=== PATIENT | male | born 1945 | race Caucasian/White ===

== ENCOUNTER → 2016-10-11 | Outpatient (CLI) | payer OTHER, MEDICARE ==
--- NOTE | 2016-10-11 17:02 | DIAGNOSTIC IMAGING REPORT ---
CHEST 2 VIEWS ROUTINE CLINICAL HISTORY: Bronchitis. Shortness of breath. COMPARISON STUDY: 10/26/2015 FINDINGS: The cardiac and mediastinal contours are normal. There is no evidence of focal pulmonary consolidation. There is no evidence of failure. No pleural effusions are visualized.[ There is a mild T12 compression deformity. This remains unchanged. IMPRESSION: No active disease in the chest. Electronically signed by: Matt Gurrola M.D. 10/11/2016 5:01 PM Dictated Date/Time: 10/11/2016 5:00 PM
== END | disposition home or self-care (01) ==
LOC: C.RAD 16:33
PROVIDERS: ATTEND Internal Medicine
DX: J40 Bronchitis, not specified as acute or chronic (principal)

== ENCOUNTER → 2016-11-03 | Outpatient (CLI) | payer OTHER, MEDICARE ==
[2016-11-03 13:26] LABS: BLOOD UREA NITROGEN 16 mg/dl (7-18); BUN/CREATININE RATIO 10.7 (10-20); CARBON DIOXIDE 28 mmol/L (21-32); CHLORIDE 107 mmol/L (98-107); GLUCOSE 160 mg/dl (70-99); POTASSIUM 4.1 mmol/L (3.5-5.1); SODIUM 142 mmol/L (136-145)
[2016-11-03 13:29] LABS: ESTIMATED AVERAGE GLUCOSE 140 mg/dl; HA1C FLAG Normal (Normal)
[2016-11-03 13:46] LABS: CHOLESTEROL 127 mg/dl (0-200); CHOLESTEROL/HDL RATIO 2.7; HDL CHOLESTEROL 47 mg/dl; TRIGLYCERIDES 125 mg/dl (0-150); VERY LOW DENSITY LIPOPROT CALC 25 mg/dl
[2016-11-03 14:39] LABS: CALCIUM 9.3 mg/dl (8.5-10.1)
== END ==
LOC: C.LABSPEC 12:07
PROVIDERS: ATTEND Internal Medicine
DX: I10 Essential (primary) hypertension (principal); E78.5 Hyperlipidemia, unspecified; R73.9 Hyperglycemia, unspecified; N18.9 Chronic kidney disease, unspecified

== ENCOUNTER → 2017-05-05 | Outpatient (CLI) | payer OTHER, MEDICARE ==
[2017-05-05 13:36] LABS: ALT/SGPT 37 U/L (12-78); AST/SGOT 23 U/L (15-37); BLOOD UREA NITROGEN 19 mg/dl (7-18); BUN/CREATININE RATIO 12.6 (10-20); CALCIUM 8.3 mg/dl (8.5-10.1); CARBON DIOXIDE 27 mmol/L (21-32); CHLORIDE 107 mmol/L (98-107); CHOLESTEROL 171 mg/dl (0-200); CHOLESTEROL/HDL RATIO 3.5; GLUCOSE 139 mg/dl (70-99); HDL CHOLESTEROL 49 mg/dl; SODIUM 140 mmol/L (136-145)
[2017-05-05 13:41] LABS: ALB/GLOB RATIO 1.4 (0.9-2); ALKALINE PHOSPHATASE 66 U/L (45-117); ESTIMATED AVERAGE GLUCOSE 137 mg/dl; HA1C FLAG Normal (Normal); TRIGLYCERIDES 180 mg/dl (0-150); VERY LOW DENSITY LIPOPROT CALC 36 mg/dl
[2017-05-05 14:01] LABS: BASO % 0.7 %; BASO ABS # 0.04 K/uL (0-0.2); COMPLETE YES; EOS % 3.5 %; HEMATOCRIT 40.9 % (42-52); IG% 0.2 %; LYMPH % 20.5 %; LYMPH ABS # 1.11 K/uL (1.2-3.4); MEAN CELL VOLUME 87.4 fL (80-100); MEAN CORPUSCULAR HEMOGLOBIN 29.9 pg (25-34); MEAN CORPUSCULAR HGB CONC 34.2 g/dl (32-36); MEAN PLATELET VOLUME 10.7 fL (7.4-10.4); MONO % 10.9 %; NEUT % 64.2 %; PLATELET COUNT 164 K/uL (130-400); RED BLOOD COUNT 4.68 M/uL (4.7-6.1); WHITE BLOOD COUNT 5.42 K/uL (4.8-10.8)
== END | disposition home or self-care (01) ==
LOC: C.LABSPEC 12:36
PROVIDERS: ATTEND Internal Medicine
DX: I12.9 Hypertensive chronic kidney disease with stage 1 through stage 4 chronic kidney disease, or unspecified chronic kidney disease (principal); E78.5 Hyperlipidemia, unspecified; R73.9 Hyperglycemia, unspecified; N18.9 Chronic kidney disease, unspecified

== ENCOUNTER → 2017-05-06 | Outpatient (CLI) | payer OTHER, MEDICARE | END | disposition home or self-care (01) | LOC: C.LABSPEC 12:27 | PROVIDERS: ATTEND Internal Medicine | DX: Z12.11 Encounter for screening for malignant neoplasm of colon (principal) ==

== ENCOUNTER → 2017-11-08 | Outpatient (CLI) | payer OTHER, MEDICARE ==
[2017-11-08 12:58] LABS: BASO % 0.4 %; BASO ABS # 0.02 K/uL (0-0.2); EOS % 4.3 %; EOS ABS # 0.23 K/uL (0-0.5); HEMATOCRIT 41.9 % (42-52); HEMOGLOBIN 14.3 g/dL (14.0-18.0); IG# 0.02 K/uL (0.00-0.02); LYMPH % 17.7 %; LYMPH ABS # 0.94 K/uL (1.2-3.4); MEAN CELL VOLUME 86.4 fL (80-100); MEAN CORPUSCULAR HEMOGLOBIN 29.5 pg (25-34); MEAN CORPUSCULAR HGB CONC 34.1 g/dl (32-36); MEAN PLATELET VOLUME 10.4 fL (7.4-10.4); MONO ABS # 0.53 K/uL (0.11-0.59); NEUT % 67.2 %; NEUT ABS # 3.58 K/uL (1.4-6.5); PLATELET COUNT 153 K/uL (130-400); RED CELL DISTRIBUTION WIDTH CV 13.6 % (11.5-14.5); RED CELL DISTRIBUTION WIDTH SD 42.6 fL (36.4-46.3); WHITE BLOOD COUNT 5.32 K/uL (4.8-10.8)
[2017-11-08 13:16] LABS: ALBUMIN 3.7 gm/dl (3.4-5.0); ALT/SGPT 45 U/L (12-78); AST/SGOT 23 U/L (15-37); BLOOD UREA NITROGEN 19 mg/dl (7-18); CALCIUM 8.5 mg/dl (8.5-10.1); CARBON DIOXIDE 27 mmol/L (21-32); CREATININE 1.48 mg/dl (0.60-1.40); GLUCOSE 161 mg/dl (70-99); SODIUM 137 mmol/L (136-145)
[2017-11-08 13:27] LABS: ALKALINE PHOSPHATASE 70 U/L (45-117); CHOLESTEROL 147 mg/dl (0-200); LDL CHOLESTEROL (DIRECT) 78 mg/dl; TOTAL PROTEIN 7.1 gm/dl (6.4-8.2)
[2017-11-09 07:44] LABS: HEMOGLOBIN A1C 7.1 % (4.5-5.6)
== END | disposition home or self-care (01) ==
LOC: C.LABSPEC 12:23
PROVIDERS: ATTEND Internal Medicine
DX: I12.9 Hypertensive chronic kidney disease with stage 1 through stage 4 chronic kidney disease, or unspecified chronic kidney disease (principal); E78.5 Hyperlipidemia, unspecified; N18.9 Chronic kidney disease, unspecified; R73.9 Hyperglycemia, unspecified; R60.9 Edema, unspecified

== ENCOUNTER → 2017-11-08 | Outpatient (CLI) | payer OTHER, MEDICARE ==
--- NOTE | 2017-11-08 11:16 | DIAGNOSTIC IMAGING REPORT ---
CHEST 2 VIEWS ROUTINE HISTORY: 72 years-old Male FLUID ON LUNGS acute shortness of breath with possible pulmonary edema COMPARISON: Chest radiograph 10/11/2016 TECHNIQUE: PA and lateral views of the chest FINDINGS: Cardiomediastinal and hilar silhouettes are within normal limits. Atherosclerosis of the aorta. No pneumothorax, pleural effusion, focal airspace consolidation or overt pulmonary edema. 20% anterior endplate compression deformity of a lower thoracic vertebral segment which appears to be T12 is unchanged from comparison. Degenerative changes of the shoulders and spine. IMPRESSION: No acute process. The above report was generated using voice recognition software. It may contain grammatical, syntax or spelling errors. Electronically signed by: Estevan Mcclain M.D. 11/08/2017 11:14 AM Dictated Date/Time: 11/08/2017 11:12 AM
== END | disposition home or self-care (01) ==
LOC: C.RAD 10:35
PROVIDERS: ATTEND Internal Medicine
DX: R06.00 Dyspnea, unspecified (principal)

== ENCOUNTER → 2017-11-29 | Outpatient (CLI) | payer OTHER, MEDICARE ==
[~2017-11-29] VITALS: Ht 167.6 cm; Wt 95.5 kg
[2017-11-29 12:54] VITALS: BP_DIAS 80
[2017-11-29 12:57] VITALS: Ht 167.6 cm; Wt 95.5 kg
== END | disposition home or self-care (01) ==
LOC: C.NRED 08:48
PROVIDERS: ATTEND Internal Medicine
DX: E11.9 Type 2 diabetes mellitus without complications (principal)

== ENCOUNTER 2021-09-08 10:34 | Inpatient (IN) ==
[2021-09-08] MEDS ORDERED: fentaNYL citrate 100 MCG/2 ML VIAL IV STA (11:05)
[2021-09-08 11:35] LABS: Basophils # (auto) 0.03 K/uL (0-0.2); Basophils % (auto) 0.5 %; Eosinophils # (auto) 0.28 K/uL (0-0.5); Eosinophils % (auto) 4.7 %; Hematocrit (blood only) 41.8 % (42-52); Immature Granulocytes # (auto) 0.05 K/uL (0.00-0.02); Immature Granulocytes % (auto) 0.8 %; Lymphocytes # (auto) 0.96 K/uL (1.2-3.4); Lymphocytes % (auto) 16.1 %; Mean Corpuscular Hemoglobin 29.4 pg (25-34); Mean Corpuscular Hgb Conc 33.5 g/dL (32-36); Mean Corpuscular Volume 87.8 fL (80-100); Mean Platelet Volume 10.2 fL (7.4-10.4); Monocytes # (auto) 0.47 K/uL (0.11-0.59); Monocytes % (auto) 7.9 %; Neutrophils # (auto) 4.16 K/uL (1.4-6.5); Platelet Count 224 K/uL (130-400); RDW Coefficient of Variation 14.5 % (11.5-14.5); RDW Standard Deviation 46.6 fL (36.4-46.3); Red Blood Count 4.76 M/uL (4.7-6.1); White Blood Count 5.95 K/uL (4.8-10.8)
--- NOTE | 2021-09-08 11:44 | Emergency Department Note ---
Impression & Plan Multiple closed fractures of ribs of left side, Hypertension, Fall due to ice or snow, Multifocal pneumonia ED Provider Note Provider: Vincent Perez MD DATE OF SERVICE: 09/08/2021 CHIEF COMPLAINT: Left rib pain from fall HISTORY OF PRESENT ILLNESS: Patient is a 76-year-old gentleman history of Covid, fall last week, and hypertension presenting here today for uncontrolled pain of the left side of his chest. Patient states he slipped on some ice and fell and was seen here last week for this. Patient states he was diagnosed with rib fractures. Has been using lidocaine patch and [id number] Tylenol and ibuprofen as well as prescribed oxycodone for the last several days. States yest erday developed a mildly productive cough and some worsening pain. Patient denies any more falls. States he has some bruising of his elbow that he landed on but this is working fairly well. Reports significant pain in the left lateral chest to a little bit behind the left shoulder blade. Has not been taking all of his hypertensive medicines per his report. Given his uncontrolled pain came here for further evaluation. Patient with a bit of cough again since yesterday but no fever or chills. With the cough some increased pain in the left chest. Patient previously had Covid and perhaps a mild pneumonia in June. Patient was not hospitalized. REVIEW OF SYSTEMS: A total of 10 review of systems was obtained and negative except as stated above in the HPI. PAST MEDICAL HISTORY: As noted above MEDICATIONS: Reviewed home medications with the patient but he states he has not been taking all of his blood pressure medicine regularly except his propranolol SOCIAL HISTORY: Lives at home, non-smoker PHYSICAL EXAM: GENERAL: alert and oriented in no acute distress standing in room Head: normocephalic and atraumatic EYES: No injection, discharge or icterus. NECK: Trachea midline. ENT: Mucous membranes pink and moist. LUNGS: Airway patent. No retractions. Breath sounds clear with good air entry bilaterally. Pain with deep breathing. HEART: Regular rate and rhythm. Left axillary chest wall tenderness. No significant overlying chest wall bruising noted. No significant left scapular tenderness. ABDOMEN: Soft and non-tender, without guarding or rebound. SKIN: Acyanotic, warm, dry, without rashes EXTREMITIES: Without swelling, tenderness or deformity with minimal tenderness of the left elbow. NEUROLOGICAL: No focal deficits. No aphasia. No facial droop or slurred speech. Ambulatory. Significant pain with changing position from sitting to standing on the left chest EK bpm sinus bradycardia first-degree AV block. Some respiratory artifact. No PVC noted. No acute ST segment elevation noted. QTc 405. CONTINUOUS CARDIAC MONITORING: was ordered and showed a heart rate of 40s-50s bpm in sinus bradycardia GCS 15. Patient's laboratory studies and imaging reviewed. Differential includes Cardiac ischemia, aortic dissection, pulmonary embolism, pneumothorax, pneumonia, pericarditis, myocarditis, esophageal rupture, GERD, cholecystitis, pancreatitis, musculoskeletal, as well as other pathologies. IMPRESSION/MEDICAL DECISION MAKING: Patient given some IV pain medicine and basic labs were obtained. Seems less likely to be ACS. Some question given his hypertension and the location of pain if this could be dissection although likely related to his rib fractures. Had multiple rib fractures and chest and rib x-rays last week. A CT be completed today with contrast to exclude dissection and further evaluate the lung parenchyma and ribs. CT abdomen pelvis completed 2 given his pain does extend a little bit of the left upper quadrant although likely just along the rib cage. Benign abdomen otherwise. Patient ambulatory here and not hypoxic. Question possible development of some atelectasis versus pneumonia given his pain and mildly productive cough. Blood work is reassuring. Patient declined fentanyl did issues with his in the past but was accepting of some morphine eventually. CT scan of the chest as well as abdomen pelvis per radiology with evidence of trace effusions and 6 left-sided rib fractures. Patient with findings concerning for multifocal pneumonia. Not hypoxic here. Discussed with patient findings. Recommended admission for further care of his pain and treatment of the pneumonia. Patient was agreeable. Covid testing negative. Hospitalist contacted. Believe the group amount of his hypertension is related to his pain but patient aware. DIAGNOSIS: Left-sided rib fractures, multifocal pneumonia, hypertension, fall on ice - last week DISPOSITION: Hospitalist will evaluate Patient was agreeable with this plan. Past Med/Surg History Medical History Acquired solitary kidney Benign prostatic hyperplasia with urinary obstruction CKD (chronic kidney disease) Baseline Cr 1.4-1.5- /PT DENIES Diabetes NO INSULIN Dysuria Enlarged prostate Gross hematuria Hearing loss Hyperlipidemia Hyperlipidemia Hypertension Hypertension Melanoma HX- REMOVED TO CHEST Obesity Solitary kidney Tinnitus Type 2 diabetes mellitus Ureteral stricture Urinary retention Surgical History H/O colonoscopy History of adenoidectomy History of bladder surgery TURBT 06/2018 Hx of carpal tunnel repair right and left Hx of cystoscopy Hx of inguinal hernia repair Hx of tonsillectomy Nasal polyp Removed Family History Mother Hypertension Brother Heart disease Other No significant family history Denies family history of Hearing loss No family history of adverse response to anesthesia No family history of bleeding disorder Allergies Cancer Stroke Asthma Social History Smoking Status: Never smoker Second Hand Exposure: No; Hx Alcohol Use: Yes Alcohol type: beer Hx Substance Use: No Preferred Language: Romansh Communication Ability: Effective Visual Impairment: No Limitations 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 Beliefs That Will Affect Care: None marital status: / Current Living Situation: Family current occupational status: retired Feels Safe at Home: Yes Assistive Devices: Glasses Allergies Allergies Allergy/AdvReac Type Severity Reaction Status Date / Time No Known Drug Allergies Allergy Verified 06/24/20 09:57 Home Meds Home Medications Medication Instructions Recorded Confirmed amlodipine 10 mg tablet 10 mg PO QAM 06/19/18 09/08/21 atorvastatin 40 mg tablet 40 mg PO QPM 06/19/18 09/08/21 doxazosin 4 mg tablet 4 mg PO QPM 06/19/18 09/08/21 glipizide 2.5 mg tablet, extended 2.5 mg PO BID 06/19/18 09/08/21 release 24 hr losartan 100 mg tablet 100 mg PO QAM 06/19/18 09/08/21 propranolol 60 mg tablet 60 mg PO BID 06/19/18 09/08/21 tamsulosin 0.4 mg capsule 0.4 mg PO BID 08/30/18 09/02/21 furosemide 20 mg tablet 10 mg PO QAM 09/27/18 09/08/21 cephalexin 500 mg capsule 500 mg PO BID PRN 08/03/21 09/08/21 Previous Rx's Medication Instructions Recorded docusate sodium 100 mg capsule 100 mg PO BID #60 cap 09/02/21 (Colace) lidocaine 5 % topical patch 1 patch TOPICAL DAILY #15 ea 09/02/21 oxycodone 5 mg tablet 5 mg PO Q6H PRN #20 tab 09/02/21 Results & Data (ED) Vital Signs Vital Signs - 24 hr 09/08/21 10:43 09/08/21 11:21 09/08/21 11:23 Temperature 36.5 C Temperature Source Oral Pulse Rate 60 52 L 52 L Pulse Rate from SpO2 Sensor 51 L Respiratory Rate 18 21 21 Blood Pressure 233/105 H 178/89 H Blood Pressure Mean 147 118 Pulse Oximetry 961 H 96 Oxygen Delivery Method Room Air Sepsis Recent Fever Within 48 Hours No Sepsis New/Unexplained Change in Mental Status N/A Sepsis Action Taken by Nursing No Action Required 09/08/21 11:30 09/08/21 11:40 09/08/21 11:50 Temperature Temperature Source Pulse Rate 52 L 51 L 49 L Pulse Rate from SpO2 Sensor 53 L 50 L 49 L Respiratory Rate 19 20 20 Blood Pressure 198/105 H Blood Pressure Mean 136 Pulse Oximetry 96 96 96 Oxygen Delivery Method Sepsis Recent Fever Within 48 Hours Sepsis New/Unexplained Change in Mental Status Sepsis Action Taken by Nursing 09/08/21 12:00 09/08/21 12:10 09/08/21 12:20 Temperature Temperature Source Pulse Rate 47 L 46 L 48 L Pulse Rate from SpO2 Sensor 46 L 46 L 47 L Respiratory Rate 20 20 19 Blood Pressure 173/86 H Blood Pressure Mean 115 Pulse Oximetry 94 96 96 Oxygen Delivery Method Sepsis Recent Fever Within 48 Hours Sepsis New/Unexplained Change in Mental Status Sepsis Action Taken by Nursing 09/08/21 12:48 09/08/21 12:50 09/08/21 13:08 Temperature Temperature Source Pulse Rate 52 L 48 L Pulse Rate from SpO2 Sensor 49 L Respiratory Rate 28 H 24 21 Blood Pressure Blood Pressure Mean Pulse Oximetry 96 Oxygen Delivery Method Sepsis Recent Fever Within 48 Hours Sepsis New/Unexplained Change in Mental Status Sepsis Action Taken by Nursing 09/08/21 13:09 09/08/21 13:10 09/08/21 13:20 Temperature Temperature Source Pulse Rate 51 L 50 L 49 L Pulse Rate from SpO2 Sensor 51 L 51 L 48 L Respiratory Rate 21 19 22 Blood Pressure 200/84 H Blood Pressure Mean 122 Pulse Oximetry 96 96 96 Oxygen Delivery Method Sepsis Recent Fever Within 48 Hours Sepsis New/Unexplained Change in Mental Status Sepsis Action Taken by Nursing 09/08/21 13:30 09/08/21 13:40 09/08/21 13:50 Temperature Temperature Source Pulse Rate 49 L 48 L 52 L Pulse Rate from SpO2 Sensor 49 L 48 L 52 L Respiratory Rate 18 19 28 H Blood Pressure 196/96 H Blood Pressure Mean 129 Pulse Oximetry 94 92 96 Oxygen Delivery Method Sepsis Recent Fever Within 48 Hours Sepsis New/Unexplained Change in Mental Status Sepsis Action Taken by Nursing 09/08/21 14:12 09/08/21 14:20 09/08/21 14:30 Temperature Temperature Source Pulse Rate 49 L 58 L Pulse Rate from SpO2 Sensor 53 L 50 L 58 L Respiratory Rate 21 18 Blood Pressure Blood Pressure Mean Pulse Oximetry 97 96 96 Oxygen Delivery Method Sepsis Recent Fever Within 48 Hours Sepsis New/Unexplained Change in Mental Status Sepsis Action Taken by Nursing 09/08/21 15:05 09/08/21 15:06 09/08/21 15:10 Temperature Temperature Source Pulse Rate 54 L 49 L 50 L Pulse Rate from SpO2 Sensor 54 L 50 L 50 L Respiratory Rate 21 20 20 Blood Pressure 200/97 H Blood Pressure Mean 131 Pulse Oximetry 97 97 96 Oxygen Delivery Method Sepsis Recent Fever Within 48 Hours Sepsis New/Unexplained Change in Mental Status Sepsis Action Taken by Nursing 09/08/21 15:20 09/08/21 15:30 09/08/21 15:45 Temperature Temperature Source Pulse Rate 73 55 L 52 L Pulse Rate from SpO2 Sensor 54 L 55 L 51 L Respiratory Rate 14 16 20 Blood Pressure 179/104 H 219/107 H Blood Pressure Mean 129 144 Pulse Oximetry 95 96 95 Oxygen Delivery Method Sepsis Recent Fever Within 48 Hours Sepsis New/Unexplained Change in Mental Status Sepsis Action Taken by Nursing 09/08/21 15:50 09/08/21 16:00 09/08/21 16:42 Temperature 36.8 C Temperature Source Oral Pulse Rate 52 L 48 L 54 L Pulse Rate from SpO2 Sensor 51 L 48 L Respiratory Rate 21 18 20 Blood Pressure 174/98 H 200/94 H Blood Pressure Mean 123 Pulse Oximetry 95 96 98 Oxygen Delivery Method Room Air Sepsis Recent Fever Within 48 Hours Sepsis New/Unexplained Change in Mental Status Sepsis Action Taken by Nursing Laboratory Data Result diagrams: 09/08/21 11:25 09/08/21 11:25 Lab Results 09/08/21 09/08/21 09/08/21 Range/Units 11:25 11:25 11:25 WBC 5.95 (4.8-10.8) K/uL RBC 4.76 (4.7-6.1) M/uL Hgb 14.0 (14.0-18.0) g/dL Hct 41.8 L (42-52) % MCV 87.8 (80-100) fL MCH 29.4 (25-34) pg MCHC 33.5 (32-36) g/dL RDW Std Deviation 46.6 H (36.4-46.3) fL RDW Coeff of Haylie 14.5 (11.5-14.5) % Plt Count 224 (130-400) K/uL MPV 10.2 (7.4-10.4) fL Immature Gran % (Auto) 0.8 % Neut % (Auto) 70.0 % Lymph % (Auto) 16.1 % [place] % (Auto) 7.9 % Eos % (Auto) 4.7 % Baso % (Auto) 0.5 % Neut # (Auto) 4.16 (1.4-6.5) K/uL Lymph # (Auto) 0.96 L (1.2-3.4) K/uL [place] # (Auto) 0.47 (0.11-0.59) K/uL Eos # (Auto) 0.28 (0-0.5) K/uL Baso # (Auto) 0.03 (0-0.2) K/uL Immature Gran # (Auto) 0.05 H (0.00-0.02) K/uL PT 9.5 (9.0-12.0) Seconds INR 0.9 (0.9-1.1) Sodium 139 (136-145) mmol/L Potassium 3.7 (3.5-5.1) mmol/L Chloride 107 (98-107) mmol/L Carbon Dioxide 26 (21-32) mmol/L Anion Gap 6 (3-11) BUN 14 (6-23) mg/dl Creatinine 1.18 (0.6-1.4) mg/dl Est Cr Clr Drug Dosing 56.0 ml/min Est GFR ( Amer) 68.1 ml/min Est GFR (Non-Af Amer) 58.8 ml/min BUN/Creatinine Ratio 11.9 (10-20) Glucose 154 H (70-99(Fasting)) mg/dl Calcium 8.9 (8.5-10.1) mg/dl Total Bilirubin 0.4 (0.2-1.0) mg/dl AST 19 (13-39) U/L ALT 25 (7-52) U/L Alkaline Phosphatase 72 (34-104) U/L Troponin I < 0.03 (0-0.04) ng/ml Total Protein 7.1 (6.0-8.3) gm/dl Albumin 4.0 (3.4-5.0) gm/dl Globulin 3.1 (2.5-4.0) gm/dl Albumin/Globulin Ratio 1.3 (0.9-2) Procalcitonin (0-0.5) ng/ml SARS-CoV-2, RNA, NAAT (NEGATIVE) 09/08/21 09/08/21 Range/Units 11:25 14:00 WBC (4.8-10.8) K/uL RBC (4.7-6.1) M/uL Hgb (14.0-18.0) g/dL Hct (42-52) % MCV (80-100) fL MCH (25-34) pg MCHC (32-36) g/dL RDW Std Deviation (36.4-46.3) fL RDW Coeff of Haylie (11.5-14.5) % Plt Count (130-400) K/uL MPV (7.4-10.4) fL Immature Gran % (Auto) % Neut % (Auto) % Lymph % (Auto) % [place] % (Auto) % Eos % (Auto) % Baso % (Auto) % Neut # (Auto) (1.4-6.5) K/uL Lymph # (Auto) (1.2-3.4) K/uL [place] # (Auto) (0.11-0.59) K/uL Eos # (Auto) (0-0.5) K/uL Baso # (Auto) (0-0.2) K/uL Immature Gran # (Auto) (0.00-0.02) K/uL PT (9.0-12.0) Seconds INR (0.9-1.1) Sodium (136-145) mmol/L Potassium (3.5-5.1) mmol/L Chloride (98-107) mmol/L Carbon Dioxide (21-32) mmol/L Anion Gap (3-11) BUN (6-23) mg/dl Creatinine (0.6-1.4) mg/dl Est Cr Clr Drug Dosing ml/min Est GFR ( Amer) ml/min Est GFR (Non-Af Amer) ml/min BUN/Creatinine Ratio (10-20) Glucose (70-99(Fasting)) mg/dl Calcium (8.5-10.1) mg/dl Total Bilirubin (0.2-1.0) mg/dl AST (13-39) U/L ALT (7-52) U/L Alkaline Phosphatase (34-104) U/L Troponin I (0-0.04) ng/ml Total Protein (6.0-8.3) gm/dl Albumin (3.4-5.0) gm/dl Globulin (2.5-4.0) gm/dl Albumin/Globulin Ratio (0.9-2) Procalcitonin < 0.05 (0-0.5) ng/ml SARS-CoV-2, RNA, NAAT NEGATIVE (NEGATIVE) Administered Medications Discontinued Medications Azithromycin (Azithromycin 250 Mg Tab) 500 mg PO NOW ONE Stop: 09/08/21 13:52 Last Admin: 09/08/21 14:15 Dose: 500 mg Documented by: [id number] Fentanyl Citrate (Fentanyl Citrate 100 Mcg/2 Ml Vial) 100 mcg IV NOW STA Stop: 09/08/21 11:06 Last Admin: 09/08/21 11:31 Dose: Not Given Documented by: [id number] Ceftriaxone Sodium (Rocephin) 2,000 mg in 70 mls @ 140 mls/hr IV NOW STA Stop: 09/08/21 14:20 Last Admin: 09/08/21 14:15 Dose: 140 mls/hr Documented by: [id number] Ioversol (Optiray 320 125ml) 120 ml IV ONCE ONE Stop: 09/08/21 12:49 Last Admin: 09/08/21 12:48 Dose: 120 ml Documented by: [id number] Losartan Potassium (Losartan Potassium 50 Mg Tab) 100 mg PO NOW STA Stop: 09/08/21 15:36 Last Admin: 09/08/21 16:44 Dose: 100 mg Documented by: [id number] Morphine Sulfate (Morphine Sulfate 4 Mg/Ml 1 Ml Carp\Vial) 4 mg IV NOW STA Stop: 09/08/21 13:52 Last Admin: 09/08/21 15:07 Dose: 4 mg Documented by: [id number] Imaging Data Radiologist's Impression: Abdomen/Pelvis CT 09/08/21 11:05 CT SCAN OF THE ABDOMEN AND PELVIS WITH IV CONTRAST CLINICAL HISTORY: Trauma. Fall. Left-sided chest wall pain. COMPARISON STUDY: Abdominal CT dated 06/05/2018. TECHNIQUE: Following the IV administration of 120 cc of Optiray 320, CT scan of the abdomen and pelvis is performed from the lung bases to the proximal femora. Images are reviewed in the axial, sagittal, and coronal planes. IV contrast was administered without complication. A dose lowering technique was utilized adhering to the principles of ALARA. There is streak artifact from the left arm which could not be elevated above the chest. CT DOSE: 2700.80 mGy.cm FINDINGS: Lung bases: The heart is mildly enlarged and without pericardial effusion. The coronary arteries are densely calcified. There is a small left pleural effusion with left basilar consolidation. The right lung base appears clear noting basilar atelectasis. There is no basilar pneumothorax. A tiny hiatal hernia is observed. Liver: The contrast-enhanced liver is normal in size, contour, and attenuation. There is no intrahepatic biliary ductal dilatation. The hepatic veins and portal veins are patent. Gallbladder: Unremarkable. Spleen: Normal in size and attenuation. Pancreas: There is moderate glandular atrophy of the pancreas. A 2.1 cm cystic lesion in the pancreatic head is seen on image #175. Adrenal glands: Unremarkable. Kidneys: The left kidney is not identified and presumed surgically absent. The right kidney is normal in size and without hydronephrosis. 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 Additional subcentimeter cortical hypodensities likely represent cysts but are too small for definitive characterization. The right kidney enhances homogeneously. Abdominal vasculature: The abdominal aorta is normal in course and caliber noting advanced atherosclerotic calcification. Bowel: Moderate fecal retention is seen throughout the colon. There is no bowel obstruction. The appendix is well-visualized and normal. Peritoneum: There is trace perihepatic ascites. No intraperitoneal free air is identified. Lymphadenopathy: None. Pelvic viscera: The prostate gland is enlarged and heterogeneous, measuring 6.5 cm in transverse diameter. The bladder is mildly distended. The bladder wall is thickened and trabeculated indicating chronic outlet obstruction. Skeletal structures: The skeletal structures are osteopenic. No lytic or blastic lesions are seen. There are acute left lateral 7th through 9th rib fractures. The lumbosacral spine and proximal femora appear intact. IMPRESSION: 1. There are acute left-sided rib fractures as above. 2. Small left pleural effusion with left basilar consolidation. 3. There is no evidence of solid organ injury in the abdomen or pelvis. 4. A 2.1 cm simple cystic lesion in the pancreatic head has been present dating back to 2018 and likely represents an IPMN versus mucinous cystic neoplasm. 5. 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 6. Trace perihepatic ascites. 7. Moderate colonic fecal retention. 8. Additional findings as above. ACT 112: Negative or not required by law. Electronically signed by: Paddy Amador M.D. 09/08/2021 1:37 PM Chest CTA 09/08/21 11:05 CT angio chest w con HISTORY: 76 years-old Male fall luq pain, rib pain to left scapu, htn acute chest wall and left upper quadrant abdominal pain COMPARISON: CT abdomen and pelvis of same day, CTA chest 07/06/2021 TECHNIQUE: CTA of the chest was obtained following the intravenous administration of 120 mL Optiray 320. 3-D coronal and sagittal MIPS were obtained from the axial data set and were symmetric for review. All measurements were obtained according to NASCET criteria. A dose lowering technique was used consistent with the principals of ALARA. FINDINGS: CTA: Mild cardiomegaly. No pericardial effusion. Extensive coronary artery calcifications. Atherosclerosis of the thoracic aorta without aneurysm or dissection. Unremarkable pulmonary artery. No mediastinal or intramural hematoma. CT CHEST: Trace right with small to moderate left pleural effusions. No pneumothorax. Mild intralobular septal thickening and bronchial wall thickening. Patchy bilateral groundglass densities with left upper lobe, lingular and left lower lobe c onsolidation with intermixed groundglass opacities. There is mildly improved aeration of the right lung compared to the prior study. The consolidation within the left lung prominently was previously mostly groundglass density. Circumscribed 10 mm solid nodule within the right lower lobe on image 155 is unchanged and demonstrates critical central macroscopic fat. Stable 4 mm nodule of the lateral segment right middle lobe. Equivocal 4 mm nodule the right lower lobe on image 204. No acute process of the imaged upper abdomen. Unremarkable soft tissues. No acute fracture. IMPRESSION: 1. Cardiomegaly. No evidence of pulmonary thromboembolic disease or acute aortic pathology. 2. Trace right and [id number] left pleural effusions. 3. Left greater than right bilateral groundglass and consolidative opacities are suggestive of multifocal pneumonia. There is mild improved aeration of the right lung compared to the 07/06/2021 study. 4. Unchanged 4 mm right middle lobe and 10 mm right lower lobe pulmonary nodules. The 10 mm nodule demonstrates equivocal macroscopic fat suspicious for pulmonary hamartoma. Follow-up guidelines below. 5. No adenopathy. Please refer to below summary of Fleischner criteria recommendations for follow- up of incidental CT nodules (Kathryn Maria, Guidelines for management of small pulmonary nodules detected on CT scans: A statement from the Fleischner Society, Radiology 237: [id number].) SOLID NODULES Multiple nodules size: <6 mm * Low risk patients: no routine follow-up * high risk patients: optional CT at 12 months Multiple nodules size: 6-8 mm * Low risk patients: follow-up at 3-6 months, then consider further follow-up at 18-24 months * high risk patients: follow-up at 3-6 months, then at 18-24 months if no change Multiple nodules size: >8 mm * Low risk patients: follow-up at 3-6 months, then consider further follow-up at 18-24 months * high risk patients: follow-up at 3-6 months, then at 18-24 months if no change Note: newly detected indeterminate nodule in persons 35 years of age or older. * Low risk patients: minimal or absent history of smoking and/or other known risk factors * high risk patients: history of smoking or of other known risk factors (e.g. first degree relative with lung cancer, or exposure to asbestos, radon, uranium) * if a nodule up to 8 mm is partly solid or is ground glass further follow-up is required after 24 months to exclude possible slow growing adenocarcinoma (RHIANNA) The above report was generated using voice recognition software. It may contain grammatical, syntax or spelling errors. ACT 112: Negative or not required by law. The above report was generated using voice recognition software. It may contain grammatical, syntax or spelling errors. Electronically signed by: Rk Mcclain M.D. 09/08/2021 1:22 PM Discharge Plan Visit Data Chief Complaint: Rib Injury/Pain Stated Complaint: LT SIDED RIB FX,EXTREME PAIN,SOB,COUGHING ED Provider: Vincent Perez Discharge Problem: Multiple closed fractures of ribs of left side, Hypertension, Fall due to ice or snow, Multifocal pneumonia Patient Disposition: Admitted As Inpatient Discharge Instructions Interventions: ED Discharge Assessment Last Done: 09/08/21 16:42 Forms Stand Alone Forms: [facility] Prescriptions Prescriptions: No Action cephalexin 500 mg capsule 500 mg PO BID PRN (Reason: Other) RF: 0 atorvastatin 40 mg Tablet 40 mg PO QPM RF: 0 propranolol 60 mg Tablet 60 mg PO BID RF: 0 amlodipine 10 mg Tablet 10 mg PO QAM RF: 0 glipizide 2.5 mg Tablet Extended Release 24hr 2.5 mg PO BID RF: 0 doxazosin 4 mg Tablet 4 mg PO QPM RF: 0 losartan 100 mg Tablet 100 mg PO QAM RF: 0 tamsulosin 0.4 mg Capsule 0.4 mg PO BID RF: 0 furosemide 20 mg Tablet 10 mg PO QAM RF: 0 oxycodone 5 mg tablet 5 mg PO Q6H PRN (Reason: pain) Qty: 20 RF: 0 docusate sodium [Colace] 100 mg capsule 100 mg PO BID Qty: 60 RF: 0 lidocaine 5 % adhesive patch,medicated 1 patch topical DAILY Qty: 15 RF: 0 Referrals Referrals: Jermain Reddy MD [Primary Care Provider] -
[2021-09-08 11:47] LABS: INR 0.9 (0.9-1.1); Prothrombin Time 9.5 Seconds (9.0-12.0)
[2021-09-08 11:56] LABS: Troponin I < 0.03 ng/ml (0-0.04)
[2021-09-08 11:58] LABS: Alanine Aminotransferase 25 U/L (7-52); Albumin Globulin Ratio 1.3 (0.9-2); Alkaline Phosphatase 72 U/L (34-104); Anion Gap 6 (3-11); Aspartate Aminotransferase 19 U/L (13-39); BUN Creatinine Ratio 11.9 (10-20); Bilirubin,Total 0.4 mg/dl (0.2-1.0); Blood Urea Nitrogen 14 mg/dl (6-23); Calcium 8.9 mg/dl (8.5-10.1); Carbon Dioxide 26 mmol/L (21-32); Chloride 107 mmol/L (98-107); Est GFR (African American) 68.1 ml/min; Est GFR (Non-African American) 58.8 ml/min; Globulin 3.1 gm/dl (2.5-4.0); Glucose 154 mg/dl (70-99(Fasting)); Potassium 3.7 mmol/L (3.5-5.1); Sodium 139 mmol/L (136-145); Total Protein 7.1 gm/dl (6.0-8.3)
[2021-09-08] MEDS ORDERED: OPTIRAY 320 125ml IV ONE (12:48)
--- NOTE | 2021-09-08 13:23 | CT Scan Report ---
CT angio chest w con HISTORY: 76 years-old Male fall luq pain, rib pain to left scapu, htn acute chest wall and left uppe r quadrant abdominal pain COMPARISON: CT abdomen and pelvis of same day, CTA chest 07/06/2021 TECHNIQUE: CTA of the chest was obtained following the intravenous administration of 120 mL Optiray 3 20. 3-D coronal and sagittal MIPS were obtained from the axial data set and were symmetric for review . All measurements were obtained according to NASCET criteria. A dose lowering technique was used con sistent with the principals rufino MORTON. FINDINGS: CTA: Mild cardiomegaly. No pericardial effusion. Extensive coronary artery calcifications. Atherosclerosis of the thoracic aorta without aneurysm or dissection. Unremarkable pulmonary artery. No mediastinal or intramural hematoma. CT CHEST: Trace right with small to moderate left pleural effusions. No pneumothorax. Mild intralobular septal thickening and bronchial wall thickening. Patchy bilateral groundglass densities with left upper lobe , lingular and left lower lobe consolidation with intermixed groundglass opacities. There is mildly i mproved aeration of the right lung compared to the prior study. The consolidation within the left mónica g prominently was previously mostly groundglass density. Circumscribed 10 mm solid nodule within the right lower lobe on image 155 is unchanged and demonstrates critical central macroscopic fat. Stable 4 mm nodule of the lateral segment right middle lobe. Equivocal 4 mm nodule the right lower lobe on i mage 204. No acute process of the imaged upper abdomen. Unremarkable soft tissues. No acute fracture. IMPRESSION: 1. Cardiomegaly. No evidence of pulmonary thromboembolic disease or acute aortic pathology. 2. Trace right and leish-ra-ccqnmbhe left pleural effusions. 3. Left greater than right bilateral groundglass and consolidative opacities are suggestive of multif ocal pneumonia. There is mild improved aeration of the right lung compared to the 07/06/2021 study. 4. Unchanged 4 mm right middle lobe and 10 mm right lower lobe pulmonary nodules. The 10 mm nodule de monstrates equivocal macroscopic fat suspicious for pulmonary hamartoma. Follow-up guidelines below. 5. No adenopathy. Please refer to below summary of Fleischner criteria recommendations for follow-up of incidental CT n odules (Kathryn Maria, Guidelines for management of small pulmonary nodules detected on CT scans: A sta tement from the Fleischner Society, Radiology 237: [phone].) SOLID NODULES Multiple nodules size: <6 mm * Low risk patients: no routine follow-up * high risk patients: optional CT at 12 months Multiple nodules size: 6-8 mm * Low risk patients: follow-up at 3-6 months, then consider further follow-up at 18-24 months * high risk patients: follow-up at 3-6 months, then at 18-24 months if no change Multiple nodules size: >8 mm * Low risk patients: follow-up at 3-6 months, then consider further follow-up at 18-24 months * high risk patients: follow-up at 3-6 months, then at 18-24 months if no change Note: newly detected indeterminate nodule in persons 35 years of age or older. * Low risk patients: minimal or absent history of smoking and/or other known risk factors * high risk patients: history of smoking or of other known risk factors (e.g. first degree relative with lung cancer, or exposure to asbestos, radon, uranium) * if a nodule up to 8 mm is partly solid or is ground glass further follow-up is required after 24 m onths to exclude possible slow growing adenocarcinoma (RHIANNA) The above report was generated using voice recognition software. It may contain grammatical, syntax o r spelling errors. ACT 112: Negative or not required by law. The above report was generated using voice recognition software. It may contain grammatical, syntax o r spelling errors. Electronically signed by: Rk Mcclain M.D. 09/08/2021 1:22 PM
--- NOTE | 2021-09-08 13:39 | CT Scan Report ---
CT SCAN OF THE ABDOMEN AND PELVIS WITH IV CONTRAST CLINICAL HISTORY: Trauma. Fall. Left-sided chest wall pain. COMPARISON STUDY: Abdominal CT dated 06/05/2018. TECHNIQUE: Following the IV administration of 120 cc of Optiray 320, CT scan of the abdomen and pelv is is performed from the lung bases to the proximal femora. Images are reviewed in the axial, sagitta l, and coronal planes. IV contrast was administered without complication. A dose lowering technique w as utilized adhering to the principles of ALARA. There is streak artifact from the left arm which cou ld not be elevated above the chest. CT DOSE: 2700.80 mGy.cm FINDINGS: Lung bases: The heart is mildly enlarged and without pericardial effusion. The coronary arteries are densely calcified. There is a small left pleural effusion with left basilar consolidation. The right lung base appears clear noting basilar atelectasis. There is no basilar pneumothorax. A tiny hiatal h ernia is observed. Liver: The contrast-enhanced liver is normal in size, contour, and attenuation. There is no intrahepa tic biliary ductal dilatation. The hepatic veins and portal veins are patent. Gallbladder: Unremarkable. Spleen: Normal in size and attenuation. Pancreas: There is moderate glandular atrophy of the pancreas. A 2.1 cm cystic lesion in the pancreat ic head is seen on image #175. Adrenal glands: Unremarkable. Kidneys: The left kidney is not identified and presumed surgically absent. The right kidney is normal in size and without hydronephrosis. 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 Additional subcentimeter cortical hypodensities likely represent cysts but are too small for definitive characterization. The right kidney enhances homogeneously. Abdominal vasculature: The abdominal aorta is normal in course and caliber noting advanced atheroscle rotic calcification. Bowel: Moderate fecal retention is seen throughout the colon. There is no bowel obstruction. The appe ndix is well-visualized and normal. Peritoneum: There is trace perihepatic ascites. No intraperitoneal free air is identified. Lymphadenopathy: None. Pelvic viscera: The prostate gland is enlarged and heterogeneous, measuring 6.5 cm in transverse diam eter. The bladder is mildly distended. The bladder wall is thickened and trabeculated indicating hog tender henry outlet obstruction. Skeletal structures: The skeletal structures are osteopenic. No lytic or blastic lesions are seen. Th ere are acute left lateral 7th through 9th rib fractures. The lumbosacral spine and proximal femora a ppear intact. IMPRESSION: 1. There are acute left-sided rib fractures as above. 2. Small left pleural effusion with left basilar consolidation. 3. There is no evidence of solid organ injury in the abdomen or pelvis. 4. A 2.1 cm simple cystic lesion in the pancreatic head has been present dating back to 2018 and like ly represents an IPMN versus mucinous cystic neoplasm. 5. 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 6. Trace perihepatic ascites. 7. Moderate colonic fecal retention. 8. Additional findings as above. ACT 112: Negative or not required by law. Electronically signed by: Paddy Amador M.D. 09/08/2021 1:37 PM
[2021-09-08] MEDS ORDERED: MoRPHine SULFATE 4 MG/ML 1 ML CARP\\VIAL IV STA (13:51)
[2021-09-08] MEDS ORDERED: AZITHROMYCIN 250 MG TAB PO ONE (13:51)
[2021-09-08] MEDS ORDERED: cefTRIAXone SODIUM 2,000 MG/70 ML BAG IV STA (13:51)
--- NOTE | 2021-09-08 14:22 | History & Physical Report ---
Date of Service September 08, 2021 Assessment & Plan (1) Pneumonia: Plan: -L > R b/l groundglass and consolidative opacities of multifocal pneumonia seen on CTA. This actually mild improved aeration of the right lung compared to the 07/06/2021 study. -Likely developed in the setting of decreased respirations due to pain from rib fractures. -Afebrile, no WBC elevation, pro-Saad and sputum culture ordered and pending, SpO2 96% RA. -Started on Rocephin and azithromycin in ED, will continue for now. (2) Multiple fractures of ribs, left side, initial encounter for closed fracture: Plan: -Acute fractures of the lateral left fourth through ninth ribs, a few with minimal displacement noted without pneumothorax. -Utilize multimodal approach to pain, including lidocaine patches, Tylenol, and oxycodone. -Scheduled Colace and as needed MiraLAX while patient is on opioid. (3) Hypertension: Plan: -Patient takes amlodipine 10 mg once daily as well as losartan 100 mg once daily, however patient has not been taking these over the past several days. -BP in ED recorded at 196/96. This is likely elevated due to both medication noncompliance as well as pain. -We will continue all scheduled medications, starting now in ED as patient has missed these doses for several days. -Recheck BP in 1 hour and reassess the need for additional medications. (4) Diabetes: Plan: -Glucose 154. A1c ordered, pending. -Accu-Cheks ACHS, diabetic heart healthy diet. -Holding glipizide while inpatient. -Pharmacy consulted for glycemic management. (5) Hyperlipidemia: Plan: -Continue atorvastatin 40 mg daily. (6) BPH NOS w ur obs/LUTS: Plan: -Continue Cardura. -Patient states he takes Lasix as needed on days when he is not urinating with Cardura. Plan: -SCDs and Lovenox for DVT prophylaxis. History of Present Illness Chief Complaint: left sided rib fractures Primary Care Provider: Jermain Reddy MD Patient is a 76 y/o male with PMH of hypertension, hyperlipidemia, diabetes, COVID-19 infection in June, and recent fall resulting in multiple left-sided rib fractures who presents today with uncontrolled left lateral chest pain. Patient was evaluated in our ED on , 09/02, after slipping on ice and falling. He was discharged with instructions to use lidocaine patches, oxycodone, and Tylenol for pain management. States this had been working initially, however over the past 2 days his pain has been uncontrolled and he has developed a somewhat productive cough. Reports he feels as if there is spasmodic pain in the area of his rib fractures, which, along with cough, is exacerbating his pain. Pain does not radiate to anterior chest, arms, neck, jaw, or elsewhere. It is reproducible with palpation and non-positional. Additionally, BP currently 196/96 in ED, patient states he has not been taking his blood pressure medications because he "did not want to be taking so many pills". Denies fever/chills, myalgias, chest pain, palpitations, shortness of breath, headache, blurred vision, syncope, nausea, vomiting. Patient was diagnosed in June with COVID-19 and possible pneumonia, did not require hospitalization. States he had some minor difficulty breathing, however has not required home oxygen. COVID test today in ED is negative. Work-up in ED significant for glucose of 154, all other labs within normal limits. No elevated WBC. Patient afebrile, BP noted above, HR 58, RR 18, 96% on room air. Chest CTA confirmed acute fractures the lateral left fourth through ninth ribs, few with minimal displacement noted without pneumothorax. No evidence of pulmonary thromboembolic disease or acute aortic pathology. Trace right and small to moderate left pleural effusions. left greater than right bilateral groundglass and consolidative opacities suggestive of multifocal pneumonia. Additionally, unchanged 4 mm right middle lobe and 10 mm right lower lobe pulmonary nodules. Allergies Allergy/AdvReac Type Severity Reaction Status Date / Time No Known Drug Allergies Allergy Verified 06/24/20 09:57 Home Medications Medication Instructions Recorded Confirmed Type amlodipine 10 mg tablet 10 mg PO QAM 06/19/18 09/08/21 History atorvastatin 40 mg tablet 40 mg PO QPM 06/19/18 09/08/21 History doxazosin 4 mg tablet 4 mg PO QPM 06/19/18 09/08/21 History glipizide 2.5 mg tablet, extended 2.5 mg PO BID 06/19/18 09/08/21 History release 24 hr losartan 100 mg tablet 100 mg PO QAM 06/19/18 09/08/21 History propranolol 60 mg tablet 60 mg PO BID 06/19/18 09/08/21 History tamsulosin 0.4 mg capsule 0.4 mg PO BID 08/30/18 09/02/21 History furosemide 20 mg tablet 10 mg PO QAM 09/27/18 09/08/21 History cephalexin 500 mg capsule 500 mg PO BID PRN 08/03/21 09/08/21 History docusate sodium 100 mg capsule 100 mg PO BID #60 cap 09/02/21 09/08/21 Rx (Colace) lidocaine 5 % topical patch 1 patch TOPICAL DAILY #15 ea 09/02/21 09/08/21 Rx oxycodone 5 mg tablet 5 mg PO Q6H PRN #20 tab 09/02/21 09/08/21 Rx Past Med/Surg History Medical History Acquired solitary kidney Benign prostatic hyperplasia with urinary obstruction CKD (chronic kidney disease) Baseline Cr 1.4-1.5- /PT DENIES Diabetes NO INSULIN Dysuria Enlarged prostate Gross hematuria Hearing loss Hyperlipidemia Hyperlipidemia Hypertension Hypertension Melanoma HX- REMOVED TO CHEST Obesity Solitary kidney Tinnitus Type 2 diabetes mellitus Ureteral stricture Urinary retention Surgical History H/O colonoscopy History of adenoidectomy History of bladder surgery TURBT 06/2018 Hx of carpal tunnel repair right and left Hx of cystoscopy Hx of inguinal hernia repair Hx of tonsillectomy Nasal polyp Removed Family History Mother Hypertension Brother Heart disease Other No significant family history Denies family history of Hearing loss No family history of adverse response to anesthesia No family history of bleeding disorder Allergies Cancer Stroke Asthma Social History Smoking Status: Never smoker Second Hand Exposure: No; Hx Alcohol Use: Yes Alcohol type: beer Hx Substance Use: No Preferred Language: Bulgarian Communication Ability: Effective Visual Impairment: No 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: No Beliefs That Will Affect Care: None marital status: / Current Living Situation: Family current occupational status: retired Feels Safe at Home: Yes Assistive Devices: Glasses Review of Systems Review of Systems: Constitutional: No fever, sweats or chills Eyes: No diplopia, no worsening or blurred vision ENT: normal hearing, no trouble swallowing Respiratory: Reports nonproductive cough x1-2 days; denies sputum, dyspnea at rest or on exertion Cardiovascular: Reports left lateral chest pain local to his rib fractures; no tightness or palpitations Abdomen: No pain, nausea, vomiting, diarrhea or constipation Musculoskeletal: No joint pain, calf pain, swelling Neurologic: No weakness, numbness/tingling, or balance problems Psychiatric: No anxiety or depression Skin: No rash or itch Physical Exam Physical Exam: General: awake, alert, no apparent distress Head: Normocephalic, atraumatic ENT: PERRL, EOMI, no pharyngeal exudate, mucous membranes moist Chest: TTP along left lateral chest along rib cage in area of known fractures. Clear to auscultation, on room air, no adventitious breath sounds Cardiac: Bradycardic, regular rhythm, no murmur, no JVD, normal peripheral pulses, good capillary refill Abdominal: NABS x 4 quadrants, soft, nontender to palpation, no rebound, guarding or tenderness Extremities: Bruising of left elbow with mild pain with palpation; otherwise normal inspection, no peripheral edema or erythema, calfs nontender to palpation Psych: Normal mood and affect Neuro: AAO x 3, strength intact bilaterally and rated 5/5, no motor deficits, speech is clear, no peripheral sensory deficits Skin: no rash or erythema Results & Data Results & Data ([facility]) Vital Signs (Past 12 Hours) Vital Signs Temp Pulse Resp BP Pulse Ox 09/08/21 12:20 48 L 19 96 09/08/21 12:10 46 L 20 96 09/08/21 12:00 47 L 20 173/86 H 94 09/08/21 11:50 49 L 20 96 09/08/21 11:40 51 L 20 96 09/08/21 11:30 52 L 19 198/105 H 96 09/08/21 11:23 52 L 21 178/89 H 96 09/08/21 11:21 52 L 21 09/08/21 10:43 36.5 C 60 18 233/105 H 961 H Laboratory Results Abnormal lab results 09/08/21 09/08/21 Range/Units 11:25 11:25 Hct 41.8 L (42-52) % RDW Std Deviation 46.6 H (36.4-46.3) fL Lymph # (Auto) 0.96 L (1.2-3.4) K/uL Immature Gran # (Auto) 0.05 H (0.00-0.02) K/uL Glucose 154 H (70-99(Fasting)) mg/dl Diagnostic Findings Abdomen/Pelvis CT 09/08/21 11:05 CT SCAN OF THE ABDOMEN AND PELVIS WITH IV CONTRAST CLINICAL HISTORY: Trauma. Fall. Left-sided chest wall pain. COMPARISON STUDY: Abdominal CT dated 06/05/2018. TECHNIQUE: Following the IV administration of 120 cc of Optiray 320, CT scan of the abdomen and pelvis is performed from the lung bases to the proximal femora. Images are reviewed in the axial, sagittal, and coronal planes. IV contrast was administered without complication. A dose lowering technique was utilized adhering to the principles of ALARA. There is streak artifact from the left arm which could not be elevated above the chest. CT DOSE: 2700.80 mGy.cm FINDINGS: Lung bases: The heart is mildly enlarged and without pericardial effusion. The coronary arteries are densely calcified. There is a small left pleural effusion with left basilar consolidation. The right lung base appears clear noting basilar atelectasis. There is no basilar pneumothorax. A tiny hiatal hernia is observed. Liver: The contrast-enhanced liver is normal in size, contour, and attenuation. There is no intrahepatic biliary ductal dilatation. The hepatic veins and portal veins are patent. Gallbladder: Unremarkable. Spleen: Normal in size and attenuation. Pancreas: There is moderate glandular atrophy of the pancreas. A 2.1 cm cystic lesion in the pancreatic head is seen on image #175. Adrenal glands: Unremarkable. Kidneys: The left kidney is not identified and presumed surgically absent. The right kidney is normal in size and without hydronephrosis. 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 Additional subcentimeter cortical hypodensities likely represent cysts but are too small for definitive characterization. The right kidney enhances homogeneously. Abdominal vasculature: The abdominal aorta is normal in course and caliber noting advanced atherosclerotic calcification. Bowel: Moderate fecal retention is seen throughout the colon. There is no bowel obstruction. The appendix is well-visualized and normal. Peritoneum: There is trace perihepatic ascites. No intraperitoneal free air is i dentified. Lymphadenopathy: None. Pelvic viscera: The prostate gland is enlarged and heterogeneous, measuring 6.5 cm in transverse diameter. The bladder is mildly distended. The bladder wall is thickened and trabeculated indicating chronic outlet obstruction. Skeletal structures: The skeletal structures are osteopenic. No lytic or blastic lesions are seen. There are acute left lateral 7th through 9th rib fractures. The lumbosacral spine and proximal femora appear intact. IMPRESSION: 1. There are acute left-sided rib fractures as above. 2. Small left pleural effusion with left basilar consolidation. 3. There is no evidence of solid organ injury in the abdomen or pelvis. 4. A 2.1 cm simple cystic lesion in the pancreatic head has been present dating back to 2018 and likely represents an IPMN versus mucinous cystic neoplasm. 5. 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 6. Trace perihepatic ascites. 7. Moderate colonic fecal retention. 8. Additional findings as above. Chest CTA 09/08/21 11:05 CT angio chest w con HISTORY: 76 years-old Male fall luq pain, rib pain to left scapu, htn acute chest wall and left upper quadrant abdominal pain COMPARISON: CT abdomen and pelvis of same day, CTA chest 07/06/2021 TECHNIQUE: CTA of the chest was obtained following the intravenous administration of 120 mL Optiray 320. 3-D coronal and sagittal MIPS were obtained from the axial data set and were symmetric for review. All measurements were obtained according to NASCET criteria. A dose lowering technique was used consistent with the principals of ALARA. FINDINGS: CTA: Mild cardiomegaly. No pericardial effusion. Extensive coronary artery calcifications. Atherosclerosis of the thoracic aorta without aneurysm or d issection. Unremarkable pulmonary artery. No mediastinal or intramural hematoma. CT CHEST: Trace right with small to moderate left pleural effusions. No pneumothorax. Mild intralobular septal thickening and bronchial wall thickening. Patchy bilateral groundglass densities with left upper lobe, lingular and left lower lobe consolidation with intermixed groundglass opacities. There is mildly improved aeration of the right lung compared to the prior study. The consolidation within the left lung prominently was previously mostly groundglass density. Circumscribed 10 mm solid nodule within the right lower lobe on image 155 is unchanged and demonstrates critical central macroscopic fat. Stable 4 mm nodule of the lateral segment right middle lobe. Equivocal 4 mm nodule the right lower lobe on image 204. No acute process of the imaged upper abdomen. Unremarkable soft tissues. No acute fracture. IMPRESSION: 1. Cardiomegaly. No evidence of pulmonary thromboembolic disease or acute aortic pathology. 2. Trace right and [id number] left pleural effusions. 3. Left greater than right bilateral groundglass and consolidative opacities are suggestive of multifocal pneumonia. There is mild improved aeration of the right lung compared to the 07/06/2021 study. 4. Unchanged 4 mm right middle lobe and 10 mm right lower lobe pulmonary nodules. The 10 mm nodule demonstrates equivocal macroscopic fat suspicious for pulmonary hamartoma. Follow-up guidelines below. 5. No adenopathy. Please refer to below summary of Fleischner criteria recommendations for follow- up of incidental CT nodules (Kathryn Maria, Guidelines for management of small pulmonary nodules detected on CT scans: A statement from the Fleischner Society, Radiology 237: [phone].) SOLID NODULES Multiple nodules size: <6 mm * Low risk patients: no routine follow-up * high risk patients: optional CT at 12 months Multiple nodules size: 6-8 mm * Low risk patients: follow-up at 3-6 months, then consider further follow-up at 18-24 months * high risk patients: follow-up at 3-6 months, then at 18-24 months if no change Multiple nodules size: >8 mm * Low risk patients: follow-up at 3-6 months, then consider further follow-up at 18-24 months * high risk patients: follow-up at 3-6 months, then at 18-24 months if no change Note: newly detected indeterminate nodule in persons 35 years of age or older. * Low risk patients: minimal or absent history of smoking and/or other known risk factors * high risk patients: history of smoking or of other known risk factors (e.g. first degree relative with lung cancer, or exposure to asbestos, radon, uranium) * if a nodule up to 8 mm is partly solid or is ground glass further follow-up is required after 24 months to exclude possible slow growing adenocarcinoma (RHIANNA) Medications Administered Ceftriaxone Sodium (Rocephin) 2,000 mg in 70 mls @ 140 mls/hr IV NOW STA Stop: 09/08/21 14:20 Last Admin: 09/08/21 14:15 Dose: 140 mls/hr Documented by: [id number] ECG Additional Comments: Sinus bradycardia with 1st degree A-V block with Premature atrial complexes Otherwise normal ECG When compared with ECG of 06-JUL-2021 19:15, Premature atrial complexes are now Presen Code Status & VTE Plan Code Status Full code VTE Prophylaxis Plan VTE Prophylaxis will be ordered: Yes Supervising Physician Co-Signing Physician Notes Patient seen and examined, chart reviewed, case discussed with Viridiana Perez and I agree with the assessment and plan as above except as otherwise noted General: A&Ox3. NAD. Cooperative. HEENT: Atraumatic, normocephalic. Vision/hearing grossly intact. Pulm: L lateral chest TTP, no flair check. CTAB A&P. -wheezes, -rales, - rhonchi. Symmetrical chest rise. No increase in work of breathing. No respiratory distress. Cardiac: Regular, bradycardic, -mrg. Radial pulses intact and symmetrical. Abdominal: Nontender, nondistended, soft. BS present. Labs and images reviewed David is a 76-year-old male with a past medical history of hypertension, hyperlipidemia, diabetes, BPH who presents with left greater than right groundglass opacities suggestive of multifocal pneumonia. He is afebrile, no leukocytosis, normal pro-Saad, and sputum is pending. Left-sided opacities are n ew/worsening, right-sided are actually improved from prior patient with history of Covid. Will treat as secondary pneumonia, continue Rocephin/azithromycin. MRSA nares pending. Rib fractures as above. Continue home antihypertensives, patient has not been taking these, will resume and then give additional if needed. PG Care Time/CCT Total # of Minutes Spent Total Time Spent with Patient: Total time spent is greater than 50% in coordination of care (as documented) at patient's floor/unit and/or counseling patient: Coding Level of Care Code 94487 Initial Inpt Care Lvl 3 Diagnoses Multiple fractures of ribs, left side, initial encounter for closed fracture S22.42XA Hypertension I10 Hyperlipidemia E78.5 Diabetes E11.9 Pneumonia J18.9 BPH NOS w ur obs/LUTS N40.1
--- NOTE | 2021-09-08 15:27 | Electrocardiogram Report ---
Test Reason : Blood Pressure : / mmHG Vent. Rate : 053 BPM Atrial Rate : 053 BPM P-R Int : 224 ms QRS Dur : 092 ms QT Int : 432 ms P-R-T Axes : 034 029 065 degrees QTc Int : 405 ms Poor data quality, interpretation may be adversely affected Sinus bradycardia with 1st degree A-V block with Premature atrial complexes Otherwise normal ECG When compared with ECG of 06-JUL-2021 19:15, Premature atrial complexes are now Present Confirmed by Dilan Gaffney ([id number]) on 09/08/2021 3:27:29 PM Referred By: Confirmed By:Dilan Gaffney
[2021-09-08] MEDS ORDERED: LOSARTAN POTASSIUM 50 MG TAB PO STA (15:35)
[2021-09-08] MEDS ORDERED: amLODIPine BESYLATE 5 MG TAB PO ONE (15:35)
[2021-09-08] MEDS ORDERED: hydrALAZINE HCL 20 MG/ML VIAL IV ONE ×2 (16:48→20:22)
[2021-09-08] MEDS ORDERED: POLYETHYLENE (MIRALAX) 17 GM PACK PO PRN (17:07)
[2021-09-08] MEDS ORDERED: ACETAMINOPHEN 325 MG TAB PO PRN (17:07)
[2021-09-08] MEDS ORDERED: ONDANSETRON INJ 2 MG/ML 2 ML VIAL IV PRN (17:07)
[2021-09-08] MEDS ORDERED: PHARMACY GLYCEMIC MGMT CONSULT PRN (17:07)
[2021-09-08] MEDS ORDERED: CARBOHYDRATES FOR HYPOGLYCEMIA PO PRN (17:07)
[2021-09-08] MEDS ORDERED: DEXTROSE 50% 50 ML SYRINGE IV PRN (17:07)
[2021-09-08] MEDS ORDERED: GLUCOSE 40% GEL 15 GM TUBE PO PRN (17:07)
[2021-09-08] MEDS ORDERED: GLUCOSE 10 TABS/TUBE PO PRN (17:07)
[2021-09-08] MEDS ORDERED: GLUCAGON FOR INJ 1 MG VIAL SQ PRN (17:07)
[2021-09-08] MEDS ORDERED: HYDROmorphone INJ 0.5 MG/0.5 ML SYR IV STA (18:01)
[2021-09-08] MEDS ORDERED: FUROSEMIDE INJ 20 MG/2 ML VIAL IV ONE (20:22)
[2021-09-08] MEDS ORDERED: DOCUSATE SODIUM 100 MG CAP PO SCH (21:00)
[2021-09-08] MEDS: INSULIN ASPART PER UNIT SC SCH ×2 (21:16→21:27)
[2021-09-08] MEDS: ENOXAPARIN INJ 40 MG/0.4 ML SYR SQ SCH (21:22)
[2021-09-08] MEDS: ATORVASTATIN 40 MG TAB PO SCH (21:24)
[2021-09-08] MEDS: oxyCODONE HCL IR 5 MG TAB (IMMEDIATE RELEASE) PO PRN (21:26)
[2021-09-08] MEDS: ACETAMINOPHEN 500 MG TAB PO SCH (21:27)
[2021-09-08] MEDS: POTASSIUM CHLORIDE CRTAB 20 MEQ TABCR PO SCH (21:27)
[2021-09-08] MEDS: DOCUSATE SODIUM 100 MG CAP PO SCH (21:27)
[2021-09-08] MEDS: DOXAZosin MESYLATE 4 MG TAB PO SCH (21:28)
[2021-09-08] MEDS: PROPRANOLOL HCL 20 MG TAB PO SCH (21:29)
[2021-09-08] MEDS: LIDOCAINE 5% 1 PATCH TD SCH (21:30)
[2021-09-09] MEDS: oxyCODONE HCL IR 5 MG TAB (IMMEDIATE RELEASE) PO PRN ×2 (01:53→20:18)
[2021-09-09] MEDS ORDERED: INSULIN ASPART PER UNIT SC SCH (02:00)
[2021-09-09] MEDS ORDERED: HYDROmorphone INJ 1 MG/ML SYRINGE IV STA (03:30)
[2021-09-09] MEDS ORDERED: HYDROmorphone INJ 1 MG/ML SYRINGE ONE (03:41)
[2021-09-09] MEDS: ACETAMINOPHEN 500 MG TAB PO SCH ×3 (06:00→20:19)
[2021-09-09 07:02] LABS: Basophils % (auto) 0.3 %; Eosinophils % (auto) 2.9 %; Hemoglobin 13.4 g/dL (14.0-18.0); Immature Granulocytes % (auto) 0.5 %; Lymphocytes % (auto) 17.3 %; Mean Corpuscular Hemoglobin 29.5 pg (25-34); Mean Corpuscular Hgb Conc 33.5 g/dL (32-36); Mean Corpuscular Volume 87.9 fL (80-100); Mean Platelet Volume 10.2 fL (7.4-10.4); Monocytes % (auto) 8.3 %; Neutrophils % (auto) 70.7 %; Platelet Count 228 K/uL (130-400); RDW Coefficient of Variation 14.7 % (11.5-14.5); RDW Standard Deviation 47.2 fL (36.4-46.3); Red Blood Count 4.55 M/uL (4.7-6.1); White Blood Count 6.12 K/uL (4.8-10.8)
[2021-09-09 07:03] LABS: Basophils # (auto) 0.02 K/uL (0-0.2); Eosinophils # (auto) 0.18 K/uL (0-0.5); Immature Granulocytes # (auto) 0.03 K/uL (0.00-0.02); Lymphocytes # (auto) 1.06 K/uL (1.2-3.4); Monocytes # (auto) 0.51 K/uL (0.11-0.59); Neutrophils # (auto) 4.32 K/uL (1.4-6.5)
[2021-09-09 07:20] LABS: BUN Creatinine Ratio 11.8 (10-20); Calcium 8.8 mg/dl (8.5-10.1); Creatinine Clr Calc Pharmacy 50.2 ml/min; Est GFR (African American) 57.4 ml/min; Est GFR (Non-African American) 49.5 ml/min; Potassium 4.1 mmol/L (3.5-5.1)
[2021-09-09 07:46] LABS: Estimated Average Glucose 143 mg/dl; Hemoglobin A1C 6.6 % (4.5-5.6)
[2021-09-09] MEDS: POTASSIUM CHLORIDE CRTAB 20 MEQ TABCR PO SCH ×2 (08:43→13:11)
[2021-09-09] MEDS: LOSARTAN POTASSIUM 50 MG TAB PO SCH (08:44)
[2021-09-09] MEDS: FUROSEMIDE 20 MG TAB PO SCH ×2 (08:45→09:11)
[2021-09-09] MEDS: DOCUSATE SODIUM 100 MG CAP PO SCH ×2 (08:45→20:19)
[2021-09-09] MEDS: amLODIPine BESYLATE 5 MG TAB PO SCH (08:46)
[2021-09-09] MEDS: AZITHROMYCIN 250 MG TAB PO SCH (08:46)
[2021-09-09] MEDS: PROPRANOLOL HCL 20 MG TAB PO SCH ×2 (08:59→20:24)
[2021-09-09] MEDS ORDERED: cefTRIAXone SODIUM 1,000 MG in DEXTROSE 5% 50 ML IV SCH (09:00)
[2021-09-09] MEDS: INSULIN ASPART PER UNIT SC SCH ×4 (09:01→20:19)
[2021-09-09] MEDS: hydrALAZINE HCL 20 MG/ML VIAL IV PRN (11:38)
[2021-09-09] MEDS: LIDOCAINE 5% 1 PATCH TD SCH ×2 (12:10→20:25)
--- NOTE | 2021-09-09 12:15 | Hospitalist Progress Note ---
Date of Service September 09, 2021 Assessment & Plan (1) Pneumonia: Plan: Community-acquired pneumonia CTA: Groundglass and consolidative opacities worsened on the left, right lung actually somewhat improved compared to 07/06 ? Worsened respiration/splinting in the setting of rib fractures contributing -Afebrile, no WBC elevation, pro-Saad and sputum culture ordered and pending, SpO2 96% RA. -Started on Rocephin and azithromycin in ED, will continue for now. (2) Multiple fractures of ribs, left side, initial encounter for closed fracture: Plan: -Acute fractures of the lateral left fourth through ninth ribs, a few with minimal displacement noted without pneumothorax. -Utilize multimodal approach to pain, including lidocaine patches, Tylenol, and oxycodone. -Scheduled Colace and as needed MiraLAX while patient is on opioid. (3) Hypertension: Plan: Patient had not been taking home antihypertensives prior to admission Continue amlodipine 10 mg daily Continue losartan 100 mg daily Patient initially with elevated blood pressure in the setting of rib pain and urinary retention, following treatment of these blood pressure decrease 211/103 morning of 09/09, at bedside reassessment 180/85. Given morning antihypertensive medications, hydralazine for SBP greater than 180, metoprolol limited by bradycardia If remains high following pain control and above, +hctz (4) Diabetes: Plan: -A1c less than 7, well controlled -Accu-Cheks ACHS, diabetic heart healthy diet. -Holding glipizide while inpatient. -SSI (5) Hyperlipidemia: Plan: -Continue atorvastatin 40 mg daily. (6) BPH NOS w ur obs/LUTS: Plan: -Continue doxazosin Continue Lasix Patient with history of urinary retention Was seen July 2021 by urology for follow-up, had a renal ultrasound with a stable appearing solitary kidney cyst and stable bladder outlet obstruction. ? Acute worsening in the setting of narcotic pain control and pain as above. Will discuss with urology, patient may benefit from temporary Delatorre catheter and voiding trial once improved Plan: -SCDs and Lovenox for DVT prophylaxis. Admission and Anticipated Discharge Date Admission Date: September 08, 2021 Subjective Seen at bedside, no acute distress. Patient reports he feels improved from yesterday, although still has severe pain when coughing from his ribs. Has had a straight cath twice, reports he has had a history of urinary retention in the past but recently had follow-up with imaging and urology without acute changes. He is eating well, no nausea/vomiting/diarrhea /constipation/lightheadedness/dizziness. Cough is nonproductive, feels better after producing sputum. Review of Systems Review of Systems: All systems reviewed & are unremarkable except as noted in Subjective Physical Exam Physical Exam: General: A&Ox3. NAD. Cooperative. HEENT: Atraumatic, normocephalic. Thorax: Tender to palpation at left flank, posterior ribs, and left sternal border. No right-sided tenderness. No flail chest. Pulm: CTAB A&P. -wheezes, -rales, -rhonchi. Symmetrical chest rise. No increase in work of breathing. No respiratory distress. Cardiac: Regular, bradycardic, -mrg. Radial pulses intact and symmetrical. Abdominal: Nontender, nondistended, soft. BS present. : Nontender, no infraumbilical fullness/mass Extremities: Warm, dry. Results & Data Results & Data ([facility]) Vital Signs (Past 12 Hours) Vital Signs Temp Pulse Pulse Resp BP Pulse Ox 09/09/21 07:16 36.7 C 57 L 20 211/103 H 95 09/09/21 05:58 51 L 170/94 H 09/09/21 02:52 52 L 210/79 H 09/09/21 01:54 36.8 C 55 L 18 186/90 H 93 09/09/21 00:35 56 L PG Care Time/CCT Total # of Minutes Spent Total Time Spent with Patient: Total time spent is greater than 50% in coordination of care (as documented) at patient's floor/unit and/or counseling patient: Coding Level of Care Code 08454 Subseq Hosp Care Lvl 2 Diagnoses Pneumonia J18.9 Multiple fractures of ribs, left side, initial encounter for closed fracture S22.42XA Hypertension I10 Diabetes E11.9 Hyperlipidemia E78.5 BPH NOS w ur obs/LUTS N40.1
[2021-09-09] MEDS: cefTRIAXone SODIUM 2,000 MG in DEXTROSE 5% 50 ML IV SCH (12:24)
[2021-09-09] MEDS: ENOXAPARIN INJ 40 MG/0.4 ML SYR SQ SCH (17:19)
[2021-09-09] MEDS: ATORVASTATIN 40 MG TAB PO SCH (20:23)
[2021-09-09] MEDS: hydroCHLOROthiazide 25 MG TAB PO SCH (20:24)
[2021-09-09] MEDS: DOXAZosin MESYLATE 4 MG TAB PO SCH (20:24)
[2021-09-10] MEDS: oxyCODONE HCL IR 5 MG TAB (IMMEDIATE RELEASE) PO PRN ×2 (01:44→21:45)
[2021-09-10] MEDS: hydrALAZINE HCL 20 MG/ML VIAL IV PRN (02:04)
[2021-09-10] MEDS ORDERED: LORazepam 1 MG TAB PO STA (03:16)
[2021-09-10 07:22] LABS: Basophils # (auto) 0.02 K/uL (0-0.2); Basophils % (auto) 0.3 %; Eosinophils # (auto) 0.18 K/uL (0-0.5); Eosinophils % (auto) 3.1 %; Hematocrit (blood only) 38.3 % (42-52); Hemoglobin 13.3 g/dL (14.0-18.0); Immature Granulocytes # (auto) 0.02 K/uL (0.00-0.02); Immature Granulocytes % (auto) 0.3 %; Lymphocytes # (auto) 0.92 K/uL (1.2-3.4); Lymphocytes % (auto) 15.9 %; Mean Corpuscular Hgb Conc 34.7 g/dL (32-36); Mean Corpuscular Volume 86.5 fL (80-100); Mean Platelet Volume 9.8 fL (7.4-10.4); Monocytes # (auto) 0.67 K/uL (0.11-0.59); Monocytes % (auto) 11.6 %; Neutrophils # (auto) 3.98 K/uL (1.4-6.5); Neutrophils % (auto) 68.8 %; Platelet Count 211 K/uL (130-400); RDW Coefficient of Variation 14.5 % (11.5-14.5); RDW Standard Deviation 45.7 fL (36.4-46.3); Red Blood Count 4.43 M/uL (4.7-6.1); White Blood Count 5.79 K/uL (4.8-10.8)
[2021-09-10 07:45] LABS: BUN Creatinine Ratio 12.3 (10-20); Calcium 8.6 mg/dl (8.5-10.1); Creatinine Clr Calc Pharmacy 55.8 ml/min; Est GFR (African American) 65.4 ml/min; Est GFR (Non-African American) 56.4 ml/min; Potassium 3.5 mmol/L (3.5-5.1)
[2021-09-10] MEDS: LOSARTAN POTASSIUM 50 MG TAB PO SCH (07:50)
[2021-09-10] MEDS: hydroCHLOROthiazide 25 MG TAB PO SCH (07:50)
[2021-09-10] MEDS: ACETAMINOPHEN 500 MG TAB PO SCH ×3 (07:50→20:52)
[2021-09-10] MEDS: AZITHROMYCIN 250 MG TAB PO SCH (07:51)
[2021-09-10] MEDS: amLODIPine BESYLATE 5 MG TAB PO SCH (07:51)
[2021-09-10] MEDS: PROPRANOLOL HCL 20 MG TAB PO SCH ×2 (07:53→20:51)
[2021-09-10] MEDS: FUROSEMIDE 20 MG TAB PO SCH (07:54)
[2021-09-10] MEDS: DOCUSATE SODIUM 100 MG CAP PO SCH ×2 (07:55→20:50)
[2021-09-10] MEDS: INSULIN ASPART PER UNIT SC SCH ×4 (08:51→20:54)
[2021-09-10] MEDS: LIDOCAINE 5% 1 PATCH TD SCH ×2 (11:27→20:49)
[2021-09-10] MEDS ORDERED: POTASSIUM CHLORIDE CRTAB 20 MEQ TABCR PO STA (11:47)
[2021-09-10] MEDS: cefTRIAXone SODIUM 2,000 MG in DEXTROSE 5% 50 ML IV SCH (12:47)
--- NOTE | 2021-09-10 13:44 | Pharmacy Report ---
Pharmacy Glycemic Sign Off Nt - Date of Service September 10, 2021 - Assessment & Plan ASSESSMENT: * Pharmacy was consulted by Jones Kemp on 09/08/21 for glycemic control and to write orders per [facility] inpatient glycemic control protocol. * Patient was placed on Novolog ACHS with correction factor and carb ratio - no adjustments have been made since time of ordering * Patient received a total of 8 units of Novolog yesterday and 6 units thus far today. Fasting BSG acceptable despite no basal insulin in board. * BSGs ranging 129- 193 mg/dl PLAN FOR INPATIENT GLYCEMIC CONTROL: No changes needed to current regimen. * Continue NovoLog per scale ACHS/Q6hrs while NPO * Goal range = 120- 150 mg/dl * CF = 30 mg/dl/unit * CR = 1 unit for ever 10 g CHO consumed * Pharmacy is signing off of glycemic consult and will no longer be making adjustments to inpatient regimen. Please feel free to re-consult if needed. Thank you.
--- NOTE | 2021-09-10 15:12 | Ultrasound Report ---
US duplex renal artery CLINICAL HISTORY: resistant htn TECHNIQUE: Real-time grayscale and color and spectral Doppler ultrasound imaging of the kidneys was p erformed. Comparison: None available at the time of this dictation. FINDINGS: Normal echogenicity of the right kidney with preserved corticomedullary differentiation. Normal corti jerry thickness. Right kidney measures 12.7 cm. No hydronephrosis. No convincing evidence of calculus o r mass. Spectral analysis: Intrarenal resistive indices range from 0.58 to 0.72. Waveforms are normal in appearance.. Renal garo ry patent with peak systolic velocity 111 cm/s proximally, 49 cm/s in the midportion, and 32 cm/s dis tally. Renal vein patent. Agenesis of the left kidney is noted. Abdominal aorta: Patent. Peak systolic velocity 134.7 cm/s. Reference ranges: Normal main renal artery peak systolic velocity less than 180 cm/s. Ratio of renal artery PSV to aort ic PSV less than 3.5 equates to normal or less than 60% stenosis. Only one of the two criteria listed needs to be met for diagnosis. IMPRESSION: No evidence of renal artery stenosis. Resistive indices are normal to upper range of normal. ACT 112: Negative or not required by law. Electronically signed by: Endy Muñiz M.D. 09/10/2021 3:10 PM
[2021-09-10] MEDS: hydrALAZINE HCL 25 MG TAB PO SCH ×2 (15:42→20:51)
--- NOTE | 2021-09-10 16:23 | Hospitalist Progress Note ---
Date of Service September 10, 2021 Assessment & Plan (1) Pneumonia: Plan: Community-acquired pneumonia CTA: Groundglass and consolidative opacities worsened on the left, right lung actually somewhat improved compared to 07/06 ? Worsened respiration/splinting in the setting of rib fractures contributing -Afebrile, no leukocytosis today Adequate saturation on room air Sputum culture with mixed normal bill -Continue Rocephin/azithromycin Incentive spirometry (2) Multiple fractures of ribs, left side, initial encounter for closed fracture: Plan: -Acute fractures of the lateral left fourth through ninth ribs, a few with minimal displacement noted without pneumothorax. -Utilize multimodal approach to pain, including lidocaine patches, Tylenol, and oxycodone. -Scheduled Colace and as needed MiraLAX while patient is on opioid. Patient's pain is worsened with ambulation/cough/breathing as expected, but otherwise improved and relatively well controlled today. Despite this blood pressure remains high (3) Hypertension: Plan: Patient had not been taking home antihypertensives prior to admission Continue amlodipine 10 mg daily Continue losartan 100 mg daily Patient initially with elevated blood pressure in the setting of rib pain and urinary retention, Blood pressure did improve somewhat with treatment of pain and urinary retention, but has remained elevated above 180/85. HCTZ was added, patient remains hypertensive. Beta-ruddy contraindicated in the setting of bradycardia. No potassium derangement to suspect primary hyperaldosteronism. Patient does have solitary kidney, renal artery Doppler with normal resistive indices and no evidence of MARCO. Patient has refused Lasix previously discussed can contribute to his hypertension and also had some pleural effusions on his CT suggestive of volume overload despite his echo showing preserved EF/diastolic function previously, has had some intermittent leg edema at baseline today. + Lasix today, patient has cath as noted Patient clinically stable, but remains inadequately hypertensive. Hydralazine 25 mg p.o. twice daily added, and will continue to follow hypertension overnight. Asymptomatic without evidence of endorgan damage at this time (4) Diabetes: Plan: -A1c less than 7, well controlled -Accu-Cheks ACHS, diabetic heart healthy diet. -Holding glipizide while inpatient. -SSI (5) Hyperlipidemia: Plan: -Continue atorvastatin 40 mg daily. (6) BPH NOS w ur obs/LUTS: Plan: -Continue doxazosin Continue Lasix Patient with history of urinary retention Was seen July 2021 by urology for follow-up, had a renal ultrasound with a stable appearing solitary kidney cyst and stable bladder outlet obstruction. ? Acute worsening in the setting of narcotic pain control and pain as above. Delatorre catheter placed for retention, would have urology follow-up and voiding trial once above improved Plan: -SCDs and Lovenox for DVT prophylaxis. Admission and Anticipated Discharge Date Admission Date: September 08, 2021 Subjective Seen at bedside, no acute distress. His pain has continued to improve, is tolerable to him when walking and worsened by cough, tolerable at rest. Other than his rib pain he denies chest pain, chest pressure, substernal pain, radiating pain to his neck/back, shortness of breath, difficulty breathing. Has refused Lasix previously, feels he has had leg swelling intermittently but that they are similar to baseline today. Denies nausea, vomiting, diarrhea, constipation denies headache, vision change, lightheadedness, dizziness. Review of Systems Review of Systems: All systems reviewed & are unremarkable except as noted in Subjective Physical Exam Physical Exam: General: A&Ox3. NAD. Cooperative. HEENT: Atraumatic, normocephalic.Pupils equal and reactive to light and accommodation, vision grossly intact, hearing grossly intact Thorax: Right posterior ribs/left sternal border remains tender. No flail chest. Pulm: CTAB A&P. -wheezes, -rales, -rhonchi. Symmetrical chest rise. No increase in work of breathing. No respiratory distress. Cardiac: Regular, bradycardic, -mrg. Radial pulses intact and symmetrical. Abdominal: Nontender, nondistended, soft. BS present. : Nontender, no infraumbilical fullness/mass Extremities: Warm, dry. Results & Data Results & Data ([facility]) Vital Signs (Past 12 Hours) Vital Signs Temp Pulse Pulse Resp BP BP Pulse Ox 09/10/21 14:10 36.8 C 76 18 182/101 H 96 09/10/21 08:24 36.8 C 60 18 178/89 H 93 09/10/21 07:00 51 L PG Care Time/CCT Total # of Minutes Spent Total Time Spent with Patient: Total time spent is greater than 50% in coordination of care (as documented) at patient's floor/unit and/or counseling patient: Coding Level of Care Code 98445 Subseq Hosp Care Lvl 2 Diagnoses Pneumonia J18.9 Multiple fractures of ribs, left side, initial encounter for closed fracture S22.42XA Hypertension I10 Diabetes E11.9 Hyperlipidemia E78.5 BPH NOS w ur obs/LUTS N40.1
[2021-09-10] MEDS: FUROSEMIDE INJ 20 MG/2 ML VIAL IV SCH (17:25)
[2021-09-10] MEDS: ENOXAPARIN INJ 40 MG/0.4 ML SYR SQ SCH (17:28)
[2021-09-10] MEDS: ATORVASTATIN 40 MG TAB PO SCH (20:50)
[2021-09-10] MEDS: DOXAZosin MESYLATE 4 MG TAB PO SCH (20:51)
[2021-09-10] MEDS ORDERED: oxyCODONE HCL IR 5 MG TAB (IMMEDIATE RELEASE) PO PRN (21:10)
[2021-09-11] MEDS: oxyCODONE HCL IR 5 MG TAB (IMMEDIATE RELEASE) PO PRN ×2 (03:47→21:43)
[2021-09-11] MEDS: ACETAMINOPHEN 500 MG TAB PO SCH ×3 (05:39→21:43)
[2021-09-11 06:13] LABS: Basophils # (auto) 0.02 K/uL (0-0.2); Basophils % (auto) 0.4 %; Eosinophils # (auto) 0.22 K/uL (0-0.5); Eosinophils % (auto) 3.9 %; Hematocrit (blood only) 42.2 % (42-52); Immature Granulocytes # (auto) 0.02 K/uL (0.00-0.02); Immature Granulocytes % (auto) 0.4 %; Lymphocytes # (auto) 0.76 K/uL (1.2-3.4); Lymphocytes % (auto) 13.5 %; Mean Corpuscular Hemoglobin 29.2 pg (25-34); Mean Corpuscular Hgb Conc 33.2 g/dL (32-36); Mean Corpuscular Volume 87.9 fL (80-100); Monocytes # (auto) 0.61 K/uL (0.11-0.59); Monocytes % (auto) 10.9 %; Neutrophils # (auto) 3.99 K/uL (1.4-6.5); Neutrophils % (auto) 70.9 %; Platelet Count 236 K/uL (130-400); RDW Coefficient of Variation 14.6 % (11.5-14.5); RDW Standard Deviation 46.8 fL (36.4-46.3); White Blood Count 5.62 K/uL (4.8-10.8)
[2021-09-11 06:42] LABS: BUN Creatinine Ratio 15.4 (10-20); Calcium 9.1 mg/dl (8.5-10.1); Creatinine Clr Calc Pharmacy 52.3 ml/min; Est GFR (African American) 60.6 ml/min; Est GFR (Non-African American) 52.3 ml/min; Potassium 3.9 mmol/L (3.5-5.1)
[2021-09-11] MEDS: INSULIN ASPART PER UNIT SC SCH ×4 (09:11→22:27)
[2021-09-11] MEDS: DOCUSATE SODIUM 100 MG CAP PO SCH ×2 (09:13→21:36)
[2021-09-11] MEDS: amLODIPine BESYLATE 5 MG TAB PO SCH (09:14)
[2021-09-11] MEDS: hydroCHLOROthiazide 25 MG TAB PO SCH (09:14)
[2021-09-11] MEDS: AZITHROMYCIN 250 MG TAB PO SCH (09:14)
[2021-09-11] MEDS: FUROSEMIDE INJ 20 MG/2 ML VIAL IV SCH ×2 (09:15→17:02)
[2021-09-11] MEDS: LOSARTAN POTASSIUM 50 MG TAB PO SCH (09:15)
[2021-09-11] MEDS: PROPRANOLOL HCL 20 MG TAB PO SCH ×2 (09:16→21:44)
[2021-09-11] MEDS: hydrALAZINE HCL 25 MG TAB PO SCH ×2 (09:49→21:44)
[2021-09-11] MEDS: cefTRIAXone SODIUM 2,000 MG in DEXTROSE 5% 50 ML IV SCH (12:17)
[2021-09-11] MEDS: ENOXAPARIN INJ 40 MG/0.4 ML SYR SQ SCH (17:04)
[2021-09-11] MEDS: ATORVASTATIN 40 MG TAB PO SCH (21:43)
[2021-09-11] MEDS: DOXAZosin MESYLATE 4 MG TAB PO SCH (21:43)
[2021-09-12] MEDS: ACETAMINOPHEN 500 MG TAB PO SCH ×3 (05:38→21:50)
[2021-09-12] MEDS: oxyCODONE HCL IR 5 MG TAB (IMMEDIATE RELEASE) PO PRN ×2 (05:42→21:23)
[2021-09-12] MEDS: hydroCHLOROthiazide 25 MG TAB PO SCH (08:04)
[2021-09-12] MEDS: hydrALAZINE HCL 25 MG TAB PO SCH (08:04)
[2021-09-12] MEDS: LOSARTAN POTASSIUM 50 MG TAB PO SCH (08:05)
[2021-09-12] MEDS: AZITHROMYCIN 250 MG TAB PO SCH (08:05)
[2021-09-12] MEDS: amLODIPine BESYLATE 5 MG TAB PO SCH (08:05)
[2021-09-12] MEDS: PROPRANOLOL HCL 20 MG TAB PO SCH ×2 (08:06→21:11)
[2021-09-12] MEDS: DOCUSATE SODIUM 100 MG CAP PO SCH ×2 (08:08→21:17)
[2021-09-12] MEDS: FUROSEMIDE INJ 20 MG/2 ML VIAL IV SCH (08:09)
[2021-09-12] MEDS: INSULIN ASPART PER UNIT SC SCH ×4 (08:14→22:02)
[2021-09-12] MEDS: LIDOCAINE 5% 1 PATCH TD SCH (08:17)
[2021-09-12 08:33] LABS: Appearance Urine Clear (Clear); Bacteria Urine Automated Negative (Negative); Bilirubin Urine Negative (Negative); Blood Urine 2+ (Negative); Color Urine Dark Yellow; Glucose Urine UA Negative (Negative); Ketones Urine Negative (Negative); Leukocyte Esterase Urine Trace (Negative); Nitrite Urine Negative (Negative); Protein Urine 1+ (Negative); RBC Urine Automated >30 /hpf (0-4); Specific Gravity Urine 1.034 (1.000-1.030); Urobilinogen Urine Negative (Negative); WBC Urine Automated >30 /hpf (0-5)
--- NOTE | 2021-09-12 08:45 | Hospitalist Progress Note ---
Date of Service September 11, 2021 Assessment & Plan (1) Pneumonia: Plan: CAP. Day #4 of Rocephin Day #4 of azithromycin Plan to d/c the azithromycin after tomorrow's dose then transition rocephin to PO omnicef tomorrow for 3 more days some of the CT findings from admission could be some left-over radiological findings from his prior COVID pneumonia in 06/[address] he is clinically improving recommend f/u CT in 3 months to ensure radiographic resolution of all findings (2) Multiple fractures of ribs, left side, initial encounter for closed fracture: Plan: Acute fractures of the lateral left fourth through ninth ribs - some with minimal displacement but no pneumothorax. 2nd to fall. Cont lidocaine patches, Tylenol, and oxycodone. Cont pulmonary toilet. Check 25-OH vit D level am. (3) Hypertension: Plan: Patient had not been taking home antihypertensives prior to admission Continue amlodipine 10 mg daily Continue losartan 100 mg daily Continue hydralazine 25mg BID Also on doxazosin 4mg HS He is also on HCTZ + inderal given solitary kidney plan to STOP the losartan Would also stop hydralazine Suspect much of the BP elevation early on was pain from #2 Follow BPs carefully (4) Diabetes: Plan: -A1c less than 7, well controlled -Holding glipizide while inpatient. -SSI (5) Hyperlipidemia: Plan: -Continue atorvastatin 40 mg daily. (6) BPH NOS w ur obs/LUTS: Plan: Continue doxazosin Add finasteride Check a psa in am see #7 below Consider changing doxazosin to flomax at d/c (7) Urinary retention: Plan: presumed 2nd to BPH in setting of acute pain/narcotic usage?? 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 will need f/u for this (11) Pulmonary nodules: Plan: noted on CT x [address] in 3 months Plan: hopeful for d/c tomorrow cleared by OT for home awaiting PT eval but suspect he will "pass" PT eval he reports he will have help from his kids at home post-d/c Admission and Anticipated Discharge Date Admission Date: September 08, 2021 Subjective pt feeling better than at admission rib pain is improved - still present, but improved; hurts the worst over left back near the lower scapula no significant pleuritic pain eating well minimal cough no dyspnea asks about the [place] catheter Review of Systems Review of Systems: gen - no fevers or chills cv - no chest pain pulm - no wheezing or dyspnea GI - no abd pain, moving bowels Physical Exam Physical Exam: gen - looks good; sitting comfortably in the chair mouth - MMM neck - no JVD heart - RRR, s1 s2 lungs - minimal faint rales bases, worse on left; mildly decreased BS left abse abd - soft NT ND BS+ ext - no edema, pulses 2+ b/l Results & Data Results & Data ([facility]) Vital Signs (Past 12 Hours) Vital Signs Temp Pulse Pulse Pulse Resp BP BP 09/12/21 07:20 36.7 C 58 L 20 144/80 H 09/12/21 03:11 36.5 C 51 L 16 133/81 09/11/21 23:48 66 09/11/21 22:50 36.5 C 62 18 154/84 H Pulse Ox 09/12/21 07:20 93 09/12/21 03:11 93 09/11/21 23:48 09/11/21 22:50 94 Laboratory Results CBC wnl BMP wnl with Cr 1.3 sputum cx negative Diagnostic Findings renal artery doppler neg for MARCO PG Care Time/CCT Total # of Minutes Spent Total Time Spent with Patient: Total time spent is greater than 50% in coordination of care (as documented) at patient's floor/unit and/or counseling patient: Coding Level of Care Code 75730 Subseq Hosp Care Lvl 3 Diagnoses Pneumonia J18.9 Multiple fractures of ribs, left side, initial encounter for closed fracture S22.42XA Hypertension I10 Diabetes E11.9 Hyperlipidemia E78.5 BPH NOS w ur obs/LUTS N40.1 Urinary retention R33.9 Acquired solitary kidney Z90.5 DVT prophylaxis Z29.9 Pancreatic cyst K86.2 Pulmonary nodules R91.8
[2021-09-12] MEDS ORDERED: TAMSULOSIN HCL 0.4 MG CAP PO SCH ×2 (09:00→21:00)
[2021-09-12 09:54] LABS: BUN Creatinine Ratio 17.9 (10-20); Calcium 8.9 mg/dl (8.5-10.1); Creatinine Clr Calc Pharmacy 40.9 ml/min; Est GFR (African American) 46.4 ml/min; Est GFR (Non-African American) 40.1 ml/min; Magnesium 1.8 mg/dl (1.7-2.4); Potassium 3.6 mmol/L (3.5-5.1)
[2021-09-12] MEDS: FINASTERIDE 5 MG TAB PO SCH (10:03)
[2021-09-12] MEDS: CEFDINIR 300 MG CAP PO SCH ×2 (10:03→21:21)
[2021-09-12] MEDS ORDERED: ERGOCALCIFEROL 50,000 UNITS 1250 MCG CAP PO ONE (10:31)
[2021-09-12] MEDS: ENOXAPARIN INJ 40 MG/0.4 ML SYR SQ SCH (17:31)
--- NOTE | 2021-09-12 18:52 | Hospitalist Progress Note ---
Date of Service September 12, 2021 Assessment & Plan (1) JO (acute kidney injury): Plan: suspect 2nd to over-diuresis with IV lasix, numerous new BP meds initiated, etc. HOLD lasix, hydralazine, HCTZ, losartan allow Cr to simply come down repeat BMP am for stability casts noted on u/a consistent with JO (2) Pneumonia: Plan: CAP. Day #5 of Rocephin - change to PO omnicef 300mg BID; complete 7 days in total Day #5 of azithromycin - stop after today's dose some of the CT findings from admission could have been some left-over radiological findings from his prior COVID pneumonia in 06/[address] he is clinically improving/resolving his pneumonia recommend f/u CT in 3 months to ensure radiographic resolution of all findings (3) Multiple fractures of ribs, left side, initial encounter for closed fracture: Plan: Acute fractures of the lateral left fourth through ninth ribs - some with minimal displacement but no pneumothorax. 2nd to fall. Cont lidocaine patches, Tylenol, and oxycodone. Cont pulmonary toilet. 25-OH vit D level is low - replace Pain decently controlled today (4) Hypertension: Plan: Multiple meds were added this admission when BPs were high - hydralazine, HCTZ. He had been taking amlodipine 10 mg daily, losartan, doxazosin 4mg HS, inderal, and flomax. he now has JO, and BPs have trended down with the above aggressive anti- hypertensive regimen. HOLD hydralazine HOLD losartan (due to JO) HOLD HCTZ HOLD the doxazosin (cont flomax) obviously very complex BP regimen renal artery dopplers neg for MARCO untreated COLLINS at baseline causing severe HTN at baseline? hyperaldo? I do believe the severe pain from rib fractures contributed to BP elevations early in the stay (5) Diabetes: Plan: -A1c less than 7, well controlled -Holding glipizide while inpatient. -SSI resume sulfonylurea at d/c (6) Hyperlipidemia: Plan: -Continue atorvastatin 40 mg daily. (7) BPH NOS w ur obs/LUTS: Plan: very enlarged prostate on CT had urinary retention while here necessitating [place] placement was taking 2 alpha blockers at home (?) would stop doxazosin just continue flomax BID add finasteride PSA noted to be 9 - he could have prostatitis - consider YUMIKO before d/c Urine cx is pending regardless - needs f/u for this issue, the elevated PSA, and #8 send home with [place] at discharge (8) Urinary retention: Plan: presumed 2nd to BPH in setting of acute pain/narcotic usage?? keep [place] in at discharge (9) Acquired solitary kidney: Plan: noted (10) DVT prophylaxis: Plan: lovenox 40mg daily (11) Pancreatic cyst: Plan: pancreatic head cyst chronic will need f/u for this (12) Pulmonary nodules: Plan: noted on CT x [address] in 3 months (13) Vitamin D deficiency: Plan: ergocalciferol 92493 units weekly x 8 weeks level = 19 Plan: hopeful for d/c tomorrow cleared by OT for home cleared by PT for home he reports he will have help from his kids at home post-d/c left message for daughter this evening on voicemail Admission and Anticipated Discharge Date Admission Date: September 08, 2021 Subjective tele overnight wnl rib pain controlled ambulating eating well no significant pulmonary symptoms can take deeper breaths more easily than yesterday no new complaints Review of Systems Review of Systems: gen - no fevers/chills pulm - scant cough cv - no central cp GI - no abd pain, N/V/constipation Physical Exam Physical Exam: gen - looks good; like yesterday sitting comfortably in the chair mouth - MMM neck - no JVD heart - RRR, s1 s2 lungs - CTA b/l abd - soft NT ND BS+ ext - no edema, pulses 2+ b/l - [place] in place, clear yellow urine Results & Data Results & [facility] ([facility]) Vital Signs (Past 12 Hours) Vital Signs Temp Pulse Pulse Resp BP Pulse Ox 09/12/21 15:03 54 L 09/12/21 11:18 36.8 C 51 L 18 122/69 93 09/12/21 10:33 54 L 09/12/21 07:20 36.7 C 58 L 20 144/80 H 93 Laboratory Results Laboratory Results - last 24 hr 09/11/21 09/12/21 09/12/21 20:36 07:22 08:57 Sodium 135 L Potassium 3.6 Chloride 100 Carbon Dioxide 27 Anion Gap 8 BUN 29 H Creatinine 1.62 H D Est Cr Clr Drug Dosing 40.9 Est GFR ( Amer) 46.4 Est GFR (Non-Af Amer) 40.1 BUN/Creatinine Ratio 17.9 Glucose 220 H POC Glucose 141 H 147 H Calcium 8.9 Magnesium 1.8 Prostate Specific Ag 25-OH Vitamin D Total Urine Color Urine Appearance Urine pH Ur Specific [place] Urine Protein Urine Glucose (UA) Urine Ketones Urine Blood Urine Nitrite Urine Bilirubin Urine Urobilinogen Ur Leukocyte Esterase Urine WBC (Auto) Urine RBC (Auto) U Hyaline Cast (Auto) U Epithel Cells (Auto) Urine Bacteria (Auto) 09/12/21 09/12/21 09/12/21 08:57 08:57 11:41 Sodium Potassium Chloride Carbon Dioxide Anion Gap BUN Creatinine Est Cr Clr Drug Dosing Est GFR ( Amer) Est GFR (Non-Af Amer) BUN/Creatinine Ratio Glucose POC Glucose 125 H Calcium Magnesium Prostate Specific Ag 9.239 H 25-OH Vitamin D Total 19.7 L Urine Color Urine Appearance Urine pH Ur Specific [place] Urine Protein Urine Glucose (UA) Urine Ketones Urine Blood Urine Nitrite Urine Bilirubin Urine Urobilinogen Ur Leukocyte Esterase Urine WBC (Auto) Urine RBC (Auto) U Hyaline Cast (Auto) U Epithel Cells (Auto) Urine Bacteria (Auto) 09/12/21 09/12/21 16:37 Unknown Sodium Potassium Chloride Carbon Dioxide Anion Gap BUN Creatinine Est Cr Clr Drug Dosing Est GFR ( Amer) Est GFR (Non-Af Amer) BUN/Creatinine Ratio Glucose POC Glucose 115 H Calcium Magnesium Prostate Specific Ag 25-OH Vitamin D Total Urine Color Dark Yellow Urine Appearance Clear Urine pH 5.0 Ur Specific [place] 1.034 H Urine Protein 1+ H Urine Glucose (UA) Negative Urine Ketones Negative Urine Blood 2+ H Urine Nitrite Negative Urine Bilirubin Negative Urine Urobilinogen Negative Ur Leukocyte Esterase Trace H Urine WBC (Auto) >30 H Urine RBC (Auto) >30 H U Hyaline Cast (Auto) 10-30 H U Epithel Cells (Auto) 10-20 H Urine Bacteria (Auto) Negative PG Care Time/CCT Total # of Minutes Spent Total Time Spent with Patient: Total time spent is greater than 50% in coordination of care (as documented) at patient's floor/unit and/or counseling patient: Coding Level of Care Code 01363 Subseq Hosp Care Lvl 3 Diagnoses Pneumonia J18.9 Multiple fractures of ribs, left side, initial encounter for closed fracture S22.42XA Hypertension I10 Diabetes E11.9 Hyperlipidemia E78.5 BPH NOS w ur obs/LUTS N40.1 Urinary retention R33.9 Acquired solitary kidney Z90.5 DVT prophylaxis Z29.9 Pancreatic cyst K86.2 Pulmonary nodules R91.8 JO (acute kidney injury) N17.9 Vitamin D deficiency E55.9
[2021-09-12] MEDS: ATORVASTATIN 40 MG TAB PO SCH (21:21)
[2021-09-12] MEDS ORDERED: LIDOCAINE 5% 1 PATCH TD SCH (21:30)
[2021-09-12] MEDS ORDERED: Nursing to Pharmacy Communication SCH (21:45)
[2021-09-13] MEDS: oxyCODONE HCL IR 5 MG TAB (IMMEDIATE RELEASE) PO PRN (04:29)
[2021-09-13] MEDS: ACETAMINOPHEN 500 MG TAB PO SCH ×2 (06:15→13:22)
[2021-09-13 08:18] LABS: BUN Creatinine Ratio 20.6 (10-20); Calcium 8.8 mg/dl (8.5-10.1); Est GFR (African American) 54.9 ml/min; Est GFR (Non-African American) 47.4 ml/min; Potassium 3.7 mmol/L (3.5-5.1)
[2021-09-13] MEDS: amLODIPine BESYLATE 5 MG TAB PO SCH (08:35)
[2021-09-13] MEDS: CEFDINIR 300 MG CAP PO SCH (08:35)
[2021-09-13] MEDS: DOCUSATE SODIUM 100 MG CAP PO SCH (08:36)
[2021-09-13] MEDS: FINASTERIDE 5 MG TAB PO SCH (08:38)
[2021-09-13] MEDS: INSULIN ASPART PER UNIT SC SCH ×2 (08:44→13:20)
[2021-09-13] MEDS: PROPRANOLOL HCL 20 MG TAB PO SCH (09:25)
--- NOTE | 2021-09-13 13:13 | Discharge Summary ---
Date of Service date of admission - September 08, 2021 date of discharge - September 13, 2021 Admission HPI Per Admitting Provider Patient is a 76 y/o male with PMH of hypertension, hyperlipidemia, diabetes, COVID-19 infection in June, and recent fall resulting in multiple left-sided rib fractures who presents today with uncontrolled left lateral chest pain. Patient was evaluated in our ED on , 09/02, after slipping on ice and falling. He was discharged with instructions to use lidocaine patches, oxycodone, and Tylenol for pain management. States this had been working initially, however over the past 2 days his pain has been uncontrolled and he has developed a somewhat productive cough. Reports he feels as if there is spasmodic pain in the area of his rib fractures, which, along with cough, is exacerbating his pain. Pain does not radiate to anterior chest, arms, neck, jaw, or elsewhere. It is reproducible with palpation and non-positional. Additionally, BP currently 196/96 in ED, patient states he has not been taking his blood pressure medications because he "did not want to be taking so many pills". Denies fever/chills, myalgias, chest pain, palpitations, shortness of breath, headache, blurred vision, syncope, nausea, vomiting. Patient was diagnosed in June with COVID-19 and possible pneumonia, did not require hospitalization. States he had some minor difficulty breathing, however has not required home oxygen. COVID test today in ED is negative. Work-up in ED significant for glucose of 154, all other labs within normal limits. No elevated WBC. Patient afebrile, BP noted above, HR 58, RR 18, 96% on room air. Chest CTA confirmed acute fractures the lateral left fourth through ninth ribs, few with minimal displacement noted without pneumothorax. No evidence of pulmonary thromboembolic disease or acute aortic pathology. Trace right and small to moderate left pleural effusions. left greater than right bilateral groundglass and consolidative opacities suggestive of multifocal pneumonia. Additionally, unchanged 4 mm right middle lobe and 10 mm right lower lobe pulmonary nodules. Principal Diagnosis 1. bilateral pneumonia 2. left-sided rib fractures - #4, #5, #6, #7, #8, and #9 Discharge Exam gen - NAD, sitting in chair comfortably mouth - MMM neck - no JVD heart - RRR, s1 s2, no murmur lungs - CTA b/l abd - soft NT ND BS+ ext - no edema, pulses 2+ b/l - england in place, clear yellow urine psych - a/o x 3 neuro - mild resting tremors of arms/hands Discharge Data Allergies Allergy/AdvReac Type Severity Reaction Status Date / Time No Known Drug Allergies Allergy Verified 06/24/20 09:57 Consultations PT, OT Procedures Performed [place] Catheter placement for urinary retention Ordered Studies Abdomen/Pelvis CT 09/08/21 11:05 CT SCAN OF THE ABDOMEN AND PELVIS WITH IV CONTRAST CLINICAL HISTORY: Trauma. Fall. Left-sided chest wall pain. COMPARISON STUDY: Abdominal CT dated 06/05/2018. TECHNIQUE: Following the IV administration of 120 cc of Optiray 320, CT scan of the abdomen and pelvis is performed from the lung bases to the proximal femora. Images are reviewed in the axial, sagittal, and coronal planes. IV contrast was administered without complication. A dose lowering technique was utilized adhering to the principles of ALARA. There is streak artifact from the left arm which could not be elevated above the chest. CT DOSE: 2700.80 mGy.cm FINDINGS: Lung bases: The heart is mildly enlarged and without pericardial effusion. The coronary arteries are densely calcified. There is a small left pleural effusion with left basilar consolidation. The right lung base appears clear noting basilar atelectasis. There is no basilar pneumothorax. A tiny hiatal hernia is observed. Liver: The contrast-enhanced liver is normal in size, contour, and attenuation. There is no intrahepatic biliary ductal dilatation. The hepatic veins and portal veins are patent. Gallbladder: Unremarkable. Spleen: Normal in size and attenuation. Pancreas: There is moderate glandular atrophy of the pancreas. A 2.1 cm cystic lesion in the pancreatic head is seen on image #175. Adrenal glands: Unremarkable. Kidneys: The left kidney is not identified and presumed surgically absent. The right kidney is normal in size and without hydronephrosis. 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 Additional subcentimeter cortical hypodensities likely represent cysts but are too small for definitive characterization. The right kidney enhances homogeneously. Abdominal vasculature: The abdominal aorta is normal in course and caliber noting advanced atherosclerotic calcification. Bowel: Moderate fecal retention is seen throughout the colon. There is no bowel obstruction. The appendix is well-visualized and normal. Peritoneum: There is trace perihepatic ascites. No intraperitoneal free air is identified. Lymphadenopathy: None. Pelvic viscera: The prostate gland is enlarged and heterogeneous, measuring 6.5 cm in transverse diameter. The bladder is mildly distended. The bladder wall is thickened and trabeculated indicating chronic outlet obstruction. Skeletal structures: The skeletal structures are osteopenic. No lytic or blastic lesions are seen. There are acute left lateral 7th through 9th rib fractures. The lumbosacral spine and proximal femora appear intact. IMPRESSION: 1. There are acute left-sided rib fractures as above. 2. Small left pleural effusion with left basilar consolidation. 3. There is no evidence of solid organ injury in the abdomen or pelvis. 4. A 2.1 cm simple cystic lesion in the pancreatic head has been present dating back to 2018 and likely represents an IPMN versus mucinous cystic neoplasm. 5. 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 6. Trace perihepatic ascites. 7. Moderate colonic fecal retention. 8. Additional findings as above. ACT 112: Negative or not required by law. Electronically signed by: Paddy Amador M.D. 09/08/2021 1:37 PM Chest CTA 09/08/21 11:05 CT angio chest w con HISTORY: 76 years-old Male fall luq pain, rib pain to left scapu, htn acute chest wall and left upper quadrant abdominal pain COMPARISON: CT abdomen and pelvis of same day, CTA chest 07/06/2021 TECHNIQUE: CTA of the chest was obtained following the intravenous administration of 120 mL Optiray 320. 3-D coronal and sagittal MIPS were obtained from the axial data set and were symmetric for review. All measurements were obtained according to NASCET criteria. A dose lowering technique was used consistent with the principals of SELENE. FINDINGS: CTA: Mild cardiomegaly. No pericardial effusion. Extensive coronary artery calcifications. Atherosclerosis of the thoracic aorta without aneurysm or dissection. Unremarkable pulmonary artery. No mediastinal or intramural hematoma. CT CHEST: Trace right with small to moderate left pleural effusions. No pneumothorax. Mild intralobular septal thickening and bronchial wall thickening. Patchy bilateral groundglass densities with left upper lobe, lingular and left lower lobe consolidation with intermixed groundglass opacities. There is mildly improved aeration of the right lung compared to the prior study. The consolidation within the left lung prominently was previously mostly groundglass density. Circumscribed 10 mm solid nodule within the right lower lobe on image 155 is unchanged and demonstrates critical central macroscopic fat. Stable 4 mm nodule of the lateral segment right middle lobe. Equivocal 4 mm nodule the right lower lobe on image 204. No acute process of the imaged upper abdomen. Unremarkable soft tissues. No acute fracture. IMPRESSION: 1. Cardiomegaly. No evidence of pulmonary thromboembolic disease or acute aortic pathology. 2. Trace right and sbofn-vc-rdeiahff left pleural effusions. 3. Left greater than right bilateral groundglass and consolidative opacities are suggestive of multifocal pneumonia. There is mild improved aeration of the right lung compared to the 07/06/2021 study. 4. Unchanged 4 mm right middle lobe and 10 mm right lower lobe pulmonary nodules. The 10 mm nodule demonstrates equivocal macroscopic fat suspicious for pulmonary hamartoma. Follow-up guidelines below. 5. No adenopathy. Please refer to below summary of Fleischner criteria recommendations for follow- up of incidental CT nodules (Kathryn Maria, Guidelines for management of small pulmonary nodules detected on CT scans: A statement from the Fleischner Society, Radiology 237: [phone].) SOLID NODULES Multiple nodules size: <6 mm * Low risk patients: no routine follow-up * high risk patients: optional CT at 12 months Multiple nodules size: 6-8 mm * Low risk patients: follow-up at 3-6 months, then consider further follow-up at 18-24 months * high risk patients: follow-up at 3-6 months, then at 18-24 months if no change Multiple nodules size: >8 mm * Low risk patients: follow-up at 3-6 months, then consider further follow-up at 18-24 months * high risk patients: follow-up at 3-6 months, then at 18-24 months if no change Note: newly detected indeterminate nodule in persons 35 years of age or older. * Low risk patients: minimal or absent history of smoking and/or other known r isk factors * high risk patients: history of smoking or of other known risk factors (e.g. first degree relative with lung cancer, or exposure to asbestos, radon, uranium) * if a nodule up to 8 mm is partly solid or is ground glass further follow-up is required after 24 months to exclude possible slow growing adenocarcinoma (RHIANNA) The above report was generated using voice recognition software. It may contain grammatical, syntax or spelling errors. ACT 112: Negative or not required by law. The above report was generated using voice recognition software. It may contain grammatical, syntax or spelling errors. Electronically signed by: Rk Mcclain M.D. 09/08/2021 1:22 PM Renal Artery Duplex 09/10/21 11:00 US duplex renal artery CLINICAL HISTORY: resistant htn TECHNIQUE: Real-time grayscale and color and spectral Doppler ultrasound imaging of the kidneys was performed. Comparison: None available at the time of this dictation. FINDINGS: Normal echogenicity of the right kidney with preserved corticomedullary differentiation. Normal cortical thickness. Right kidney measures 12.7 cm. No hydronephrosis. No convincing evidence of calculus or mass. Spectral analysis: Intrarenal resistive indices range from 0.58 to 0.72. Waveforms are normal in appearance.. Renal artery patent with peak systolic velocity 111 cm/s pr oximally, 49 cm/s in the midportion, and 32 cm/s distally. Renal vein patent. Agenesis of the left kidney is noted. Abdominal aorta: Patent. Peak systolic velocity 134.7 cm/s. Reference ranges: Normal main renal artery peak systolic velocity less than 180 cm/s. Ratio of renal artery PSV to aortic PSV less than 3.5 equates to normal or less than 60% stenosis. Only one of the two criteria listed needs to be met for diagnosis. IMPRESSION: No evidence of renal artery stenosis. Resistive indices are normal to upper range of normal. ACT 112: Negative or not required by law. Electronically signed by: Endy Muñiz M.D. 09/10/2021 3:10 PM Hospital Course (1) Pneumonia: Community-acquired, in the setting of #2 below. Bilateral. He never was hypoxic. Completed 5 days of azithromycin while hospitalized. Completed 5 days of rocephin while here. Will complete 2 more days of oral omnicef at home. Some of the CT findings from admission could have been some left-over radiological findings from his prior COVID pneumonia in 06/2021. Either way he clinically improved during his hospitalization. Recommend f/u CT in 3 months to ensure radiographic resolution of all findings. (2) Multiple fractures of ribs, left side, initial encounter for closed fracture: Acute fractures of the lateral left fourth through ninth ribs - some with minimal displacement but no pneumothorax. 2nd to fall. Cont lidocaine patches (OTC Salonpas), Tylenol, and oxycodone prn. Cont pulmonary toilet. 25-OH vit D level was low - replace (see below). At discharge his pain was reasonably controlled. Never had hypoxia during the hospitalization. (3) JO (acute kidney injury): Developed such during his hospitalization. Suspect 2nd to over-diuresis with IV lasix, numerous new BP meds initiated, etc. Peak Cr 1.6. Discharge Cr 1.4. Baseline Cr 1.1-1.2. Casts on u/a consistent with pre-renal JO. He was asked to hold his losartan and lasix at discharge. Also he should stop his doxazosin as he is already on flomax twice daily. Recommend repeat BMP at time of follow-up with his PCP. (4) Hypertension: Multiple meds were added this admission when BPs were high - hydralazine, HCTZ, etc. He had been taking amlodipine 10 mg daily, losartan, doxazosin 4mg HS, inderal, and flomax pre-admission for his HTN. He developed JO in the midst of fluctuating blood pressures and use of IV lasix. Suspect that his high BPs were due to pain from his rib fractures. Renal artery dopplers were negative for MARCO. Could patient have undiagnosed/untreated COLLINS causing severe HTN at baseline? Hyperaldo state? At discharge his anti-hypertensive regimen is - * propranolol 60mg BID * tamsulosin 0.4mg BID * amlodipine 10mg Daily Due to JO his losartan was HELD at discharge. Due to JO his lasix was HELD at discharge. Due to concomitant use of flomax his doxazosin was STOPPED at discharge. (5) Diabetes: HbA1c less than 7%, well controlled. He will continue his glipizide after discharge. (6) Hyperlipidemia: Continue atorvastatin 40 mg daily. (7) BPH NOS w ur obs/LUTS: Very enlarged prostate on CT; previous [facility] office notes also indicate BPH. The patient had urinary retention while here necessitating eng[place] placement. Was taking 2 alpha blockers at home prior to admission. Doxazosin was stopped; he will continue flomax BID. Finasteride 5mg daily was added. PSA noted to be 9 - he could have prostatitis, but urine culture was negative and he had no other symptoms to suggest acute prostatitis. He was discharged to home with england in place. He will need close f/u with [facility] due to known BPH, rising PSA (had been 5, now 9), urinary retention, institution of finasteride, etc. (8) Urinary retention: presumed 2nd to BPH in setting of acute pain/narcotic usage while here. keep england in at discharge and will have him f/u with [facility] 1 week post- discharge for trial of void/england management. (9) Acquired solitary kidney: Patient has congenital solitary kidney status. (10) Pancreatic cyst: pancreatic head cyst chronic but will need f/u for this highly recommend GI referral in the near-future to follow this cyst. (11) Pulmonary nodules: noted on CT chest 2 discrete nodules seen - 4 mm right middle lobe and 10 mm right lower lobe repeat CT in 3 months will be needed to ensure radiographic resolution of all pulmonary infiltrates from #1 which will also be good opportunity to re-examine the nodules (12) Vitamin D deficiency: ergocalciferol 57070 units weekly x 8 weeks he received his first dose while hospitalized level = 19 Home Health Attestation I certify that this patient is under my care and that I, or a physicians as sistant working with me, had a face to-face encounter that meets the home health esde-gl-slml encounter requirements with this patient. The encounter with the patient was in whole, or in part, for the following medical condition, which is the primary reason for home health care (list medical condition): I certify that, based on my findings, the following services are medically necessary home health services: My clinical findings support the need for the above services because: Further, I certify that my clinical findings support that this patient is homebound (i.e. absences from home require considerable and taxing effort and are for medical reasons or oriental orthodox services or infrequently or of short duration when for other reasons) because: Certification for Home Health Services: Based on the above findings, I certify that this patient is confined to the home and needs intermittent shelter care, physical therapy and/or speech therapy or continues to need occupational therapy. The patient is under my care, and I have initiated the establishment of the plan of care. This patient will be followed by a physician who will periodically review the plan of care. Total Time Total Time Spent Total Time Spent (In Minutes): 50 Discharge Plan Discharge Items Patient Disposition: Home - Home Health Services Reason For Visit: RIB FRACTURES, PNEUMONIA Discharge Diagnosis: 1. Multiple left-sided rib fractures 2. Pneumonia 3. Vitamin D deficiency 4. Urinary retention likely due to enlarged prostate, etc. [place] catheter in place 5. Lung nodules 6. Cyst on pancreas Activity: As commented below Activity Comment: gradually increase your activities over the next 7-10 days Lifting: No more than 10 pounds Bathing Comment: as tolerated Sexual Activity: Wait until after follow-up appointment Exercise/Sports: Wait until after follow-up appointment Driving/Machine Use: No driving if you are taking narcotic pain killer medication Non-emergency contact: Primary Care Provider and Urologist Call non-emergency contact if: you have any medication questions, your symptoms worsen, your pain is not controlled, your pain is worsening, your pain is unusual for you and your pain is concerning for you Follow-up/Referrals: Pritesh Bartlett DO [Physician] - 09/20/21 10:00 am (7-[address] Bartlett or one of his associates; diagnosis - BPH, urinary retention now with england, elevated PSA) Jermain Reddy MD [Primary Care Provider] - 09/16/21 2:15 pm (see Dr Fredrick Narayanan this Monday if possible; if not, then next Monday the ) Diet: Carb Consistent or DM2 and Heart Healthy Addtl Attending Provider Instructions: Mr Garcia, Jhonny were admitted to the hospital for treatment of pneumonia after having had a recent fall that led to multiple left-sided rib fractures. Your pneumonia improved with IV antibiotics, and we treated your rib pain with various medications including pain medication, tylenol, and patches. Throughout your stay your blood pressures were quite elevated - likely due to your severe rib pain. Unfortunately we had to place a catheter in your bladder due to urinary retention (inability to pass your urine adequately). I suspect multiple things contributed to this including enlarged prostate, narcotic pain medication, and potentially even urine/prostate infection (being ruled out). We checked a vitamin D level and this returned low/deficient at 19 (normal is >30). We started vitamin D supplementation for you. Incidentally we found several other things on your CAT scans while hospitalized. Your CAT scan of the lungs showed small pulmonary "nodules." These are typically benign/not harmful, but need to be checked upon again in the future. Your CAT scan of the abdomen showed a cyst in the pancreas. This, too, needs to be followed - likely by a GI specialist. Recommendations - 1. Antibiotics for your pneumonia - * cefdinir 300mg twice daily x 2 days * take your first dose TONIGHT * prescription sent to Dr. Tariff for you 2. Rib pain / back pain - * oxycodone pain killer medication - 5mg every 6 hours as needed - refill sent to Dr. Tariff for you * know that oxycodone can cause constipation * oxycodone can also make you sleepy/tired, and in some cases, even a little confused * please do not drink alcohol if you are taking oxycodone * please do not drive a car if you are taking oxycodone * jvyj-sgb-gxdodtn tylenol, 1000mg up to 3 times a day, as needed/desired * ykit-rlq-qkfcjvn Salonpas (lidocaine patches) - place on for 12 hours, remove for 12 hours - as needed/desired * heating pad 3. Enlarged prostate - * continue your flomax (tamsulosin) 0.4mg twice daily as previous * STOP your doxazosin * START finasteride 5mg once daily - prescription sent to Dr. Tariff for you * follow-up with Urology for the prostate and the catheter within 7-10 days * follow-up with Urology for the elevated PSA blood test (your level was 9) 4. Pulmonary nodules, past COVID pneumonia, and current pneumonia - please ask Dr Reddy to schedule you a repeat CAT scan of your lungs in 3 months to re- evaluate all of the above. 5. Pancreatic cyst - please ask Dr Reddy to refer you to a GI specialist to follow this. 6. Blood pressure medications - * since your kidney number donn during your stay please HOLD your losartan upon return home * I anticipate that you will be able to resume this in the next week or two * I would recommend you have your creatinine (kidney number) repeated when you see Dr Reddy * if the creatinine is improved further the losartan can likely be resumed then * please HOLD your furosemide for now as well 7. Vitamin D deficiency - * take ergocalciferol 32907 units capsule ONCE A WEEK x 7 weeks * take your first capsule next Monday, Sep 20 * prescription sent to [facility] for you * have Dr Reddy repeat your vitamin D level after the 7 weeks are complete 8. For constipation issues, if you develop such while on pain medication - * you can take kpns-wvf-vooevrz colace, miralax, and / or senna as needed/desired * most people need at least 1 or 2 aids to maintain normal bowels while on the pain killer medication Follow-up - see separate section Return to [facility] if - * you have uncontrolled rib pain/back pain despite taking the above medications * you have fevers over 100 degrees * you have any concerns regarding your urinary catheter * you have worsening shortness of breath * you develop significant chest pains * any other concerns It was our pleasure caring for you at [facility]! Continue to feel better, -Dr Daniel Bateman Pillar Worker Provider Instructions: Case Management: [facility] will start services with you on 09/14 for Physical Therapy, Occupational Therapy, and nursing. [facility] will call you after discharge to schedule your intake appt. Pending Studies at Discharge: Yes Studies:: urine culture Stand-Alone Forms: My [facility], Smoking Cessation Medications and DC Order Prescriptions: New polyethylene glycol 3350 [Miralax] 17 gram Powder In Packet 17 g PO DAILY Qty: 1 RF: 0 finasteride [Proscar] 5 mg Tablet 5 mg PO QAM Qty: 30 RF: 2 ergocalciferol (vitamin D2) 1,250 mcg (50,000 unit) capsule 50,000 unit PO .once weekly 49 Days Qty: 7 RF: 0 Continued atorvastatin 40 mg Tablet 40 mg PO QPM RF: 0 propranolol 60 mg Tablet 60 mg PO BID RF: 0 amlodipine 10 mg Tablet 10 mg PO QAM RF: 0 glipizide 2.5 mg Tablet Extended Release 24hr 2.5 mg PO BID RF: 0 tamsulosin 0.4 mg Capsule 0.4 mg PO BID RF: 0 docusate sodium [Colace] 100 mg capsule 100 mg PO BID Qty: 60 RF: 0 lidocaine 5 % adhesive patch,medicated 1 patch topical DAILY Qty: 15 RF: 0 oxycodone 5 mg tablet 5 mg PO Q6H PRN (Reason: pain) Qty: 20 RF: 0 Discontinued cephalexin 500 mg capsule 500 mg PO BID PRN (Reason: Other) RF: 0 doxazosin 4 mg Tablet 4 mg PO QPM RF: 0 losartan 100 mg Tablet 100 mg PO QAM RF: 0 furosemide 20 mg Tablet 10 mg PO QAM RF: 0 Discharge Orders: Discharge Order (Routine); Ordered 09/13/21 Ordered By: Deny Paris/Other Patient Handouts: Managing Type 2 Diabetes, ED Rib Fracture Admission Data Admit Date/Time: 09/08/21 15:07 Attending Provider: Deny Sanchez Admit Provider: Bud Roberson Primary Care Provider: Jermain Reddy Other Providers: Bud Roberson Other Interventions: Discharge Summary Assessment (RN) Last Done: 09/13/21 13:46 Coding Level of Care Code D/C DAY MANAGEMENT >30 MINS Diagnoses JO (acute kidney injury) N17.9 Pneumonia J18.9 Multiple fractures of ribs, left side, initial encounter for closed fracture S22.42XA Hypertension I10 Diabetes E11.9 Hyperlipidemia E78.5 BPH NOS w ur obs/LUTS N40.1 Urinary retention R33.9 Acquired solitary kidney Z90.5 Pancreatic cyst K86.2 Pulmonary nodules R91.8 Vitamin D deficiency E55.9
== END 2021-09-13 14:42 | disposition home health service (06) | DRG 194 ==
LOC: ED 10:34 → 3N 15:07 → SUATTDRO 15:07 → 3N 16:42 → 2W 20:13

== ENCOUNTER 2023-06-13 06:38 | Inpatient (IN) ==
--- OUTSIDE RECORDS SUMMARY | 2023-06-13 06:56 | External Medical Summary | Continuity of Care Document ---
Author Name Unknown Organization [facility] [address] [facility] Address [address] [place], [place] [id number] Care Team Providers Care Security Operations Analyst Name Role Phone Luanne Lanier Primary Care Physician [phone] [id number] Date(s): 03/10/23 - 03/10/23 [facility] [address] [address] [facility] [address] [place] [address] [phone] Encounter Diagnosis Annual physical exam(Discharge Diagnosis) - 03/09/23 Type 2 diabetes mellitus without complications(Final) - Bilateral hearing loss(Discharge Diagnosis) - 03/10/23 BPH (benign prostatic hyperplasia)(Discharge Diagnosis) - 03/09/23 Combined hyperlipidemia(Discharge Diagnosis) - 03/09/23 HTN (hypertension)(Discharge Diagnosis) - 03/09/23 Type 2 diabetes, HbA1c goal < 7%(Discharge Diagnosis) - 03/09/23 Bilateral cataracts(Discharge Diagnosis) - 03/10/23 Discharge Disposition: Home or Self Care Attending Physician: MD Lanier Amy L Allergies, Adverse Reactions, Alerts No Known Medication Allergies Assessment and Plan Extracted from: Title:Office Visit Note Author:MD Lanier Amy L D ate:03/10/23 1.Annual physical exam Normal exam, healthy lifestyle. Get CMP & lipids. He did not want to discuss colonoscopy or any vaccines. 2.Type 2 diabetes, HbA1c goal < 7% Status : chronic, controlled. Data : diet & glucometers reviewed. Goal : maintain normal blood sugars. Plan : get glucose & A1C. His diabetic control has been good, so no changes in meds. Discussed goals of therapy. Continue same meds, pending labs. 3.Bilateral hearing loss Refer to ENT. 4.Bilateral cataracts He will continue to follow with ophtho, advised him to notify us if pre-op H&P is needed. 5.BPH (benign prostatic hyperplasia) STATUS: new complaint,stable. DATA: hxreviewed. GOAL: Maintain adequate urine flow, relieve sx of BPH. PLAN: continue Tamsulosin &to monitor. 6.Combined hyperlipidemia STATUS : chronic, stable. DATA : diet & exercise reviewed. GOAL: improve metabolic profile. PLAN : continue to monitor lifestyle. Get lipids & LFTs.He remains opposed to taking statin drugs. 7.HTN (hypertension) Status : chronic, controlled. Data : BP readings reviewed. Goal : maintain normal BP. Plan : continue current BP meds. Get electrolytes & renal function. Return in 6 months. TOTAL TIME for CPE: (Preparation, record review face to face time with patient, and note completion): 12 A preventive health CPE was completed during this visit in addition to an E & M visit. The CPE included a review of the PMH, PSH, FHx, Social History, medication review (and refills if needed), review of specialty consults/ visits, review of ED visits if applicable, past and current lab/ imaging results, and completing the portion of the note to document the CPE. TOTAL TIME FOR E & M: (Preparation, record review, face to face time with patient, and note completion): 36 An E& M visit was also completed during this visit to address acute and/or chronic patient concerns. See above ASSESSMENT and PLAN. Evaluation consisted of review of prior visits to assess past management, medication review and response to problems addressed, review of prior specialty consultation for these issues, review of ED visits if applicable, past and current labs and imaging that relate to these concerns and documentation of this visit. Immunizations Given and Recorded Vaccine Date Status Refusal Reason SARS-CoV-2 (COVID-19) mRNA BNT-162b2 vax 1 11/19/20 Recorded SARS-CoV-2 (COVID-19) mRNA BNT-162b2 vax 2 10/29/20 Recorded 1Result Comment: 2021-12-04: Historical information-source unspecified 2Result Comment: 2021-12-04: Historical information-source unspecified Medications amLODIPine 10 mg oral tablet Start: 12/06/22 20:39:00 EDT, See Instructions, Disp# 90 tab, Refills: 1, TAKE ONE TABLET BY MOUTH EVERY DAY, Pharmacy: [id number] Start Date: 12/06/22 Status: Ordered cephalexin 500 mg oral capsule Start: 01/03/22 13:53:00 EDT, 1 cap, PO, q12h, Disp# 180 cap, Refills: 1, TAKE ONE CAPSULE BY MOUTHTWICE A DAY, Pharmacy: [place] [id number] Start Date: 01/03/22 Status: Ordered finasteride 5 mg oral tablet Start: 03/07/23 7:49:00 EDT, See Instructions, Disp# 90 tab, Refills: 1, TAKE ONE TABLET BY MOUTH EVERY DAY, Pharmacy: [place] [id number] Start Date: 03/07/23 Status: Ordered FreeStyle (28G) Lancets Start: 01/05/22 20:01:00 EDT, See Instructions, Disp# 100 strip, Refills: 2, Use to test blood sugar twice daily., Pharmacy: [facility] [id number] Start Date: 01/05/22 Status: Ordered FREESTYLE LANCETS MISC Start: 09/19/22 21:40:00 EST, FREESTYLE LANCETS MISC, See Instructions, Disp# 100 each, Refills: 2,USE TO TEST BLOOD SUGAR TWICE DAILY, Pharmacy [place] [id number] Start Date: 09/19/22 Status: Ordered FREESTYLE LANCETS MISC TEST BLOOD SUGAR TWICE DAILY Start Date: 01/05/22 Status: Ordered FREESTYLE LITE TEST STRP TEST TWICE DAILY Start Date: 01/05/22 Status: Ordered FreeStyle Test Strips 100 ct Start: 03/08/22 17:34:00 EDT, See Instructions, Disp# 100 each, Refills: 4, Use to test bloodsugar twice daily. Dx: E11.9, Pharmacy: [place] [id number] Start Date: 03/08/22 Status: Ordered glipiZIDE 2.5 mg oral tablet, extended release Start: 08/09/22 7:54:00 EST, 1 tab, PO, bid, Disp# 180 tab, Refills: 1, Pharmacy: [place] [id number] Start Date: 08/09/22 Status: Ordered losartan 50 mg oral tablet Start: 09/26/22 10:49:00 EST, 1 tab, PO, Daily, Disp# 30 tab, Refills: 5, Pharmacy: [place] [id number] Start Date: 09/26/22 Status: Ordered propranolol 60 mg oral tablet Start: 01/20/23 16:56:00 EDT, See Instructions, Disp# 180 tab, Refills: 1, TAKE ONE TABLET BY MOUTHTWICE A DAY, Pharmacy: [id number] Start Date: 01/20/23 Status: Ordered tamsulosin 0.4 mg oral capsule Start: 01/20/23 16:25:00 EDT, See Instructions, Disp# 90 cap, Refills: 1, TAKE ONE CAPSULE BY MOUTHEVERY DAY, Pharmacy: [facility] Start Date: 01/20/23 Status: Ordered Mental Status 03/10/23 Barriers to Learning one year None evide nt Mandatory Health Literacy Documentation Yes Health Literacy Communication Barriers N ever Primary Language [place] Island[place] Problem List Condition Confirmation Course Effective Dates Status H ealth Status Informant 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 BPH (benign prostatic hyperplasia) Confirmed Active Bilateral cataracts Confirmed Active Carpal tunnel syndrome Confirmed Active Benign essential tremor Confirmed Active History of melanoma Confirmed Active Hemoptysis Confirmed Active History of elevated PSA Confirmed Active HTN (hypertension) Confirmed Active Microalbuminuria Confirmed Active Combined hyperlipidemia Confirmed Active Annual physical exam Confirmed Active Colon cancer screening Confirmed Active Plantar fasciitis Confirmed Active Type 2 diabetes, HbA1c goal < 7% Confirmed Active Diagnosis Diagnosis Type Effective Dates Health Status Clinical Service Informant Annual physical exam Discharge Diagnosis 03/09/23 BPH (benign prostatic hyperplasia) Discharge Diagnosis 03/09/23 Combined hyperlipidemia Discharge Diagnosis 03/09/23 HTN (hypertension) Discharge Diagnosis 03/09/23 Type 2 diabetes, HbA1c goal < 7% Discharge Diagnosis 03/09/23 Bilateral hearing loss Discharge Diagnosis 03/10/23 Non-Specified Bilateral cataracts Discharge Diagnosis 03/10/23 Non-Specified Procedures Procedure Date Related Diagnosis Body Site Status Shave biopsy and cauterization of skin 1 08/01/22 Completed Shave biopsy and cauterization of skin 12/29/21 Completed Shave biopsy and cauterization of skin 12/28/20 Completed Shave biopsy and cauterization of skin 12/24/18 Completed Polypectomy 2018 Completed TURP - Transurethral resecti on of prostate 2018 Completed Cystoscopy 2017 Completed Colonoscopy 4 11/22/11 Completed Carpal tunnel 5 Completed History of repair of umbilical hernia Completed Tonsillectomy 6 Completed 1left parietal area 2Nasal passage 2018 4Negative Exam. Repeat in 10 years(2021) [id number] Results Laboratory List Name Date Comprehensive Metabolic Panel (COMP META B PANEL) 03/10/23 Hemoglobin A1C (HEMOGLOBIN, A1C) 03/10/23 Lipid Profile (LIPOPROTEINS) 03/10/23 Most recent to oldest [Reference Range]: 1 eGFR CKD-EPI [>60 mL/min/1.73 m2] 55 mL/ min/1.73 m2 1 *LOW* (03/10/23 8:33 AM) Estimated Average Glucose 146 mg/dL 2 (03/10/23 8:33 AM) Non-HDL 192 mg/dL 3 (03/10/23 8:33 AM) Estimated CrCl 48.36 mL/min (03/10/23 9:29 AM) Anion Gap [5-14 mmol/L] 7 mmol/L (03/10/23 8:33 AM) Alb [3.5-5.0 g/dL] 4.2 g/dL (03/10/23 8:33 AM) Alk Phos [38-126 unit/L] 77 unit/L (03/10/23 8:33 AM) ALT [<50 unit/L] 32 unit/L (03/10/23 8:33 AM) AST [15-46 unit/L] 30 unit/L (03/10/23 8:33 AM) BUN [7-20 mg/dL] 19 mg/dL (03/10/23 8:33 AM) Ca [8.4-10.2 mg/dL] 8.8 mg/dL (03/10/23 8:33 AM) Chol/HDL 5 (03/10/23 8:33 AM) Chol [125-200 mg/dL] 236 mg/dL *HI* (03/10/23 8:33 AM) Cl- [96-107 mmol/L] 109 mmol/L *HI* (03/10/23 8:33 AM) HCO3 [22-30 mmol/L] 25 mmol/L (03/10/23 8:33 AM) Cret [0.70-1.30 mg/dL] 1.32 mg/dL *HI* (03/10/23 8:33 AM) HbA1c [4.0-6.0 %] 6.7 % *HI* (03/10/23 8:33 AM) Glu [74-106 mg/dL] 151 mg/dL *HI* (03/10/23 8:33 AM) HDL [>35 mg/dL] 44 mg/dL (03/10/23 8:33 AM) K [3.5-5.1 mmol/L] 4.4 mmol/L (03/10/23 8:33 AM) LDL Chol, Calculated [50-130 mg/dL] 150 mg/dL *HI* (03/10/23 8:33 AM) Na [137-145 mmol/L] 141 mmol/L (03/10/23 8:33 AM) T Bili [0.2-1.3 mg/dL] 0.5 mg/dL (03/10/23 8:33 AM) Prot [6.3-8.2 g/dL] 7.0 g/dL (03/10/23 8:33 AM) TG [<200 mg/dL] 209 mg/dL *HI* (03/10/23 8:33 AM) 1Result Comment: Testing Performed By: Dept of Pathology [facility], [address] [place] [address], [place] [address] 2Result Comment: Testing Performed By: Dept of Pathology [facility], [address] [place] [address] 3Result Comment: Testing Performed By: Dept of Pathology [facility], [address] [place] [address], [place] [address] Vital Signs Most recent to oldest [Reference Range]: 1 Patient Weight 98.3 kg (03/10/23 7:57 AM) Heart Rate 54 bpm (03/10/23 7:57 AM) Respiratory Rate 18 br/min (03/10/23 7:57 AM) Blood Pressure 122/80mmHg (03/10/23 7:57 AM) Cuff Pulse Pressure 42 mmHg (03/10/23 7:57 AM) BP Location # 1 Right Arm (03/10/23 7:57 AM) Social History Social History Type Response Tobacco Former smoker, Stopp ed age 23 Years. Smoking Status Never smoked cigaret marianne Sex Male FCM Outpt Note * MD Yannick, Luanne Bright: PERFORM Event Display: FCM Outpt Note Authored Date: Chief Complaint follow up, no new concerns History of Present Illness CPE: Here for a health maintenance complete physical exam and lab review SEPARATE PROBLEMS IN ADDITION TO HEALTH MAINTENANCE: Also presents to address NEW or CHRONIC medical issues. NEW CONCERNS(s): 1) Cataracts - he will be seeing his eye doctor soon, who is telling him that he could have surgeryfor these whenever he's ready. 2) Hearing loss - he has seen Dr. White in past. He knows that he has had this for long time. He thinks that it's getting worse. He gets ear congestion, which he thinks is due to a sinus problem.He requests referral to ENT & he has seen Dr. White in past. 3) Type 2 DM - he has had BS between 96-156, most are in 120-130's. No recent hypoglycemic eventsor sx. CHRONIC PROBLEMS FOLLOW UP: See list detailed in the Assessment and Plan. CC: No acute complaints at this time. HOSPITALIZATIONS: No hospitalizations in the last 12 months or severe acute injuries not accounted for in chart. DENTAL: Routine dental care every 6 months, recent broken tooth EYE: Routine eye care yearly, without issue presently PSFSHx: Histories updated and reviewed with patient with changes reflected. SAFETY: Feeling safe at home and in relationships without concern. COLONOSCOPY: Reviewed last COLO has had 2 of these, not sure when, and need for next COLO: IMMUNIZATIONS: Reviewed in EHR. Immunizations that are due: he declines all Review of Systems Review of Systems- Constitutional: no fatigue or changes in weight. HEENT: + vision changes, some sinus congestion. Respiratory: no cough, SOB, or wheezing. Cardiac: no chest pain, palpitations or pedal edema. GI: no abdominal pain, vomiting or change in bowel habits. : no dysuria. Neurologic: no headaches. Musculoskeletal: No joint pains. Physical Exam Vitals & Measurements HR:54(Monitored) RR:18 BP:122/80 SpO2:97% WT:98.300kg(Dosing) WT:98.3kg PHQ2 Data(Data Documented on:03/10/2023 07:57) Emotional health assessment NEGATIVE PE : Alert, in NAD. HEENT - PERRL. TM's - normal. Nares - clear. Oropharynx - normal. Neck - supple, without thyromegaly or lymphadenopathy. Lungs - clear, with good breath sounds bilaterally. Heart - RRR without murmur. No pedal edema. Abdomen - +BS, soft, NT without HSM or mass. Neuro - alert & oriented, speech & cognition normal. Skin - warm & dry. Psych - affect appropriate. Assessment/Plan 1.Annual physical exam Normal exam, healthy lifestyle. Get CMP & lipids. He did not want to discuss colonoscopy orany vaccines. 2.Type 2 diabetes, HbA1c goal < 7% Status : chronic, controlled. Data : diet & glucometers reviewed. Goal : maintain normal blood sugars. Plan : get glucose & A1C. His diabetic control has been good, so no changes in meds. Discussed goals of therapy. Continue same meds, pending labs. 3.Bilateral hearing loss Refer to ENT. 4.Bilateral cataracts He will continue to follow with ophtho, advised him to notify us if pre-op H&P is needed. 5.BPH (benign prostatic hyperplasia) STATUS: new complaint,stable. DATA: hxreviewed. GOAL: Maintain adequate urine flow, relieve sx of BPH. PLAN: continue Tamsulosin &to monitor. 6.Combined hyperlipidemia STATUS : chronic, stable. DATA : diet & exercise reviewed. GOAL: improve metabolic profile. PLAN : continue to monitor lifestyle. Get lipids & LFTs.He remains opposed to taking statin drugs. 7.HTN (hypertension) Status : chronic, controlled. Data : BP readings reviewed. Goal : maintain normal BP. Plan : continue current BP meds. Get electrolytes & renal function. Return in 6 months. TOTAL TIME for CPE: (Preparation, record review face to face time with patient, and note completion): 12 A preventive health CPE was completed during this visit in addition to an E & M visit. The CPE included a review of the PMH, PSH, FHx, Social History, medication review (and refills if needed), review of specialty consults/ visits, review of ED visits if applicable, past and current lab/ imaging results, and completing the portion of the note to document the CPE. TOTAL TIME FOR E & M: (Preparation, record review, face to face time with patient, and note completion): 36 An E& M visit was also completed during this visit to address acute and/or chronic patient concerns. See above ASSESSMENT and PLAN. Evaluation consisted of review of prior visits to assess past management, medication review and response to problems addressed, review of prior specialty consultation for these issues, review of ED visits if applicable, past and current labs and imaging that relate to these concerns and documentation of this visit. Problem List/Past Medical History Ongoing AB (asthmatic bronchitis) Annual physical exam Benign essential tremor Bilateral cataracts BPH (benign prostatic hyperplasia) Carpal tunnel syndrome Colon cancer screening Combined hyperlipidemia Hemoptysis History of elevated PSA History of melanoma HTN (hypertension) Microalbuminuria Plantar fasciitis Single kidney Type 2 diabetes, HbA1c goal < 7% Historical Skin lesion Procedure/Surgical History Shave biopsy and cauterization of skin (08/01/2022)Shave biopsy and cauterization of skin (12/29/2021)Shave biopsy and cauterization of skin (12/28/2020)Shave biopsy and cauterization of skin (12/24/2018)TURP - Transurethral resection of prostate (2018)Polypectomy (2018)Cystoscopy (2017)Colonoscopy (11/22/2011)History of repair of umbilical herniaCarpal tunnelTonsillectomy Medications amLODIPine(amLODIPine 10 mg oral tablet), See Instructions cephalexin(cephalexin 500 mg oral capsule), 500 mg= 1 cap, PO, q12h, 1 refills codeine-guaiFENesin(Cheratussin AC 10 mg-100 mg/5 mL oral syrup), 5 mL, PO, q6h, PRN diabetes supplies(FreeStyle Test Strips 100 ct), See Instructions, 4 refills diabetes supplies(FreeStyle (28G) Lancets), See Instructions, 2 refills finasteride(finasteride 5 mg oral tablet), See Instructions glipiZIDE(glipiZIDE 2.5 mg oral tablet, extended release), 2.5 mg= 1 tab, PO, bid, 1 refills losartan(losartan 50 mg oral tablet), 50 mg= 1 tab, PO, Daily, 5 refills propranolol(propranolol 60 mg oral tablet), See Instructions tamSULOsin(tamsulosin 0.4 mg oral capsule), See Instructions unlisted medication(FREESTYLE LANCETS MISC), See Instructions unlisted medication(FREESTYLE LITE TEST STRP) unlisted medication(FREESTYLE LANCETS MISC) Allergies No Known Medication Allergies Social History Smoking Status Never smoked cigarettes Alcohol - Denies Alcohol Use Frequency:1-2 times per week Employment/School Status:Retired Exercise - Comments: yard work almost daily Home/Environment Lives with:Alone Nutrition/Health Type of diet:Regular Sexual Sexually active:No Substance Abuse - No Risk Tobacco - No Risk Use:Former smoker Stopped at age:23Years Family History Benign brain tumor: Father. Cancer: Negative: Father. Heart attack: Brother. Heart disease: Brother. Hypertension: Mother. Health Status Family Member(s) Immunizations Vaccine Date Status SARS-CoV-2 (COVID-19) mRNA BNT-162b2 vax 11/19/2020 Recorded Comments : 2021-12-04: Historical information-source unspecified SARS-CoV-2 (COVID-19) mRNA BNT-162b2 vax 10/29/2020 Recorded Comments : 2021-12-04: Historical information-source unspecified Recommendations Health Maintenance Pending(in the next year) OverDue Adult Influenza Vaccine due01/21/23and every 1year Due Adult COVID-19 Vaccination due03/10/23Unknown Frequency Adult Tdap/Td Vaccine due03/10/23Unknown Frequency Diabetic Eye Exam due03/10/23Unknown Frequency Hepatitis C Screening due03/10/23One-time only Medicare Annual Wellness Visit due03/10/23and every 1year Pneumococcal Vaccine Older Adults due03/10/23One-time only Shingles Vaccine due03/10/23One-time only Due In Future Diabetes Management A1c not due until12/07/23and every 1year Body Mass Index not due until03/09/24and every 1year Satisfied(in the past 1 year) Satisfied Body Mass Index on09/07/22.Satisfied by MATILDA Rodríguez Karli R Diabetes Management A1c on12/07/22.Satisfied by Contributor_system, [email or web address] Diabetes Nephropathy Management on09/07/22.Satisfied by Contributor_system, [email or web address] Lipid Screening on09/07/22.Satisfied by Contributor_system, [email or web address] Electronic Signature on File Electronically Reviewed/Signed by: Luanne Lanier MD Author Signature Dt/Tm:03/10/2023 09:22 AM [facility] [address] [facility], [address] [place] [address] [facility] Patient Care team information Care Team Personnel Name: MD Lanier Amy L Position: Physician - Family Med Member Role: Primary Care Provider Address: Address: [address] [place] [address] [address] [place] [address] [place] Care Team Related Persons Name: EVENS PENA
--- OUTSIDE RECORDS SUMMARY | 2023-06-13 06:56 | External Medical Summary | Continuity of Care Document ---
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 Phone Luanne Lanier Primary Care Physician [phone] [id number] Date(s): 05/18/23 - 05/18/23 [facility] [address] [address] [phone] Encounter Diagnosis Body mass index [BMI] 37.0-37.9, adult(Discharge Diagnosis) - 05/18/23 Shoulder pain(Discharge Diagnosis) - 05/18/23 Discharge Disposition: Home or Self Care Attending Physician: DO Baugh Franklin J Allergies, Adverse Reactions, Alerts No Known Medication Allergies Immunizations Given and Recorded Vaccine Date Status Refusal Reason SARS-CoV-2 (COVID-19) mRNA BNT-162b2 vax 1 11/19/20 Recorded SARS-CoV-2 (COVID-19) mRNA BNT-162b2 vax 2 10/29/20 Recorded 1Result Comment: 2021-12-04: Historical information-source unspecified 2Result Comment: 2021-12-04: Historical information-source unspecified Medications acetaminophen-codeine 300 mg-30 mg oral tablet Start: 05/18/23 17:01:00 EDT, 1 tab, PO, q8h, Disp# 20 tab, Refills: 0, As needed for severe pain, PRN: as needed for pain, Pharmacy: [facility]/pharmacy #[id number] Start Date: 05/18/23 Status: Ordered amLODIPine 10 mg oral tablet Start: 12/06/22 20:39:00 EDT, See Instructions, Disp# 90 tab, Refills: 1, TAKE ONE TABLET BY MOUTH EVERY DAY, Pharmacy: [id number] Start Date: 12/06/22 Status: Ordered cephalexin 500 mg oral capsule Start: 01/03/22 13:53:00 EDT, 1 cap, PO, q12h, Disp# 180 cap, Refills: 1, TAKE ONE CAPSULE BY MOUTHTWICE A DAY, Pharmacy: [facility] [id number] Start Date: 01/03/22 Status: Ordered finasteride 5 mg oral tablet Start: 03/07/23 7:49:00 EDT, See Instructions, Disp# 90 tab, Refills: 1, TAKE ONE TABLET BY MOUTH EVERY DAY, Pharmacy: [facility] [id number] Start Date: 03/07/23 Status: Ordered FreeStyle (28G) Lancets Start: 01/05/22 20:01:00 EDT, See Instructions, Disp# 100 strip, Refills: 2, Use to test blood sugar twice daily., Pharmacy: [facility] [id number] Start Date: 01/05/22 Status: Ordered FREESTYLE LANCETS MISC Start: 09/19/22 21:40:00 EST, FREESTYLE LANCETS MISC, See Instructions, Disp# 100 each, Refills: 2,USE TO TEST BLOOD SUGAR TWICE DAILY, Pharmacy [facility] [id number] Start Date: 09/19/22 Status: Ordered FREESTYLE LANCETS MISC TEST BLOOD SUGAR TWICE DAILY Start Date: 01/05/22 Status: Ordered FREESTYLE LITE TEST STRP TEST TWICE DAILY Start Date: 01/05/22 Status: Ordered FREESTYLE TEST STRP Start: 03/15/23 7:56:00 EDT, FREESTYLE TEST STRP, See Instructions, Disp# 100 strip, Refills: 4, USE TO TEST BLOOD SUGAR TWICE DAILY, Pharmacy [facility] [id number] Start Date: 03/15/23 Status: Ordered FreeStyle Test Strips 100 ct Start: 03/15/23 12:44:00 EDT, See Instructions, Disp# 100 each, Refills: 4, Use to test bloodsugar twice daily. Dx: E11.9, Pharmacy: [facility] [id number] Start Date: 03/15/23 Status: Ordered glipiZIDE 2.5 mg oral tablet, extended release Start: 08/09/22 7:54:00 EST, 1 tab, PO, bid, Disp# 180 tab, Refills: 1, Pharmacy: [facility] [id number] Start Date: 08/09/22 Status: Ordered losartan 50 mg oral tablet Start: 09/26/22 10:49:00 EST, 1 tab, PO, Daily, Disp# 30 tab, Refills: 5, Pharmacy: [facility] Start Date: 09/26/22 Status: Ordered propranolol 60 mg oral tablet Start: 01/20/23 16:56:00 EDT, See Instructions, Disp# 180 tab, Refills: 1, TAKE ONE TABLET BY MOUTHTWICE A DAY, Pharmacy: [facility] Start Date: 01/20/23 Status: Ordered tamsulosin 0.4 mg oral capsule Start: 01/20/23 16:25:00 EDT, See Instructions, Disp# 90 cap, Refills: 1, TAKE ONE CAPSULE BY MOUTHEVERY DAY, Pharmacy: [facility] Pending sale to [facility] Start Date: 01/20/23 Status: Ordered Mental Status 05/18/23 Barriers to Learning one year None evide nt Mandatory Health Literacy Documentation Yes Health Literacy Communication Barriers N ever Primary Language Beninese Problem List Condition Confirmation Course Effective Dates [...] Diagnosis Diagnosis Type Effective Dates Health Status Cl inical Service Informant Shoulder pain Discharge Diagnosis 05/18/23 Body mass index [BMI] 37.0-37.9, adult Discharge Diagnosis 05/18/23 Non-Specified Procedures Procedure Date Related Diagnosis Body [...] 2018 4Negative Exam. Repeat in 10 years(2021) [id number] Vital Signs Most recent to oldest [Reference Range]: 1 Height 163.6 cm (05/18/23 3:48 PM) Patient Weight 99.5 kg (05/18/23 3:48 PM) Body Mass Index 37.18 kg/m2 (05/18/23 3:48 PM) Temperature [36.5-37.9 DegC] 36.8 DegC (05/18/23 3:48 PM) Respiratory Rate 20 br/min (05/18/23 3:48 PM) Blood Pressure 142/94mmHg (05/18/23 3:48 PM) Cuff Pulse Pressure 48 mmHg (05/18/23 3:48 PM) BP Location # 1 Left Arm (05/18/23 3:48 PM) Social History Social History Type Response Tobacco Former smoker, Stopp ed age 23 Years. Smoking Status Never smoked cigaret marianne Sex Male Patient Care team information Care Team Personnel Name: DO Easton Amanda Position: Resident Member Role: Lifetime Relationship Address: Address: [address] [facility] [address] [place] [address] [place] Name: MD Yannick, Luanne Bright Position: Physician - Family Med Member Role: Primary Care Provider Address: Address: [address] [facility] [address] [place] [address] Care Team Related Persons Name: EVENS PENA
--- OUTSIDE RECORDS SUMMARY | 2023-06-13 06:57 | External Medical Summary | Continuity of Care Document ---
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 Phone Luanne Lanier Primary Care Physician [phone] [facility] [id number] Date(s): 12/30/22 - 12/30/22 [facility] [address] [phone] Encounter Diagnosis SK (seborrheic keratosis)(Discharge Diagnosis) - 12/30/22 History of melanoma(Discharge Diagnosis) - 12/30/22 Discharge Disposition: Home or Self Care Attending Physician: MD Fountain David L Allergies, Adverse Reactions, Alerts No Known Medication Allergies Assessment and Plan Extracted from: Title:Clinical Document Author:MD Fountain David L Date:12/30/22 OUTPATIENT NOTE Name: CHLOÉ YEUNG Patient Number:[id number] : 1945 Date of Service: 12/30/2022 _ Mr Yeung comes in for recheck. He does have a distant past history of a melanoma on his abdomen. He is not aware of any new lesions. He does use sun protection. Physical examination: He is a well-developed well-nourished white male type II skin. Alert and oriented x3. Examination of scalp face ears neck back chest abdomen hands arms legs feet and buttocks reveal a very well-healed scar in the right upper abdomen. Some galvan verrucal hyperkeratotic papules on the trunk. Impression: #1 seborrheic keratosis on the trunk. #2 no evidence for new or recurrent melanoma. Plan: Reassurance. Sun protection was stressed. Will return for recheck in 1 year Immunizations Given and Recorded Vaccine Date Status Refusal Reason SARS-CoV-2 (COVID-19) mRNA BNT-162b2 vax 1 11/19/20 Recorded SARS-CoV-2 (COVID-19) mRNA BNT-162b2 vax 2 10/29/20 Recorded 1Result Comment: 2021-12-04: Historical information-source unspecified 2Result Comment: 2021-12-04: Historical information-source unspecified Medications amLODIPine 10 mg oral tablet Start: 12/06/22 20:39:00 EDT, See Instructions, Disp# 90 tab, Refills: 1, TAKE ONE TABLET BY MOUTH EVERY DAY, Pharmacy: [facility] [id number] Start Date: 12/06/22 Status: Ordered cephalexin 500 mg oral capsule Start: 01/03/22 13:53:00 EDT, 1 cap, PO, q12h, Disp# 180 cap, Refills: 1, TAKE ONE CAPSULE BY MOUTHTWICE A DAY, Pharmacy: [facility] [facility] [id number] Start Date: 01/03/22 Status: Ordered Cheratussin AC 10 mg-100 mg/5 mL oral syrup Start: 11/22/22 15:35:00 EDT, 5 mL, PO, q6h, Disp# 120 mL, Refills: 0, PRN: as needed for cough andcongestion, Pharmacy: [facility] [id number] Start Date: 11/22/22 Status: Ordered finasteride 5 mg oral tablet Start: 08/29/22 17:23:00 EST, See Instructions, Disp# 90 tab, Refills: 1, TAKE ONE TABLET BY MOUTH EVERY DAY, Pharmacy: [facility] [id number] Start Date: 08/29/22 Status: Ordered FreeStyle (28G) Lancets Start: 01/05/22 20:01:00 EDT, See Instructions, Disp# 100 strip, Refills: 2, Use to test blood sugar twice daily., Pharmacy: [facility] [id number] Start Date: 01/05/22 Status: Ordered FREESTYLE LANCETS MISC Start: 09/19/22 21:40:00 EST, FREESTYLE LANCETS MISC, See Instructions, Disp# 100 each, Refills: 2,USE TO TEST BLOOD SUGAR TWICE DAILY, Pharmacy [facility] [id number] Start Date: 09/19/22 Status: Ordered FREESTYLE LANCETS MISC TEST BLOOD SUGAR TWICE DAILY Start Date: 01/05/22 Status: Ordered FREESTYLE LITE TEST STRP TEST TWICE DAILY Start Date: 01/05/22 Status: Ordered FreeStyle Test Strips 100 ct Start: 03/08/22 17:34:00 EDT, See Instructions, Disp# 100 each, Refills: 4, Use to test bloodsugar twice daily. Dx: E11.9, Pharmacy: [place] [facility] Start Date: 03/08/22 Status: Ordered glipiZIDE 2.5 mg oral tablet, extended release Start: 08/09/22 7:54:00 EST, 1 tab, PO, bid, Disp# 180 tab, Refills: 1, Pharmacy: [place] [facility] Start Date: 08/09/22 Status: Ordered losartan 50 mg oral tablet Start: 09/26/22 10:49:00 EST, 1 tab, PO, Daily, Disp# 30 tab, Refills: 5, Pharmacy: [facility] [place] [id number] Start Date: 09/26/22 Status: Ordered propranolol 60 mg oral tablet Start: 07/20/22 15:48:00 EST, See Instructions, Disp# 180 tab, Refills: 1, TAKE ONE TABLET BY MOUTHTWICE A DAY, Pharmacy: [place] [facility] Start Date: 07/20/22 Status: Ordered tamsulosin 0.4 mg oral capsule Start: 08/09/22 7:54:00 EST, 1 cap, PO, Daily, Disp# 90 cap, Refills: 1, Pharmacy: [place] [facility] Start Date: 08/09/22 Status: Ordered Mental Status 12/30/22 Barriers to Learning one year None evide nt Mandatory Health Literacy Documentation Yes Health Literacy Communication Barriers N ever Primary Language Kinyarwanda Problem List Condition Confirmation Course Effective Dates Status H ealth Status Informant 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 BPH (benign prostatic hyperplasia) Confirmed Active Carpal tunnel syndrome Confirmed Active [...] Dates Health Status Cl inical Service Informant History of melanoma Discharge Diagnosis 12/30/22 SK (seborrheic keratosis) Discharge Diagnosis 12/30/22 Procedures Procedure Date Related Diagnosis Body Site Status Shave biopsy and cauterization of skin 1 08/01/22 Completed Shave biopsy and cauterization of skin 12/29/21 Completed Shave biopsy and cauterization of skin 12/28/20 Completed Shave biopsy and cauterization of skin 12/24/18 Completed Polypectomy 2018 Completed TURP - Transurethral resecti on of prostate 2019 Completed Cystoscopy 2017 Completed Colonoscopy 4 11/22/11 Completed Carpal tunnel 5 Completed History of repair of umbilical hernia Completed Tonsillectomy 6 Completed 1left parietal area 2Nasal passage 2018 4Negative Exam. Repeat in 10 years(2021) [id number] Social History Social History Type Response Tobacco Former smoker, Stopp ed age 23 Years. Smoking Status Never smoked cigaret marianne Sex Male Outpatient Note * MD Александр, Rell Bright: PERFORM Event Display: .Outpt Note Authored Date: [id number] OUTPATIENT NOTE Name: CHLOÉ YEUNG Patient Number:1 [id number] : 1945 Date of Service: 12/30/2022 _ Mr Yeung comes in for recheck. He does have a distant past history of a melanoma on his abdomen. He is not aware of any new lesions. He does use sun protection. Physical examination: He is a well-developed well-nourished white male type II skin. Alert and oriented x3. Examination of scalp face ears neck back chest abdomen hands arms legs feet and buttocks reveal a very well-healed scar in the right upper abdomen. Some galvan verrucal hyperkeratotic papules onthe trunk. Impression: #1 seborrheic keratosis on the trunk. #2 no evidence for new or recurrent melanoma. Plan: Reassurance. Sun protection was stressed. Will return for recheck in 1 year Electronic Signature on File Electronically Reviewed/Signed by: Rell Fountain MD Author Signature Dt/Tm:12/30/2022 09:26 AM Department of Dermatology DLS Patient Care team information Care Team Personnel Name: MD Yannick, Luanne Bright Position: Physician - Family Med Member Role: Primary Care Provider Address: Address: [address] [place] [address] [place] Care Team Related Persons Name: EVENS PENA
--- NOTE | 2023-06-13 07:16 | Emergency Department Note ---
Impression & Plan HTN (hypertension), Bradycardia, A-fib, CAP (community acquired pneumonia), CHF (congestive heart failure), Respiratory failure ED Provider Note Provider: Vincent Perez MD DATE OF SERVICE: 06/13/2023 CHIEF COMPLAINT: Shortness of breath HISTORY OF PRESENT ILLNESS: Patient is a 78-year-old gentleman past medical history of hypertension, pneumonia, BPH, and diabetes presenting here today concern for possible pneumonia. Reports shortness of breath and sleep issues. States has not been eating so well. Symptoms started about ~4 days ago. Reports some cough (more when talking) and some slight generalized weakness but no significant congestion. No trauma reported. Slight productive cough with whitish sputum. No sick contacts. No blood in cough. No fevers or chills. Reports he has been taking his blood pressure medicine. Denies chest pain or palpitations. Denies any nausea vomiting diarrhea. Denies abdominal pain. PAST MEDICAL HISTORY: As noted above MEDICATIONS: Reviewed home medication list SOCIAL HISTORY: Very distant former smoker, lives alone PHYSICAL EXAM: GENERAL: alert and oriented in no acute distress on stretcher Head: normocephalic and atraumatic EYES: No injection, discharge or icterus. NECK: Trachea midline. ENT: Mucous membranes pink and moist. LUNGS: Airway patent. No retractions. Breath sounds seen expiratory wheeze HEART: Irregular bradycardic rate and rhythm. No chest wall tenderness ABDOMEN: Soft and non-tender, without guarding or rebound. SKIN: Acyanotic, warm, dry, without rashes EXTREMITIES: Without swelling, tenderness or deformity NEUROLOGICAL: No focal deficits. No aphasia. No facial droop or slurred speech. Ambulatory. EK bpm regular narrow complex rhythm with what appears to be atrial fib. No acute ST segment elevation or depression noted with a QTc of 444. EK bpm atrial fibrillation with slow ventricular response without acute ST segment elevation or depression. QTc 404. CONTINUOUS CARDIAC MONITORING: was ordered and showed a heart rate of 30s to 60s bpm in atrial fibrillation Patient's laboratory studies and imaging reviewed. Differential includes Reactive airway disease, pneumonia, pneumothorax, COPD, CHF, infections, cardiac ischemia, pulmonary embolism, musculoskeletal, gastrointestinal, as well as other pathologies. IMPRESSION/MEDICAL DECISION MAKING: Seen with the resident physician. Patient with some respiratory symptoms history of pneumonia and diabetes history. No trauma history. My interpretation of the chest x-ray with evidence of what appears to be a right multifocal airspace opacity concerning for pneumonia. Radiology report reviewed consistent with that but also questions some fullness in the left hilum possible lymphadenopathy and recommends follow-up to ensure resolution to exclude underlying pulmonary lesion. Did review prior notes including chest CT completed in August 2021 with findings of pneumonia at that time and rib fractures with some pulmonary nodules. Patient shortly after arrival developed some hypoxia into the 80s requiring oxygen supplementation. Also having irregular heart rhythm bradycardic at times dropping into the 30s but does not seem significantly symptomatic. Review of prior EKGs from 2021 does show the patient has a history of bradycardia. Review of medications does indicate the patient is on propranolol. Do not see any documented history of A-fib. Question if this may be the underlying rhythm but it is difficult to interpret given low amplitudes on the EKG. Will monitor on telemetry here. Given the x-ray findings as well as additional laboratory studies with leukocytosis of 10.8 cover empirically with doxycycline and ceftriaxone. Given a DuoNeb as he is slightly wheezy. Very distant light smoker more than 50 years ago. Lower suspicion for COPD. No significant anemia on blood work but again a slight white blood cell count elevation. Negative urinalysis. Troponin returned slightly elevated at 35 without priors for comparison. Unsure if could be demand related to his hypoxia but denies significant chest pain and lower suspicion for acute ACS. Repeat EKG confirms my suspicion that this is likely atrial fibrillation. No notable prior history. Discussed with the patient. Requires further care here at the hospital given this finding with his hypoxia. Discussed with the patient was agreeable to stay in the hospitalist team was consulted. Oxygen level increasing some and now at 6 L and given this we will proceed with a CTA of the chest to exclude underlying PE and further evaluate the lung parenchyma. Ordered some gentle IV fluid hydration with 500 cc as the patient does not appear significantly fluid overloaded at this time on clinical exam however the CT of the chest confirms what looks like pneumonia but also possibly some congestive failure. This was held and given the CT findings and he did not receive any IV fluid boluses beyond the 50 mL in the IV ceftriaxone. Repeat troponin not significantly increasing or decreasing. O2 requirement increasing to oxy mask at 9 L. Deferring anticoagulation to the inpatient team. DIAGNOSIS: Community-acquired pneumonia, hypoxia, atrial fibrillation, heart failure DISPOSITION: Hospitalist will evaluate Patient was agreeable with this plan. Critical Care I have personally spent 35 minutes of critical care time in the direct management of this patient. This includes bedside care, interpretation of diagnostic studies, and testing, discussion with consultants, patient, and other required patient management activities. These 35 minutes is in excess of all separately billable procedures. Past Med/Surg History Medical History (Updated 06/13/23 @ 12:23 by Vincent Perez M.D.) BPH (benign prostatic hyperplasia) Hyperlipidemia Acquired solitary kidney Benign prostatic hyperplasia with urinary obstruction Dysuria Gross hematuria Hearing loss Hypertension Tinnitus Type 2 diabetes mellitus Ureteral stricture Urinary retention Melanoma HX- REMOVED TO CHEST Solitary kidney CKD (chronic kidney disease) Baseline Cr 1.4-1.5- /PT DENIES Obesity Diabetes NO INSULIN Hyperlipidemia Hypertension Enlarged prostate Surgical History Nasal polyp Removed History of adenoidectomy History of bladder surgery TURBT 06/2018 Hx of cystoscopy H/O colonoscopy Hx of inguinal hernia repair Hx of carpal tunnel repair right and left Hx of tonsillectomy Family History Mother Hypertension Brother Heart disease Other No significant family history Denies family history of Hearing loss No family history of adverse response to anesthesia No family history of bleeding disorder Allergies Cancer Stroke Asthma Social History (Updated 09/02/22 @ 11:23 by ALEX Garcia) Smoking Status: Former smoker Second Hand Exposure: No; Do You Dip or Chew Tobacco: No; Hx Alcohol Use: No Hx Substance Use: No Preferred Language: Belarusian Communication Ability: Effective Visual Impairment: No Limitations Brake Specialist Required: No Beliefs That Will Affect Care: None marital status: / Current Living Situation: Alone current occupational status: retired Feels Safe at Home: Yes Assistive Devices: None Allergies Allergies Allergy/AdvReac Type Severity Reaction Status Date / Time No Known Drug Allergies Allergy Verified 06/13/23 08:29 Home Meds Home Medications Medication Instructions Recorded Confirmed amlodipine 10 mg tablet 10 mg PO QAM 06/19/18 06/13/23 glipizide 2.5 mg tablet, extended 2.5 mg PO BID 06/19/18 06/13/23 release 24 hr propranolol 60 mg tablet 60 mg PO BID 06/19/18 06/13/23 tamsulosin 0.4 mg capsule 0.4 mg PO HS 08/30/18 06/13/23 ibuprofen 200 mg tablet 200 mg PO Q6H PRN pain/fever 06/13/23 06/13/23 Previous Rx's Medication Instructions Recorded finasteride 5 mg tablet (Proscar) 5 mg PO QAM #30 tabs 09/13/21 Results & Data (ED) Vital Signs Vital Signs - 24 hr 06/13/23 06:45 06/13/23 06:45 06/13/23 07:42 Temperature 36.5 C Temperature Source Temporal Artery Scan Pulse Rate 64 49 L Pulse Rate [Apical] Pulse Rate from SpO2 Sensor 50 L Pulse Rhythm [Apical] Respiratory Rate 14 18 Respiratory Effort / Characteristics Non-Labored Spontaneous Respiratory Depth Normal Blood Pressure 224/110 H 195/95 H Blood Pressure [Right Arm] Blood Pressure Mean 148 128 Blood Pressure Mean [Right Arm] Pulse Oximetry 95 94 94 Oxygen Delivery Method Room Air Room Air Oxygen Flow Rate Fraction of Inspired Oxygen SaO2/FiO2 Ratio Sepsis New/Unexplained Change in Mental Status No Sepsis Action Taken by Nursing No Action Required 06/13/23 07:47 06/13/23 07:48 06/13/23 07:50 Temperature Temperature Source Pulse Rate 37 L 43 L Pulse Rate [Apical] 39 L Pulse Rate from SpO2 Sensor 47 L Pulse Rhythm [Apical] Respiratory Rate 16 16 19 Respiratory Effort / Characteristics Respiratory Depth Blood Pressure Blood Pressure [Right Arm] Blood Pressure Mean Blood Pressure Mean [Right Arm] Pulse Oximetry 88 L 95 93 Oxygen Delivery Method Room Air Nasal Cannula Oxygen Flow Rate Fraction of Inspired Oxygen SaO2/FiO2 Ratio Sepsis New/Unexplained Change in Mental Status Sepsis Action Taken by Nursing 06/13/23 08:00 06/13/23 08:10 06/13/23 08:14 Temperature Temperature Source Pulse Rate 41 L 35 L 35 L Pulse Rate [Apical] Pulse Rate from SpO2 Sensor 42 L 42 L Pulse Rhythm [Apical] Respiratory Rate 20 15 Respiratory Effort / Characteristics Respiratory Depth Blood Pressure Blood Pressure [Right Arm] Blood Pressure Mean Blood Pressure Mean [Right Arm] Pulse Oximetry 93 93 Oxygen Delivery Method Oxygen Flow Rate Fraction of Inspired Oxygen SaO2/FiO2 Ratio Sepsis New/Unexplained Change in Mental Status Sepsis Action Taken by Nursing 06/13/23 08:20 06/13/23 08:20 06/13/23 08:30 Temperature Temperature Source Pulse Rate 47 L 45 L Pulse Rate [Apical] Pulse Rate from SpO2 Sensor 49 L 43 L Pulse Rhythm [Apical] Respiratory Rate 19 20 Respiratory Effort / Characteristics Respiratory Depth Blood Pressure 176/96 H Blood Pressure [Right Arm] Blood Pressure Mean 116 Blood Pressure Mean [Right Arm] Pulse Oximetry 96 89 L Oxygen Delivery Method Oxygen Flow Rate 2 Fraction of Inspired Oxygen SaO2/FiO2 Ratio Sepsis New/Unexplained Change in Mental Status Sepsis Action Taken by Nursing 06/13/23 08:40 06/13/23 08:50 06/13/23 09:00 Temperature Temperature Source Pulse Rate 47 L 41 L 51 L Pulse Rate [Apical] Pulse Rate from SpO2 Sensor 45 L 45 L 59 L Pulse Rhythm [Apical] Respiratory Rate 23 15 24 Respiratory Effort / Characteristics Respiratory Depth Blood Pressure Blood Pressure [Right Arm] Blood Pressure Mean Blood Pressure Mean [Right Arm] Pulse Oximetry 91 91 91 Oxygen Delivery Method Oxygen Flow Rate 4 4 4 Fraction of Inspired Oxygen SaO2/FiO2 Ratio Sepsis New/Unexplained Change in Mental Status Sepsis Action Taken by Nursing 06/13/23 09:24 06/13/23 09:30 06/13/23 09:30 Temperature Temperature Source Pulse Rate Pulse Rate [Apical] 42 L 38 L 36 L Pulse Rate from SpO2 Sensor Pulse Rhythm [Apical] Irregular Respiratory Rate 16 16 16 Respiratory Effort / Characteristics Respiratory Depth Blood Pressure Blood Pressure [Right Arm] Blood Pressure Mean Blood Pressure Mean [Right Arm] Pulse Oximetry 90 88 L 90 Oxygen Delivery Method Nasal Cannula Nasal Cannula Nasal Cannula Oxygen Flow Rate 4 5 6 Fraction of Inspired Oxygen SaO2/FiO2 Ratio Sepsis New/Unexplained Change in Mental Status Sepsis Action Taken by Nursing 06/13/23 10:27 06/13/23 10:48 06/13/23 11:11 Temperature Temperature Source Pulse Rate Pulse Rate [Apical] 39 L 50 L 53 L Pulse Rate from SpO2 Sensor Pulse Rhythm [Apical] Respiratory Rate 16 18 20 Respiratory Effort / Characteristics Spontaneous Short of Breath Respiratory Depth Normal Blood Pressure Blood Pressure [Right Arm] 169/121 H Blood Pressure Mean Blood Pressure Mean [Right Arm] 137 Pulse Oximetry 91 88 L 91 Oxygen Delivery Method Aerosol Mask Oxymask Oxymask Oxygen Flow Rate 9 9 9 Fraction of Inspired Oxygen SaO2/FiO2 Ratio Sepsis New/Unexplained Change in Mental Status Sepsis Action Taken by Nursing 06/13/23 11:35 06/13/23 11:49 06/13/23 12:12 Temperature Temperature Source Pulse Rate 56 L Pulse Rate [Apical] 47 L Pulse Rate from SpO2 Sensor Pulse Rhythm [Apical] Respiratory Rate 18 15 Respiratory Effort / Characteristics Spontaneous Spontaneous Short of Breath Respiratory Depth Normal Blood Pressure Blood Pressure [Right Arm] 155/72 H Blood Pressure Mean Blood Pressure Mean [Right Arm] 99 Pulse Oximetry 83 L 90 95 Oxygen Delivery Method Oxymask CPAP Oxygen Flow Rate 11 Fraction of Inspired Oxygen 50 50 SaO2/FiO2 Ratio 190 Sepsis New/Unexplained Change in Mental Status Sepsis Action Taken by Nursing Laboratory Data 06/13/23 07:40 06/13/23 07:40 Lab Results 06/13/23 06/13/23 06/13/23 Range/Units 07:40 09:25 10:51 WBC 10.85 H (4.8-10.8) K/ul RBC 5.01 (4.70-6.10) M/uL Hgb 14.7 (14.0-18.0) g/dl Hct 43.8 (42.0-52.0) % MCV 87.4 (80.0-100.0) fL MCH 29.3 (25.0-34.0) pg MCHC 33.6 (32.0-36.0) g/dL RDW Std Deviation 42.6 (36.4-46.3) fL RDW Coeff of Haylie 13.4 (11.5-14.5) % Plt Count 179 (130-400) K/uL MPV 10.5 (9.4-12.4) fL Immature Gran % (Auto) 0.4 % Neut % (Auto) 82.7 % Lymph % (Auto) 6.7 % [place] % (Auto) 9.5 % Eos % (Auto) 0.4 % Baso % (Auto) 0.3 % Neut # (Auto) 8.98 H (1.40-6.50) K/uL Lymph # (Auto) 0.73 L (1.20-3.40) K/uL [place] # (Auto) 1.03 H (0.11-0.59) K/uL Eos # (Auto) 0.04 (0.00-0.50) K/uL Baso # (Auto) 0.03 (0.00-0.20) K/uL Immature Gran # (Auto) 0.04 (0.01-0.20) K/uL PT 11.4 (9.0-12.0) Seconds INR 1.0 (0.9-1.1) ABG pH (7.35-7.45) ABG pCO2 (35-46) mmHg ABG pO2 (80-95) mmHg ABG HCO3 (19-24) mmol/L ABG O2 Saturation (90-95) % ABG Base Excess (-9-1.8) mEq/L Isaiah Test (Pos) Oxygen Given Sodium 141 (136-145) mmol/L Potassium 4.3 (3.5-5.1) mmol/L Chloride 107 (98-107) mmol/L Carbon Dioxide 26 (21-32) mmol/L Anion Gap 8 (3-11) BUN 16 (6-23) mg/dl Creatinine 1.37 (0.6-1.4) mg/dl Est Cr Clr Drug Dosing 47.4 ml/min Est GFR ( Amer) 56.1 ml/min Est GFR (Non-Af Amer) 48.4 ml/min BUN/Creatinine Ratio 11.7 (10-20) Glucose 208 H (70-99(Fasting)) mg/dl Calcium 9.0 (8.6-10.3) mg/dl Magnesium 1.8 (1.7-2.4) mg/dl Total Bilirubin 1.5 H (0.2-1.0) mg/dl AST 17 (13-39) U/L ALT 27 (7-52) U/L Alkaline Phosphatase 65 (34-104) U/L Troponin I High Sens 35.0 H 34.7 H (0-20) pg/ml B-Natriuretic Peptide 742 H (0-100) pg/ml Total Protein 7.0 (6.0-8.3) gm/dl Albumin 4.0 (3.4-5.0) gm/dl Globulin 3.0 (2.5-4.0) gm/dl Albumin/Globulin Ratio 1.3 (0.9-2) Procalcitonin 0.11 (0-0.5) ng/ml TSH 2.243 (0.300-4.500) uIu/ml Urine Color Yellow Urine Appearance Clear (Clear) Urine pH 7.0 (4.5-7.5) Ur Specific [place] 1.024 (1.000-1.030) Urine Protein 2+ H (Negative) Urine Glucose (UA) Trace H (Negative) Urine Ketones Negative (Negative) Urine Blood Negative (Negative) Urine Nitrite Negative (Negative) Urine Bilirubin Negative (Negative) Urine Urobilinogen Negative (Negative) Ur Leukocyte Esterase Negative (Negative) Urine WBC (Auto) 0 (0-5) /hpf Urine RBC (Auto) 0-4 (0-4) /hpf U Hyaline Cast (Auto) 0 (0-5) /lpf U Epithel Cells (Auto) 5-10 H (0-5) /lpf Urine Bacteria (Auto) Negative (Negative) Adenovirus (PCR) (NotDetected) B. pertussis DNA (PCR) (NotDetected) B.parapertussis DNA PCR (NotDetected) C. pneumoniae DNA (PCR) (NotDetected) Coronavirus OC43 (PCR) (NotDetected) Coronavirus HKU1 (PCR) (NotDetected) Coronavirus 229E (PCR) (NotDetected) SARS-CoV-2 (PCR) (NotDetected) Coronavirus NL63 (PCR) (NotDetected) Human Metapneumovir PCR (NotDetected) Influenza Type A (PCR) (NotDetected) Influenza Type B (PCR) (NotDetected) M. pneumoniae (PCR) (NotDetected) Parainfluenza 1 (PCR) (NotDetected) Parainfluenza 2 (PCR) (NotDetected) Parainfluenza 3 (PCR) (NotDetected) Parainfluenza 4 (PCR) (NotDetected) RSV (PCR) (NotDetected) Entero/Rhino (PCR) (NotDetected) 06/13/23 06/13/23 Range/Units 10:56 Unknown WBC (4.8-10.8) K/ul RBC (4.70-6.10) M/uL Hgb (14.0-18.0) g/dl Hct (42.0-52.0) % MCV (80.0-100.0) fL MCH (25.0-34.0) pg MCHC (32.0-36.0) g/dL RDW Std Deviation (36.4-46.3) fL RDW Coeff of Haylie (11.5-14.5) % Plt Count (130-400) K/uL MPV (9.4-12.4) fL Immature Gran % (Auto) % Neut % (Auto) % Lymph % (Auto) % [place] % (Auto) % Eos % (Auto) % Baso % (Auto) % Neut # (Auto) (1.40-6.50) K/uL Lymph # (Auto) (1.20-3.40) K/uL [place] # (Auto) (0.11-0.59) K/uL Eos # (Auto) (0.00-0.50) K/uL Baso # (Auto) (0.00-0.20) K/uL Immature Gran # (Auto) (0.01-0.20) K/uL PT (9.0-12.0) Seconds INR (0.9-1.1) ABG pH 7.48 H (7.35-7.45) ABG pCO2 32 L (35-46) mmHg ABG pO2 63 L (80-95) mmHg ABG HCO3 24 (19-24) mmol/L ABG O2 Saturation 93.0 (90-95) % ABG Base Excess 0.9 (-9-1.8) mEq/L Isaiah Test Pos (Pos) Oxygen Given 9L Sodium (136-145) mmol/L Potassium (3.5-5.1) mmol/L Chloride (98-107) mmol/L Carbon Dioxide (21-32) mmol/L Anion Gap (3-11) BUN (6-23) mg/dl Creatinine (0.6-1.4) mg/dl Est Cr Clr Drug Dosing ml/min Est GFR ( Amer) ml/min Est GFR (Non-Af Amer) ml/min BUN/Creatinine Ratio (10-20) Glucose (70-99(Fasting)) mg/dl Calcium (8.6-10.3) mg/dl Magnesium (1.7-2.4) mg/dl Total Bilirubin (0.2-1.0) mg/dl AST (13-39) U/L ALT (7-52) U/L Alkaline Phosphatase (34-104) U/L Troponin I High Sens (0-20) pg/ml B-Natriuretic Peptide (0-100) pg/ml Total Protein (6.0-8.3) gm/dl Albumin (3.4-5.0) gm/dl Globulin (2.5-4.0) gm/dl Albumin/Globulin Ratio (0.9-2) Procalcitonin (0-0.5) ng/ml TSH (0.300-4.500) uIu/ml Urine Color Urine Appearance (Clear) Urine pH (4.5-7.5) Ur Specific [place] (1.000-1.030) Urine Protein (Negative) Urine Glucose (UA) (Negative) Urine Ketones (Negative) Urine Blood (Negative) Urine Nitrite (Negative) Urine Bilirubin (Negative) Urine Urobilinogen (Negative) Ur Leukocyte Esterase (Negative) Urine WBC (Auto) (0-5) /hpf Urine RBC (Auto) (0-4) /hpf U Hyaline Cast (Auto) (0-5) /lpf U Epithel Cells (Auto) (0-5) /lpf Urine Bacteria (Auto) (Negative) Adenovirus (PCR) Not Detected (NotDetected) B. pertussis DNA (PCR) Not Detected (NotDetected) B.parapertussis DNA PCR Not Detected (NotDetected) C. pneumoniae DNA (PCR) Not Detected (NotDetected) Coronavirus OC43 (PCR) Not Detected (NotDetected) Coronavirus HKU1 (PCR) Not Detected (NotDetected) Coronavirus 229E (PCR) Not Detected (NotDetected) SARS-CoV-2 (PCR) Not Detected (NotDetected) Coronavirus NL63 (PCR) Not Detected (NotDetected) Human Metapneumovir PCR Not Detected (NotDetected) Influenza Type A (PCR) Not Detected (NotDetected) Influenza Type B (PCR) Not Detected (NotDetected) M. pneumoniae (PCR) Not Detected (NotDetected) Parainfluenza 1 (PCR) Not Detected (NotDetected) Parainfluenza 2 (PCR) Not Detected (NotDetected) Parainfluenza 3 (PCR) Not Detected (NotDetected) Parainfluenza 4 (PCR) Not Detected (NotDetected) RSV (PCR) Not Detected (NotDetected) Entero/Rhino (PCR) Not Detected (NotDetected) Administered Medications Discontinued Medications Albuterol (Albut/Ipratrop 3mg/0.5mg Neb 3 Ml Vial) 3 ml NEB NOW STA; Protocol Stop: 06/13/23 07:54 Last Admin: 06/13/23 08:13 Dose: 3 ml Documented By: KV Doxycycline Hyclate (Doxycycline Hyclate 100 Mg Cap) 100 mg PO NOW STA Stop: 06/13/23 07:54 Last Admin: 06/13/23 08:14 Dose: 100 mg Documented By: KV Furosemide (Furosemide 40 Mg/4 Ml Vial) 40 mg IV ONE ONE Stop: 06/13/23 10:46 Last Admin: 06/13/23 11:07 Dose: 40 mg Documented By: LEANDER Ceftriaxone Sodium (Rocephin) 2,000 mg in 50 mls @ 100 mls/hr IV NOW STA Stop: 06/13/23 08:22 Last Infusion: 06/13/23 09:23 Dose: Infused Documented By: Admin: 06/13/23 08:14 Dose: 100 mls/hr Documented By: RAEANN Sodium Chloride (Nss) 500 mls @ 999 mls/hr IV .Q31M ONE Stop: 06/13/23 10:44 Last Admin: 06/13/23 10:45 Dose: Not Given Documented By: RAEANN Ioversol (Optiray 320 125ml) 115 ml IV ONCE ONE Stop: 06/13/23 10:10 Last Admin: 06/13/23 10:09 Dose: 115 ml Documented By: DAVID Imaging Data Radiologist's Impression: Chest X-Ray 06/13/23 07:13 SINGLE VIEW CHEST CLINICAL HISTORY: Dyspnea FINDINGS: An AP, portable, upright chest radiograph is compared to study dated 03/07/2022 and correlated with chest CT dated 09/08/2021. The heart is mildly enlarged noting atherosclerotic calcification of the thoracic aorta. The pulmonary vasculature is noncongested. There is loss of the left hilum. There is multifocal airspace consolidation seen throughout the right mid to lower lung. The left lung appears clear noting basilar scarring/atelectasis. No large pleural effusion is identified. No pneumothorax is seen. The skeletal structures are osteopenic. There are chronic/healed left-sided rib fractures. IMPRESSION: 1. Cardiomegaly without radiographic evidence of congestive failure. 2. Multifocal airspace consolidation is seen in the right mid to lower lung. Correlate clinically for evidence of pneumonia/aspiration pneumonitis. Radiographic follow-up to resolution is recommended to exclude underlying pulmonary lesion. 3. The left lung appears clear. 4. Fullness of the left hilum is indeterminant. Lymphadenopathy is not excluded. This should also be reassessed at follow-up. ACT 112: Positive. There are findings on this exam that require communication between the performing entity and the patient following Patient Test Result Information Act ([place] Act 112) guidelines. Electronically signed by: Paddy Amador M.D. 06/13/2023 7:33 AM Chest CTA 06/13/23 09:27 CT ANGIOGRAM OF THE CHEST CLINICAL HISTORY: Hypoxia. COMPARISON STUDY: Chest CT dated 09/08/2021 and 07/06/2021. Chest x-ray dated 06/13/2023. TECHNIQUE: Following the IV administration of 115 cc of Optiray 320, CT angiogram of the chest was performed from the upper abdomen to the thoracic inlet utilizing the pulmonary embolus protocol. Images are reviewed in the axial, sagittal, and coronal planes. 3-D MIPS images are created and assessed. IV contrast was administered without complication. A dose lowering technique was utilized adhering to the principles of ALARA. The examination is degraded by motion artifact, as well as by streak artifact from the right arm which could not be elevated above the chest. CT DOSE: 895.31 mGy.cm FINDINGS: Thyroid: Imaged portions of the thyroid gland are normal in size and attenuation. Thoracic aorta: There is atherosclerotic calcification of the thoracic aorta, which is normal in caliber and demonstrates standard 3-vessel arch anatomy. The thoracic aorta is not well opacified. Pulmonary vasculature: The pulmonary trunk is normal in caliber. There are no filling defects identified in main, lobar, or segmental pulmonary branches to suggest pulmonary embolus. Evaluation of the peripheral branches is degraded by motion artifact. Heart: The heart is enlarged and without pericardial effusion. The coronary arteries are densely calcified. Lungs and pleural spaces: Evaluation of the lung parenchyma is degraded by motion artifact. There is patchy airspace consolidation seen throughout the right lung. Minimal opacities are seen at the left lung base. Intralobular septal thickening seen throughout both lungs. There are small pleural effusions, right larger than left. Diffuse peribronchial thickening is observed. There are punctate calcified granulomas. A 4 mm right middle lobe pulmonary nodule is seen on image #103. This is unchanged dating back to at least 2020. Mediastinum: There are scattered subcentimeter mediastinal nodes. Karine: Mildly enlarged hilar nodes measure up to 12 mm short axis. Axillae: There is no axillary lymphadenopathy. Upper abdomen: Partially visualized upper abdominal viscera is within normal limits. Skeletal structures: The skeletal structures are osteopenic. There are chronic/healed left-sided rib fractures. Mild degenerative changes noted in the shoulders and spine. No lytic or blastic bony lesions are seen. IMPRESSION: 1. Streak and motion compromised examination. 2. There is no evidence of pulmonary embolus in the main, lobar, or segmental pulmonary arteries. 3. Cardiomegaly with evidence of congestive failure. 4. Airspace consolidation is seen throughout the right lung, likely representing pneumonia/aspiration pneumonitis. Clinical correlation will be required and radiographic follow-up to resolution is recommended. 5. Small pleural effusions. 6. Mildly enlarged hilar lymph nodes are nonspecific and likely reactive. 7. Additional findings as above. ACT 112: Negative or not required by law. Electronically signed by: Paddy Amador M.D. 06/13/2023 10:38 AM Discharge Plan Visit Data Chief Complaint: Shortness of Breath/Dyspnea Stated Complaint: SOB/RESPIRATORY DISTRESS/POSSIBLE PNEUMONIA ED Provider: Vincent Perez Discharge Problem: HTN (hypertension), Bradycardia, A-fib, CAP (community acquired pneumonia), CHF (congestive heart failure), Respiratory failure Patient Disposition: Admitted As Inpatient Forms Stand Alone Forms: [facility] Prescriptions Prescriptions: No Action propranolol 60 mg Tablet 60 mg PO BID amlodipine 10 mg Tablet 10 mg PO QAM glipizide 2.5 mg Tablet Extended Release 24hr 2.5 mg PO BID tamsulosin 0.4 mg Capsule 0.4 mg PO HS finasteride [Proscar] 5 mg Tablet 5 mg PO QAM Qty: 30 2RF Rx Instructions: for enlarged prostate ibuprofen 200 mg Tablet 200 mg PO Q6H PRN (Reason: pain/fever) Referrals Referrals: Luanne Lanier MD [Primary Care Provider] - Discharge Problem: CAP (community acquired pneumonia) Qualifiers: Laterality: unspecified laterality Qualified Code(s): J18.9 - Pneumonia, unspecified organism Respiratory failure Qualifiers: Chronicity: acute Respiratory failure complication: hypoxia Qualified Code(s): J96.01 - Acute respiratory failure with hypoxia
--- NOTE | 2023-06-13 07:36 | XRay Report ---
SINGLE VIEW CHEST CLINICAL HISTORY: Dyspnea FINDINGS: An AP, portable, upright chest radiograph is compared to study dated 03/07/2022 and correlat ed with chest CT dated 09/08/2021. The heart is mildly enlarged noting atherosclerotic calcification o f the thoracic aorta. The pulmonary vasculature is noncongested. There is loss of the left hilum. The re is multifocal airspace consolidation seen throughout the right mid to lower lung. The left lung ap pears clear noting basilar scarring/atelectasis. No large pleural effusion is identified. No pneumoth orax is seen. The skeletal structures are osteopenic. There are chronic/healed left-sided rib fractur es. IMPRESSION: 1. Cardiomegaly without radiographic evidence of congestive failure. 2. Multifocal airspace consolidation is seen in the right mid to lower lung. Correlate clinically for evidence of pneumonia/aspiration pneumonitis. Radiographic follow-up to resolution is recommended to exclude underlying pulmonary lesion. 3. The left lung appears clear. 4. Fullness of the left hilum is indeterminant. Lymphadenopathy is not excluded. This should also be reassessed at follow-up. ACT 112: Positive. There are findings on this exam that require communication between the performing entity and the patient following Patient Test Result Information Act ([place] Act 112) guidelines. Electronically signed by: Paddy Amador M.D. 06/13/2023 7:33 AM
[2023-06-13 07:52] LABS: Basophils # (auto) 0.03 K/uL (0.00-0.20); Basophils % (auto) 0.3 %; Eosinophils # (auto) 0.04 K/uL (0.00-0.50); Eosinophils % (auto) 0.4 %; Hematocrit (blood only) 43.8 % (42.0-52.0); Hemoglobin 14.7 g/dl (14.0-18.0); Immature Granulocytes # (auto) 0.04 K/uL (0.01-0.20); Immature Granulocytes % (auto) 0.4 %; Lymphocytes # (auto) 0.73 K/uL (1.20-3.40); Lymphocytes % (auto) 6.7 %; Mean Corpuscular Hemoglobin 29.3 pg (25.0-34.0); Mean Corpuscular Hgb Conc 33.6 g/dL (32.0-36.0); Mean Corpuscular Volume 87.4 fL (80.0-100.0); Mean Platelet Volume 10.5 fL (9.4-12.4); Monocytes # (auto) 1.03 K/uL (0.11-0.59); Monocytes % (auto) 9.5 %; Neutrophils # (auto) 8.98 K/uL (1.40-6.50); Neutrophils % (auto) 82.7 %; Platelet Count 179 K/uL (130-400); RDW Coefficient of Variation 13.4 % (11.5-14.5); RDW Standard Deviation 42.6 fL (36.4-46.3); Red Blood Count 5.01 M/uL (4.70-6.10); White Blood Count 10.85 K/ul (4.8-10.8)
[2023-06-13] MEDS ORDERED: cefTRIAXone SODIUM 2,000 MG/50 ML BAG IV STA (07:53)
[2023-06-13] MEDS ORDERED: ALBUT/IPRATROP 3MG/0.5MG NEB 3 ML VIAL NEB STA (07:53)
[2023-06-13] MEDS ORDERED: DOXYCYCLINE HYCLATE 100 MG CAP PO STA (07:53)
[2023-06-13 08:05] LABS: Prothrombin Time 11.4 Seconds (9.0-12.0)
[2023-06-13 08:12] LABS: Appearance Urine Clear (Clear); Bacteria Urine Automated Negative (Negative); Bilirubin Urine Negative (Negative); Blood Urine Negative (Negative); Cast Urine Automated 0 /lpf (0-5); Color Urine Yellow; Glucose Urine UA Trace (Negative); Ketones Urine Negative (Negative); Leukocyte Esterase Urine Negative (Negative); Nitrite Urine Negative (Negative); Protein Urine 2+ (Negative); RBC Urine Automated 0-4 /hpf (0-4); Specific Gravity Urine 1.024 (1.000-1.030); Urobilinogen Urine Negative (Negative); WBC Urine Automated 0 /hpf (0-5)
[2023-06-13 08:37] LABS: Bilirubin,Total 1.5 mg/dl (0.2-1.0); Potassium 4.3 mmol/L (3.5-5.1)
[2023-06-13 08:44] LABS: Albumin Globulin Ratio 1.3 (0.9-2); BUN Creatinine Ratio 11.7 (10-20); Creatinine Clr Calc Pharmacy 47.4 ml/min; Est GFR (African American) 56.1 ml/min; Est GFR (Non-African American) 48.4 ml/min
[2023-06-13 09:06] LABS: Adenovirus PCR Not Detected (NotDetected); Bordetella parapertussis PCR Not Detected (NotDetected); Bordetella pertussis PCR Not Detected (NotDetected); Chlamydia pneumoniae PCR Not Detected (NotDetected); Coronavirus 229E PCR Not Detected (NotDetected); Coronavirus CoV-2 (COVID19)PCR Not Detected (NotDetected); Coronavirus HKU1 PCR Not Detected (NotDetected); Coronavirus NL63 PCR Not Detected (NotDetected); Coronavirus OC43PCR Not Detected (NotDetected); Human Metapneumovirus PCR Not Detected (NotDetected); Influenza A PCR Not Detected (NotDetected); Influenza B PCR Not Detected (NotDetected); Mycoplasma pneumoniae PCR Not Detected (NotDetected); Parainfluenza Virus 1 PCR Not Detected (NotDetected); Parainfluenza Virus 2 PCR Not Detected (NotDetected); Parainfluenza Virus 3 PCR Not Detected (NotDetected); Parainfluenza Virus 4 PCR Not Detected (NotDetected); Respiratory Syncytial VirusPCR Not Detected (NotDetected); Rhinovirus/Enterovirus PCR Not Detected (NotDetected)
--- NOTE | 2023-06-13 10:08 | History & Physical Report ---
Date of Service June 13, 2023 Assessment & Plan (1) Pneumonia: Plan: CXR showed multifocal airspace consolidation in the right mid to lower lung Chest CTA showed no evidence of pulmonary embolism However, procalcitonin WNL, afebrile, and mild leukocytosis at 10.85 BioFire negative MRSA nasal swab pending Continue Rocephin 2000 mg IV q24h Switched doxycycline 100 mg p.o. --> 100 mg IV q12h Maintain good pulmonary hygiene with incentive spirometry and flutter valve q4h DuoNeb 3 mL q4h as needed for wheezing (2) Heart failure: Plan: Worsening SOB, dry cough, difficulty sleeping x4 days No at home oxygen use No prior dx of heart failure Echocardiogram ordered, pending BNP elevated at 742 ABG pH 7.48, PCO2 32, PO2 63 Chest CTA revealed cardiomegaly with evidence of congestive failure Supplemental oxygen as needed to maintain SPO2 >94% Patient failed to maintain SPO2 >94% on 11L NC (still in the 80-89% range); continuous CPAP order placed (FiO2 50%, pressure 8) Keep n.p.o. except for medications while on CPAP Repeat EKG pending patient now on CPAP Repeat ABG pending patient now on CPAP Lasix 40 mg IV QAM A.m. CBC, BMP, PTT (3) Hypertension: Plan: BP 176/96 at time of admission Hold propranolol in the setting of bradycardia in in the 30s Continue amlodipine (4) Atrial fibrillation: Plan: New onset EKG of undetermined rhythm; bradycardic at 48 bpm; no p-waves; possibly new onset A-fib Echocardiogram w/ bubble study ordered, pending TSH ordered, pending Continuous telemetry monitoring CHADS-VASc: 4 Will start patient on heparin IV while inpatient in the event of cardiac intervention PTT pending; Plt count okay at 179 (5) Diabetes: Plan: Glucose 208 on arrival Last A1c 6.3% on 10/11/2021 Hold glipizide SSI; target BSG goal 946630zo/dL, 45 CF, 15 carb ratio BSG ACHS T2DM diet Adjust regimen as needed AM A1c (6) Bradycardia: Plan: Chronic; asymptomatic HR 36 bpm at time of admission Patient took propranolol the morning of 06/13 Hold propranolol for now (7) Elevated troponin: Plan: Troponin 35.0 --> 34.7 Clinically, patient denies CP (8) BPH (benign prostatic hyperplasia): Plan: Continue tamsulosin, finasteride (9) Respiratory failure: Plan: Accessory muscle use (10) Acute respiratory failure with hypoxia: Plan Disposition: Admit to PCU telemetry Conditional code (patient is open to intubation if needed; he would like all treatment outside cardiac arrest) Keep n.p.o. except for medications while on CPAP, then advance to T2DM, AHA diet as tolerated VTE PPx: Heparin w/ bolus History of Present Illness Primary Care Provider: Luanne Lanier MD David is an 78-year-old male with PMH of HTN, HLD, diabetes, multifocal pneumonia, BPH, and chronic sinusitis. He presents for worsening SOB and difficulty sleeping x 4 days. He believes he has pneumonia, and endorses dry cough, weakness, SOB, trouble sleeping, and loss of appetite. He is not taking any medications for cough or SOB. GARCIA is worse when lying on back. He has been sleeping in his recliner, and with pillows. No at home O2 use; no CPAP. No sick contacts. No recent travel. No recent illnesses. Patient denies tobacco use, vaping, and recreational drug use. Hx of 6 left-sided broken ribs + PNA 18 months ago. He is not sure what triggered this current episode. He took amlodipine and propranolol this morning, but no other morning medications. Patient is bradycardic at 36 bpm at time of admission; he further exhibits hypertension at 176/96 and hypoxia at SPO2 90% on 6L NC. ED course: DuoNeb 3 mL neb Rocephin 2000 mg IV Doxycycline hyclate 100 mg p.o. ROS: Patient endorses dry cough, worsening GARCIA, neuropathy in the soles of feet. Patient denies fever, chills, CP, pleuritic CP, chest palpations, hemoptysis, abdominal pain, N/V/D, burning with urination, or swelling/pain in the legs. No PMHx of NV, CHF, CVA, PAD, COPD, asthma, DVT/PE Spoke on phone with patient's daughter (Chloe) and gave update regarding patient's status. Allergies Allergy/AdvReac Type Severity Reaction Status Date / Time No Known Drug Allergies Allergy Verified 06/13/23 08:29 Home Medications Medication Instructions Recorded Confirmed Type amlodipine 10 mg tablet 10 mg PO QAM 06/19/18 06/13/23 History glipizide 2.5 mg tablet, extended 2.5 mg PO BID 06/19/18 06/13/23 History release 24 hr propranolol 60 mg tablet 60 mg PO BID 06/19/18 06/13/23 History tamsulosin 0.4 mg capsule 0.4 mg PO HS 08/30/18 06/13/23 History finasteride 5 mg tablet (Proscar) 5 mg PO QAM #30 tabs 09/13/21 06/13/23 Rx ibuprofen 200 mg tablet 200 mg PO Q6H PRN pain/fever 06/13/23 06/13/23 History Past Med/Surg History Medical History (Updated 06/14/23 @ 07:58 by Deny Sommers MD) BPH (benign prostatic hyperplasia) Hyperlipidemia Acquired solitary kidney Benign prostatic hyperplasia with urinary obstruction Dysuria Gross hematuria Hearing loss Hypertension Tinnitus Type 2 diabetes mellitus Ureteral stricture Urinary retention Melanoma HX- REMOVED TO CHEST Solitary kidney CKD (chronic kidney disease) Baseline Cr 1.4-1.5- /PT DENIES Obesity Diabetes NO INSULIN Hyperlipidemia Hypertension Enlarged prostate Surgical History Nasal polyp Removed History of adenoidectomy History of bladder surgery TURBT 06/2018 Hx of cystoscopy H/O colonoscopy Hx of inguinal hernia repair Hx of carpal tunnel repair right and left Hx of tonsillectomy Family History Mother Hypertension Brother Heart disease Other No significant family history Denies family history of Hearing loss No family history of adverse response to anesthesia No family history of bleeding disorder Allergies Cancer Stroke Asthma Social History (Updated 09/02/22 @ 11:23 by ALEX Garcia) Smoking Status: Never smoker Second Hand Exposure: No; Do You Dip or Chew Tobacco: No; Hx Alcohol Use: No Hx Substance Use: No Preferred Language: Malaysian Communication Ability: Effective Visual Impairment: No Limitations Exhibitions Curator Required: No Beliefs That Will Affect Care: None marital status: / Current Living Situation: Alone current occupational status: retired Other Information That Helps Us Care for You: No Feels Safe at Home: Yes Safety Concerns: Feels Safe At This Time Assistive Devices: Glasses Review of Systems Review of Systems: See HPI above Physical Exam Physical Exam: General: Patient presents with pleasant affect; cooperative; acute respiratory distress; non-toxic appearing; 92% on 9L NC; HR 51 bpm HEENT: normocephalic, atraumatic; no scleral icterus; PERRLA w/ EOMs intact; dry mucus membrane; vision intact; hard of hearing with oxygen supplementation Neck: supple; no lymphadenopathy; trachea midline Skin: warm, dry without signs of tenting; no cyanosis; no rashes, bruising, lesions, or erythema noted CV: chest wall NTP; RRR; S1/S2 normal; no murmurs/rubs/gallops; pulses intact and symmetric at radial, DP, and PT Lungs: acute respiratory distress; accessory muscle use; symmetrical chest wall expansion; right-sided Rales, wheezing; decreased breath sounds at the lower lung boyle B/L ABD: Soft, NTP; BS present; no rebound/guarding; no ascites; mild distention secondary to patient's body habitus; no signs of rashes, bruising on the abdomen MSK: no tics or fasciculations; no edema noted in the LEs b/l, nonerythematous Neuro: A&Ox3; normal mood and affect; fluent speech; no focal deficits; sensation grossly intact Results & Data Results & Data Vital Signs (Past 12 Hours) Vital Signs Temp Pulse Pulse Resp BP Pulse Ox O2 Del Method 06/13/23 09:30 36 L 16 90 Nasal Cannula 06/13/23 09:30 38 L 16 88 L Nasal Cannula 06/13/23 09:24 42 L 16 90 Nasal Cannula 06/13/23 09:00 51 L 24 91 06/13/23 08:50 41 L 15 91 06/13/23 08:40 47 L 23 91 06/13/23 08:30 45 L 20 89 L 06/13/23 08:20 176/96 H 06/13/23 08:20 47 L 19 96 06/13/23 08:14 35 L 06/13/23 08:10 35 L 15 93 06/13/23 08:00 41 L 20 93 06/13/23 07:50 43 L 19 93 06/13/23 07:48 37 L 16 95 Nasal Cannula 06/13/23 07:47 39 L 16 88 L Room Air 06/13/23 07:42 49 L 18 195/95 H 94 06/13/23 06:45 94 Room Air 06/13/23 06:45 36.5 C 64 14 224/110 H 95 Room Air O2 Flow Rate 06/13/23 09:30 6 06/13/23 09:30 5 06/13/23 09:24 4 06/13/23 09:00 4 06/13/23 08:50 4 06/13/23 08:40 4 06/13/23 08:30 2 06/13/23 08:20 06/13/23 08:20 06/13/23 08:14 06/13/23 08:10 06/13/23 08:00 06/13/23 07:50 06/13/23 07:48 06/13/23 07:47 06/13/23 07:42 06/13/23 06:45 06/13/23 06:45 Laboratory Results Abnormal lab results 06/13/23 Range/Units 07:40 WBC 10.85 H (4.8-10.8) K/ul Neut # (Auto) 8.98 H (1.40-6.50) K/uL Lymph # (Auto) 0.73 L (1.20-3.40) K/uL [place] # (Auto) 1.03 H (0.11-0.59) K/uL Glucose 208 H (70-99(Fasting)) mg/dl Total Bilirubin 1.5 H (0.2-1.0) mg/dl Troponin I High Sens 35.0 H (0-20) pg/ml Urine Protein 2+ H (Negative) Urine Glucose (UA) Trace H (Negative) U Epithel Cells (Auto) 5-10 H (0-5) /lpf Diagnostic Findings Chest X-Ray 06/13/23 07:13 SINGLE VIEW CHEST CLINICAL HISTORY: Dyspnea FINDINGS: An AP, portable, upright chest radiograph is compared to study dated 03/07/2022 and correlated with chest CT dated 09/08/2021. The heart is mildly enlarged noting atherosclerotic calcification of the thoracic aorta. The pulmonary vasculature is noncongested. There is loss of the left hilum. There is multifocal airspace consolidation seen throughout the right mid to lower lung. The left lung appears clear noting basilar scarring/atelectasis. No large pleural effusion is identified. No pneumothorax is seen. The skeletal structures are osteopenic. There are chronic/healed left-sided rib fractures. IMPRESSION: 1. Cardiomegaly without radiographic evidence of congestive failure. 2. Multifocal airspace consolidation is seen in the right mid to lower lung. Correlate clinically for evidence of pneumonia/aspiration pneumonitis. Radiographic follow-up to resolution is recommended to exclude underlying pulmonary lesion. 3. The left lung appears clear. 4. Fullness of the left hilum is indeterminant. Lymphadenopathy is not excluded. This should also be reassessed at follow-up. ACT 112: Positive. There are findings on this exam that require communication b etween the performing entity and the patient following Patient Test Result Information Act ([place] Act 112) guidelines. Electronically signed by: Paddy Amador M.D. 06/13/2023 7:33 AM Chest CTA 06/13/23 09:27 CT ANGIOGRAM OF THE CHEST CLINICAL HISTORY: Hypoxia. COMPARISON STUDY: Chest CT dated 09/08/2021 and 07/06/2021. Chest x-ray dated 06/13/2023. TECHNIQUE: Following the IV administration of 115 cc of Optiray 320, CT angiogram of the chest was performed from the upper abdomen to the thoracic inlet utilizing the pulmonary embolus protocol. Images are reviewed in the axial, sagittal, and coronal planes. 3-D MIPS images are created and assessed. IV contrast was administered without complication. A dose lowering technique was utilized adhering to the principles of ALARA. The examination is degraded by motion artifact, as well as by streak artifact from the right arm which could not be elevated above the chest. CT DOSE: 895.31 mGy.cm FINDINGS: Thyroid: Imaged portions of the thyroid gland are normal in size and attenuation. Thoracic aorta: There is atherosclerotic calcification of the thoracic aorta, which is normal in caliber and demonstrates standard 3-vessel arch anatomy. The thoracic aorta is not well opacified. Pulmonary vasculature: The pulmonary trunk is normal in caliber. There are no filling defects identified in main, lobar, or segmental pulmonary branches to suggest pulmonary embolus. Evaluation of the peripheral branches is degraded by motion artifact. Heart: The heart is enlarged and without pericardial effusion. The coronary arteries are densely calcified. Lungs and pleural spaces: Evaluation of the lung parenchyma is degraded by motion artifact. There is patchy airspace consolidation seen throughout the right lung. Minimal opacities are seen at the left lung base. Intralobular septal thickening seen throughout both lungs. There are small pleural effusions, right larger than left. Diffuse peribronchial thickening is observed. There are punctate calcified granulomas. A 4 mm right middle lobe pulmonary nodule is seen on image #103. This is unchanged dating back to at least 2020. Mediastinum: There are scattered subcentimeter mediastinal nodes. Karine: Mildly enlarged hilar nodes measure up to 12 mm short axis. Axillae: There is no axillary lymphadenopathy. Upper abdomen: Partially visualized upper abdominal viscera is within normal limits. Skeletal structures: The skeletal structures are osteopenic. There are chronic/healed left-sided rib fractures. Mild degenerative changes noted in the shoulders and spine. No lytic or blastic bony lesions are seen. IMPRESSION: 1. Streak and motion compromised examination. 2. There is no evidence of pulmonary embolus in the main, lobar, or segmental pulmonary arteries. 3. Cardiomegaly with evidence of congestive failure. 4. Airspace consolidation is seen throughout the right lung, likely representing pneumonia/aspiration pneumonitis. Clinical correlation will be required and radiographic follow-up to resolution is recommended. 5. Small pleural effusions. 6. Mildly enlarged hilar lymph nodes are nonspecific and likely reactive. 7. Additional findings as above. ACT 112: Negative or not required by law. Electronically signed by: Paddy Amador M.D. 06/13/2023 10:38 AM Code Status & VTE Plan Code Status Conditional code VTE Prophylaxis Plan VTE Prophylaxis will be ordered: Yes Critical Care Time Critical Care Time: Yes Total Critical Care Time: 40 Supervising Physician Co-Signing Physician Notes I personally saw and examined the patient. I independently reviewed the labs, EKG, imaging, problem list, medication list, past medical history and family history. I verified all cardoza points and agree with Mino Colon PA-C with the following exceptions and/or additions: 78 year old male presents to the ER with shortness of breath for the last 4 days. Worse lying flat and difficult sleeping for the last 4 days. No fever or chills. No history of heart failure. History of severe pneumonia previously related when he had rib fractures. No asthma, COPD or smoking/vaping. O/E A&Ox3, HS irregular rhythm, decreased rate, no murmurs, Using accessory muscles and unable to complete full sentences, Chest bilateral reduced breath sounds without wheezing or crackles, Abdo SNT, no pedal edema. A/P Pneumonia - Ceftriaxone/doxycycline. Minimal WBC elevation and procalcitonin negative however consolidation more typical of pneumonia from CT and minimal output with lasix 40mg Possible acute CHF - no history of this but BNP elevated and WBC/procalcitonin levels question the diagnosis of pneumonia. Minimal output with Lasix 40mg IV favoring more pneumonia. TTE preliminary read verbally discussed with cardiology and moderate pulmonary hypertension but otherwise no significant valve or LVEF. A. Fib - new onset, TTE, TSH, rate controlled too much on propranolol (will discontinue and add back BB as needed for rate control) Acute respiratory failure with hypoxia - due to concern for pulmonary edema component patient switched to CPAP HS PG Care Time/CCT Total # of Minutes Spent Total Time Spent with Patient: Total time spent is greater than 50% in coordination of care (as documented) at patient's floor/unit and/or counseling patient: Critical Care Time: Yes Total Critical Care Time: 40 [place] [address] INT INP/OBS CARE 3/75MIN Patient Type Established Medical Decision Making High Complexity Diagnoses Pneumonia J18.9 Heart failure I50.9 Hypertension I10 Atrial fibrillation I48.91 Diabetes E11.9 Bradycardia R00.1 Elevated troponin R79.89 BPH (benign prostatic hyperplasia) N40.0 Respiratory failure J96.01 Chronicity: acute Respiratory failure complication: hypoxia Acute respiratory failure with hypoxia J96.01 Additional Codes Critical Care Time - Critical Care Time: Yes ([id number]) (9) Respiratory failure Chronicity: acute Respiratory failure complication: hypoxia Qualified Code(s): J96.01 - Acute respiratory failure with hypoxia
[2023-06-13] MEDS ORDERED: OPTIRAY 320 125ml IV ONE (10:09)
[2023-06-13] MEDS ORDERED: SODIUM CHLORIDE 0.9% 500 ML IV ONE (10:14)
[2023-06-13 10:21] LABS: Troponin I High Sensitivity 34.7 pg/ml (0-20)
--- NOTE | 2023-06-13 10:40 | CT Scan Report ---
CT ANGIOGRAM OF THE CHEST CLINICAL HISTORY: Hypoxia. COMPARISON STUDY: Chest CT dated 09/08/2021 and 07/06/2021. Chest x-ray dated 06/13/2023. TECHNIQUE: Following the IV administration of 115 cc of Optiray 320, CT angiogram of the chest was pe rformed from the upper abdomen to the thoracic inlet utilizing the pulmonary embolus protocol. Images are reviewed in the axial, sagittal, and coronal planes. 3-D MIPS images are created and assessed. I V contrast was administered without complication. A dose lowering technique was utilized adhering to the principles of ALARA. The examination is degraded by motion artifact, as well as by streak artifa ct from the right arm which could not be elevated above the chest. CT DOSE: 895.31 mGy.cm FINDINGS: Thyroid: Imaged portions of the thyroid gland are normal in size and attenuation. Thoracic aorta: There is atherosclerotic calcification of the thoracic aorta, which is normal in jhon mercy and demonstrates standard 3-vessel arch anatomy. The thoracic aorta is not well opacified. Pulmonary vasculature: The pulmonary trunk is normal in caliber. There are no filling defects identif ied in main, lobar, or segmental pulmonary branches to suggest pulmonary embolus. Evaluation of the p eripheral branches is degraded by motion artifact. Heart: The heart is enlarged and without pericardial effusion. The coronary arteries are densely calc ified. Lungs and pleural spaces: Evaluation of the lung parenchyma is degraded by motion artifact. There is patchy airspace consolidation seen throughout the right lung. Minimal opacities are seen at the left lung base. Intralobular septal thickening seen throughout both lungs. There are small pleural effusio ns, right larger than left. Diffuse peribronchial thickening is observed. There are punctate calcifie d granulomas. A 4 mm right middle lobe pulmonary nodule is seen on image #103. This is unchanged dati ng back to at least 2020. Mediastinum: There are scattered subcentimeter mediastinal nodes. Karine: Mildly enlarged hilar nodes measure up to 12 mm short axis. Axillae: There is no axillary lymphadenopathy. Upper abdomen: Partially visualized upper abdominal viscera is within normal limits. Skeletal structures: The skeletal structures are osteopenic. There are chronic/healed left-sided rib fractures. Mild degenerative changes noted in the shoulders and spine. No lytic or blastic bony lesio ns are seen. IMPRESSION: 1. Streak and motion compromised examination. 2. There is no evidence of pulmonary embolus in the main, lobar, or segmental pulmonary arteries. 3. Cardiomegaly with evidence of congestive failure. 4. Airspace consolidation is seen throughout the right lung, likely representing pneumonia/aspiration pneumonitis. Clinical correlation will be required and radiographic follow-up to resolution is recom mended. 5. Small pleural effusions. 6. Mildly enlarged hilar lymph nodes are nonspecific and likely reactive. 7. Additional findings as above. ACT 112: Negative or not required by law. Electronically signed by: Paddy Amador M.D. 06/13/2023 10:38 AM
[2023-06-13] MEDS ORDERED: FUROSEMIDE 40 MG/4 ML VIAL IV ONE (10:45)
[2023-06-13 10:52] LABS: Thyroid Stimulating Hormone 2.243 uIu/ml (0.300-4.500)
[2023-06-13 11:04] LABS: Base Excess ABG 0.9 mEq/L (-9-1.8); HCO3 ABG 24 mmol/L (19-24); PCO2 ABG 32 mmHg (35-46); PO2 ABG 63 mmHg (80-95); pH ABG 7.48 (7.35-7.45)
[2023-06-13 11:45] LABS: Allen Test Pos (Pos)
[2023-06-13 12:35] LABS: Total Protein Urine Random 33.5 mg/dl (0-11.9)
[2023-06-13 12:41] LABS: Creatinine Urine Random 70.7 mg/dl; Protein Creatinine Ratio Urine 0.5 (0-0.2)
[2023-06-13 13:27] LABS: Partial Thromboplastin Ratio 1.1; Partial Thromboplastin Time 30.6 Seconds (21.0-31.0)
[2023-06-13] MEDS ORDERED: GLUCAGON FOR INJ 1 MG VIAL SQ PRN (13:30)
[2023-06-13] MEDS ORDERED: GLUCOSE 10 TAB/TUBE PO PRN (13:30)
[2023-06-13] MEDS ORDERED: HEPARIN SODIUM/DEXTROSE 25,000 UNITS/500 ML BAG IV SCH (13:30)
[2023-06-13] MEDS ORDERED: ACETAMINOPHEN 325 MG TAB PO PRN (13:30)
[2023-06-13] MEDS ORDERED: INSULIN ASPART PER UNIT CHARGE SC SCH ×2 (13:30→18:00)
[2023-06-13] MEDS ORDERED: GLUCOSE 40% GEL 15 GM TUBE PO PRN (13:30)
[2023-06-13] MEDS ORDERED: CARBOHYDRATES FOR HYPOGLYCEMIA PO PRN (13:30)
[2023-06-13] MEDS ORDERED: DEXTROSE 50% 50 ML SYRINGE IV PRN (13:30)
[2023-06-13] MEDS ORDERED: HEPARIN SOD (PORCINE) 1000 UNIT/ML IV ONE (13:30)
[2023-06-13] MEDS ORDERED: Heparin IV Adult Wt-Based Low-Dose w/ INITIAL Bolus Protocol IV SCH (13:33)
[2023-06-13 14:30] LABS: Base Excess ABG 0.4 mEq/L (-9-1.8); HCO3 ABG 23 mmol/L (19-24); Oxygen Saturation ABG 95.4 % (90-95); PCO2 ABG 31 mmHg (35-46); PO2 ABG 65 mmHg (80-95); pH ABG 7.48 (7.35-7.45)
[2023-06-13 14:32] LABS: Allen Test Pos (Pos)
[2023-06-13] MEDS ORDERED: ALBUT/IPRATROP 3MG/0.5MG NEB 3 ML VIAL NEB PRN (15:43)
[2023-06-13] MEDS ORDERED: Nursing to Pharmacy Communication SCH ×2 (15:45→18:15)
--- NOTE | 2023-06-13 18:10 | XCELERA ---
[id number]
--- NOTE | 2023-06-13 18:46 | Communication Note ---
Date of Service: June 13, 2023 Patient switched from CPAP to high flow oxygen with FiO2 75% (40LPM) as no significant response to Lasix and LVEF normal - less suggestive of CHF compon ent. Ok to start clear liquid diet. Given patient preference of CPAP and lower FiO2 on this will use HS. Lack of procalcitonin or significant WBC suggests atypical pneumonia or poor immune response, possible lack of response maybe initial dose of doxycycline given PO in the ER rather than IV, will continue on IV dosing. Mycoplasma negative on biofire. Will send off urine legionella Ag. Given high oxygen requirement and unusual picture for such a severe pneumonia will consult pulmonology for ongoing advice. No wheezing or bronchospasm to suggest need for steroids/nebulizers just poor inspiratory effort. Confirmed patient does with to be intubated in the event of respiratory arrest but no CPR in setting of cardiac arrest.
[2023-06-13] MEDS: DOXYCYCLINE HYCLATE 100 MG in DEXTROSE 5% MINI-B 100 ML IV SCH (19:57)
[2023-06-13] MEDS: TAMSULOSIN HCL 0.4 MG CAP PO SCH (19:58)
[2023-06-13 20:23] LABS: INR 1.1 (0.9-1.1); Partial Thromboplastin Ratio 1.3; Partial Thromboplastin Time 36.9 Seconds (21.0-31.0); Prothrombin Time 12.1 Seconds (9.0-12.0)
[2023-06-13] MEDS: INSULIN ASPART PER UNIT CHARGE SC SCH (20:44)
[2023-06-14] MEDS ORDERED: LIDOCAINE 5% 1 PATCH TD STA (02:12)
[2023-06-14 03:07] LABS: Partial Thromboplastin Ratio 1.5
[2023-06-14 03:09] LABS: Partial Thromboplastin Time 41.3 Seconds (21.0-31.0)
--- NOTE | 2023-06-14 07:47 | Pulmonary Consultation ---
Date of Consultation June 14, 2023 Assessment & Plan (1) Acute respiratory failure with hypoxia: (2) CHF (congestive heart failure): (3) HTN (hypertension): (4) Pulmonary hypertension: (5) Mitral regurgitation: Plan IMPRESSION: 78-year-old male with significant past medical history of hypertension, hyperlipidemia, and bradycardia who presents to the hospital with complaints of dyspnea on exertion since Monday. Pulmonary medicine consulted with concerns for CHF versus pneumonia process. RECOMMENDATIONS: 1. Acute respiratory failure with hypoxia - Images concerning for pulmonary edema as is patient's historical information. He is without sequela of upper respiratory symptoms, fevers, aspiration, or other sick contacts which would put him at risk for pneumonia type process. He is without elevation his white blood cell count. He has no productive cough. His procalcitonin is not elevated. His BNP is elevated. His echocardiogram shows elevated RVSP pressures and moderate mitral regurgitation. Would advocate for diuresis at this point to improve his oxygenation. Thankfully, he is in no distress at this point and we are titrating down his supplemental oxygen at this time. Patient declined positive pressure overnight secondary to issues with the mask. Overall, he is breathing well and without significant dyspnea. Not completely opposed to prophylactic antibiotics, however would recommend rapid de-escalation with continued improvement in his respiratory status. We will see how he does with ongoing diuresis. 2. CHF - As discussed above. Echocardiogram obtained. Patient would benefit from strict blood pressure control as well. Appreciate cardiology recommendations as well. 3. Hypertension - Patient would benefit from stricter hypertension control in the setting of CHF and valvulopathy. 4. Pulmonary hypertension - Likely representing WHO Group 2 in the setting of long standing hypertension. MR likely contributing at this point as well. Continue with diuresis as tolerated. 5. Mitral Regurgitation - Likely contributing to the patient's respiratory status at this point. Thank you for allowing us to participate in the care of this pleasant patient. We will be happy to follow along. Supervising Physician Co-Signing Physician Notes Patient seen and examined. Reviewed. Discussed with NOMAN and agree with assessment plan as noted. Asymmetric edema, suspect related to mitral regurgitation and hypertension. Recommend aggressive blood pressure control targeting systolic blood pressure less than 130 and diastolic less than 70. Diuresis as tolerated by kidney function. Cannot exclude infection although it appears less likely. Consider cardiology consultation. Will continue to follow. Feel free to contact us with questions or concerns History of Present Illness Reason for Consultation: Severe respiratory distress, high flow, PNA Requesting Physician: Dr. Sommers Attending Physician: Jeffrey Johnston MD History of Present Illness Patient is an 78-year-old male with a significant past medical history of hypertension, hyperlipidemia, and diabetes who presented to the emergency room yesterday with complaints of progressive worsening shortness of breath since Monday. He states that his symptoms initially started with some shortness of breath which he noticed when he was outside working in his garden. His symptoms worsened into Monday and he also reported being unable to sleep flat on his back. He has been having to sleep in a recliner with his head up. He states that he can walk an extensive distance, but he just notes that he is short of breath when he does so. He has reported no cough or sequela of upper respiratory infections prior to development of dyspnea. There has been no fevers or chills. No recent sick contacts. No chest pain, palpitations, dizziness, lightheadedness, or presyncope. The patient reports that he smoked approximately 50 years ago in his youth and quit over 30 years ago at this point. He reports no history of asthma or diagnosed COPD. He reports no history of recurrent pneumonia, however he did report a diagnosis of pneumonia in the setting of rib fractures years ago. Otherwise, his main complaint is the shortness of breath. He reports no abrupt weight increase. He does check his weights daily. He reports no swelling to the extremities or abdominal swelling that he is aware of. Allergies Allergy/AdvReac Type Severity Reaction Status Date / Time No Known Drug Allergies Allergy Verified 06/13/23 08:29 Home Medications Medication Instructions Recorded Confirmed Type amlodipine 10 mg tablet 10 mg PO QAM 06/19/18 06/13/23 History glipizide 2.5 mg tablet, extended 2.5 mg PO BID 06/19/18 06/13/23 History release 24 hr propranolol 60 mg tablet 60 mg PO BID 06/19/18 06/13/23 History tamsulosin 0.4 mg capsule 0.4 mg PO HS 08/30/18 06/13/23 History finasteride 5 mg tablet (Proscar) 5 mg PO QAM #30 tabs 09/13/21 06/13/23 Rx ibuprofen 200 mg tablet 200 mg PO Q6H PRN pain/fever 06/13/23 06/13/23 History Patient History Medical History (Updated 06/14/23 @ 11:40 by Wai Nagy PA-C) BPH (benign prostatic hyperplasia) Hyperlipidemia Acquired solitary kidney Benign prostatic hyperplasia with urinary obstruction Dysuria Gross hematuria Hearing loss Hypertension Tinnitus Type 2 diabetes mellitus Ureteral stricture Urinary retention Melanoma HX- REMOVED TO CHEST Solitary kidney CKD (chronic kidney disease) Baseline Cr 1.4-1.5- /PT DENIES Obesity Diabetes NO INSULIN Hyperlipidemia Hypertension Enlarged prostate Surgical History Nasal polyp Removed History of adenoidectomy History of bladder surgery TURBT 06/2018 Hx of cystoscopy H/O colonoscopy Hx of inguinal hernia repair Hx of carpal tunnel repair right and left Hx of tonsillectomy Family History Mother Hypertension Brother Heart disease Other No significant family history Denies family history of Hearing loss No family history of adverse response to anesthesia No family history of bleeding disorder Allergies Cancer Stroke Asthma Social History (Updated 09/02/22 @ 11:23 by ALEX Garcia) Smoking Status: Never smoker Second Hand Exposure: No; Do You Dip or Chew Tobacco: No; Hx Alcohol Use: No Hx Substance Use: No Preferred Language: [place] Communication Ability: Effective Visual Impairment: No Limitations Windows 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 All else were negative. Physical Exam Physical Exam: VITAL SIGNS - Vital signs and nursing notes were reviewed. GENERAL - 78-year-old male appearing his stated age who is in no acute distress. Communicates well with provider and answers questions appropriately. SKIN - Without rashes or lesions. NOSE - Midline and without cyanosis. No epistaxis or purulent drainage noted. MOUTH/OROPHARYNX - Without perioral cyanosis. Buccal mucosa pink and moist and without leukoplakia or thrush. NECK - Neck with FROM. LUNGS - Chest wall evaluation demonstrates normal chest wall A:P diameter. Auscultation reveals clear breath sound with crackles at the lung bases. CARDIAC - RRR with S1/S2. No murmur, rubs, or gallops appreciated. ABDOMEN - Abdominal inspection demonstrates an obese abdomen. BS normoactive all four quadrants. No tenderness, palpable masses, or ascites noted. EXTREMITIES - Nail clubbing not present. No peripheral cyanosis. No pretibial edema present. +3/5 radial and dorsalis pedis palpated throughout. PSYCH - A&Ox3 and cooperates fully with examiner. Pt is very pleasant and interacts well with examiner. Results & Data Results & Data Vital Signs (Past 12 Hours) Vital Signs Temp Pulse Pulse Pulse Resp BP Pulse Ox 06/14/23 02:48 36.9 C 79 18 177/88 H 98 06/13/23 22:47 58 L 18 93 06/13/23 22:47 37.3 C 50 L 20 165/79 H 93 06/13/23 22:30 47 L 06/13/23 21:00 18 L 06/13/23 20:06 47 L 18 97 06/13/23 20:06 O2 Del Method O2 Flow Rate FiO2 06/14/23 02:48 High Flow Nasal Cannula 06/13/23 22:47 High Flow Nasal Cannula 30 60 06/13/23 22:47 High Flow Nasal Cannula 06/13/23 22:30 06/13/23 21:00 06/13/23 20:06 High Flow Nasal Cannula 30 65 06/13/23 20:06 High Flow Nasal Cannula 30 65 PG Care Time/CCT Total # of Minutes Spent Total Time Spent with Patient: Total time spent is greater than 50% in coordination of care (as documented) at patient's floor/unit and/or counseling patient: Coding Level of Care Code 52449 INT INP/OBS CARE 3/75MIN Diagnoses Acute respiratory failure with hypoxia J96.01 CHF (congestive heart failure) I50.9 HTN (hypertension) I10 Pulmonary hypertension I27.20 Mitral regurgitation I34.0
[2023-06-14] MEDS: INSULIN ASPART PER UNIT CHARGE SC SCH ×4 (08:31→20:49)
[2023-06-14] MEDS ORDERED: FUROSEMIDE 40 MG/4 ML VIAL IV SCH (09:00)
[2023-06-14 09:09] LABS: Base Excess ABG 2.2 mEq/L (-9-1.8); HCO3 ABG 25 mmol/L (19-24); Oxygen Saturation ABG 97.7 % (90-95); PCO2 ABG 33 mmHg (35-46); PO2 ABG 86 mmHg (80-95); pH ABG 7.49 (7.35-7.45)
[2023-06-14 09:11] LABS: Allen Test Pos (Pos)
[2023-06-14 09:13] LABS: Basophils # (auto) 0.01 K/uL (0.00-0.20); Basophils % (auto) 0.1 %; Eosinophils # (auto) 0.04 K/uL (0.00-0.50); Eosinophils % (auto) 0.5 %; Hematocrit (blood only) 39.2 % (42.0-52.0); Hemoglobin 13.3 g/dl (14.0-18.0); Immature Granulocytes # (auto) 0.04 K/uL (0.01-0.20); Immature Granulocytes % (auto) 0.5 %; Lymphocytes # (auto) 0.59 K/uL (1.20-3.40); Lymphocytes % (auto) 6.9 %; Mean Corpuscular Hgb Conc 33.9 g/dL (32.0-36.0); Mean Corpuscular Volume 85.6 fL (80.0-100.0); Mean Platelet Volume 10.7 fL (9.4-12.4); Monocytes # (auto) 0.69 K/uL (0.11-0.59); Neutrophils # (auto) 7.24 K/uL (1.40-6.50); Platelet Count 154 K/uL (130-400); RDW Coefficient of Variation 13.3 % (11.5-14.5); RDW Standard Deviation 40.8 fL (36.4-46.3); Red Blood Count 4.58 M/uL (4.70-6.10); White Blood Count 8.61 K/ul (4.8-10.8)
[2023-06-14] MEDS ORDERED: FUROSEMIDE 40 MG/4 ML VIAL IV ONE (09:15)
[2023-06-14 09:31] LABS: BUN Creatinine Ratio 15.4 (10-20); Calcium 8.4 mg/dl (8.6-10.3); Creatinine Clr Calc Pharmacy 49.4 ml/min; Est GFR (African American) 59.7 ml/min; Est GFR (Non-African American) 51.5 ml/min; Potassium 3.6 mmol/L (3.5-5.1)
[2023-06-14] MEDS: cefTRIAXone SODIUM 2,000 MG in DEXTROSE 5 % MINI-B 50 ML IV SCH (09:46)
[2023-06-14 10:10] LABS: Estimated Average Glucose 157 mg/dl; Hemoglobin A1C 7.1 % (4.5-5.6)
[2023-06-14] MEDS: DOXYCYCLINE HYCLATE 100 MG in DEXTROSE 5% MINI-B 100 ML IV SCH ×2 (10:35→21:02)
[2023-06-14] MEDS: FINASTERIDE 5 MG TAB PO SCH (11:02)
--- NOTE | 2023-06-14 13:08 | Hospitalist Progress Note ---
Date of Service June 14, 2023 Assessment & Plan (1) Heart failure: Plan: Worsening SOB, dry cough, difficulty sleeping x4 days No at home oxygen use No prior dx of heart failure Echocardiogram showed EF 70% hyperdynamic, moderate Pulm HTN BNP elevated at 742 Chest CTA revealed cardiomegaly with evidence of congestive failure Started on Lasix 40mg daily Supplemental oxygen as needed to maintain SPO2 >94% Did not like CPAP (2) Pneumonia: Plan: CXR showed multifocal airspace consolidation in the right mid to lower lung Chest CTA showed no evidence of pulmonary embolism However, procalcitonin WNL, afebrile, and mild leukocytosis at 10.85 BioFire negative Continue Rocephin 2000 mg IV q24h Switched doxycycline 100 mg p.o. --> 100 mg IV q12h Maintain good pulmonary hygiene with incentive spirometry and flutter valve q4h DuoNeb 3 mL q4h as needed for wheezing Appreciate Pulm recs (3) Hypertension: Plan: Hold propranolol in the setting of bradycardia in in the 30s Continue amlodipine (4) Atrial fibrillation: Plan: New onset Echocardiogram shows EF 70%, no evidence of shunt TSH ordered, pending Continuous telemetry monitoring CHADS-VASc: 4 Initially started on Heparin by weight Transitioned to PO eliquis 5mg BID PTT pending; Plt count okay at 179 (5) Diabetes: Plan: Glucose 208 on arrival Last A1c 6.3% on 10/11/2021 Hold glipizide SSI; target BSG goal [id number]/dL, 45 CF, 15 carb ratio BSG ACHS T2DM diet Adjust regimen as needed AM A1c (6) Bradycardia: Plan: Chronic; asymptomatic HR 36 bpm at time of admission Patient took propranolol the morning of 06/13 Hold propranolol for now HR now improved (7) Elevated troponin: Plan: Troponin 35.0 --> 34.7 Clinically, patient denies CP (8) BPH (benign prostatic hyperplasia): Plan: Continue tamsulosin, finasteride (9) Respiratory failure: Plan: Accessory muscle use (10) Acute respiratory failure with hypoxia: Plan Disposition: Admit to PCU telemetry Conditional code (patient is open to intubation if needed; he would like all treatment outside cardiac arrest) Keep n.p.o. except for medications while on CPAP, then advance to T2DM, AHA diet as tolerated VTE PPx: Heparin w/ bolus Admission and Anticipated Discharge Date Admission Date: June 13, 2023 Subjective patient seen and examined today, says shortness of breath is better Review of Systems Review of Systems: All systems reviewed are negative, apart from the ones contained in the history. Physical Exam Physical Exam: The patient is awake, alert and oriented 3, well developed and well nourished, normocephalic and atraumatic, lying in bed and in no acute distress. HEENT--PERRL, EOMI, mucous membranes and oropharynx mildly dry Neck--supple. No JVD. No bruits. Thyroid normal, trachea midline, no adenopathy. Heart--normal S1 and S2. No murmurs, rubs or gallops. Lungs--Reduced air entry on auscultation Abdomen--normal bowel sounds and soft. Mild epigastric and left sided abdominal pain Extremities--no cyanosis or clubbing. No edema. Dermatologic--normal skin turgor, normal color, no abnormal lymph nodes, no rash. Neurologic--cranial nerves II through XII grossly intact. Rheumatologic--normal range of motion. Psychiatric--normal affect. Results & Data Results & Data Vital Signs (Past 12 Hours) Vital Signs Temp Pulse Pulse Pulse Resp BP Pulse Ox 06/14/23 11:42 98.4 F 74 16 159/81 H 97 06/14/23 09:30 06/14/23 08:12 46 L 06/14/23 08:00 98.4 F 61 18 168/79 H 98 06/14/23 07:43 06/14/23 02:48 98.4 F 79 18 177/88 H 98 O2 Del Method O2 Flow Rate 06/14/23 11:42 High Flow Nasal Cannula 06/14/23 09:30 High Flow Nasal Cannula 8 06/14/23 08:12 06/14/23 08:00 High Flow Nasal Cannula 06/14/23 07:43 Nasal Cannula 06/14/23 02:48 High Flow Nasal Cannula PG Care Time/CCT Total # of Minutes Spent Total Time Spent with Patient: Total time spent is greater than 50% in coordination of care (as documented) at patient's floor/unit and/or counseling patient: Coding Level of Care Code 05031 SUB INP/OBS CARE 2/35MIN Diagnoses Heart failure I50.9 Pneumonia J18.9 Hypertension I10 Atrial fibrillation I48.91 Diabetes E11.9 Bradycardia R00.1 Elevated troponin R79.89 BPH (benign prostatic hyperplasia) N40.0 Respiratory failure J96.01 Chronicity: acute Respiratory failure complication: hypoxia Acute respiratory failure with hypoxia J96.01 Time Spent (min) 35 (9) Respiratory failure Chronicity: acute Respiratory failure complication: hypoxia Qualified Code(s): J96.01 - Acute respiratory failure with hypoxia
--- NOTE | 2023-06-14 15:56 | Cardiology Consultation ---
Date of Consultation June 14, 2023 Assessment & Plan (1) Acute heart failure with preserved ejection fraction (HFpEF): (2) Mitral regurgitation: (3) Pulmonary hypertension: (4) Persistent atrial fibrillation: (5) Bradycardia: (6) HTN (hypertension): Plan ASSESSMENT/PLAN: 1. Heart failure with preserved EF: He appears hypervolemic and symptoms consistent with heart failure. Already has shown improvement with diuretic therapy. Lasix 40 mg IV twice daily and reassess labs tomorrow. If evidence of azotemia, would reduce Lasix. We discussed the diagnosis and the importance of low-sodium diet, less than 2000 mg daily. Daily weights. Strict I's and O's. Recommend SGLT2 inhibitor later this hospitalization or as an outpatient. Heart failure program referral. 2. Pulmonary hypertension: Heart failure likely contributing. Also has sleep apnea. Can repeat echo in the future once euvolemic. 3. Atrial fibrillation: New diagnosis for him. Initially quite bradycardic while on propranolol. Agree with discontinuation of beta-ruddy. Monitor heart rate. Diagnosis discussed with him. Recommend anticoagulation for stroke risk reduction. If creatinine maintains greater than 1.5, would reduce dose to 2.5 mg twice daily. Currently on appropriate dose. Monitor CBC on anticoagulation therapy. 4. Mitral regurgitation: Nonsevere. Can monitor as an outpatient. 5. Hypertension: Blood pressure has been elevated consistently, although improved. Blood pressure will likely further improve with further diuresis. 6. Disposition: I will be away from the hospital for the next several days. Will sign out to Dr. Solomon who will be on-call for cardiology. Also, please call on-call can bander operator for any questions or concerns. Patient care communicated with primary hospitalist, Dr. Johnston. Thank you for allowing me to participate in the care of your patient. Please call for any other questions or concerns. Sincerely, Nish Hendricks M.D. History of Present Illness Reason for Consultation: CHF, MR, SOB Requesting Physician: Wai Nagy Attending Physician: Jeffrey Johnston MD History of Present Illness Mr. Garcia is a very pleasant 78-year-old gentleman with a history significant for hypertension, dyslipidemia, type 2 diabetes, solitary kidney with CKD, and sleep apnea on CPAP nightly. He also has a history of melanoma which was surgically removed. He was hospitalized on 06/13/2023 after presenting with worsening shortness of breath. He noted dyspnea on exertion on 06/10/2023 when outside doing some work. Symptoms worsened on Monday and he noted orthopnea. He had to sleep in a recliner but still had intermittent orthopnea. He has not noted any edema, cough, fevers, chills. His weight has been stable. He reports maintaining a low-sodium diet. He was initially diagnosed with pneumonia and placed on antibiotic therapy. He was also noted to be in atrial fibrillation with slow ventricular response while taking propranolol 60 mg twice daily which he reports has been prescribed in the past due to hypertension. He received 2 doses of Lasix thus far and has increased urine output. He believes that his breathing is much better. He was noted to be hypoxic with oxygen saturations in the 80s. He is receiving supplemental oxygen. He denies chest pain, syncope, near syncope, melena, hematochezia, hematuria, TIA, stroke, or palpitations. Review of systems: As above. Review of systems otherwise negative/unremarkable. Family history: No known premature CAD in first-degree relatives. Social history: He quit smoking at approximately 28 years of age but had smoked a pipe intermittently and up to 1 pack of cigarettes per day on occasion. Occasional alcohol. No drugs. Lives alone. x 1 (4 children). x 1 (4 children). 8 children in total. He is a and worked for [employer]. He was unaccompanied. Allergies Allergy/AdvReac Type Severity Reaction Status Date / Time No Known Drug Allergies Allergy Verified 06/13/23 08:29 Home Medications Medication Instructions Recorded Confirmed Type amlodipine 10 mg tablet 10 mg PO QAM 06/19/18 06/13/23 History glipizide 2.5 mg tablet, extended 2.5 mg PO BID 06/19/18 06/13/23 History release 24 hr propranolol 60 mg tablet 60 mg PO BID 06/19/18 06/13/23 History tamsulosin 0.4 mg capsule 0.4 mg PO HS 08/30/18 06/13/23 History finasteride 5 mg tablet (Proscar) 5 mg PO QAM #30 tabs 09/13/21 06/13/23 Rx ibuprofen 200 mg tablet 200 mg PO Q6H PRN pain/fever 06/13/23 06/13/23 History Patient History Medical History BPH (benign prostatic hyperplasia) Hyperlipidemia Acquired solitary kidney Benign prostatic hyperplasia with urinary obstruction Dysuria Gross hematuria Hearing loss Hypertension Tinnitus Type 2 diabetes mellitus Ureteral stricture Urinary retention Melanoma HX- REMOVED TO CHEST Solitary kidney CKD (chronic kidney disease) Baseline Cr 1.4-1.5- /PT DENIES Obesity Diabetes NO INSULIN Hyperlipidemia Hypertension Enlarged prostate Surgical History Nasal polyp Removed History of adenoidectomy History of bladder surgery TURBT 06/2018 Hx of cystoscopy H/O colonoscopy Hx of inguinal hernia repair Hx of carpal tunnel repair right and left Hx of tonsillectomy Family History Mother Hypertension Brother Heart disease Other No significant family history Denies family history of Hearing loss No family history of adverse response to anesthesia No family history of bleeding disorder Allergies Cancer Stroke Asthma Social History (Updated 09/02/22 @ 11:23 by ALEX Garcia) Smoking Status: Never smoker Second Hand Exposure: No; Do You Dip or Chew Tobacco: No; Hx Alcohol Use: No Hx Substance Use: No Preferred Language: Tunisian Communication Ability: Effective Visual Impairment: No Limitations Hay Stacker Operator Required: No Beliefs That Will Affect Care: None marital status: / Current Living Situation: Alone current occupational status: retired Other Information That Helps Us Care for You: No Feels Safe at Home: Yes Safety Concerns: Feels Safe At This Time Assistive Devices: None Physical Exam Physical Exam: Gen.: No acute distress. Alert and oriented. HEENT: Anicteric sclera. Neck: Elevated JVD. Hepatojugular reflux noted. No bruits. Normal carotid upstrokes bilaterally. Cardiac: No ventricular heave. Irregularly irregular with normal rate. Normal S1-S2. No murmurs, rubs, or gallops. Pulmonary: Clear to auscultation bilaterally without wheezes, rales, or rhonchi. Abdomen: Soft, nontender, nondistended, with normoactive bowel sounds. No bruits noted. Extremities: 2+ radial pulses bilaterally. 2+ posterior tibialis pulses bilaterally. No edema or cyanosis. Psychiatric: Affect appears appropriate. Results & Data Vital Signs (Past 12 Hours) Vital Signs Temp Pulse Pulse Resp BP Pulse Ox O2 Del Method 06/14/23 15:28 36.8 C 81 18 157/79 H 95 High Flow Nasal Cannula 06/14/23 11:42 36.9 C 74 16 159/81 H 97 High Flow Nasal Cannula 06/14/23 09:30 High Flow Nasal Cannula 06/14/23 08:12 46 L 06/14/23 08:00 36.9 C 61 18 168/79 H 98 High Flow Nasal Cannula 06/14/23 07:43 Nasal Cannula O2 Flow Rate 06/14/23 15:28 06/14/23 11:42 06/14/23 09:30 8 06/14/23 08:12 06/14/23 08:00 06/14/23 07:43 Intake & Output 06/12/23 06/13/23 06/14/23 06/15/23 06:59 06:59 06:59 06:59 Intake Total 892.666 / 892.666 357.90 / 357.90 Output Total 1350 / 1350 1125 / 1125 Balance -457.334 / -457.334 -767.10 / -767.10 Weight 218 lb 4.122 oz 214 lb 1.102 oz Laboratory Results Laboratory Results - last 24 hr 06/13/23 06/13/23 06/13/23 18:01 19:33 19:41 WBC RBC Hgb Hct MCV MCH MCHC RDW Std Deviation RDW Coeff of Haylie Plt Count MPV Immature Gran % (Auto) Neut % (Auto) Lymph % (Auto) Greene % (Auto) Eos % (Auto) Baso % (Auto) Neut # (Auto) Lymph # (Auto) Greene # (Auto) Eos # (Auto) Baso # (Auto) Immature Gran # (Auto) PT 12.1 H INR 1.1 APTT 36.9 H PTT Ratio 1.3 ABG pH ABG pCO2 ABG pO2 ABG HCO3 ABG O2 Saturation ABG Base Excess Isaiah Test Oxygen Given Sodium Potassium Chloride Carbon Dioxide Anion Gap BUN Creatinine Est Cr Clr Drug Dosing Est GFR ( Amer) Est GFR (Non-Af Amer) BUN/Creatinine Ratio Glucose POC Glucose 161 H 150 H Estimat Average Glucose Hemoglobin A1c Calcium Urine Legionella Ag 11/22/23 11/22/23 11/22/23 02:31 03:10 07:21 WBC RBC Hgb Hct MCV MCH MCHC RDW Std Deviation RDW Coeff of Haylie Plt Count MPV Immature Gran % (Auto) Neut % (Auto) Lymph % (Auto) Greene % (Auto) Eos % (Auto) Baso % (Auto) Neut # (Auto) Lymph # (Auto) Greene # (Auto) Eos # (Auto) Baso # (Auto) Immature Gran # (Auto) PT INR APTT 41.3 H* PTT Ratio 1.5 ABG pH ABG pCO2 ABG pO2 ABG HCO3 ABG O2 Saturation ABG Base Excess Isaiah Test Oxygen Given Sodium Potassium Chloride Carbon Dioxide Anion Gap BUN Creatinine Est Cr Clr Drug Dosing Est GFR ( Amer) Est GFR (Non-Af Amer) BUN/Creatinine Ratio Glucose POC Glucose 172 H Estimat Average Glucose Hemoglobin A1c Calcium Urine Legionella Ag Pending 06/14/23 06/14/23 08:58 11:10 WBC 8.61 RBC 4.58 L Hgb 13.3 L Hct 39.2 L MCV 85.6 MCH 29.0 MCHC 33.9 RDW Std Deviation 40.8 RDW Coeff of Haylie 13.3 Plt Count 154 MPV 10.7 Immature Gran % (Auto) 0.5 Neut % (Auto) 84.0 Lymph % (Auto) 6.9 Greene % (Auto) 8.0 Eos % (Auto) 0.5 Baso % (Auto) 0.1 Neut # (Auto) 7.24 H Lymph # (Auto) 0.59 L Greene # (Auto) 0.69 H Eos # (Auto) 0.04 Baso # (Auto) 0.01 Immature Gran # (Auto) 0.04 PT INR APTT PTT Ratio ABG pH 7.49 H ABG pCO2 33 L ABG pO2 86 ABG HCO3 25 H ABG O2 Saturation 97.7 H ABG Base Excess 2.2 H Isaiah Test Pos Oxygen Given 40% Sodium 137 Potassium 3.6 Chloride 105 Carbon Dioxide 23 Anion Gap 9 BUN 20 Creatinine 1.30 Est Cr Clr Drug Dosing 49.4 Est GFR ( Amer) 59.7 Est GFR (Non-Af Amer) 51.5 BUN/Creatinine Ratio 15.4 Glucose 236 H POC Glucose 158 H Estimat Average Glucose 157 Hemoglobin A1c 7.1 H Calcium 8.4 L Urine Legionella Ag Diagnostic Findings Telemetry personally reviewed: Atrial fibrillation which initially was bradycardic but heart rate has improved after discontinuation of beta-ruddy by the primary service. Echo 06/13/2023: Normal LV size. EF > 70%. Normal wall motion. Mildly dilated RV with normal systolic function. Moderate left atrial dilation. Moderate MR. RVSP 57. Compared to 01/13/2021 study, moderate pulmonary hypertension is now present. ECG personally reviewed: ECG 06/13/2023 at 7:35 AM: A-fib 48 bpm. Nonspecific T wave abnormality. ECG 06/13/2023 at 12:08 PM: A-fib 52 bpm. Nonspecific T wave abnormality. History and physical report and pulmonary consultation reviewed. CTA chest 06/13/2023 report reviewed: No PE. Motion compromised exam. Radiology reports evidence of congestive failure. Right lung airspace consolidation, likely representing pneumonia/aspiration pneumonitis per radiology. Small pleural effusions. Labs reviewed and notable for stable hemoglobin, normal potassium, stable renal function, slightly elevated high-sensitivity troponin at 35 and repeated at 34.7. Elevated BNP. Medications Administered Current Inpatient Medications Acetaminophen (Acetaminophen 325 Mg Tab) 650 mg PO Q4H PRN PRN Reason: Pain (1-4) Or Fever Stop: 07/13/23 13:29 Last Admin: 06/14/23 03:41 Dose: 650 mg Albuterol (Albut/Ipratrop 3mg/0.5mg Neb 3 Ml Vial) 3 ml NEB Q4R PRN; Protocol PRN Reason: Wheezing Stop: 07/13/23 18:59 Apixaban (Apixaban 5 Mg Tablet) 5 mg PO BID [facility] Stop: 07/14/23 20:59 Dextrose (Dextrose 50% 50 Ml Syringe) 25 - 50 ml IV UD PRN; Protocol PRN Reason: Hypoglycemia Protocol Stop: 07/13/23 13:29 Finasteride (Finasteride 5 Mg Tab) 5 mg PO QAM KRISTIE Stop: 07/14/23 08:59 Last Admin: 06/14/23 11:02 Dose: 5 mg Glucagon (Glucagon For Inj 1 Mg Vial) 1 mg SQ UD PRN; Protocol PRN Reason: Hypoglycemia Protocol Stop: 07/13/23 13:29 Glucose (Glucose 10 Tab/Tube) 4 - 8 tab PO UD PRN; Protocol PRN Reason: Hypoglycemia Treatment Stop: 07/13/23 13:29 Glucose (Glucose 40% Gel 15 Gm Tube) 15 - 30 gm PO UD PRN; Protocol PRN Reason: Hypoglycemia Protocol Stop: 07/13/23 13:29 Ceftriaxone Sodium 2,000 mg/ (Dextrose) 50 mls @ 100 mls/hr IV Q24H KRISTIE; Protocol Stop: 06/21/23 07:59 Last Infusion: 06/14/23 10:39 Dose: Infused Doxycycline Hyclate 100 mg/ (Dextrose) 100 mls @ 50 mls/hr IV Q12H KRISTIE Stop: 06/20/23 20:59 Last Infusion: 06/14/23 13:31 Dose: Infused Insulin Aspart (Insulin Aspart Per Unit Charge) 0 units SC ACHS KRISTIE Stop: 07/13/23 20:59 Last Admin: 06/14/23 12:09 Dose: 2 units Miscellaneous (Carbohydrates For Hypoglycemia ) 15 - 30 gm PO UD PRN PRN Reason: Hypoglycemia Protocol Stop: 07/13/23 13:29 Tamsulosin HCl (Tamsulosin Hcl 0.4 Mg Cap) 0.4 mg PO HS KRISTIE Stop: 07/13/23 20:59 Last Admin: 06/13/23 19:58 Dose: 0.4 mg PG Care Time/CCT Total # of Minutes Spent Total Time Spent with Patient: Total time spent is greater than 50% in coordination of care (as documented) at patient's floor/unit and/or counseling patient: Coding Level of Care Code 34581 INT INP/OBS CARE 3/75MIN Diagnoses Acute heart failure with preserved ejection fraction (HFpEF) I50.31 Mitral regurgitation I34.0 Pulmonary hypertension I27.20 Persistent atrial fibrillation I48.19 Bradycardia R00.1 HTN (hypertension) I10
[2023-06-14] MEDS: FUROSEMIDE 40 MG/4 ML VIAL IV SCH (17:26)
[2023-06-14] MEDS: TAMSULOSIN HCL 0.4 MG CAP PO SCH (20:54)
[2023-06-14] MEDS ORDERED: APIXABAN 5 MG TABLET PO SCH (21:00)
[2023-06-15 06:16] LABS: BUN Creatinine Ratio 16.2 (10-20); Calcium 8.5 mg/dl (8.6-10.3); Creatinine Clr Calc Pharmacy 43.4 ml/min; Est GFR (African American) 51.1 ml/min; Est GFR (Non-African American) 44.1 ml/min; Potassium 3.5 mmol/L (3.5-5.1)
--- NOTE | 2023-06-15 06:21 | Electrocardiogram Report ---
Test Reason : Blood Pressure : / mmHG Vent. Rate : 048 BPM Atrial Rate : 048 BPM P-R Int : 000 ms QRS Dur : 082 ms QT Int : 498 ms P-R-T Axes : 000 049 097 degrees QTc Int : 444 ms Atrial fibrillation with slow ventricular response T wave abnormality, consider lateral ischemia Abnormal ECG When compared with ECG of 08-SEP-2021 11:17, Atrial fibrillation has replaced Sinus rhythm T wave inversion now evident in Lateral leads Confirmed by Vitor Hendricks ([id number]) on 06/15/2023 6:21:37 AM Referred By: REFERRED SELF Confirmed By:Vitor Hendricks
[2023-06-15 06:24] LABS: Basophils # (auto) 0.02 K/uL (0.00-0.20); Basophils % (auto) 0.4 %; Eosinophils # (auto) 0.14 K/uL (0.00-0.50); Eosinophils % (auto) 2.5 %; Hematocrit (blood only) 40.5 % (42.0-52.0); Hemoglobin 13.6 g/dl (14.0-18.0); Immature Granulocytes # (auto) 0.03 K/uL (0.01-0.20); Immature Granulocytes % (auto) 0.5 %; Lymphocytes # (auto) 0.64 K/uL (1.20-3.40); Lymphocytes % (auto) 11.3 %; Mean Corpuscular Hemoglobin 28.9 pg (25.0-34.0); Mean Corpuscular Hgb Conc 33.6 g/dL (32.0-36.0); Mean Corpuscular Volume 86.2 fL (80.0-100.0); Mean Platelet Volume 10.8 fL (9.4-12.4); Monocytes # (auto) 0.57 K/uL (0.11-0.59); Monocytes % (auto) 10.1 %; Neutrophils # (auto) 4.27 K/uL (1.40-6.50); Neutrophils % (auto) 75.2 %; Platelet Count 173 K/uL (130-400); RDW Coefficient of Variation 13.2 % (11.5-14.5); RDW Standard Deviation 41.1 fL (36.4-46.3); White Blood Count 5.67 K/ul (4.8-10.8)
--- NOTE | 2023-06-15 06:26 | Electrocardiogram Report ---
Test Reason : Blood Pressure : / mmHG Vent. Rate : 040 BPM Atrial Rate : 000 BPM P-R Int : 000 ms QRS Dur : 084 ms QT Int : 496 ms P-R-T Axes : 000 072 074 degrees QTc Int : 404 ms Atrial fibrillation with slow ventricular response Nonspecific T wave abnormality Abnormal ECG When compared with ECG of 13-JUN-2023 07:35, No significant change Confirmed by Vitor Hendricks ([id number]) on 06/15/2023 6:25:53 AM Referred By: REFERRED SELF Confirmed By:Vitor Hendricks
[2023-06-15 06:29] LABS: Partial Thromboplastin Ratio 1.1; Partial Thromboplastin Time 31.9 Seconds (21.0-31.0)
--- NOTE | 2023-06-15 06:38 | Electrocardiogram Report ---
Test Reason : Blood Pressure : / mmHG Vent. Rate : 052 BPM Atrial Rate : 000 BPM P-R Int : 000 ms QRS Dur : 086 ms QT Int : 474 ms P-R-T Axes : 000 047 108 degrees QTc Int : 440 ms Atrial fibrillation with slow ventricular response Nonspecific ST and T wave abnormality Abnormal ECG When compared with ECG of 13-JUN-2023 08:32, No significant change was found Confirmed by Vitor Hendricks ([id number]) on 06/15/2023 6:37:38 AM Referred By: REFERRED SELF Confirmed By:Vitor Hendricks
[2023-06-15] MEDS: FINASTERIDE 5 MG TAB PO SCH (08:16)
[2023-06-15] MEDS: EMPAGLIFLOZIN 10 MG TAB PO SCH (08:16)
[2023-06-15] MEDS: FUROSEMIDE 40 MG/4 ML VIAL IV SCH ×2 (08:17→17:36)
[2023-06-15] MEDS: cefTRIAXone SODIUM 2,000 MG in DEXTROSE 5 % MINI-B 50 ML IV SCH (08:21)
[2023-06-15] MEDS: DOXYCYCLINE HYCLATE 100 MG in DEXTROSE 5% MINI-B 100 ML IV SCH (08:22)
[2023-06-15] MEDS: INSULIN ASPART PER UNIT CHARGE SC SCH ×4 (08:29→21:03)
[2023-06-15] MEDS: APIXABAN 2.5 MG TAB PO SCH ×2 (08:30→21:20)
--- NOTE | 2023-06-15 10:16 | Pulmonology Progress Note ---
Date of Service June 15, 2023 Assessment & Plan (1) Acute respiratory failure with hypoxia: (2) CHF (congestive heart failure): (3) Pulmonary hypertension: (4) Mitral regurgitation: Plan IMPRESSION: 78-year-old male with significant past medical history of hypertension, hyperlipidemia, and bradycardia who presents to the hospital with complaints of dyspnea on exertion since Monday. Chest x-ray appears more consistent with fluid overload and heart failure. He has been much better with diuresis. RECOMMENDATIONS: 1. Acute respiratory failure with hypoxia - Images concerning for pulmonary edema as is patient's historical information. Continue diuresis per primary service. Blood pressure control also recommended with target blood pressure less than 130/70. Continue to wean supplemental oxygen as tolerated. Recommend patient be out of bed to chair and ambulate. I will add incentive spirometry to his regiment. May need to assess for supplemental oxygen prior to discharge. 2. CHF -Per cardiology 3. Pulmonary hypertension - Likely representing WHO Group 2 in the setting of long standing hypertension. MR likely contributing at this point as well. Continue with diuresis as tolerated. No indication for pulmonary vasodilators or additional invasive testing at this point in time. 4. The patient's been initiated on antibiotics in the form of Rocephin and doxycycline. My suspicion for pneumonia is quite low. These IV antibiotics can be discontinued to avoid additional fluid and transition to oral antibiotics to complete a 5-day course. Recommend the patient receive pneumococcal vaccinations in the outpatient setting. Also recommended influenza and RSV vaccinations. Follow-up chest x-ray in 2 to 4 weeks with primary care recommended. This point in time the patient is significantly improving with diuresis. Admission and Anticipated Discharge Date Admission Date: June 13, 2023 Subjective Patient seen and examined. EMR reviewed. He feels markedly better with diuresis. He is down to 4 L nasal cannula. Cardiology consultation was completed. He is not coughing or expectorating phlegm. He does not report fevers chills or night sweats. No chest pain or palpitations. Review of Systems 2 Review of Systems: All systems reviewed & are unremarkable except as noted in Subjective Physical Exam 2 Constitutional: WD/WN, vitals as above Neck: trachea midline, no thyromegaly Respiratory: normal respiratory effort, lungs clear to auscultation Cardiovascular: RRR, no murmur, no edema Gastrointestinal (Abdomen): normal bowel sounds, soft, nontender, no hepatosplenomegaly Musculoskeletal: Extremities: extremities normal to inspection Skin: no rashes, warm and dry Neurologic: Nonfocal exam Lymphatic: no cervical lymphadenopathy Results & Data Results & Data Vital Signs (Past 12 Hours) Vital Signs Temp Pulse Resp BP Pulse Ox O2 Del Method O2 Flow Rate 06/15/23 07:25 36.8 C 63 19 175/96 H 98 Nasal Cannula 5.0 06/15/23 02:39 36.6 C 64 18 166/80 H 95 High Flow Nasal Cannula 06/14/23 22:38 36.7 C 78 20 152/84 H 98 High Flow Nasal Cannula Laboratory Results 06/15/23 05:22 06/15/23 05:22 PG Care Time/CCT Total # of Minutes Spent Total Time Spent with Patient: Total time spent is greater than 50% in coordination of care (as documented) at patient's floor/unit and/or counseling patient: Coding Level of Care Code 09235 SUB INP/OBS CARE 2/35MIN Diagnoses Acute respiratory failure with hypoxia J96.01 CHF (congestive heart failure) I50.9 Pulmonary hypertension I27.20 Mitral regurgitation I34.0
--- NOTE | 2023-06-15 10:48 | Hospitalist Progress Note ---
Date of Service June 15, 2023 Assessment & Plan (1) Acute heart failure with preserved ejection fraction (HFpEF): Plan: Worsening SOB, dry cough, difficulty sleeping x4 days prior to presentation No at home oxygen use No prior dx of heart failure Echocardiogram showed EF 70% hyperdynamic, moderate Pulm HTN BNP elevated at 742 Chest CTA revealed cardiomegaly with evidence of congestive failure Started on Lasix 40mg daily Supplemental oxygen as needed to maintain SPO2 >94% Patient feels much improved, shortness of breath is much improved Will follow-up with the heart failure clinic postdischarge (2) Pneumonia: Plan: CXR showed multifocal airspace consolidation in the right mid to lower lung Chest CTA showed no evidence of pulmonary embolism However, procalcitonin WNL, afebrile, and mild leukocytosis at 10.85 BioFire negative Continue Rocephin 2000 mg IV q24h Switched doxycycline 100 mg p.o. --> 100 mg IV q12h Maintain good pulmonary hygiene with incentive spirometry and flutter valve q4h DuoNeb 3 mL q4h as needed for wheezing Appreciate Pulm recs (3) Hypertension: Plan: Hold propranolol in the setting of bradycardia in in the 30s Continue amlodipine (4) Atrial fibrillation: Plan: New onset Echocardiogram shows EF 70%, no evidence of shunt TSH ordered, pending Continuous telemetry monitoring CHADS-VASc: 4 Initially started on Heparin by weight Transitioned to PO eliquis 5mg BID, PTT pending; Plt count okay at 179 (5) Diabetes: Plan: Glucose 208 on arrival Last A1c 6.3% on 10/11/2021 Hold glipizide SSI; target BSG goal [id number]/dL, 45 CF, 15 carb ratio BSG ACHS T2DM diet Adjust regimen as needed AM A1c (6) Bradycardia: Plan: Chronic; asymptomatic HR 36 bpm at time of admission Patient took propranolol the morning of 06/13 Hold propranolol for now HR now improved (7) Elevated troponin: Plan: Troponin 35.0 --> 34.7 Clinically, patient denies CP (8) BPH (benign prostatic hyperplasia): Plan: Continue tamsulosin, finasteride (9) Respiratory failure: Plan: Accessory muscle use (10) Acute respiratory failure with hypoxia: (11) Heart failure: Plan Disposition: Admit to PCU telemetry Conditional code (patient is open to intubation if needed; he would like all treatment outside cardiac arrest) Keep n.p.o. except for medications while on CPAP, then advance to T2DM, AHA diet as tolerated VTE PPx: Heparin w/ bolus Admission and Anticipated Discharge Date Admission Date: June 13, 2023 Subjective Patient seen and examined today, states shortness of breath is much improved following diuresis Review of Systems Review of Systems: All systems reviewed are negative, apart from the ones contained in the history. Physical Exam Physical Exam: The patient is awake, alert and oriented 3, well developed and well nourished, normocephalic and atraumatic, lying in bed and in no acute distress. HEENT--PERRL, EOMI, mucous membranes and oropharynx mildly dry Neck--supple. No JVD. No bruits. Thyroid normal, trachea midline, no adenopathy. Heart--normal S1 and S2. No murmurs, rubs or gallops. Lungs--Reduced air entry on auscultation Abdomen--normal bowel sounds and soft. Mild epigastric and left sided abdominal pain Extremities--no cyanosis or clubbing. No edema. Dermatologic--normal skin turgor, normal color, no abnormal lymph nodes, no rash. Neurologic--cranial nerves II through XII grossly intact. Rheumatologic--normal range of motion. Psychiatric--normal affect. Results & Data Results & Data Vital Signs (Past 12 Hours) Vital Signs Temp Pulse Resp BP Pulse Ox O2 Del Method O2 Flow Rate 06/15/23 07:25 98.2 F 63 19 175/96 H 98 Nasal Cannula 5.0 06/15/23 02:39 97.9 F 64 18 166/80 H 95 High Flow Nasal Cannula PG Care Time/CCT Total # of Minutes Spent Total Time Spent with Patient: Total time spent is greater than 50% in coordination of care (as documented) at patient's floor/unit and/or counseling patient: Coding Level of Care Code 28074 SUB INP/OBS CARE 2/35MIN Diagnoses Acute heart failure with preserved ejection fraction (HFpEF) I50.31 Pneumonia J18.9 Hypertension I10 Atrial fibrillation I48.91 Diabetes E11.9 Bradycardia R00.1 Elevated troponin R79.89 BPH (benign prostatic hyperplasia) N40.0 Respiratory failure J96.01 Chronicity: acute Respiratory failure complication: hypoxia Acute respiratory failure with hypoxia J96.01 Heart failure I50.9 Time Spent (min) 35 (9) Respiratory failure Chronicity: acute Respiratory failure complication: hypoxia Qualified Code(s): J96.01 - Acute respiratory failure with hypoxia
[2023-06-15] MEDS: cefUROXime axetil 500 MG TAB PO SCH ×2 (12:55→21:20)
[2023-06-15] MEDS: DOXYCYCLINE HYCLATE 100 MG CAP PO SCH (21:19)
[2023-06-15] MEDS: TAMSULOSIN HCL 0.4 MG CAP PO SCH (21:20)
[2023-06-16 06:26] LABS: Basophils # (auto) 0.01 K/uL (0.00-0.20); Basophils % (auto) 0.2 %; Eosinophils # (auto) 0.18 K/uL (0.00-0.50); Eosinophils % (auto) 3.2 %; Hematocrit (blood only) 43.7 % (42.0-52.0); Hemoglobin 14.8 g/dl (14.0-18.0); Immature Granulocytes # (auto) 0.02 K/uL (0.01-0.20); Immature Granulocytes % (auto) 0.4 %; Lymphocytes # (auto) 0.74 K/uL (1.20-3.40); Lymphocytes % (auto) 13.3 %; Mean Corpuscular Hemoglobin 29.1 pg (25.0-34.0); Mean Corpuscular Hgb Conc 33.9 g/dL (32.0-36.0); Mean Platelet Volume 10.8 fL (9.4-12.4); Monocytes # (auto) 0.54 K/uL (0.11-0.59); Monocytes % (auto) 9.7 %; Neutrophils # (auto) 4.07 K/uL (1.40-6.50); Neutrophils % (auto) 73.2 %; Platelet Count 220 K/uL (130-400); RDW Coefficient of Variation 13.3 % (11.5-14.5); RDW Standard Deviation 41.4 fL (36.4-46.3); Red Blood Count 5.08 M/uL (4.70-6.10); White Blood Count 5.56 K/ul (4.8-10.8)
[2023-06-16 06:39] LABS: BUN Creatinine Ratio 18.4 (10-20); Creatinine Clr Calc Pharmacy 36.2 ml/min; Est GFR (Non-African American) 36.2 ml/min; Potassium 3.5 mmol/L (3.5-5.1)
[2023-06-16] MEDS: FINASTERIDE 5 MG TAB PO SCH (08:48)
[2023-06-16] MEDS: INSULIN ASPART PER UNIT CHARGE SC SCH ×4 (08:48→21:01)
[2023-06-16] MEDS: cefUROXime axetil 500 MG TAB PO SCH ×2 (08:48→20:07)
[2023-06-16] MEDS: APIXABAN 2.5 MG TAB PO SCH ×2 (08:48→20:07)
[2023-06-16] MEDS: EMPAGLIFLOZIN 10 MG TAB PO SCH (08:49)
[2023-06-16] MEDS: FUROSEMIDE 40 MG/4 ML VIAL IV SCH (08:50)
--- NOTE | 2023-06-16 09:30 | Pulmonology Progress Note ---
Date of Service June 16, 2023 Assessment & Plan (1) Acute respiratory failure with hypoxia: (2) CHF (congestive heart failure): (3) Pulmonary hypertension: (4) Mitral regurgitation: Plan IMPRESSION: 78-year-old male with significant past medical history of hypertension, hyperlipidemia, and bradycardia who presents to the hospital with complaints of dyspnea on exertion since Monday. Chest x-ray appears more consistent with fluid overload and heart failure. He has been much better with diuresis. His hypoxemia now appears to have resolved RECOMMENDATIONS: 1. Acute respiratory failure with hypoxia - Images concerning for pulmonary edema as is patient's historical information. Continue diuresis per primary service. Blood pressure control also recommended with target blood pressure less than 130/70. May need to assess for supplemental oxygen prior to discharge. 2. CHF -Per cardiology. Blood pressure remains elevated, per cardiology and primary service 3. Pulmonary hypertension - Likely representing WHO Group 2 in the setting of long standing hypertension. MR likely contributing at this point as well. Continue with diuresis as tolerated. No indication for pulmonary vasodilators or additional invasive testing at this point in time. 4. Complete 2 more days of oral antibiotics then discontinue. Outpatient pneumococcal vaccinations. Follow-up chest x-ray in 2 to 4 weeks with primary care. Patient's hypoxemia is now resolved. Pulmonary will sign off. Feel free to contact us with questions or concerns. Is. Admission and Anticipated Discharge Date Admission Date: June 13, 2023 Subjective Patient seen and examined. EMR reviewed. He is awake alert and conversant. He is sitting up in a chair. He has been weaned down to room air. His saturations are 94% on room air at rest. He is not coughing or expectorating phlegm. Review of Systems 2 Review of Systems: All systems reviewed & are unremarkable except as noted in Subjective Physical Exam 2 Constitutional: WD/WN, vitals as above Neck: trachea midline, no thyromegaly Respiratory: normal respiratory effort, lungs clear to auscultation Cardiovascular: RRR, no murmur, no edema Gastrointestinal (Abdomen): normal bowel sounds, soft, nontender, no hepatosplenomegaly Musculoskeletal: Extremities: extremities normal to inspection Skin: no rashes, warm and dry Lymphatic: no cervical lymphadenopathy Results & Data Results & Data Vital Signs (Past 12 Hours) Vital Signs Temp Pulse Resp BP Pulse Ox O2 Del Method O2 Flow Rate 06/16/23 07:22 36.7 C 68 18 178/80 H 95 Room Air 2 06/16/23 03:25 36.8 C 63 18 165/90 H 91 Room Air 06/15/23 23:52 36.9 C 61 18 164/87 H 91 Room Air Laboratory Results 06/16/23 05:45 06/16/23 05:45 Diagnostic Findings No new imaging PG Care Time/CCT Total # of Minutes Spent Total Time Spent with Patient: Total time spent is greater than 50% in coordination of care (as documented) at patient's floor/unit and/or counseling patient: Coding Level of Care Code 02800 SUB INP/OBS CARE 2/35MIN Diagnoses Acute respiratory failure with hypoxia J96.01 CHF (congestive heart failure) I50.9 Pulmonary hypertension I27.20 Mitral regurgitation I34.0
[2023-06-16] MEDS: DOXYCYCLINE HYCLATE 100 MG CAP PO SCH ×2 (10:34→21:02)
--- NOTE | 2023-06-16 12:02 | Hospitalist Progress Note ---
Date of Service June 16, 2023 Assessment & Plan (1) Acute heart failure with preserved ejection fraction (HFpEF): Plan: Patient presented to the hospital with worsening SOB, dry cough, difficulty sleeping x4 days prior to presentation No at home oxygen use No prior dx of heart failure Echocardiogram showed EF 70% hyperdynamic, moderate Pulm HTN BNP elevated at 742 Chest CTA revealed cardiomegaly with evidence of congestive failure Started on Lasix 40mg daily Also started on empagliflozin 10 mg daily Supplemental oxygen as needed to maintain SPO2 >94% Patient feels much improved, shortness of breath is much improved Will follow-up with the heart failure clinic postdischarge Monitor input and output, daily weight Appreciate cardiology commendations. (2) Pneumonia: Plan: CXR showed multifocal airspace consolidation in the right mid to lower lung Chest CTA showed no evidence of pulmonary embolism However, procalcitonin WNL, afebrile, and mild leukocytosis at 10.85 BioFire negative Now on p.o. cefuroxime and doxycycline, Discontinue after 2 days by pulmonology Appreciate pulmonology recommendations (3) Hypertension: Plan: Still poorly controlled Cardiology on consult Continue amlodipine Propranolol on hold. (4) Atrial fibrillation: Plan: New onset Echocardiogram shows EF 70%, no evidence of shunt TSH ordered, pending Continuous telemetry monitoring CHADS-VASc: 4 Initially started on Heparin by weight Transitioned to PO eliquis 5mg BID, Rate is under good control, continue to hold propranolol given bradycardia on admission Cardiology on consult, with recommendations. (5) Diabetes: Plan: Glucose 208 on arrival Last A1c 6.3% on 10/11/2021 Hold glipizide SSI; target BSG goal 718028ly/dL, 45 CF, 15 carb ratio BSG ACHS T2DM diet Adjust regimen as needed AM A1c (6) Bradycardia: Plan: Chronic; asymptomatic HR 36 bpm at time of admission Patient took propranolol the morning of 06/13 Hold propranolol for now HR now improved (7) Elevated troponin: Plan: Troponin 35.0 --> 34.7 Clinically, patient denies CP (8) BPH (benign prostatic hyperplasia): Plan: Continue tamsulosin, finasteride (9) Respiratory failure: Plan: Accessory muscle use (10) Acute respiratory failure with hypoxia: (11) Heart failure: Plan Disposition: Admit to PCU telemetry Conditional code (patient is open to intubation if needed; he would like all treatment outside cardiac arrest) Keep n.p.o. except for medications while on CPAP, then advance to T2DM, AHA diet as tolerated VTE PPx: Heparin w/ bolus Admission and Anticipated Discharge Date Admission Date: June 13, 2023 Subjective Patient seen and examined today, feels overall better, shortness of breath is much improved Review of Systems Review of Systems: All systems reviewed are negative, apart from the ones contained in the history. Physical Exam Physical Exam: The patient is awake, alert and oriented 3, well developed and well nourished, normocephalic and atraumatic, lying in bed and in no acute distress. HEENT--PERRL, EOMI, mucous membranes and oropharynx mildly dry Neck--supple. No JVD. No bruits. Thyroid normal, trachea midline, no adenopathy. Heart--normal S1 and S2. No murmurs, rubs or gallops. Lungs--Reduced air entry on auscultation Abdomen--normal bowel sounds and soft. Mild epigastric and left sided abdominal pain Extremities--no cyanosis or clubbing. No edema. Dermatologic--normal skin turgor, normal color, no abnormal lymph nodes, no rash. Neurologic--cranial nerves II through XII grossly intact. Rheumatologic--normal range of motion. Psychiatric--normal affect. Results & Data Results & Data Vital Signs (Past 12 Hours) Vital Signs Temp Pulse Resp BP Pulse Ox O2 Del Method O2 Flow Rate 06/16/23 11:16 97.9 F 69 18 174/92 H 94 Room Air 2 06/16/23 07:22 98.1 F 68 18 178/80 H 95 Room Air 2 06/16/23 03:25 98.2 F 63 18 165/90 H 91 Room Air PG Care Time/CCT Total # of Minutes Spent Total Time Spent with Patient: Total time spent is greater than 50% in coordination of care (as documented) at patient's floor/unit and/or counseling patient: Coding Level of Care Code 43524 SUB INP/OBS CARE 2/35MIN Diagnoses Acute heart failure with preserved ejection fraction (HFpEF) I50.31 Pneumonia J18.9 Hypertension I10 Atrial fibrillation I48.91 Diabetes E11.9 Bradycardia R00.1 Elevated troponin R79.89 BPH (benign prostatic hyperplasia) N40.0 Respiratory failure J96.01 Chronicity: acute Respiratory failure complication: hypoxia Acute respiratory failure with hypoxia J96.01 Heart failure I50.9 Time Spent (min) 35 (9) Respiratory failure Chronicity: acute Respiratory failure complication: hypoxia Qualified Code(s): J96.01 - Acute respiratory failure with hypoxia
[2023-06-16] MEDS: amLODIPine BESYLATE 5 MG TAB PO SCH (13:22)
[2023-06-16] MEDS: TAMSULOSIN HCL 0.4 MG CAP PO SCH (20:07)
[2023-06-17 06:20] LABS: BUN Creatinine Ratio 22.7 (10-20); Calcium 9.2 mg/dl (8.6-10.3); Creatinine Clr Calc Pharmacy 36.7 ml/min; Est GFR (African American) 42.6 ml/min; Est GFR (Non-African American) 36.7 ml/min; Potassium 3.1 mmol/L (3.5-5.1)
[2023-06-17] MEDS ORDERED: POTASSIUM CHLORIDE CRTAB 20 MEQ TABCR PO STA (07:52)
[2023-06-17] MEDS: FINASTERIDE 5 MG TAB PO SCH (08:02)
[2023-06-17] MEDS: APIXABAN 2.5 MG TAB PO SCH (08:02)
[2023-06-17] MEDS: DOXYCYCLINE HYCLATE 100 MG CAP PO SCH (08:02)
[2023-06-17] MEDS: cefUROXime axetil 500 MG TAB PO SCH (08:03)
[2023-06-17] MEDS: amLODIPine BESYLATE 5 MG TAB PO SCH (08:03)
[2023-06-17] MEDS: INSULIN ASPART PER UNIT CHARGE SC SCH ×2 (08:03→12:19)
[2023-06-17] MEDS: FUROSEMIDE 40 MG/4 ML VIAL IV SCH (08:03)
[2023-06-17] MEDS: EMPAGLIFLOZIN 10 MG TAB PO SCH (08:03)
[2023-06-17] MEDS ORDERED: hydrALAZINE 10 MG TAB PO SCH (09:00)
--- NOTE | 2023-06-17 11:50 | Discharge Summary ---
Date of Service June 17, 2023 Admission HPI Per Admitting Provider David is an 78-year-old male with PMH of HTN, HLD, diabetes, multifocal pneumonia, BPH, and chronic sinusitis. He presents for worsening SOB and difficulty sleeping x 4 days. He believes he has pneumonia, and endorses dry cough, weakness, SOB, trouble sleeping, and loss of appetite. He is not taking any medications for cough or SOB. GARCIA is worse when lying on back. He has been sleeping in his recliner, and with pillows. No at home O2 use; no CPAP. No sick contacts. No recent travel. No recent illnesses. Patient denies tobacco use, vaping, and recreational drug use. Hx of 6 left-sided broken ribs + PNA 18 months ago. He is not sure what triggered this current episode. He took amlodipine and propranolol this morning, but no other morning medications. Patient is bradycardic at 36 bpm at time of admission; he further exhibits hypertension at 176/96 and hypoxia at SPO2 90% on 6L NC. ED course: DuoNeb 3 mL neb Rocephin 2000 mg IV Doxycycline hyclate 100 mg p.o. ROS: Patient endorses dry cough, worsening GARCIA, neuropathy in the soles of feet. Patient denies fever, chills, CP, pleuritic CP, chest palpations, hemoptysis, abdominal pain, N/V/D, burning with urination, or swelling/pain in the legs. No PMHx of SC, CHF, CVA, PAD, COPD, asthma, DVT/PE Spoke on phone with patient's daughter (Chloe) and gave update regarding patient's status. Principal Diagnosis acute congestive heart failure Discharge Exam The patient is awake, alert and oriented 3, well developed and well nourished, normocephalic and atraumatic, lying in bed and in no acute distress. HEENT--PERRL, EOMI, mucous membranes and oropharynx mildly dry Neck--supple. No JVD. No bruits. Thyroid normal, trachea midline, no adenopathy. Heart--normal S1 and S2. No murmurs, rubs or gallops. Lungs--Reduced air entry on auscultation Abdomen--normal bowel sounds and soft. Mild epigastric and left sided abdominal pain Extremities--no cyanosis or clubbing. No edema. Dermatologic--normal skin turgor, normal color, no abnormal lymph nodes, no rash. Neurologic--cranial nerves II through XII grossly intact. Rheumatologic--normal range of motion. Psychiatric--normal affect. Discharge Data Allergies Allergy/AdvReac Type Severity Reaction Status Date / Time No Known Drug Allergies Allergy Verified 06/13/23 08:29 Consultations 06/13/23 09:38 ED Decision to Admit Stat 06/13/23 18:05 Consult Pulmonology Routine 06/14/23 09:16 Consult Cardiology Routine 06/14/23 15:59 [facility] CHF Program Referral Routine Ordered Studies 06/13/23 09:27 CT angio chest PE protocol Stat Hospital Course (1) Acute heart failure with preserved ejection fraction (HFpEF): Patient presented to the hospital with worsening SOB, dry cough, difficulty sleeping x4 days prior to presentation No at home oxygen use No prior dx of heart failure Echocardiogram showed EF 70% hyperdynamic, moderate Pulm HTN BNP elevated at 742 Chest CTA revealed cardiomegaly with evidence of congestive failure Started on Lasix 40mg daily Also started on empagliflozin 10 mg daily Supplemental oxygen as needed to maintain SPO2 >94% Patient feels much improved, shortness of breath is much improved Will follow-up with the heart failure clinic postdischarge Monitor input and output, daily weight Appreciate cardiology commendations. D/C on PO Lasix 40mg daily, Potassium chloride 10meq daily, Empagliflozin 10mg daily, Metoprolol succinate 25mg daily (2) Pneumonia: CXR showed multifocal airspace consolidation in the right mid to lower lung Chest CTA showed no evidence of pulmonary embolism However, procalcitonin WNL, afebrile, and mild leukocytosis at 10.85 BioFire negative Now on p.o. cefuroxime and doxycycline, completed a course of antibiotics Appreciate pulmonology recommendations (3) Hypertension: Still poorly controlled Cardiology on consult Continue amlodipine, add HCTZ 25mg daily Propranolol on hold. (4) Atrial fibrillation: New onset Echocardiogram shows EF 70%, no evidence of shunt TSH ordered, pending Continuous telemetry monitoring CHADS-VASc: 4 Initially started on Heparin by weight Transitioned to PO eliquis 5mg BID, Rate is under good control, replace Propranolol with Metoprolol Succinate 25mg daily Cardiology on consult, with recommendations. (5) Diabetes: Glucose 208 on arrival Last A1c 6.3% on 10/11/2021 Hold glipizide SSI; target BSG goal 361478hx/dL, 45 CF, 15 carb ratio BSG ACHS T2DM diet Adjust regimen as needed AM A1c (6) Bradycardia: Resolved (7) Elevated troponin: Troponin 35.0 --> 34.7 Clinically, patient denies CP (8) BPH (benign prostatic hyperplasia): Continue tamsulosin, finasteride (9) Respiratory failure: Accessory muscle use (10) Acute respiratory failure with hypoxia: (11) Heart failure: Plan Disposition: Admit to PCU telemetry Conditional code (patient is open to intubation if needed; he would like all treatment outside cardiac arrest) Keep n.p.o. except for medications while on CPAP, then advance to T2DM, AHA diet as tolerated VTE PPx: Heparin w/ bolus Total Time Total Time Spent Total Time Spent (In Minutes): 35 Discharge Plan Discharge Items Patient Disposition: Home - Self-Care Reason For Visit: SOB, PNA Discharge Diagnosis: acute CHF Activity: Resume your previous activity Non-emergency contact: Primary Care Provider and Office Cashier Call non-emergency contact if: you have any medication questions Follow-up/Referrals: Luanne Lanier MD [Primary Care Provider] - Diet: Heart Healthy Addtl Attending Provider Instructions: Please make appointment to follow up with the heart failure clinic and also follow up with cardiology Pending Studies at Discharge: No Stand-Alone Forms: My [facility] [email or web address], Smoking Cessation Medications and DC Order Prescriptions: New Eliquis 2.5 mg Tablet 2.5 mg PO BID 30 Days Qty: 60 0RF Jardiance 10 mg Tablet 10 mg PO DAILY 30 Days Qty: 30 0RF furosemide [Lasix] 40 mg tablet 40 mg PO DAILY Qty: 30 0RF metoprolol succinate 25 mg tablet extended release 24 hr 25 mg PO DAILY Qty: 30 0RF hydrochlorothiazide 25 mg tablet 25 mg PO DAILY Qty: 30 0RF potassium chloride 10 mEq capsule, extended release 10 meq PO DAILY Qty: 30 0RF Continued amlodipine 10 mg Tablet 10 mg PO QAM glipizide 2.5 mg Tablet Extended Release 24hr 2.5 mg PO BID tamsulosin 0.4 mg Capsule 0.4 mg PO HS finasteride [Proscar] 5 mg Tablet 5 mg PO QAM Qty: 30 2RF Rx Instructions: for enlarged prostate Discontinued propranolol 60 mg Tablet 60 mg PO BID ibuprofen 200 mg Tablet 200 mg PO Q6H PRN (Reason: pain/fever) Discharge Orders: Discharge Order (Routine); Ordered 06/17/23 Ordered By: Jeffrey Paris/Other Patient Handouts: Managing Type 2 Diabetes Admission Data Admit Date/Time: 06/13/23 11:14 Attending Provider: Jeffrey Johnston Admit Provider: Deny Sommers Primary Care Provider: Luanne Lanier Other Providers: Deny Sommers; Iker Dumont; Clarence Newell; Kali Young; Fish Solomon; rTe Bender; Dilan Gaffney; Wade Ontiveros Jr; Vitor Hendricks; Sujatha Lin; Dannielle Maharaj; Jason Bowers; Jason Phan; Mervin Frausto; Judie Dill; Cassie Rabago; Ilia Rocha; Augustine Hwang; Tre Clay V.; José Luis Day Coding Level of Care Code 11760 INP/OBS DISCH >30 MIN Diagnoses Acute heart failure with preserved ejection fraction (HFpEF) I50.31 Pneumonia J18.9 Hypertension I10 Atrial fibrillation I48.91 Diabetes E11.9 Bradycardia R00.1 Elevated troponin R79.89 BPH (benign prostatic hyperplasia) N40.0 Respiratory failure J96.01 Chronicity: acute Respiratory failure complication: hypoxia Acute respiratory failure with hypoxia J96.01 Heart failure I50.9 Time Spent (min) 35
== END 2023-06-17 13:48 | disposition home or self-care (01) | DRG 291 ==
LOC: ED 06:38 → SUATTDRO 11:14 → EDINP 11:14 → 2S 13:31

== ENCOUNTER 2023-11-23 14:16 | Observation (INO) ==
--- NOTE | 2023-11-23 14:43 | Emergency Department Note ---
Impression & Plan Acute CVA (cerebrovascular accident), Dizziness ED Provider Note Provider: Vincent Perez MD DATE OF SERVICE: 11/23/2023 CHIEF COMPLAINT: Dizzy, right arm numbness HISTORY OF PRESENT ILLNESS: Patient is a 78-year-old gentleman history of atrial fibrillation, heart failure, pulmonary hypertension, hypertension, BPH, and CKD presenting here today concern for strokelike symptoms. States on Monday he started feel off with his balance and gait. This morning around 10 AM and felt quite often more off balance. [id number] who is with him states had to assist him a bit with walking and he seemed unsteady. Maybe a little bit of numbness in the right arm but states it feels fairly similar when he moves them. No issues with the legs. No speech issues. No pain complaints today. Has not fallen and hit his head. No fever falls or trauma reported. Has been compliant with his medications by report including his blood thinners. States his blood pressure usually runs high in the 180s systolic. PAST MEDICAL HISTORY: As noted above MEDICATIONS: Reviewed home medications SOCIAL HISTORY: Non-smoker PHYSICAL EXAM: GENERAL: alert and oriented in no acute distress on stretcher Head: normocephalic and atraumatic EYES: No injection, discharge or icterus. PERRL, EOMI. NECK: Trachea midline. Good range of motion ENT: Mucous membranes pink and moist. LUNGS: Airway patent. No retractions. Breath sounds clear with good air entry bilaterally. HEART: Irregular rate and rhythm. No chest wall tenderness ABDOMEN: Soft and non-tender, without guarding or rebound. SKIN: Acyanotic, warm, dry, without rashes EXTREMITIES: Without swelling, tenderness or deformity NEUROLOGICAL: No focal deficits. No aphasia. No facial droop or slurred speech. Normal strength and tone in the extremities. Sensation to gross touch normal. No drift. A bit unsteady with ambulation. EK bpm atrial fibrillation. No acute ST segment elevation or depression CONTINUOUS CARDIAC MONITORING: was ordered and showed a heart rate of 50s-70s bpm in atrial fibrillation Patient's laboratory studies and imaging reviewed. Differential includes Infection, dehydration, metabolic abnormality, hypo/hyperglycemia, electrolyte disturbance, anemia, hypoxia, cardiac sources, intracerebral event, toxicologic, neurologic, as well as other pathologies. IMPRESSION/MEDICAL DECISION MAKING: Made a stroke alert from triage. Multiple cardiovascular risk factors. Hypertensive upon arrival. CT of the head obtained. Will obtain angiograms and prior renal function while somewhat impaired to believe supports this. Outside the window for thrombolytics given timeframe. Anticoagulated as well. Does not seem infectious in nature. Significantly hypertensive and while he normally runs somewhat high given a bit of labetalol to help improve his blood pressure. CT head and CT angiograms per radiology without evidence of acute intracranial bleed; additionally on angiograms evidence of a focal high-grade stenosis of the right posterior cerebral artery otherwise reported as unremarkable. Discussed briefly with telestroke at [facility]. Blood pressure is improving after a dose of labetalol her pressures in the 170s to 180s. Will allow some permissive hypertension. Get a bit of IV fluid given his CKD. No significant leukocytosis or anemia on blood work. In discussion with the telemedicine they did not think the stenosis was causing his symptomatology today but did recommend permissive hypertension. Discussion with his analog ic design engineer and neurology tomorrow regarding antiplatelet choices as recommended. Hospitalist contacted for admission for further stroke workup. MRI completed later does confirm the patient had an acute to subacute CVA. DIAGNOSIS: Stroke, dizziness DISPOSITION: Hospitalist will evaluate Patient was agreeable with this plan. Did alert case management to make cardiology aware he will not be making his appointment tomorrow morning. Past Med/Surg History Medical History BPH (benign prostatic hyperplasia) Hyperlipidemia Acquired solitary kidney Benign prostatic hyperplasia with urinary obstruction Dysuria Gross hematuria Hearing loss Hypertension Tinnitus Type 2 diabetes mellitus Ureteral stricture Urinary retention Melanoma Solitary kidney CKD (chronic kidney disease) Obesity Diabetes Hyperlipidemia Hypertension Enlarged prostate Surgical History Nasal polyp History of adenoidectomy History of bladder surgery Hx of cystoscopy H/O colonoscopy Hx of inguinal hernia repair Hx of carpal tunnel repair Hx of tonsillectomy Family History Mother Hypertension Brother Heart disease Other No significant family history Denies family history of Hearing loss No family history of adverse response to anesthesia No family history of bleeding disorder Allergies Cancer Stroke Asthma Social History Smoking Status: Unknown if ever smoked Second Hand Exposure: No; Do You Dip or Chew Tobacco: No; Hx Alcohol Use: Yes Alcohol type: beer and wine Hx Substance Use: No Preferred Language: Greek Communication Ability: Effective Visual Impairment: No Limitations Data Technical Lead Required: No Beliefs That Will Affect Care: None marital status: / Current Living Situation: Alone current occupational status: retired Other Information That Helps Us Care for You: No Feels Safe at Home: Yes Safety Concerns: Feels Safe At This Time Assistive Devices: Glasses Allergies Allergies Allergy/AdvReac Type Severity Reaction Status Date / Time No Known Allergies Allergy Verified 11/23/23 15:02 Home Meds Home Medications Medication Instructions Recorded Confirmed amlodipine 10 mg tablet 10 mg PO QAM 06/19/18 11/23/23 glipizide 2.5 mg tablet, extended 2.5 mg PO BID 06/19/18 11/23/23 release 24 hr tamsulosin 0.4 mg capsule 0.4 mg PO HS 08/30/18 11/23/23 cephalexin 500 mg capsule 500 mg PO BID PRN Unknown 10/20/23 11/23/23 cholecalciferol (vitamin D3) 1,250 50,000 unit PO WK 11/23/23 11/23/23 mcg (50,000 unit) capsule cyanocobalamin (vitamin B-12) 500 500 mcg PO DAILY 11/23/23 11/23/23 mcg tablet (Vitamin B-12) Previous Rx's Medication Instructions Recorded finasteride 5 mg tablet (Proscar) 5 mg PO QAM #30 tabs 09/13/21 apixaban 2.5 mg tablet (Eliquis) 2.5 mg PO BID #180 tabs 08/17/23 empagliflozin 10 mg tablet 10 mg PO DAILY #90 tabs 08/17/23 (Jardiance) furosemide 20 mg tablet 20 mg PO DAILY #90 tabs 08/17/23 hydrochlorothiazide 25 mg tablet 25 mg PO DAILY #90 tabs 09/08/23 potassium chloride 10 mEq 10 meq PO DAILY #90 caps 09/08/23 capsule,extended release primidone 50 mg tablet 50 mg PO QID 30 days #120 tabs 10/20/23 Results & Data (ED) Vital Signs Vital Signs - 24 hr 11/23/23 14:19 11/23/23 14:50 11/23/23 14:50 Temperature 36.5 C Temperature Source Temporal Artery Scan Pulse Rate 70 Pulse Rate [Apical] Respiratory Rate 18 Respiratory Effort / Characteristics Non-Labored Spontaneous Respiratory Depth Normal Respiratory Pattern Regular Blood Pressure 212/105 H Blood Pressure [Left Arm] Blood Pressure Mean 140 Blood Pressure Mean [Left Arm] Pulse Oximetry 96 95 95 Oxygen Delivery Method Room Air Room Air Room Air Sepsis Recent Fever Within 48 Hours No Sepsis New/Unexplained Change in Mental Status N/A Sepsis Action Taken by Nursing No Action Required 11/23/23 14:58 11/23/23 15:02 11/23/23 15:02 Temperature Temperature Source Pulse Rate 64 63 Pulse Rate [Apical] Respiratory Rate Respiratory Effort / Characteristics Respiratory Depth Respiratory Pattern Blood Pressure 222/128 H Blood Pressure [Left Arm] Blood Pressure Mean Blood Pressure Mean [Left Arm] Pulse Oximetry Oxygen Delivery Method Room Air Sepsis Recent Fever Within 48 Hours Sepsis New/Unexplained Change in Mental Status Sepsis Action Taken by Nursing 11/23/23 15:10 11/23/23 15:27 Temperature Temperature Source Pulse Rate 54 L Pulse Rate [Apical] 52 L Respiratory Rate 19 Respiratory Effort / Characteristics Respiratory Depth Respiratory Pattern Blood Pressure 188/97 H Blood Pressure [Left Arm] 176/95 H Blood Pressure Mean Blood Pressure Mean [Left Arm] 122 Pulse Oximetry 94 Oxygen Delivery Method Room Air Sepsis Recent Fever Within 48 Hours Sepsis New/Unexplained Change in Mental Status Sepsis Action Taken by Nursing Laboratory Data 11/23/23 14:54 11/23/23 14:54 Lab Results 11/23/23 11/23/23 11/23/23 Range/Units 14:52 14:54 14:58 WBC 6.74 (4.8-10.8) K/ul RBC 5.73 (4.70-6.10) M/uL Hgb 16.3 (14.0-18.0) g/dl POC Hgb 16.3 (14.0-18.0) g/dl Hct 49.1 (42.0-52.0) % POC Hct 48 (42-52) % MCV 85.7 (80.0-100.0) fL MCH 28.4 (25.0-34.0) pg MCHC 33.2 (32.0-36.0) g/dL RDW Std Deviation 44.1 (36.4-46.3) fL RDW Coeff of Haylie 14.4 (11.5-14.5) % Plt Count 176 (130-400) K/uL MPV 10.3 (9.4-12.4) fL PT 10.9 (9.0-12.0) Seconds INR 1.0 (0.9-1.1) APTT 27 (21-31) Seconds PTT Ratio 1.0 POC Sodium 140 (135-144) mmol/L Sodium 138 (136-145) mmol/L POC Potassium 4.1 (3.3-5.0) mmol/L Potassium 4.1 (3.5-5.1) mmol/L POC Chloride 101 (101-112) mmol/L Chloride 102 (98-107) mmol/L Carbon Dioxide 30 (21-32) mmol/L POC Total CO2 29 (24-31) mmol/L Anion Gap 6 (3-11) POC Anion Gap 15.0 L (16-25) mmol/L POC BUN 27 H (7-18) mg/dl BUN 27 H (6-23) mg/dl Creatinine 1.66 H (0.6-1.4) mg/dl POC Creatinine 1.7 H (0.6-1.3) mg/dl Est Cr Clr Drug Dosing 38.3 ml/min Est GFR ( Amer) 44.4 ml/min Est GFR (Non-Af Amer) 38.3 ml/min BUN/Creatinine Ratio 16.3 (10-20) Glucose 234 H (70-99(Fasting)) mg/dl POC Glucose 216 H (70-99) mg/dl POC Glucose (other) 223 H (70-99) mg/dl Calcium 8.7 (8.6-10.3) mg/dl POC Ioniz Calcium Jacky 1.14 (1.12-1.32) mmol/l Magnesium 1.8 (1.7-2.4) mg/dl Total Bilirubin 0.5 (0.2-1.0) mg/dl AST 24 (13-39) U/L ALT 32 (7-52) U/L Alkaline Phosphatase 71 (34-104) U/L Total Protein 6.5 (6.0-8.3) gm/dl Albumin 4.1 (3.4-5.0) gm/dl Globulin 2.4 L (2.5-4.0) gm/dl Albumin/Globulin Ratio 1.7 (0.9-2) Administered Medications Apixaban (Apixaban 5 Mg Tablet) 5 mg PO BID KRISTIE Stop: 12/23/23 20:59 Last Admin: 11/23/23 21:07 Dose: 5 mg Documented By: SOPHIE Insulin Aspart (Insulin Aspart Per Unit Charge) 0 units SC ACHS KRISTIE Stop: 12/23/23 20:59 Last Admin: 11/23/23 21:08 Dose: Not Given Documented By: SOPHIE Insulin Glargine (Lantus Per Unit Charge) 5 units SQ BID KRISTIE Stop: 12/23/23 20:59 Last Admin: 11/23/23 21:08 Dose: 5 units Documented By: SOPHIE Co-signed By: JEWEL Primidone (Primidone 50 Mg Tab) 50 mg PO QID KRISTIE Stop: 12/23/23 20:59 Last Admin: 11/23/23 21:07 Dose: 50 mg Documented By: SOPHIE Tamsulosin HCl (Tamsulosin Hcl 0.4 Mg Cap) 0.4 mg PO HS KRISTIE Stop: 12/23/23 20:59 Last Admin: 11/23/23 20:42 Dose: 0.4 mg Documented By: SOPHIE Discontinued Medications Sodium Chloride (Nss) 500 mls @ 999 mls/hr IV .Q31M ONE Stop: 11/23/23 15:40 Last Infusion: 11/23/23 15:54 Dose: Infused Documented By: Admin: 11/23/23 15:23 Dose: 999 mls/hr Documented By: ABY Ioversol (Optiray 320 125ml) 115 ml IV ONCE ONE Stop: 11/23/23 14:55 Last Admin: 11/23/23 14:55 Dose: 115 ml Documented By: DAVID Labetalol HCl (Labetalol Hcl Iv 5 Mg/Ml 20ml) Confirm Administered Dose 5 mg IV .STK-MED ONE Stop: 11/23/23 14:55 Last Admin: 11/23/23 14:59 Dose: Not Given Documented By: ALMA Labetalol HCl (Labetalol Hcl Iv 5 Mg/Ml 20ml) 10 mg IV NOW STA Stop: 11/23/23 14:56 Last Admin: 11/23/23 14:58 Dose: 10 mg Documented By: ALMA Co-signed By: AMIE Imaging Data Radiologist's Impression: Head CT 11/23/23 00:00 CT SCAN OF THE BRAIN WITHOUT IV CONTRAST CLINICAL HISTORY: Strokelike symptoms. Neurological deficit. Dizziness. Right- sided numbness. COMPARISON STUDY: CT of the paranasal sinuses dated 03/28/2019. TECHNIQUE: Unenhanced axial CT scan of the brain is performed from the vertex to the skull base. A dose lowering technique was utilized adhering to the principles of ALARA. CT DOSE: 880.28 mGy.cm FINDINGS: Brain parenchyma: There is age-related involutional change noting moderate subcortical and periventricular microangiopathic disease. There is no hemorrhage, mass effect, or evidence of acute territorial ischemia by CT criteria. Vargas-white matter differentiation is preserved. No extra-axial fluid collection is seen. Ventricles, sulci, cisterns: Prominent secondary to involutional change. Intracranial vasculature: There is atherosclerotic calcification of the cavernous carotid and vertebral arteries. Calvarium: Unremarkable. Sinuses and mastoids: There is evidence of previous basal sinus surgery. The visualized paranasal sinuses are clear. The mastoid air cells are well pneumatized. Orbits: The bony orbits are grossly intact. There are bilateral ocular lens implants. IMPRESSION: There is no hemorrhage, mass effect, or evidence of acute territorial ischemia by CT criteria. ACT 112: Negative or not required by law. Electronically signed by: Paddy Amador M.D. 11/23/2023 2:51 PM Chest X-Ray 11/23/23 14:34 XR chest 1V portable HISTORY: 78 years-old Male stroke alert COMPARISON: 06/13/2023 TECHNIQUE: AP view the chest FINDINGS: Cardiac silhouette is enlarged. No pneumothorax, pleural effusion, airspace consolidation or pulmonary edema. Bones of the chest appear grossly intact. IMPRESSION: No acute process. ACT 112: Negative or not required by law. The above report was generated using voice recognition software. It may contain grammatical, syntax or spelling errors. Electronically signed by: Rk Mcclain M.D. 11/23/2023 3:35 PM Head CTA 11/23/23 14:40 CT ANGIOGRAM OF THE BRAIN; CT ANGIOGRAM OF THE NECK CLINICAL HISTORY: Strokelike symptoms. Dizziness. Right arm numbness. COMPARISON STUDY: Unenhanced CT of the brain performed concurrently on 11/23/2023. TECHNIQUE: Following the IV administration of 115 of Optiray 320, CT angiogram of the head and neck was performed from the aortic arch to the vertex. Images are reviewed in the axial, sagittal, and coronal planes. 3-D MIPS images are created and assessed. IV contrast was administered without complication. All measurements were calculated based on NASCET criteria. A dose lowering technique was utilized adhering to the principles of ALARA. CT DOSE: 487.39 mGy.cm FINDINGS: Brain parenchyma: There is age-related interval change noting moderate subcortical and periventricular microangiopathic disease. There is no evidence of hemorrhage, mass effect, or acute territorial ischemia noting angiographic phase technique. There is no evidence of enhancing mass lesion on the angiogram phase images. The ventricles, sulci, and cisterns are prominent secondary to involutional change. Vargas-white matter differentiation is preserved. No extra- axial fluid collection is seen. Thoracic aorta: There is atherosclerotic calcification of the thoracic aorta. Visualized portions of the thoracic aorta are normal in caliber. The aortic arch demonstrates standard 3-vessel anatomy. Right carotid arterial system: The right common carotid artery is widely patent, as are the right internal and external carotid arteries. Calcified plaque is noted in the carotid bulb. Left carotid arterial system: The left common carotid artery is widely patent, as are the left internal and external carotid arteries. Mild calcified plaque is noted in the carotid bulb. Vertebral arteries: The vertebral arteries are widely patent bilaterally noted mild right-sided dominance. Subclavian arteries: Widely patent bilaterally. Intracranial vasculature: There is atherosclerotic calcification of the cavernous carotid and vertebral arteries. The internal carotid arteries are patent at the skull base, as are the anterior and middle cerebral arteries bilaterally. The vertebrobasilar system and posterior cerebral arteries are patent. There is a left posterior communicating artery. The right vertebral artery is dominant. There is high-grade focal stenosis of the proximal right posterior cerebral artery seen on axial image #78. No additional foci of high- grade stenosis are seen throughout the intracranial circulation. There is no aneurysm or focal vessel cut off seen throughout the intracranial circulation. Jugular veins: Patent bilaterally. Dural sinuses: Patent. Lung apices: Partially visualized upper lobe lung parenchyma appears clear. Soft tissues: The visualized pharyngeal soft tissues are normal in appearance noting angiographic phase technique. The oropharyngeal airway appears widely patent. The salivary and thyroid glands are normal in appearance. No cervical lymphadenopathy is seen. Skeletal structures: The skeletal structures are osteopenic. The calvarium appears intact. The cervical spine is maintained noting multilevel spondylosis. Orbits: The bony orbits are intact. Orbital contents are normal as visualized noting bilateral ocular lens implants. Sinuses and mastoids: There is evidence of previous paranasal sinus surgery. Trace mucosal thickening is noted within the maxillary antra. The remaining paranasal sinuses are clear. The mastoid air cells are well pneumatized. IMPRESSION: 1. There is no evidence of hemorrhage, mass effect, or acute territorial ischemia noting angiographic phase technique. 2. 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 3. Otherwise unremarkable CT angiogram of the brain. 4. Unremarkable CT angiogram of the neck. ACT 112: Negative or not required by law. Electronically signed by: Paddy Amador M.D. 11/23/2023 3:06 PM Neck CTA 11/23/23 14:40 CT ANGIOGRAM OF THE BRAIN; CT ANGIOGRAM OF THE NECK CLINICAL HISTORY: Strokelike symptoms. Dizziness. Right arm numbness. COMPARISON STUDY: Unenhanced CT of the brain performed concurrently on 11/23/2023. TECHNIQUE: Following the IV administration of 115 of Optiray 320, CT angiogram of the head and neck was performed from the aortic arch to the vertex. Images are reviewed in the axial, sagittal, and coronal planes. 3-D MIPS images are created and assessed. IV contrast was administered without complication. All measurements were calculated based on NASCET criteria. A dose lowering technique was utilized adhering to the principles of ALARA. CT DOSE: 487.39 mGy.cm FINDINGS: Brain parenchyma: There is age-related interval change noting moderate subcortical and periventricular microangiopathic disease. There is no evidence of hemorrhage, mass effect, or acute territorial ischemia noting angiographic phase technique. There is no evidence of enhancing mass lesion on the angiogram phase images. The ventricles, sulci, and cisterns are prominent secondary to involutional change. Vargas-white matter differentiation is preserved. No extra- axial fluid collection is seen. Thoracic aorta: There is atherosclerotic calcification of the thoracic aorta. Visualized portions of the thoracic aorta are normal in caliber. The aortic arch demonstrates standard 3-vessel anatomy. Right carotid arterial system: The right common carotid artery is widely patent, as are the right internal and external carotid arteries. Calcified plaque is noted in the carotid bulb. Left carotid arterial system: The left common carotid artery is widely patent, as are the left internal and external carotid arteries. Mild calcified plaque is noted in the carotid bulb. Vertebral arteries: The vertebral arteries are widely patent bilaterally noted mild right-sided dominance. Subclavian arteries: Widely patent bilaterally. Intracranial vasculature: There is atherosclerotic calcification of the cavernous carotid and vertebral arteries. The internal carotid arteries are patent at the skull base, as are the anterior and middle cerebral arteries bilaterally. The vertebrobasilar system and posterior cerebral arteries are patent. There is a left posterior communicating artery. The right vertebral artery is dominant. There is high-grade focal stenosis of the proximal right posterior cerebral artery seen on axial image #78. No additional foci of high- grade stenosis are seen throughout the intracranial circulation. There is no aneurysm or focal vessel cut off seen throughout the intracranial circulation. Jugular veins: Patent bilaterally. Dural sinuses: Patent. Lung apices: Partially visualized upper lobe lung parenchyma appears clear. Soft tissues: The visualized pharyngeal soft tissues are normal in appearance noting angiographic phase technique. The oropharyngeal airway appears widely patent. The salivary and thyroid glands are normal in appearance. No cervical lymphadenopathy is seen. Skeletal structures: The skeletal structures are osteopenic. The calvarium appears intact. The cervical spine is maintained noting multilevel spondylosis. Orbits: The bony orbits are intact. Orbital contents are normal as visualized noting bilateral ocular lens implants. Sinuses and mastoids: There is evidence of previous paranasal sinus surgery. Trace mucosal thickening is noted within the maxillary antra. The remaining paranasal sinuses are clear. The mastoid air cells are well pneumatized. IMPRESSION: 1. There is no evidence of hemorrhage, mass effect, or acute territorial ischemia noting angiographic phase technique. 2. 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 3. Otherwise unremarkable CT angiogram of the brain. 4. Unremarkable CT angiogram of the neck. ACT 112: Negative or not required by law. Electronically signed by: Paddy Amador M.D. 11/23/2023 3:06 PM Discharge Plan Visit Data Chief Complaint: Stroke/CVA Symptoms Stated Complaint: STROKE POSSIBILY, NUMB RIGHT ARM, DIZZY ED Provider: Vincent Perez Discharge Problem: Acute CVA (cerebrovascular accident), Dizziness Patient Disposition: Admitted As Inpatient Discharge Instructions Interventions: ED Discharge Assessment Last Done: 11/23/23 19:31
[2023-11-23] MEDS: OPTIRAY 320 125ml IV ONE (14:55)
--- NOTE | 2023-11-23 14:57 | CT Scan Report ---
CT SCAN OF THE BRAIN WITHOUT IV CONTRAST CLINICAL HISTORY: Strokelike symptoms. Neurological deficit. Dizziness. Right-sided numbness. COMPARISON STUDY: CT of the paranasal sinuses dated 03/28/2019. TECHNIQUE: Unenhanced axial CT scan of the brain is performed from the vertex to the skull base. A do se lowering technique was utilized adhering to the principles of ALARA. CT DOSE: 880.28 mGy.cm FINDINGS: Brain parenchyma: There is age-related involutional change noting moderate subcortical and periventri cular microangiopathic disease. There is no hemorrhage, mass effect, or evidence of acute territorial ischemia by CT criteria. Vargas-white matter differentiation is preserved. No extra-axial fluid collec tion is seen. Ventricles, sulci, cisterns: Prominent secondary to involutional change. Intracranial vasculature: There is atherosclerotic calcification of the cavernous carotid and vertebr al arteries. Calvarium: Unremarkable. Sinuses and mastoids: There is evidence of previous basal sinus surgery. The visualized paranasal sin uses are clear. The mastoid air cells are well pneumatized. Orbits: The bony orbits are grossly intact. There are bilateral ocular lens implants. IMPRESSION: There is no hemorrhage, mass effect, or evidence of acute territorial ischemia by CT zi cruz. ACT 112: Negative or not required by law. Electronically signed by: Paddy Amador M.D. 11/23/2023 2:51 PM
[2023-11-23] MEDS: LABETALOL HCL IV 5 MG/ML 20ML IV STA (14:58)
[2023-11-23] MEDS: LABETALOL HCL IV 5 MG/ML 20ML IV ONE (14:59)
--- NOTE | 2023-11-23 15:08 | CT Scan Report ---
CT ANGIOGRAM OF THE BRAIN; CT ANGIOGRAM OF THE NECK CLINICAL HISTORY: Strokelike symptoms. Dizziness. Right arm numbness. COMPARISON STUDY: Unenhanced CT of the brain performed concurrently on 11/23/2023. TECHNIQUE: Following the IV administration of 115 of Optiray 320, CT angiogram of the head and neck w as performed from the aortic arch to the vertex. Images are reviewed in the axial, sagittal, and mahsa nal planes. 3-D MIPS images are created and assessed. IV contrast was administered without complicati on. All measurements were calculated based on NASCET criteria. A dose lowering technique was utilize d adhering to the principles of ALARA. 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 There is no evidence of hemorrhage, mass effect, or acute territorial isc hemia noting angiographic phase technique. There is no evidence of enhancing mass lesion on the angio gram phase images. The ventricles, sulci, and cisterns are prominent secondary to involutional change . Vargas-white matter differentiation is preserved. No extra-axial fluid collection is seen. Thoracic aorta: There is atherosclerotic calcification of the thoracic aorta. Visualized portions of the thoracic aorta are normal in caliber. The aortic arch demonstrates standard 3-vessel anatomy. Right carotid arterial system: The right common carotid artery is widely patent, as are the right int ernal and external carotid arteries. Calcified plaque is noted in the carotid bulb. Left carotid arterial system: The left common carotid artery is widely patent, as are the left university intern al and external carotid arteries. Mild calcified plaque is noted in the carotid bulb. Vertebral arteries: The vertebral arteries are widely patent bilaterally noted mild right-sided domin ance. Subclavian arteries: Widely patent bilaterally. Intracranial vasculature: There is atherosclerotic calcification of the cavernous carotid and vertebr al arteries. The internal carotid arteries are patent at the skull base, as are the anterior and midd le cerebral arteries bilaterally. The vertebrobasilar system and posterior cerebral arteries are del castillo nt. There is a left posterior communicating artery. The right vertebral artery is dominant. There is high-grade focal stenosis of the proximal right posterior cerebral artery seen on axial image #78. No additional foci of high-grade stenosis are seen throughout the intracranial circulation. There is no aneurysm or focal vessel cut off seen throughout the intracranial circulation. Jugular veins: Patent bilaterally. Dural sinuses: Patent. Lung apices: Partially visualized upper lobe lung parenchyma appears clear. Soft tissues: The visualized pharyngeal soft tissues are normal in appearance noting angiographic pha se technique. The oropharyngeal airway appears widely patent. The salivary and thyroid glands are nor mal in appearance. No cervical lymphadenopathy is seen. Skeletal structures: The skeletal structures are osteopenic. The calvarium appears intact. The cervic al spine is maintained noting multilevel spondylosis. Orbits: The bony orbits are intact. Orbital contents are normal as visualized noting bilateral ocular lens implants. Sinuses and mastoids: There is evidence of previous paranasal sinus surgery. Trace mucosal thickening is noted within the maxillary antra. The remaining paranasal sinuses are clear. The mastoid air cell s are well pneumatized. IMPRESSION: 1. There is no evidence of hemorrhage, mass effect, or acute territorial ischemia noting angiographic phase technique. 2. 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 3. Otherwise unremarkable CT angiogram of the brain. 4. Unremarkable CT angiogram of the neck. ACT 112: Negative or not required by law. Electronically signed by: Paddy Amador M.D. 11/23/2023 3:06 PM
[2023-11-23 15:10] LABS: iSTAT Creatinine 1.7 mg/dl (0.6-1.3); iSTAT Hemoglobin 16.3 g/dl (14.0-18.0); iSTAT Ionized Calcium 1.14 mmol/l (1.12-1.32); iSTAT Potassium 4.1 mmol/L (3.3-5.0)
[2023-11-23 15:10] LABS: Hematocrit (blood only) 49.1 % (42.0-52.0); Hemoglobin 16.3 g/dl (14.0-18.0); Mean Corpuscular Hemoglobin 28.4 pg (25.0-34.0); Mean Corpuscular Hgb Conc 33.2 g/dL (32.0-36.0); Mean Corpuscular Volume 85.7 fL (80.0-100.0); Mean Platelet Volume 10.3 fL (9.4-12.4); Platelet Count 176 K/uL (130-400); RDW Coefficient of Variation 14.4 % (11.5-14.5); RDW Standard Deviation 44.1 fL (36.4-46.3); Red Blood Count 5.73 M/uL (4.70-6.10); White Blood Count 6.74 K/ul (4.8-10.8)
[2023-11-23 15:22] LABS: Partial Thromboplastin Time 27 Seconds (21-31); Prothrombin Time 10.9 Seconds (9.0-12.0)
[2023-11-23] MEDS: SODIUM CHLORIDE 0.9% 500 ML IV ONE (15:23)
[2023-11-23 15:30] LABS: Albumin Globulin Ratio 1.7 (0.9-2); Albumin Level 4.1 gm/dl (3.4-5.0); BUN Creatinine Ratio 16.3 (10-20); Bilirubin,Total 0.5 mg/dl (0.2-1.0); Calcium 8.7 mg/dl (8.6-10.3); Creatinine Clr Calc Pharmacy 38.3 ml/min; Est GFR (African American) 44.4 ml/min; Est GFR (Non-African American) 38.3 ml/min; Globulin 2.4 gm/dl (2.5-4.0); Magnesium 1.8 mg/dl (1.7-2.4); Potassium 4.1 mmol/L (3.5-5.1); Total Protein 6.5 gm/dl (6.0-8.3)
--- NOTE | 2023-11-23 15:37 | XRay Report ---
XR chest 1V portable HISTORY: 78 years-old Male stroke alert COMPARISON: 06/13/2023 TECHNIQUE: AP view the chest FINDINGS: Cardiac silhouette is enlarged. No pneumothorax, pleural effusion, airspace consolidation or pulmonar y edema. Bones of the chest appear grossly intact. IMPRESSION: No acute process. ACT 112: Negative or not required by law. The above report was generated using voice recognition software. It may contain grammatical, syntax o r spelling errors. Electronically signed by: Rk Mcclain M.D. 11/23/2023 3:35 PM
[2023-11-23] MEDS ORDERED: PHARMACIST DISCHARGE MED REC CONSULT PRN (16:32)
--- NOTE | 2023-11-23 16:34 | History & Physical Report ---
Date of Service November 23, 2023 Assessment & Plan (1) Stroke-like symptoms: Plan: -Admit to the PCU on tele -Currently stable with unchanged symptoms compared to arrival -Presented to the ED with progressive RUE incoordination and imbalance which initially started on 11/20/23 but became significantly more severe this am around 1000 -Made a stroke alert on arrival to the ED -CT head/brain wo con and CTA of the neck were negative for acute findings -CTA of the head shows focal high-grade stenosis of the proximal right posterior cerebral artery. -[facility] was not recommended as patient is on Eliquis and symptoms initially started on 11/20/23 >Recommended ongoing CVA workup and treatment -S/P 10 mg IV labetalol in the ED -Will allow permissive HTN for the next 24 hours with prn labetalol for systolic BP >220 mmhg and/or diastolic >120 mmhg -q4h neuro checks -Fall/aspiration precautions -Will obtain MRI of the brain wo con, TTE, A1c, Fasting lipid panel -PT/OT/Neurology consults -Dysphagia screen prior to starting HH/DMII diet with 2gm sodium restriction -Continue home Eliquis, also for DVT PPX -AM CBC, CMP, mag, PT/INR Update: 8:20 pm -Was alerted by the Pharmacy that the patient's Primidone significantly reduces the bioavailability of the patient's Eliquis -Patient has been on 2.5 mg BID of Eliquis due to age and kidney function -Unfortunately the patient requires Primidone for his significant essential tremor, cannot tolerate beta blockers due to hx of bradycardia -At this time we will continue his primidone and increase the dose of his Eliquis to 5 mg PO BID for now -Would recommend discussions with Neurology and Dr. Reyes moving forward to determine assisted medication choices for his essential tremor and anticoagulation with his hx of afib. (2) Persistent atrial fibrillation: Plan: -Currently in rate controlled afib -No recently missed doses of Eliquis -No longer on metoprolol due to previous bradycardia -Continue Eliquis (3) Essential tremor: Plan: -Continue Primidone (4) Diabetes: Plan: -Monitor BSG ACHS, goal is 110-160 -Hold Glipizide and Jardiance for now -Start CF 50, CR 15, and 5 units lantus BID -Adjust regimen as needed (5) Acute heart failure with preserved ejection fraction (HFpEF): Plan: -Euvolemic on exam -Hold diuretics for now with permissive HTN (6) HTN (hypertension): Plan: -Currently at 181/96 -Allow permissive HTN for the next 24 hours -Hold PO diuretics and antihypertensives -PRN IV labetalol per listed parameters (7) BPH (benign prostatic hyperplasia): Plan: -Will continue tamsulosin and finasteride Plan The patient was discussed with Dr. Sommers at the time of the exam History of Present Illness Chief Complaint: Ambulatory dysfunction Primary Care Provider: Luanne Lanier MD David is an 78 year old male with a PMH significant for Atrial fibrillation (On eliquis), Essential tremor, HFpEF, poorly controlled HTN, HLD, DMII, BPH, and chronic sinusitis who presented to the [facility] ED on 11/23/23 with a chief complaint of progressive ambulatory/balance issues which started on 11/20/23. Per the ED staff, the patient reported that his symptoms became significantly more severe at approximately 10 am today. He was made a stroke alert on arrival. He was noted to be hypertensive at 222/128 on arrival but was otherwise stable. Labs were significant for a glucose of 216, but CBC and CMP were otherwise stable. Chest xray and CT of the head/brain wo con were read as negative for acute findings. CTA of the head/neck were read as 1. There is no evidence of hemorrhage, mass effect, or acute territorial ischemia noting angiographic phase technique. 2. There is focal high-grade stenosis of the proximal right posterior cerebral artery.3. Otherwise unremarkable CT angiogram of the brain. 4. Un remarkable CT angiogram of the neck.. Prior to admission the patient was given 10 mg IV labetalol and 500 mL NSS. The ED spoke with Dr. Westfall of [facility] who did not recommend TNK administration as the patient is on Eliquis and symptoms initially started on 11/19. They recommended typical stroke workup/management with permissive HTN and could consider starting aspirin. At the time of the exam the patient was sitting in bed in no acute distress. He states that starting on 11/20/23 he started to notice that he wasn't feeling his baseline, generally. When asked to elaborate further he explained that he felt as though he was having some difficulty coordinating his RUE more than normal. He does note that his essential tremor in his RUE is normally worse than his LUE. Today, he felt as though his balance was off and he was requiring assistance from his [id number] to safely ambulate. He came to the ED for these progressive symptoms. His symptoms are currently stable and have not changes since arrival. States that his BP normally runs in the 160-180's and will be stubborn to increase his antihypertensive regimen. Does not use tobacco and drinks approximately 1 beer a week. Denies recent fever, chills, chest pain, SOB, cough, palpitations, nausea, vomiting, diarrhea, dysuria, hematuria, melena, LE swelling, and recent trauma. Regarding code status; he states that he has a living will which states he is a DNR/DNI. He would want this to be followed if he is unable to speak with staff in an emergency which may require CPR and/or intubation. If he is conscious and able to speak then he would like to discuss code status at that time. When I clarified, if he were to suddenly go into cardiac arrest and or respiratory failure than he would be a DNR/DNI. His Daughters are his POA's and know his wishes Please refer to Dr. Sommers's attestation for any changes to the treatment plan Allergies Allergy/AdvReac Type Severity Reaction Status Date / Time No Known Allergies Allergy Verified 11/23/23 15:02 Home Medications Medication Instructions Recorded Confirmed Type amlodipine 10 mg tablet 10 mg PO QAM 06/19/18 11/23/23 History glipizide 2.5 mg tablet, extended 2.5 mg PO BID 06/19/18 11/23/23 History release 24 hr tamsulosin 0.4 mg capsule 0.4 mg PO HS 08/30/18 11/23/23 History finasteride 5 mg tablet (Proscar) 5 mg PO QAM #30 tabs 09/13/21 11/23/23 Rx apixaban 2.5 mg tablet (Eliquis) 2.5 mg PO BID #180 tabs 08/17/23 11/23/23 Rx empagliflozin 10 mg tablet 10 mg PO DAILY #90 tabs 08/17/23 11/23/23 Rx (Jardiance) furosemide 20 mg tablet 20 mg PO DAILY #90 tabs 08/17/23 11/23/23 Rx hydrochlorothiazide 25 mg tablet 25 mg PO DAILY #90 tabs 09/08/23 11/23/23 Rx potassium chloride 10 mEq 10 meq PO DAILY #90 caps 09/08/23 11/23/23 Rx capsule,extended release cephalexin 500 mg capsule 500 mg PO BID PRN Unknown 10/20/23 11/23/23 History primidone 50 mg tablet 50 mg PO QID 30 days #120 tabs 10/20/23 11/23/23 Rx cholecalciferol (vitamin D3) 1,250 50,000 unit PO WK 11/23/23 11/23/23 History mcg (50,000 unit) capsule cyanocobalamin (vitamin B-12) 500 500 mcg PO DAILY 11/23/23 11/23/23 History mcg tablet (Vitamin B-12) Past Med/Surg History Medical History BPH (benign prostatic hyperplasia) Hyperlipidemia Acquired solitary kidney Benign prostatic hyperplasia with urinary obstruction Dysuria Gross hematuria Hearing loss Hypertension Tinnitus Type 2 diabetes mellitus Ureteral stricture Urinary retention Melanoma Solitary kidney CKD (chronic kidney disease) Obesity Diabetes Hyperlipidemia Hypertension Enlarged prostate Surgical History Nasal polyp History of adenoidectomy History of bladder surgery Hx of cystoscopy H/O colonoscopy Hx of inguinal hernia repair Hx of carpal tunnel repair Hx of tonsillectomy Family History Mother Hypertension Brother Heart disease Other No significant family history Denies family history of Hearing loss No family history of adverse response to anesthesia No family history of bleeding disorder Allergies Cancer Stroke Asthma Social History Smoking Status: Unknown if ever smoked Second Hand Exposure: No; Do You Dip or Chew Tobacco: No; Hx Alcohol Use: Yes Alcohol type: beer and wine Hx Substance Use: No Preferred Language: Gabonese Communication Ability: Effective Visual Impairment: No Limitations Lockstitch Lining Maker Required: No Beliefs That Will Affect Care: None marital status: / Current Living Situation: Alone current occupational status: retired Other Information That Helps Us Care for You: No Feels Safe at Home: Yes Safety Concerns: Feels Safe At This Time Assistive Devices: Glasses Physical Exam Physical Exam: Physical Exam: General: In no acute distress, stated age, well-nourished, non-toxic appearing HEENT: Normocephalic, atraumatic, no scleral icterus, pupils around round, symmetrical, and reactive to light, moist mucus membranes, trachea midline, no thyromegaly Chest/Pulm: No respiratory distress, symmetrical chest expansion, clear breath sounds throughout Cardiac: Irregular rate and rhythm, no murmurs noted Abdomen: Negative for ascites and bruising, normoactive bowel sounds, soft, non-tender to palpation throughout Musculoskeletal: Symmetrical and without signs of acute trauma, upper and lower extremities with full ROM, symmetrical strength in the BL upper and lower extremities Extremities: Radial, dorsalis pedis, and posterior tibial pulses are intact and symmetrical, no edema noted in the BL LE's Skin: Warm, dry, no rashes , lesions, or scars noted Neuro: Alert and oriented to person, place, month, year, and president, no focal defects, CN II-XII tested and intact, >Essential tremor noted, worse with intentional movements >Patient with difficulty during cerebellar and pronator drift testing of the RUE compared to LUE Psych: No acute distress, calm and cooperative during the exam Results & Data Results & Data Vital Signs (Past 12 Hours) Vital Signs Temp Pulse Pulse Resp BP BP Pulse Ox 11/23/23 15:27 54 L 188/97 H 11/23/23 15:10 52 L 19 176/95 H 94 11/23/23 15:02 63 11/23/23 15:02 11/23/23 14:58 64 222/128 H 11/23/23 14:50 95 11/23/23 14:50 95 11/23/23 14:19 36.5 C 70 18 212/105 H 96 O2 Del Method 11/23/23 15:27 11/23/23 15:10 Room Air 11/23/23 15:02 11/23/23 15:02 Room Air 11/23/23 14:58 11/23/23 14:50 Room Air 11/23/23 14:50 Room Air 11/23/23 14:19 Room Air Laboratory Results Abnormal lab results 11/23/23 11/23/23 11/23/23 Range/Units 14:52 14:54 14:58 POC Anion Gap 15.0 L (16-25) mmol/L POC BUN 27 H (7-18) mg/dl BUN 27 H (6-23) mg/dl Creatinine 1.66 H (0.6-1.4) mg/dl POC Creatinine 1.7 H (0.6-1.3) mg/dl Glucose 234 H (70-99(Fasting)) mg/dl POC Glucose 216 H (70-99) mg/dl POC Glucose (other) 223 H (70-99) mg/dl Globulin 2.4 L (2.5-4.0) gm/dl Diagnostic Findings Head CT 11/23/23 00:00 CT SCAN OF THE BRAIN WITHOUT IV CONTRAST CLINICAL HISTORY: Strokelike symptoms. Neurological deficit. Dizziness. Right- sided numbness. COMPARISON STUDY: CT of the paranasal sinuses dated 03/28/2019. TECHNIQUE: Unenhanced axial CT scan of the brain is performed from the vertex to the skull base. A dose lowering technique was utilized adhering to the principles of ALARA. CT DOSE: 880.28 mGy.cm FINDINGS: Brain parenchyma: There is age-related involutional change noting moderate subcortical and periventricular microangiopathic disease. There is no hemorrhage, mass effect, or evidence of acute territorial ischemia by CT criteria. Vargas-white matter differentiation is preserved. No extra-axial fluid collection is seen. Ventricles, sulci, cisterns: Prominent secondary to involutional change. Intracranial vasculature: There is atherosclerotic calcification of the cavern ous carotid and vertebral arteries. Calvarium: Unremarkable. Sinuses and mastoids: There is evidence of previous basal sinus surgery. The visualized paranasal sinuses are clear. The mastoid air cells are well pneumatized. Orbits: The bony orbits are grossly intact. There are bilateral ocular lens implants. IMPRESSION: There is no hemorrhage, mass effect, or evidence of acute territorial ischemia by CT criteria. ACT 112: Negative or not required by law. Electronically signed by: Paddy Amador M.D. 11/23/2023 2:51 PM Chest X-Ray 11/23/23 14:34 XR chest 1V portable HISTORY: 78 years-old Male stroke alert COMPARISON: 06/13/2023 TECHNIQUE: AP view the chest FINDINGS: Cardiac silhouette is enlarged. No pneumothorax, pleural effusion, airspace consolidation or pulmonary edema. Bones of the chest appear grossly intact. IMPRESSION: No acute process. ACT 112: Negative or not required by law. The above report was generated using voice recognition software. It may contain grammatical, syntax or spelling errors. Electronically signed by: Rk Mcclain M.D. 11/23/2023 3:35 PM Head CTA 11/23/23 14:40 CT ANGIOGRAM OF THE BRAIN; CT ANGIOGRAM OF THE NECK CLINICAL HISTORY: Strokelike symptoms. Dizziness. Right arm numbness. COMPARISON STUDY: Unenhanced CT of the brain performed concurrently on 11/23/2023. TECHNIQUE: Following the IV administration of 115 of Optiray 320, CT angiogram of the head and neck was performed from the aortic arch to the vertex. Images are reviewed in the axial, sagittal, and coronal planes. 3-D MIPS images are created and assessed. IV contrast was administered without complication. All measurements were calculated based on NASCET criteria. A dose lowering technique was utilized adhering to the principles of ALARA. CT DOSE: 487.39 mGy.cm FINDINGS: Brain parenchyma: There is age-related interval change noting moderate subcortical and periventricular microangiopathic disease. There is no evidence of hemorrhage, mass effect, or acute territorial ischemia noting angiographic phase technique. There is no evidence of enhancing mass lesion on the angiogram phase images. The ventricles, sulci, and cisterns are prominent secondary to involutional change. Vargas-white matter differentiation is preserved. No extra- axial fluid collection is seen. Thoracic aorta: There is atherosclerotic calcification of the thoracic aorta. Visualized portions of the thoracic aorta are normal in caliber. The aortic arch demonstrates standard 3-vessel anatomy. Right carotid arterial system: The right common carotid artery is widely patent, as are the right internal and external carotid arteries. Calcified plaque is noted in the carotid bulb. Left carotid arterial system: The left common carotid artery is widely patent, as are the left internal and external carotid arteries. Mild calcified plaque is noted in the carotid bulb. Vertebral arteries: The vertebral arteries are widely patent bilaterally noted mild right-sided dominance. Subclavian arteries: Widely patent bilaterally. Intracranial vasculature: There is atherosclerotic calcification of the cavernous carotid and vertebral arteries. The internal carotid arteries are patent at the skull base, as are the anterior and middle cerebral arteries bilaterally. The vertebrobasilar system and posterior cerebral arteries are patent. There is a left posterior communicating artery. The right vertebral artery is dominant. There is high-grade focal stenosis of the proximal right posterior cerebral artery seen on axial image #78. No additional foci of high- grade stenosis are seen throughout the intracranial circulation. There is no aneurysm or focal vessel cut off seen throughout the intracranial circulation. Jugular veins: Patent bilaterally. Dural sinuses: Patent. Lung apices: Partially visualized upper lobe lung parenchyma appears clear. Soft tissues: The visualized pharyngeal soft tissues are normal in appearance noting angiographic phase technique. The oropharyngeal airway appears widely patent. The salivary and thyroid glands are normal in appearance. No cervical lymphadenopathy is seen. Skeletal structures: The skeletal structures are osteopenic. The calvarium appears intact. The cervical spine is maintained noting multilevel spondylosis. Orbits: The bony orbits are intact. Orbital contents are normal as visualized noting bilateral ocular lens implants. Sinuses and mastoids: There is evidence of previous paranasal sinus surgery. Trace mucosal thickening is noted within the maxillary antra. The remaining paranasal sinuses are clear. The mastoid air cells are well pneumatized. IMPRESSION: 1. There is no evidence of hemorrhage, mass effect, or acute territorial ischemia noting angiographic phase technique. 2. 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 3. Otherwise unremarkable CT angiogram of the brain. 4. Unremarkable CT angiogram of the neck. ACT 112: Negative or not required by law. Electronically signed by: Paddy Amador M.D. 11/23/2023 3:06 PM Neck CTA 11/23/23 14:40 CT ANGIOGRAM OF THE BRAIN; CT ANGIOGRAM OF THE NECK CLINICAL HISTORY: Strokelike symptoms. Dizziness. Right arm numbness. COMPARISON STUDY: Unenhanced CT of the brain performed concurrently on 11/23/2023. TECHNIQUE: Following the IV administration of 115 of Optiray 320, CT angiogram of the head and neck was performed from the aortic arch to the vertex. Images are reviewed in the axial, sagittal, and coronal planes. 3-D MIPS images are created and assessed. IV contrast was administered without complication. All measurements were calculated based on NASCET criteria. A dose lowering technique was utilized adhering to the principles of ALARA. CT DOSE: 487.39 mGy.cm FINDINGS: Brain parenchyma: There is age-related interval change noting moderate subcortical and periventricular microangiopathic disease. There is no evidence of hemorrhage, mass effect, or acute territorial ischemia noting angiographic phase technique. There is no evidence of enhancing mass lesion on the angiogram phase images. The ventricles, sulci, and cisterns are prominent secondary to involutional change. Vargas-white matter differentiation is preserved. No extra- axial fluid collection is seen. Thoracic aorta: There is atherosclerotic calcification of the thoracic aorta. Visualized portions of the thoracic aorta are normal in caliber. The aortic arch demonstrates standard 3-vessel anatomy. Right carotid arterial system: The right common carotid artery is widely patent, as are the right internal and external carotid arteries. Calcified plaque is noted in the carotid bulb. Left carotid arterial system: The left common carotid artery is widely patent, as are the left internal and external carotid arteries. Mild calcified plaque is noted in the carotid bulb. Vertebral arteries: The vertebral arteries are widely patent bilaterally noted mild right-sided dominance. Subclavian arteries: Widely patent bilaterally. Intracranial vasculature: There is atherosclerotic calcification of the cavernous carotid and vertebral arteries. The internal carotid arteries are patent at the skull base, as are the anterior and middle cerebral arteries bilaterally. The vertebrobasilar system and posterior cerebral arteries are patent. There is a left posterior communicating artery. The right vertebral artery is dominant. There is high-grade focal stenosis of the proximal right posterior cerebral artery seen on axial image #78. No additional foci of high- grade stenosis are seen throughout the intracranial circulation. There is no aneurysm or focal vessel cut off seen throughout the intracranial circulation. Jugular veins: Patent bilaterally. Dural sinuses: Patent. Lung apices: Partially visualized upper lobe lung parenchyma appears clear. Soft tissues: The visualized pharyngeal soft tissues are normal in appearance noting angiographic phase technique. The oropharyngeal airway appears widely patent. The salivary and thyroid glands are normal in appearance. No cervical lymphadenopathy is seen. Skeletal structures: The skeletal structures are osteopenic. The calvarium appears intact. The cervical spine is maintained noting multilevel spondylosis. Orbits: The bony orbits are intact. Orbital contents are normal as visualized noting bilateral ocular lens implants. Sinuses and mastoids: There is evidence of previous paranasal sinus surgery. Trace mucosal thickening is noted within the maxillary antra. The remaining paranasal sinuses are clear. The mastoid air cells are well pneumatized. IMPRESSION: 1. There is no evidence of hemorrhage, mass effect, or acute territorial ischemia noting angiographic phase technique. 2. 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 3. Otherwise unremarkable CT angiogram of the brain. 4. Unremarkable CT angiogram of the neck. ACT 112: Negative or not required by law. Electronically signed by: Paddy Amador M.D. 11/23/2023 3:06 PM ECG Additional Comments: Will obtain at the time of the admission Code Status & VTE Plan Code Status DNR/DNI VTE Prophylaxis Plan VTE Prophylaxis will be ordered: Yes Supervising Physician Co-Signing Physician Notes I personally saw and examined the patient. I verified all cardoza points and agree with Angelito Bardales PA-C with the following exceptions and/or additions: 78 year old male presents to the ER with RUE weakness, ambulatory dysfunction. Symptoms since 11/19, much worse from 10am. O/E A&Ox3, CN2-> 12 intact, mild right pronator drift, otherwise 5/5 power throughout, no sensory deficit, HS irregular, slow rate, no murmurs, Chest CTAB, Abdo SNT A/P Acute CVA - increase Eliquis to 5mg BID as discussed with Dr Robledo, he is jamar rderline for the lower dose anyway and with primidone unlikely this is effective, no need for antiplatelet acutely TTE, consult neurology, consider switch to warfarin PG Care Time/CCT Total # of Minutes Spent Total Time Spent with Patient: Total time spent is greater than 50% in coordination of care (as documented) at patient's floor/unit and/or counseling patient: Coding [place] [address] INT INP/OBS CARE 3/75MIN Patient Type Established Medical Decision Making High Complexity Diagnoses Stroke-like symptoms R29.90 Persistent atrial fibrillation I48.19 Essential tremor G25.0 Diabetes E11.9 Acute heart failure with preserved ejection fraction (HFpEF) I50.31 HTN (hypertension) I10 BPH (benign prostatic hyperplasia) N40.0
[2023-11-23] MEDS ORDERED: LABETALOL HCL IV 5 MG/ML 20ML IV PRN (16:38)
[2023-11-23] MEDS ORDERED: CARBOHYDRATES FOR HYPOGLYCEMIA PO PRN (16:45)
[2023-11-23] MEDS ORDERED: GLUCOSE 10 TAB/TUBE PO PRN (16:45)
[2023-11-23] MEDS ORDERED: GLUCOSE 40% GEL 15 GM TUBE PO PRN (16:45)
[2023-11-23] MEDS ORDERED: GLUCAGON FOR INJ 1 MG VIAL SQ PRN (16:45)
[2023-11-23] MEDS ORDERED: DEXTROSE 50% 50 ML SYRINGE IV PRN (16:45)
--- NOTE | 2023-11-23 19:09 | Magnetic Resonance Report ---
Exam(s): MRI HEAD Without Contrast EXAM: MR Head Without Intravenous Contrast CLINICAL HISTORY: Reason for exam: stroke eval. TECHNIQUE: Magnetic resonance images of the head/brain without intravenous contrast in multiple planes. COMPARISON: None FINDINGS: Brain: Small foci of restricted diffusion in the left arias radiata and basal ganglia, measuring up to approximately 1.1 cm, concerning for acute or subacute infarcts. Chronic small vessel ischemic disease. No hemorrhage. Ventricles: Prominence of the ventricles and sulci is likely secondary to cerebral volume loss. Bones/joints: Unremarkable. No acute fracture. Sinuses: Mild mucosal thickening in the left maxillary sinus and ethmoid air cells. No acute sinusitis. Mastoid air cells: Unremarkable as visualized. No mastoid effusion. Orbits: Bilateral lens implants. IMPRESSION: Small foci of restricted diffusion in the left arias radiata and basal ganglia, measuring up to approximately 1.1 cm, concerning for acute or subacute infarcts. Communications: Call Doctor Stroke Electronically signed by: Heladio Penaloza M.D. 11/23/23 19:08 PM
[2023-11-23] MEDS: TAMSULOSIN HCL 0.4 MG CAP PO SCH (20:42)
[2023-11-23] MEDS: PRIMIDONE 50 MG TAB PO SCH (21:07)
[2023-11-23] MEDS: APIXABAN 5 MG TABLET PO SCH (21:07)
[2023-11-23] MEDS: INSULIN ASPART PER UNIT CHARGE SC SCH (21:08)
[2023-11-23] MEDS: LANTUS PER UNIT CHARGE SQ SCH (21:08)
[2023-11-24 06:49] LABS: Basophils # (auto) 0.04 K/uL (0.00-0.20); Basophils % (auto) 0.6 %; Eosinophils # (auto) 0.15 K/uL (0.00-0.50); Eosinophils % (auto) 2.4 %; Hematocrit (blood only) 48.7 % (42.0-52.0); Hemoglobin 16.2 g/dl (14.0-18.0); Immature Granulocytes # (auto) 0.03 K/uL (0.01-0.20); Immature Granulocytes % (auto) 0.5 %; Lymphocytes % (auto) 16.1 %; Mean Corpuscular Hemoglobin 28.3 pg (25.0-34.0); Mean Corpuscular Hgb Conc 33.3 g/dL (32.0-36.0); Mean Platelet Volume 10.3 fL (9.4-12.4); Monocytes # (auto) 0.55 K/uL (0.11-0.59); Monocytes % (auto) 8.9 %; Neutrophils # (auto) 4.44 K/uL (1.40-6.50); Neutrophils % (auto) 71.5 %; Platelet Count 157 K/uL (130-400); RDW Coefficient of Variation 14.4 % (11.5-14.5); RDW Standard Deviation 43.9 fL (36.4-46.3); Red Blood Count 5.73 M/uL (4.70-6.10); White Blood Count 6.21 K/ul (4.8-10.8)
[2023-11-24 06:52] LABS: Prothrombin Time 11.3 Seconds (9.0-12.0)
[2023-11-24 07:14] LABS: Albumin Globulin Ratio 1.9 (0.9-2); Albumin Level 3.9 gm/dl (3.4-5.0); BUN Creatinine Ratio 15.4 (10-20); Bilirubin,Total 0.7 mg/dl (0.2-1.0); Calcium 8.6 mg/dl (8.6-10.3); Chol HDL Ratio 4.6 (0-5); Est GFR (African American) 59.7 ml/min; Est GFR (Non-African American) 51.5 ml/min; Globulin 2.1 gm/dl (2.5-4.0); Potassium 3.7 mmol/L (3.5-5.1)
[2023-11-24 07:29] LABS: Estimated Average Glucose 169 mg/dl; Hemoglobin A1C 7.5 % (4.5-5.6)
[2023-11-24] MEDS: FINASTERIDE 5 MG TAB PO SCH (09:50)
--- NOTE | 2023-11-24 10:58 | Neurology Consultation ---
Date of Consultation November 24, 2023 Assessment & Plan (1) Acute CVA (cerebrovascular accident): (2) Essential tremor: (3) Persistent atrial fibrillation: Plan 78-year-old male with a longstanding history of benign essential tremor, responding modestly to primidone. Fairly recent diagnosis of atrial fibrillation, also prescribed renal dose Eliquis. Patient now presents with an acute left hemispheric subcortical ischemic lacunar infarct. This infarct does not appear embolic and may be related to longstanding poorly controlled hypertension, diabetes mellitus and dyslipidemia. Patient's renal function appears to be stable to improved and his Eliquis dosage has been increased. Going forward, due to the potential interaction between primidone and Eliquis, I would recommend discontinuation of primidone for management of his tremor. For management of his benign essential tremor, I would recommend discontinuation of primidone as above, in favor of a trial of topiramate. There is no interaction between topiramate and Eliquis. Would suggest starting with topiramate 25 mg in the evening for 1 week, then increase to twice daily thereafter. Further dosage adjustments may be made as an outpatient. Patient has not tolerated beta-ruddy treatment previously due to bradycardia. If topiramate is not helpful, would consider a low-dose of clonazepam to potentially address his essential tremor. In light of his recent acute stroke, would also recommend starting a statin. Goal LDL 70 or less. Furthermore, as his recent stroke appears to be of the ischemic lacunar type, rather than cardioembolic, I would recommend starting aspirin 81 mg/day, (in addition to Eliquis). Follow-up with results of transthoracic echocardiogram. The observed focal high-grade stenosis of the proximal right posterior cerebral artery is not clinically significant in the context of his current presentation. (Recommendation for a statin and low-dose aspirin as above.) Please contact me with any questions. History of Present Illness Reason for Consultation: stroke, tremor Requesting Physician: Jeffy Attending Physician: Smith Rae History of Present Illness The patient is an 78-year-old male who was seen in neurology clinic October 20, 2023 for an initial assessment of an existing diagnosis of essential tremor. His tremor has been present for many years, affects both hands, right greater than left and is present with action, interferes with activities such as eating, drinking, writing, he also has an associated chin tremor. He had been on metoprolol in the past although this medication was discontinued in the context of bradycardia. He had been started on primidone prior to his initial assessment in our office, noting modest improvement in his tremor at that time. He had also recently started Eliquis in the context of recently diagnosed atrial fibrillation. Past medical history also notable for hypertension and hyperlipidemia. His primidone dosage was increased slightly at that time, from 100 mg/day to 150 mg/day. The patient was seen in the emergency department yesterday with a chief complaint of dizziness, feeling off balance. He indicates that his right arm feels slightly heavy and weak and is also noticed a subtle slurring of his speech. No known prior history of stroke. He did have a telestroke consultation although he apparently presented outside of the window for thrombolytic therapy and he is also on Eliquis. A CTA of the head and neck was negative for hemorrhage or acute process. There was an incidental focal high- grade stenosis of the proximal right posterior cerebral artery. A brain MRI revealed a small ischemic stroke within the left arias radiata extending to the left basal ganglia. I did independently review these images and was able to appreciate these findings. There was concern regarding an interaction between patient's primidone and Eliquis. Patient's Eliquis dosage has been increased, previously on renal dose. Allergies Allergy/AdvReac Type Severity Reaction Status Date / Time No Known Allergies Allergy Verified 11/23/23 15:02 Home Medications Medication Instructions Recorded Confirmed Type amlodipine 10 mg tablet 10 mg PO QAM 06/19/18 11/23/23 History glipizide 2.5 mg tablet, extended 2.5 mg PO BID 06/19/18 11/23/23 History release 24 hr tamsulosin 0.4 mg capsule 0.4 mg PO HS 08/30/18 11/23/23 History finasteride 5 mg tablet (Proscar) 5 mg PO QAM #30 tabs 09/13/21 11/23/23 Rx apixaban 2.5 mg tablet (Eliquis) 2.5 mg PO BID #180 tabs 08/17/23 11/23/23 Rx empagliflozin 10 mg tablet 10 mg PO DAILY #90 tabs 08/17/23 11/23/23 Rx (Jardiance) furosemide 20 mg tablet 20 mg PO DAILY #90 tabs 08/17/23 11/23/23 Rx hydrochlorothiazide 25 mg tablet 25 mg PO DAILY #90 tabs 09/08/23 11/23/23 Rx potassium chloride 10 mEq 10 meq PO DAILY #90 caps 09/08/23 11/23/23 Rx capsule,extended release cephalexin 500 mg capsule 500 mg PO BID PRN Unknown 10/20/23 11/23/23 History primidone 50 mg tablet 50 mg PO QID 30 days #120 tabs 10/20/23 11/23/23 Rx cholecalciferol (vitamin D3) 1,250 50,000 unit PO WK 11/23/23 11/23/23 History mcg (50,000 unit) capsule cyanocobalamin (vitamin B-12) 500 500 mcg PO DAILY 11/23/23 11/23/23 History mcg tablet (Vitamin B-12) Patient History Medical History BPH (benign prostatic hyperplasia) Hyperlipidemia Acquired solitary kidney Benign prostatic hyperplasia with urinary obstruction Dysuria Gross hematuria Hearing loss Hypertension Tinnitus Type 2 diabetes mellitus Ureteral stricture Urinary retention Melanoma Solitary kidney CKD (chronic kidney disease) Obesity Diabetes Hyperlipidemia Hypertension Enlarged prostate Surgical History Nasal polyp History of adenoidectomy History of bladder surgery Hx of cystoscopy H/O colonoscopy Hx of inguinal hernia repair Hx of carpal tunnel repair Hx of tonsillectomy Family History Mother Hypertension Brother Heart disease Other No significant family history Denies family history of Hearing loss No family history of adverse response to anesthesia No family history of bleeding disorder Allergies Cancer Stroke Asthma Social History Smoking Status: Unknown if ever smoked Second Hand Exposure: No; Do You Dip or Chew Tobacco: No; Hx Alcohol Use: Yes Alcohol type: beer and wine Hx Substance Use: No Preferred Language: Khmer Communication Ability: Effective Visual Impairment: No Limitations Insurance 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 Required: No Beliefs That Will Affect Care: None marital status: / Current Living Situation: Alone current occupational status: retired Other Information That Helps Us Care for You: No Feels Safe at Home: Yes Safety Concerns: Feels Safe At This Time Assistive Devices: Glasses Review of Systems Constitutional: no fever and no chills Eyes: no blind spots and no diplopia Ear, Nose, Mouth, Throat: no hearing loss Respiratory: no cough and no dyspnea Cardiovascular: no chest pain and no palpitations Gastrointestinal: no nausea and no vomiting Genitourinary: no dysuria Musculoskeletal: no neck pain and no myalgia Integumentary: no rash and no lesions Neurologic: as per Subjective / HPI, + localized weakness and + tremor(s) Psychiatric: no depression and no anxiety Hematologic / Lymphatic: no easy bleeding and no easy bruising Exam (Neuro) Constitutional: well developed and well nourished; no acute distress Eyes: normal visual boyle by confrontation, PERRL and EOM intact bilaterally; no nystagmus Neurologic: Oriented to:: Person, Place and Time Memory: Short Term Intact and Remote Intact Attention: Span Intact and Concentration Intact Speech Fluency: Dysarthria (Mild); negative Dysfluency Speech Aphasia: negative Aphasia Fund of Knowledge: Current Events, Past History and Vocabulary Cranial Nerves: Normal II, III, IV, , V, VIII, IX, X, XI and XII; Abnorm VII (Mild right lower facial droop noted) Motor Strength: Normal Lower Extremities, Normal Upper Extremities (Mild weakness for the right upper limb) and Handedness Laterality: Right Motor Tone: Normal Lower Extremities and Normal Upper Extremities Muscle Bulk/Involuntary Movements: Intention Tremor and Action Tremor; negative Rest Tremor (Arm) Sensation: Light Touch Intact, Pain/Temperature Intact and Proprioception Intact Coordination: Finger-Nose Abnormal Laterality: Right; negative Dysdiadochokinesia or Heel-Still Abnormal Deep Tendon Reflexes: Rt Triceps: 2+, Lt Triceps: 2+, Rt Biceps: 2+, Lt Biceps: 2+, Rt Brachioradialis: 2+, Lt Brachioradialis: 2+, Rt Patellar: 2+ and Lt Patellar: 2+ Special Tests: Babinski Present (Babinski present on the right) Details: Gait not tested at this time Results & Data Vital Signs (Past 12 Hours) Vital Signs Temp Pulse Resp BP Pulse Ox O2 Del Method 11/24/23 07:05 36.6 C 45 L 19 169/86 H 96 Room Air 11/24/23 06:10 33 L 11/24/23 03:00 28 L 11/24/23 02:44 36.6 C 34 L 18 140/77 96 Room Air 05/02/24 22:51 36.7 C 40 L 18 152/79 H 94 Room Air Laboratory Results WBC 6.21, hemoglobin 16.2, hematocrit 48.7, platelet count 157, sodium 141, potassium 3.7, BUN 20, creatinine 1.30, glucose 154, hemoglobin A1c 7.5, calcium 8.6, magnesium 2.0, AST 20, ALT 27, triglycerides 171, cholesterol 237, LDL 152, HDL [address] of the head, CTA of the head and neck, and brain MRI are as described in the HPI, I independently reviewed these images. Electrocardiogram reveals atrial fibrillation with slow ventricular response, 39 bpm. A previous echocardiogram completed June 13, 2023 revealed grossly normal left ventricular size with hyperdynamic systolic function, EF greater than 70%, no regional wall motion abnormalities, no significant LVH, moderate left atrial dilation, no ASD, PFO not excluded. Coding Level of Care Code 49661 INT INP/OBS CARE 3/75MIN Diagnoses Acute CVA (cerebrovascular accident) I63.9 Essential tremor G25.0 Persistent atrial fibrillation I48.19 Time Spent (min) 90 Comment Total time includes patient contact, chart review, counseling, note preparation
--- NOTE | 2023-11-24 12:41 | Electrocardiogram Report ---
Test Reason : Blood Pressure : / mmHG Vent. Rate : 039 BPM Atrial Rate : 038 BPM P-R Int : 000 ms QRS Dur : 090 ms QT Int : 518 ms P-R-T Axes : 000 033 086 degrees QTc Int : 416 ms Atrial fibrillation with slow ventricular response Nonspecific T wave abnormality Abnormal ECG When compared with ECG of 23-NOV-2023 17:31, (unconfirmed) HR has decreased Confirmed by Dilan Gaffney ([id number]) on 11/24/2023 12:41:00 PM Referred By: REFERRED SELF Confirmed By:Dilan Gaffney
--- NOTE | 2023-11-24 13:57 | XCELERA ---
[id number]
--- NOTE | 2023-11-24 14:03 | Pharmacy Report ---
- Date of Service November 24, 2023 - Pharmacy CVA/TIA Medication Review Medications to Prevent Stroke handout has been added to the patients discharge packet. Antiplatelet(s) * Aspirin 81 mg PO daily Cholesterol * High intensity statin: atorvastatin 40 mg daily DVT Prophylaxis * On apixaban Therapeutic Anticoagulation * Hx Afib/Aflutter noted, and patient is currently receiving apixaban Type 2 Diabetes * Patient has T2DM and patient is prescribed empagliflozin
--- NOTE | 2023-11-24 14:21 | Cardiology Consultation ---
Date of Consultation November 24, 2023 Assessment & Plan (1) Acute CVA (cerebrovascular accident): (2) Persistent atrial fibrillation: (3) Bradycardia: (4) Anticoagulant long-term use: (5) HTN (hypertension): (6) Congestive heart failure: Plan 1. CVA: This is felt to be thrombotic not cardioembolic. Aspirin has been recommended. He does need to stay on Eliquis however. 2. Atrial fibrillation: He has remained in atrial fibrillation, it is not clear he has symptoms related to this although his heart rate is somewhat slow. He denies symptoms of lightheadedness or dizziness and denies difficulty with exercise. Although his heart rate gets quite slow I think this is acceptable without symptoms. It is conceivable that bradycardia and an irregular heart rate can aggravate congestive heart failure by interfering with cardiac efficiency, but that is very difficult to prove. 3. Bradycardia: He has not been on medications to cause bradycardia recently. He was on propranolol for tremor but that has been discontinued. I would avoid medications to slow his heart rate. The only treatment would be a pacemaker and I am very reluctant to do that without symptoms. 4. Anticoagulation: He is on Eliquis 2.5 mg twice a day, with diuresis his creatinine donn above 1.5 although today's value is lower although not sure that is accurate. If so he should be on 5 mg twice a day, his weight would support the higher dose, he is age at 78 is borderline. I have not changed it but will follow his creatinine. 5. Hypertension: His blood pressure is quite high, perhaps he should be on some blood pressure medications. I will leave that up to neurology and the primary service. 6. Congestive heart failure: He has a history of HFpEF and with diuresis his creatinine did increase somewhat. I do not think he has had a recent BNP, his admission chest x-ray did not suggest congestive heart failure. This appears to be well controlled currently. He may run a little bit dry which might contribute to his increased creatinine. If heart failure becomes an issue we could consider a pacemaker, this would not be a typical indication but the irregularity and the slow heart rate may be decreasing his cardiac output and worsening his congestive heart failure. At the moment however I would treat him as we have been. History of Present Illness Reason for Consultation: Atrial fibrillation with a slow ventricular response Attending Physician: Smith Rae History of Present Illness This is an 78-year-old male with a history of hypertension, hyperlipidemia, diabetes mellitus, chronic kidney disease and more recently congestive heart failure. He was hospitalized June 13, 2023 with HFpEF after being dyspneic for several days. He was noted to be in atrial fibrillation with a slow heart rate and was taking propranolol 60 mg twice a day at the time. His beta-ruddy was discontinued and anticoagulation was recommended. He was followed in our heart failure area, last seen August 17, 2023. At that time he was maintained on Eliquis 2.5 mg twice a day and Jardiance was initiated. His furosemide was also maintained at 20 mg daily. He evidently had worsening of his tremor with discontinuation of propranolol. He presented to the emergency room on November 23, 2023 with problems with gait and balance concerning for a stroke. There is no evidence of acute infarction however a CTA did show a high-grade stenosis of the right posterior cerebral artery but TNK was not recommended. He remained in atrial fibrillation with a slow ventricular response. His stroke was felt to be ischemic not embolic and he was started on aspirin in addition to Eliquis. An echocardiogram done on November 24, 2023 showed normal left ventricular systolic function with mild concentric left ventricular hypertrophy and no significant valvular abnormalities. No intra atrial shunt was identified with contrast administration. His blood pressure has been allowed to increase due to his recent stroke. I evaluated him in his room with his family present. He tells me that he has known about his slow pulse for a long time, at least several years, and that he has no symptoms related to it. Prior to his stroke he tells me that he could be as active as he wanted to be and denies lightheadedness or dizziness, presyncope or syncope. He reports that his gait is a little bit worse today than yesterday following his stroke, and his speech is a little more slurred but he is understandable but does have slow speaking. Allergies Allergy/AdvReac Type Severity Reaction Status Date / Time No Known Allergies Allergy Verified 11/23/23 15:02 Home Medications Medication Instructions Recorded Confirmed Type amlodipine 10 mg tablet 10 mg PO QAM 06/19/18 11/23/23 History glipizide 2.5 mg tablet, extended 2.5 mg PO BID 06/19/18 11/23/23 History release 24 hr tamsulosin 0.4 mg capsule 0.4 mg PO HS 08/30/18 11/23/23 History finasteride 5 mg tablet (Proscar) 5 mg PO QAM #30 tabs 09/13/21 11/23/23 Rx apixaban 2.5 mg tablet (Eliquis) 2.5 mg PO BID #180 tabs 08/17/23 11/23/23 Rx empagliflozin 10 mg tablet 10 mg PO DAILY #90 tabs 08/17/23 11/23/23 Rx (Jardiance) furosemide 20 mg tablet 20 mg PO DAILY #90 tabs 08/17/23 11/23/23 Rx potassium chloride 10 mEq 10 meq PO DAILY #90 caps 09/08/23 11/23/23 Rx capsule,extended release cholecalciferol (vitamin D3) 1,250 50,000 unit PO WK 11/23/23 11/23/23 History mcg (50,000 unit) capsule cyanocobalamin (vitamin B-12) 500 500 mcg PO DAILY 11/23/23 11/23/23 History mcg tablet (Vitamin B-12) aspirin 81 mg tablet,delayed 81 mg PO DAILY #30 tabs 11/24/23 Rx release atorvastatin 40 mg tablet 40 mg PO DAILY #30 tabs 11/24/23 Rx topiramate 25 mg tablet 25 mg PO HS #30 tabs 11/24/23 Rx Patient History Medical History BPH (benign prostatic hyperplasia) Hyperlipidemia Acquired solitary kidney Benign prostatic hyperplasia with urinary obstruction Dysuria Gross hematuria Hearing loss Hypertension Tinnitus Type 2 diabetes mellitus Ureteral stricture Urinary retention Melanoma HX- REMOVED TO CHEST Solitary kidney CKD (chronic kidney disease) Baseline Cr 1.4-1.5- /PT DENIES Obesity Diabetes NO INSULIN Hyperlipidemia Hypertension Enlarged prostate Surgical History Nasal polyp Removed History of adenoidectomy History of bladder surgery TURBT 06/2018 Hx of cystoscopy H/O colonoscopy Hx of inguinal hernia repair Hx of carpal tunnel repair right and left Hx of tonsillectomy Family History Mother Hypertension Brother Heart disease Other No significant family history Denies family history of Hearing loss No family history of adverse response to anesthesia No family history of bleeding disorder Allergies Cancer Stroke Asthma Social History Smoking Status: Unknown if ever smoked Second Hand Exposure: No; Do You Dip or Chew Tobacco: No; Hx Alcohol Use: Yes Alcohol type: beer and wine Hx Substance Use: No Preferred Language: Italian Communication Ability: Effective Visual Impairment: No Limitations 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 HEENT: Unremarkable Neck: No jugular venous distention, carotid pulses are irregular but otherwise normal and equal bilaterally without bruits. Pulmonary: Clear to auscultation bilaterally. Cardiac: Irregular slow rhythm with no murmur, gallop or rub. Abdomen: Soft, nontender with normal bowel sounds. Extremities: No edema. Distal pulses intact. Neurologic: No focal findings. Gait is steady. Skin: No rash, ecchymoses or petechiae. Results & Data Vital Signs (Past 12 Hours) Vital Signs Temp Pulse Resp BP Pulse Ox O2 Del Method 11/24/23 10:49 36.7 C 46 L 19 162/86 H 97 Room Air 11/24/23 07:05 36.6 C 45 L 19 169/86 H 96 Room Air 11/24/23 06:10 33 L 11/24/23 03:00 28 L 11/24/23 02:44 36.6 C 34 L 18 140/77 96 Room Air Laboratory Results Cardiac Enzymes 11/23/23 11/24/23 Range/Units 14:54 06:19 AST 24 20 (13-39) U/L Coagulation 11/23/23 11/24/23 Range/Units 14:54 06:19 PT 10.9 11.3 (9.0-12.0) Seconds APTT 27 (21-31) Seconds Lipids 11/24/23 Range/Units 06:19 Triglycerides 171 H (0-150) mg/dl Cholesterol 237 H (0-200) mg/dl HDL Cholesterol 51 mg/dl Cholesterol/HDL Ratio 4.6 (0-5) CBC 11/23/23 11/24/23 Range/Units 14:54 06:19 WBC 6.74 6.21 (4.8-10.8) K/ul RBC 5.73 5.73 (4.70-6.10) M/uL Hgb 16.3 16.2 (14.0-18.0) g/dl Hct 49.1 48.7 (42.0-52.0) % Plt Count 176 157 (130-400) K/uL Neut # (Auto) 4.44 (1.40-6.50) K/uL Lymph # (Auto) 1.00 L (1.20-3.40) K/uL [place] # (Auto) 0.55 (0.11-0.59) K/uL Eos # (Auto) 0.15 (0.00-0.50) K/uL Baso # (Auto) 0.04 (0.00-0.20) K/uL Comprehensive Metabolic Panel 11/23/23 11/24/23 Range/Units 14:54 06:19 Sodium 138 141 (136-145) mmol/L Potassium 4.1 3.7 (3.5-5.1) mmol/L Chloride 102 109 H (98-107) mmol/L Carbon Dioxide 30 25 (21-32) mmol/L BUN 27 H 20 (6-23) mg/dl Creatinine 1.66 H 1.30 D (0.6-1.4) mg/dl Glucose 234 H 154 H (70-99(Fasting)) mg/dl Calcium 8.7 8.6 (8.6-10.3) mg/dl AST 24 20 (13-39) U/L ALT 32 27 (7-52) U/L Alkaline Phosphatase 71 59 (34-104) U/L Total Protein 6.5 6.0 (6.0-8.3) gm/dl Albumin 4.1 3.9 (3.4-5.0) gm/dl Intake and Output 11/23/23 11/24/23 11/24/23 22:59 06:59 14:59 Intake Total 620 / 740 120 / 740 Output Total 775 / 1375 600 / 1375 150 / 150 Balance -155 / -635 -480 / -635 -150 / -150 Intake: IV 500 / 500 Sodium Chloride 0.9% 500 ml @ 500 / 500 999 mls/hr IV .Q31M ONE Rx#: [id number] Oral 120 / 240 120 / 240 Output: Urine 775 / 1375 600 / 1375 150 / 150 Other: Weight 91.399 kg 91.5 kg Weight Measurement Method Built in [facility] PG Care Time/CCT Total # of Minutes Spent Total Time Spent with Patient: Total time spent is greater than 50% in coordination of care (as documented) at patient's floor/unit and/or counseling patient: Coding Level of Care Code 83503 INT INP/OBS CARE 3/75MIN Diagnoses Acute CVA (cerebrovascular accident) I63.9 Persistent atrial fibrillation I48.19 Bradycardia R00.1 Anticoagulant long-term use Z79.01 Primary hypertension I10 Hypertension type: primary hypertension Chronic diastolic congestive heart failure I50.32 Heart failure chronicity: chronic Heart failure type: diastolic (5) HTN (hypertension) Hypertension type: primary hypertension Qualified Code(s): I10 - Essential (primary) hypertension (6) Congestive heart failure Heart failure chronicity: chronic Heart failure type: diastolic Qualified Code(s): I50.32 - Chronic diastolic (congestive) heart failure
[2023-11-24] MEDS: ATORVASTATIN 40 MG TAB PO SCH (14:24)
[2023-11-24] MEDS: ASPIRIN 81 MG ECTAB PO SCH (14:24)
--- NOTE | 2023-11-24 14:41 | Communication Note ---
Date of Service: November 24, 2023 Ischemic CVA/stroke Plans as noted on history and physical as well as discharge summary
--- NOTE | 2023-11-24 14:42 | Discharge Summary ---
Date of Service November 24, 2023 Admission HPI Per Admitting Provider David is an 78 year old male with a PMH significant for Atrial fibrillation (On eliquis), Essential tremor, HFpEF, poorly controlled HTN, HLD, DMII, BPH, and chronic sinusitis who presented to the [facility] ED on 11/23/23 with a chief complaint of progressive ambulatory/balance issues which started on 11/20/23. Per the ED staff, the patient reported that his symptoms became significantly more severe at approximately 10 am today. He was made a stroke alert on arrival. He was noted to be hypertensive at 222/128 on arrival but was otherwise stable. Labs were significant for a glucose of 216, but CBC and CMP were otherwise s table. Chest xray and CT of the head/brain wo con were read as negative for acute findings. CTA of the head/neck were read as 1. There is no evidence of hemorrhage, mass effect, or acute territorial ischemia noting angiographic phase technique. 2. There is focal high-grade stenosis of the proximal right posterior cerebral artery.3. Otherwise unremarkable CT angiogram of the brain. 4. Unremarkable CT angiogram of the neck.. Prior to admission the patient was given 10 mg IV labetalol and 500 mL NSS. The ED spoke with Dr. Westfall of [facility] who did not recommend TNK administration as the patient is on Eliquis and symptoms initially started on 11/19. They recommended typical stroke workup/management with permissive HTN and could consider starting aspirin. At the time of the exam the patient was sitting in bed in no acute distress. He states that starting on 11/20/23 he started to notice that he wasn't feeling his baseline, generally. When asked to elaborate further he explained that he felt as though he was having some difficulty coordinating his RUE more than normal. He does note that his essential tremor in his RUE is normally worse than his LUE. Today, he felt as though his balance was off and he was requiring assistance from his [id number] to safely ambulate. He came to the ED for these progressive symptoms. His symptoms are currently stable and have not figueroa es since arrival. States that his BP normally runs in the 160-180's and will be stubborn to increase his antihypertensive regimen. Does not use tobacco and drinks approximately 1 beer a week. Denies recent fever, chills, chest pain, SOB, cough, palpitations, nausea, vomiting, diarrhea, dysuria, hematuria, melena, LE swelling, and recent trauma. Regarding code status; he states that he has a living will which states he is a DNR/DNI. He would want this to be followed if he is unable to speak with staff in an emergency which may require CPR and/or intubation. If he is conscious and able to speak then he would like to discuss code status at that time. When I clarified, if he were to suddenly go into cardiac arrest and or respiratory failure than he would be a DNR/DNI. His Daughters are his POA's and know his wishes Please refer to Dr. Sommers's attestation for any changes to the treatment plan Principal Diagnosis ischemic stroke Discharge Exam The patient is awake, alert and oriented 3, well developed and well nourished, normocephalic and atraumatic, lying in bed and in no acute distress. HEENT--PERRL, EOMI, mucous membranes and oropharynx mildly dry Neck--supple. No JVD. No bruits. Thyroid normal, trachea midline, no adenopathy. Heart--normal S1 and S2. No murmurs, rubs or gallops. Lungs--Reduced air entry on auscultation Abdomen--normal bowel sounds and soft. Mild epigastric and left sided abdominal pain Extremities--no cyanosis or clubbing. No edema. Dermatologic--normal skin turgor, normal color, no abnormal lymph nodes, no rash. Neurologic--cranial nerves II through XII grossly intact. Rheumatologic--normal range of motion. Psychiatric--normal affect. Discharge Data Allergies Allergy/AdvReac Type Severity Reaction Status Date / Time No Known Allergies Allergy Verified 11/23/23 15:02 Consultations 11/23/23 16:17 ED Decision to Admit Stat 11/23/23 16:35 Consult Neurology Routine 11/24/23 11:42 Consult Cardiology Routine Ordered Studies 11/23/23 CT head/brain wo con Stat 11/23/23 14:40 CT angio head w con Stat CT angio neck with con Stat 11/23/23 17:06 MRI Brain [MR brain wo con] Stat Hospital Course (1) Stroke-like symptoms: 1.) Ischemic CVA/stroke -Admit to the PCU on tele -Currently stable with unchanged symptoms compared to arrival -Presented to the ED with progressive RUE incoordination and imbalance which initially started on 11/20/23 but became significantly more severe this am around 1000 -Made a stroke alert on arrival to the ED -CT head/brain wo con and CTA of the neck were negative for acute findings -CTA of the head shows focal high-grade stenosis of the proximal right posterior cerebral artery. -[facility], TNK was not recommended as patient is on Eliquis and symptoms initially started on 11/20/23 >Recommended ongoing CVA workup and treatment -S/P 10 mg IV labetalol in the ED 0Evaluated by Neuro, this was not a carioembolic stroke. Given interaction with Eliquis and Primidone, will switch Primidone to topiramate. resume eliquis dose of 2.5 mg BID. Creatinine is imprved, patient may be able to tolerate 5 mg dose. will defer to PCP. discharge instructions noted below. Patient discharged on aspirin and atorvastatin. (2) Persistent atrial fibrillation: -Currently in rate controlled afib -No recently missed doses of Eliquis -No longer on metoprolol due to previous bradycardia -Continue Eliquis (3) Essential tremor: -Continue Primidone (4) Diabetes: inpatient plan: -Monitor BSG ACHS, goal is 110-160 -Hold Glipizide and Jardiance for now -Start CF 50, CR 15, and 5 units lantus BID -Adjust regimen as needed (5) Acute heart failure with preserved ejection fraction (HFpEF): -Euvolemic on exam -Hold diuretics for now with permissive HTN (6) HTN (hypertension): -Currently at 181/96 -Allow permissive HTN for the next 24 hours -Hold PO diuretics and antihypertensives -PRN IV labetalol per listed parameters (7) BPH (benign prostatic hyperplasia): -Will continue tamsulosin and finasteride Plan The patient was discussed with Dr. Sommers at the time of the exam Total Time Total Time Spent Total Time Spent (In Minutes): 32 Discharge Plan Discharge Items Patient Disposition: Transfer Inpatient Rehab Fac Reason For Visit: ACUTE CVA Discharge Diagnosis: acute CVA Activity: Resume your previous activity Non-emergency contact: Primary Care Provider Call non-emergency contact if: you have any medication questions Follow-up/Referrals: Luanne Lanier MD [Primary Care Provider] - 11/27/23 10:05 am (with N[facility] in the [facility] office.) Diet: Carb Consistent or DM2 and Heart Healthy Addtl Attending Provider Instructions: Recommend followup with PCP in 1-2 weeks. Risk Factors for Stroke: You can reduce your chances of stroke by working with your medical provider to adopt a healthy lifestyle. Some specific ways to lower your chance of stroke are: * If you are a smoker, now is the time to stop smoking cigarettes * If you are diabetic, improve the control of your blood sugars * Avoid excessive amounts of alcohol * Control high blood pressure * Lose weight if you are overweight * Be sure to lead an active lifestyle * Eat a healthy diet low in salt, cholesterol and fat You should know about other risk factors for stroke that you are unable to control. These include: * Age 55 years or older * Male gender * Certain racial groups: , or / * Family History of Stroke, Mini stroke or Heart Attack * Sickle Cell Disease Follow Up: It is important for you to keep your follow up appointments with your medical provider. Who to Call and When: Medical Emergencies: Call 911 immediately if you experience any of the following warning signs and symptoms of Stroke: * Sudden numbness or weakness of the face, arm or leg, especially on one side of the body * Sudden confusion, trouble speaking or understanding * Sudden trouble seeing in one or both eyes * Sudden trouble walking, dizziness, loss of balance or coordination * Sudden severe headache with no cause Do not delay calling 911 if you experience any warning signs or symptoms of a stroke. Delay in seeking medical attention may affect what treatments can be given to you. . Pending Studies at Discharge: No Stand-Alone Forms: [facility], Medications to Prevent Stroke Skilled Items Patient informed of condition?: Yes DNR: No Discharge Level of Care: Skilled Communicable Disease: No Discharge Prognosis: Stable Lines: None Urinary Catheter: No Medications and DC Order Prescriptions: New atorvastatin 40 mg Tablet 40 mg PO DAILY Qty: 30 0RF aspirin 81 mg Tablet,Delayed Release (Dr/Ec) 81 mg PO DAILY Qty: 30 0RF topiramate 25 mg Tablet 25 mg PO HS Qty: 30 0RF Continued potassium chloride 10 mEq capsule, extended release 10 meq PO DAILY Qty: 90 3RF Jardiance 10 mg tablet 10 mg PO DAILY Qty: 90 3RF furosemide 20 mg tablet 20 mg PO DAILY Qty: 90 3RF Eliquis 2.5 mg tablet 2.5 mg PO BID Qty: 180 3RF amlodipine 10 mg Tablet 10 mg PO QAM glipizide 2.5 mg Tablet Extended Release 24hr 2.5 mg PO BID tamsulosin 0.4 mg Capsule 0.4 mg PO HS finasteride [Proscar] 5 mg Tablet 5 mg PO QAM Qty: 30 2RF Rx Instructions: for enlarged prostate cyanocobalamin (vitamin B-12) [Vitamin B-12] 500 mcg Tablet 500 mcg PO DAILY cholecalciferol (vitamin D3) 1,250 mcg (50,000 unit) capsule 50,000 unit PO WK Discontinued hydrochlorothiazide 25 mg tablet 25 mg PO DAILY Qty: 90 3RF cephalexin 500 mg capsule 500 mg PO BID PRN (Reason: Unknown) Rx Instructions: UNABLE TO VERIFY THIS MED, NOT ON EXT MED HX. NOT SURE PT IS TAKING. primidone 50 mg tablet 50 mg PO QID 30 Days Qty: 120 3RF Rx Instructions: take 1 tab in am, 1 tab at noon and 2 tabs in pm Discharge Orders: Discharge Order (Routine); Ordered 11/24/23 Ordered By: Smith Paris/Other Patient Handouts: Managing Type 2 Diabetes Admission Data Admit Date/Time: 11/23/23 16:44 Attending Provider: Smith Rae Admit Provider: Deny Sommers Primary Care Provider: Luanne Lanier Other Providers: Deny Sommers; Babar Robledo; Clarence Newell; Kali Young; Fish Solomon; Tre Bender; Dilan Gaffney; Wade Ontiveros Jr; Vitor Hendricks; Sujatha Lin; Dannielle Maharaj; Jason Bowers; Jason Phan; Mervin Frausto; Judie Dill; Blake Potter; Cassie Rabago; Bob Valladares; Ilia Rocha; Augustine Hwang; José Luis Day; [facility] Other Interventions: Discharge Summary Assessment (RN) Last Done: 11/24/23 14:39 Coding Level of Care Code 21820 INP/OBS DISCH >30 MIN Diagnoses Stroke-like symptoms R29.90 Persistent atrial fibrillation I48.19 Essential tremor G25.0 Diabetes E11.9 Acute heart failure with preserved ejection fraction (HFpEF) I50.31 Primary hypertension I10 Hypertension type: primary hypertension BPH (benign prostatic hyperplasia) N40.0
[2023-11-24] MEDS ORDERED: STROKE PATIENT DISCHARGE STA (14:51)
--- NOTE | 2023-11-24 14:52 | Communication Note ---
Date of Service: November 24, 2023 By CMS guidelines, a determination that the admission or continued stay is not medically necessary has been made by a member of the UR committee and a physici an for this hospital stay, therefore a Code 44 will be completed and the Inpatient admission will be changed to outpatient.
[2023-11-24] MEDS ORDERED: TOPIRAMATE 25 MG TAB PO SCH (21:00)
[2023-11-24] MEDS ORDERED: APIXABAN 2.5 MG TAB PO SCH (21:00)
--- NOTE | 2023-11-26 21:26 | Electrocardiogram Report ---
Test Reason : Blood Pressure : / mmHG Vent. Rate : 064 BPM Atrial Rate : 000 BPM P-R Int : 000 ms QRS Dur : 092 ms QT Int : 430 ms P-R-T Axes : 000 074 055 degrees QTc Int : 443 ms Atrial fibrillation Abnormal ECG When compared with ECG of 13-JUN-2023 12:08, Nonspecific T wave abnormality no longer evident in Anterolateral leads Confirmed by Dilan Gaffney ([id number]) on 11/26/2023 9:25:56 PM Referred By: REFERRED SELF Confirmed By:Dilan Gaffney
--- NOTE | 2023-11-26 21:30 | Electrocardiogram Report ---
Test Reason : Blood Pressure : / mmHG Vent. Rate : 046 BPM Atrial Rate : 000 BPM P-R Int : 000 ms QRS Dur : 088 ms QT Int : 462 ms P-R-T Axes : 000 034 086 degrees QTc Int : 404 ms Atrial fibrillation with slow ventricular response Abnormal ECG When compared with ECG of 23-NOV-2023 14:51, (unconfirmed) No significant change was found Confirmed by Dilan Gaffney ([id number]) on 11/26/2023 9:29:37 PM Referred By: REFERRED SELF Confirmed By:Dilan Gaffney
== END 2023-11-24 16:05 | DRG 64 ==
LOC: ED 14:16 → INTOOBSV 16:44 → SUATTDRO 16:44 → 2S 16:44

== ENCOUNTER 2024-09-26 12:42 | Observation (INO) ==
--- NOTE | 2024-09-16 15:45 | Anesthesiology Consultation ---
Date of Service September 16, 2024 Assessment & Plan (1) Encounter for pre-operative examination: - awaiting: - [place] cardiology clearance. - surgeon ordered CBC with diff and urine culture. - check BSG am DOS. - Case discussed in detail with Dr. Dotson including most recent cardiac event monitor results. He advised [place] cardiology clearance will be needed. Workload note-awaiting response. Surgeon's office made aware. - cardiology office visit 08/22/24 [place]: "...Atrial fibrillation: He has no obvious symptoms related to atrial fibrillation, and we also do not know the duration. It was identified in May 2023 and has been present since to our knowledge. Since he is asymptomatic with the rhythm itself (no palpitations or sense of irregularity) we do not know if it is persistent or paroxysmal but I suspect persistent or possibly permanent at this point. We had considered cardioversion in the past, but at this point he does not want to go through with that and I think it is optional. Since his heart rate is slow without AV bhavik blocking medications I would like to get a Holter monitor to assess his overall heart rate range. I am applying that today...Congestive heart failure: Currently he seems quite well compensated and I have not adjusted his medications. 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 Chart Review Chart Review: Pending: Refer to Additional Notes / Consult section and Patient NOT seen in Pre Admission Testing History Surgery Operation Date: 09/26/24 10:20 Proposed Procedures p Transurethral Resection Prostate - Pritesh Bartlett DO Height/Weight Height: 5 ft 6 in Weight: 76.204 kg Allergies Allergy/AdvReac Type Severity Reaction Status Date / Time No Known Allergies Allergy Verified 09/16/24 14:37 Medications Home Medications Medication Instructions Recorded Confirmed Last Taken amlodipine 10 mg tablet 10 mg PO QAM 06/19/18 09/16/24 11/23/23 tamsulosin 0.4 mg capsule 0.4 mg PO HS 08/30/18 09/16/24 11/22/23 finasteride 5 mg tablet (Proscar) 5 mg PO QAM #30 tabs 09/13/21 09/16/24 11/23/23 atorvastatin 40 mg tablet 40 mg PO QAM 12/28/23 09/16/24 Unknown melatonin 3 mg capsule 3 mg PO HS PRN Sleep 12/28/23 09/16/24 Unknown trazodone 50 mg tablet 50 mg PO HS 12/28/23 09/16/24 Unknown hydralazine 25 mg tablet 50 mg PO TID 03/28/24 09/16/24 Unknown lisinopril 10 mg tablet 10 mg PO QAM 03/28/24 09/16/24 Unknown topiramate 50 mg tablet 50 mg PO BID #60 tabs 03/28/24 09/16/24 Unknown apixaban 5 mg tablet (Eliquis) 5 mg PO BID #180 tabs 08/22/24 09/16/24 Unknown cholecalciferol (vitamin D3) 125 125 mcg PO WK 08/22/24 09/16/24 Unknown mcg (5,000 unit) capsule cephalexin 500 mg capsule 500 mg PO BID PRN skin infection 09/11/24 09/16/24 Unknown aspirin 81 mg tablet,delayed 81 mg PO QAM 09/16/24 09/16/24 Unknown release empagliflozin 10 mg tablet 10 mg PO QAM 09/16/24 09/16/24 Unknown (Jardiance) Past Medical History Medical History (Updated 09/16/24 @ 15:46 by Nicol Spears PA-C) Acquired solitary kidney Atrial fibrillation asymptomatic - reason for anticoagulant. follows with Dr Gaffney Benign prostatic hyperplasia with urinary obstruction Chronic sinusitis CKD (chronic kidney disease) per medical record - pt denies Congestive heart failure Dysuria Essential tremor Hearing loss History of melanoma History of pneumonia (05/2023) hx of community acquired pneumonia - treated at [facility]. no problems since History of stroke (11/23/23) right sided weakness, mild short term memory loss. treated at [facility]. Hx of pulmonary hypertension (05/2023) Hyperlipidemia Hypertension Insomnia Obesity On anticoagulant therapy COLLINS (obstructive sleep apnea) pt denies, states he returned the cpap a month ago. Pancreatic cyst Pulmonary nodules Type 2 diabetes mellitus NIDDM Urinary retention Past Family History Family History Mother Hypertension Brother Heart disease Other No family history of adverse response to anesthesia No significant family history Denies family history of Hearing loss No family history of bleeding disorder Allergies Cancer Stroke Asthma Past Surgical History Surgical History H/O colonoscopy History of adenoidectomy Hx of carpal tunnel repair right and left Hx of cystoscopy Hx of inguinal hernia repair Hx of melanoma excision Hx of tonsillectomy S/P bladder tumor excision with fulguration (2018) S/P sinus surgery with nasal polyp removal Social History Smoking Status: Never smoker tobacco type: pipe Do You Dip or Chew Tobacco: No Hx Alcohol Use: Yes Alcohol type: beer and wine alcohol intake frequency: holidays/special occasions only Hx Substance Use: No substance use type: does not use Lab Results Anesthesia Preop Results Results Anesthesia Widget: Na 141 mmol/L (136-145) 08/22/24 K 3.7 mmol/L (3.5-5.1) 08/22/24 Cl 107 mmol/L (98-107) 08/22/24 CO2 27 mmol/L (21-32) 08/22/24 BUN 27 mg/dl (6-23) H 08/22/24 Creat 1.35 mg/dl (0.6-1.4) 08/22/24 Glucose Level 233 mg/dl (70-99(Fasting)) H 08/22/24 Urine Color Yellow 08/04/24 Urine Appearance Cloudy (Clear) A 08/04/24 Urine pH 5.0 (4.5-7.5) 08/04/24 Urine Specific [place] 1.021 (1.000-1.030) 08/04/24 Urine Protein Trace (Negative) H 08/04/24 Urine Glucose (UA) 3+ (Negative) H 08/04/24 Urine Ketones Negative (Negative) 08/04/24 Urine Blood 1+ (Negative) H 08/04/24 Urine Nitrite Positive (Negative) A 08/04/24 Urine Bilirubin Negative (Negative) 08/04/24 Urine Urobilinogen Negative (Negative) 08/04/24 Urine Leukocyte Esterase 2+ (Negative) H 08/04/24 Urine WBC (Auto) >50 /hpf (0-5) H 08/04/24 Urine RBC (Auto) 6-10 /hpf (0-2) H 08/04/24 Urine Hyaline Casts (Auto) 0-2 /lpf (0-2) 08/04/24 Urine Epithelial Cells (Auto) 0-2 /hpf (0-2) 08/04/24 Urine Bacteria (Auto) 4+ (None Seen) H 08/04/24 Testing Electrocardiogram Date: 08/22/24 Afib with slow ventricular response, rate 47 bpm Chest X-Ray Date: 11/23/23 *1 view* No acute process. Echocardiogram Date: 11/24/23 EF 60-65% Mild cLVH Borderline LA enlargement Aortic valve sclerosis moderate, without significant aortic valvular stenosis Mild tricuspid regurgitation Stress Test Date: 01/13/21 METS 5.5 MPHR 81% Normal stress echocardiogram EF 55-60% Mildly dilated atria Mild to moderate mitral regurgitation Other Testing Cardiac event monitor 09/16/24 Afib with minimum HR 24 bpm, maximum 84 bpm and average 45 bpm. Normal diurnal HR 1.7% PVCs 14,791 pauses in excess of 2.0 seconds, most of these occurred at night but they were present throughout the day as well. The longest pause was 4.7 seconds at 12:06 am Brain MRI 01/29/24 1. Expected evolution of the late subacute 1.5 cm left frontal lobe periventricular lacunar infarct with mild laminar necrosis. 2. Unremarkable appearance of the internal auditory canals, 7th and 8th cranial nerves. 3. Involutional changes with chronic microvascular ischemic disease. Head and neck CTA 11/23/23 1. There is no evidence of hemorrhage, mass effect, or acute territorial ischemia noting angiographic phase technique. 2. 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 3. Otherwise unremarkable CT angiogram of the brain. 4. Unremarkable CT angiogram of the neck.
--- NOTE | 2024-09-26 13:42 | History & Physical Bridge Note ---
Date of Service September 26, 2024 History & Physical Bridge Note I have examined the patient, reviewed the History & Physical and in the interval since the performance of the History & Physical I have noted the following changes of clinical significance: no changes noted
[2024-09-26] MEDS: LR 15ML/HR IV SCH (14:03)
[2024-09-26] MEDS ORDERED: ePHEDrine sulfate 50 MG/ML AMP IV PRN (14:25)
[2024-09-26] MEDS ORDERED: fentaNYL citrate PF 100 MCG/2 ML VIAL IV PRN (14:25)
[2024-09-26] MEDS ORDERED: HYDROmorphone INJ 2 MG/ML SYR/VIAL IV PRN (14:25)
[2024-09-26] MEDS ORDERED: HYDROmorphone INJ 1 MG/ML SYRINGE IV PRN (14:25)
[2024-09-26] MEDS ORDERED: ATROPINE SULFATE 0.1 MG/ML 10ML SYR IV PRN (14:25)
[2024-09-26] MEDS ORDERED: ONDANSETRON INJ 2 MG/ML 2 ML VIAL IV PRN (14:25)
--- NOTE | 2024-09-26 14:28 | Anesthesiology Consultation ---
Date of Service September 26, 2024 Assessment & Plan Chart Review Chart Review: Acceptable Risk for Surgery Consults Requested none ASA ASA3 Proposed Anesthesia Anesthesia Type: General History Surgery Operation Date: 09/26/24 14:35 Proposed Procedures p Transurethral Resection Prostate - Pritesh Bartlett DO Height/Weight Height: 5 ft 6 in Weight: 78 kg Allergies Allergy/AdvReac Type Severity Reaction Status Date / Time No Known Allergies Allergy Verified 09/26/24 13:46 Medications Home Medications Medication Instructions Recorded Confirmed Last Taken amlodipine 10 mg tablet 10 mg PO QAM 06/19/18 09/26/24 09/26/24 05:30 tamsulosin 0.4 mg capsule 0.4 mg PO HS 08/30/18 09/26/24 09/25/24 23:00 finasteride 5 mg tablet (Proscar) 5 mg PO QAM #30 tabs 09/13/21 09/26/24 09/26/24 08:00 atorvastatin 40 mg tablet 40 mg PO QAM 12/28/23 09/26/24 Unknown melatonin 3 mg capsule 3 mg PO HS PRN Sleep 12/28/23 09/26/24 09/25/24 23:00 trazodone 50 mg tablet 50 mg PO HS 12/28/23 09/26/24 Unknown hydralazine 25 mg tablet 50 mg PO TID 03/28/24 09/26/24 09/25/24 13:00 lisinopril 10 mg tablet 10 mg PO QAM 03/28/24 09/26/24 09/25/24 08:00 topiramate 50 mg tablet 50 mg PO BID #60 tabs 03/28/24 09/26/24 09/25/24 20:00 apixaban 5 mg tablet (Eliquis) 5 mg PO BID #180 tabs 08/22/24 09/26/24 09/23/24 20:00 cholecalciferol (vitamin D3) 125 125 mcg PO WK 08/22/24 09/26/24 Unknown mcg (5,000 unit) capsule cephalexin 500 mg capsule 500 mg PO BID PRN skin infection 09/11/24 09/26/24 Unknown aspirin 81 mg tablet,delayed 81 mg PO QAM 09/16/24 09/26/24 09/23/24 08:00 release empagliflozin 10 mg tablet 10 mg PO QAM 09/16/24 09/26/24 09/24/24 08:00 (Jardiance) ampicillin 500 mg capsule 500 mg PO Q6H 10 days #40 caps 09/23/24 09/26/24 09/26/24 05:30 Active Medications Generic Name Dose Route Start Last Admin Trade Name Freq PRN Reason Stop Dose Admin Lactated Ringer's 1,000 mls @ 15 mls/hr 09/26/24 06:00 09/26/24 14:03 Lr IV 09/27/24 05:59 15 mls/hr .Q24H KRISTIE Administration NPO Date Last Intake of Fluids: 09/25/24 Time Last Intake of Fluids: 21:00 Date Last Intake of Solids: 09/25/24 Time Last Intake of Solids: 20:30 Last Intake of Solids Comment: Greater then 8 hrs Past Medical History Medical History Atrial fibrillation asymptomatic - reason for anticoagulant. follows with Dr Gaffney COLLINS (obstructive sleep apnea) pt denies, states he returned the cpap a month ago. Pancreatic cyst Pulmonary nodules Hx of pulmonary hypertension (05/2023) Essential tremor Chronic sinusitis CKD (chronic kidney disease) per medical record - pt denies Congestive heart failure History of pneumonia (05/2023) hx of community acquired pneumonia - treated at [facility]. no problems since On anticoagulant therapy Acquired solitary kidney History of stroke (11/23/23) right sided weakness, mild short term memory loss. treated at [facility]. Insomnia History of melanoma Hyperlipidemia Benign prostatic hyperplasia with urinary obstruction Dysuria Hearing loss Hypertension Type 2 diabetes mellitus NIDDM Urinary retention Obesity Exercise / Class Metabolic Activity III < 4 Walking/Shop/Light housework Past Family History Family History Mother Hypertension Brother Heart disease Other No family history of adverse response to anesthesia No significant family history Denies family history of Hearing loss No family history of bleeding disorder Allergies Cancer Stroke Asthma Past Surgical History Surgical History Hx of melanoma excision S/P bladder tumor excision with fulguration (2017) S/P sinus surgery with nasal polyp removal History of adenoidectomy Hx of cystoscopy H/O colonoscopy Hx of inguinal hernia repair Hx of carpal tunnel repair right and left Hx of tonsillectomy Past Anesthesia History No Hx of Anesthesia Complications History of PONV No Hx of PONV Social History tobacco type: pipe Do You Dip or Chew Tobacco: No Hx Alcohol Use: Yes Alcohol type: beer and wine alcohol intake frequency: holidays/special occasions only Hx Substance Use: No substance use type: does not use Physical Exam Vital Signs Last Vital Signs Temp 36.9 C 09/26/24 13:41 Pulse 56 L 09/26/24 13:41 Resp 20 09/26/24 13:41 BP 196/96 H 09/26/24 13:41 Pulse Ox 99 09/26/24 13:41 O2 Del Method Room Air 09/26/24 13:41 Constitutional no acute distress ENMT Mouth: dentition not poor Thyromental Distance: > or= 3.5 Finger Breadths Mallampati Class: I Neck normal visual inspection Respiratory normal respiratory effort Auscultation: lungs clear to auscultation bilaterally Cardiovascular Rate/Rhythm: regular rate and regular rhythm Psychiatric Orientation: alert and oriented x 3 Testing Laboratory Results 09/26/24 13:42 POC Glucose 146 H Electrocardiogram Date: 08/22/24 Afib with slow ventricular response, rate 47 bpm Chest X-Ray Date: 11/23/23 *1 view* No acute process. Echocardiogram Date: 11/24/23 EF 60-65% Mild cLVH Borderline LA enlargement Aortic valve sclerosis moderate, without significant aortic valvular stenosis Mild tricuspid regurgitation Stress Test Date: 01/13/21 METS 5.5 MPHR 81% Normal stress echocardiogram EF 55-60% Mildly dilated atria Mild to moderate mitral regurgitation Other Testing Cardiac event monitor 09/16/24 Afib with minimum HR 24 bpm, maximum 84 bpm and average 45 bpm. Normal diurnal HR 1.7% PVCs 14,791 pauses in excess of 2.0 seconds, most of these occurred at night but they were present throughout the day as well. The longest pause was 4.7 seconds at 12:06 am Brain MRI 01/29/24 1. Expected evolution of the late subacute 1.5 cm left frontal lobe periventricular lacunar infarct with mild laminar necrosis. 2. Unremarkable appearance of the internal auditory canals, 7th and 8th cranial nerves. 3. Involutional changes with chronic microvascular ischemic disease. Head and neck CTA 11/23/23 1. There is no evidence of hemorrhage, mass effect, or acute territorial ischemia noting angiographic phase technique. 2. 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 3. Otherwise unremarkable CT angiogram of the brain. 4. Unremarkable CT angiogram of the neck.
[2024-09-26] MEDS ORDERED: MoRPHine SULFATE 2 MG/ML CARP IV PRN (15:44)
[2024-09-26] MEDS ORDERED: PHENAZOPYRIDINE HCL 200 MG TAB PO PRN (15:44)
[2024-09-26] MEDS ORDERED: oxyCODONE/ACETAMINOPHEN 5mg/325mg TAB PO PRN (15:44)
[2024-09-26] MEDS ORDERED: oxyBUTYnin chloride 5 MG TAB PO PRN (15:44)
[2024-09-26] MEDS ORDERED: PROPOFOL IV EMULSION 10 MG/ML 20 ML VIAL IV ONE (16:30)
[2024-09-26] MEDS ORDERED: LIDOCAINE 2% 2 ML VIAL/AMP(20MG/ML) INFIL ONE (16:30)
[2024-09-26] MEDS ORDERED: fentaNYL citrate PF 100 MCG/2 ML VIAL ONE ×2 (16:30→17:20)
[2024-09-26] MEDS: ceFAZolin 2000MG 2,000 MG/15 ML SYR IV SCH ×2 (17:05→21:21)
[2024-09-26] MEDS ORDERED: ePHEDrine sulfate 50 MG/ML AMP ONE (17:17)
[2024-09-26] MEDS ORDERED: ONDANSETRON INJ 2 MG/ML 2 ML VIAL ONE (18:12)
--- NOTE | 2024-09-26 18:22 | Operative Report ---
PG Post Operative Report Pre & Post Diagnosis Operation Date: 09/26/24 14:35 Pre-Op Diagnosis: Prostatic Enlargement, Solitary Kidney Post-Op Diagnosis: Prostatic Enlargement, Solitary Kidney I identified the patient and participated in the time-out.: Yes Procedure Operation Date: 09/26/24 14:35 Actual Procedures p Transurethral Resection Prostate, Destruction and extraction of bladder stones. - Pritesh Bartlett DO Surgeon Pritesh Bartlett, II, DO Clinical Evaluator None Estimated Blood Loss 10 Findings Consistent with Post-Op Diagnosis Multiple small bladder stones. Largest approx 1.2 cm in size. Large Prostate with obstruction. Specimens Prostate adenoma. Bladder Stones. Drains 22Fr [address] Catheter Anesthesia Type General Complications none Disposition Disposition: Recovery Room Indications Patient with obstruction due to prostate enlargement. Risks and benefits discussed at length. Description of Procedure Patient was consented and brought back to the operating room. Patient was placed under anesthesia in the supine position and moved to the dorsal lithotomy position. Patient was prepped and draped in the regular sterile fashion. A time out was completed. A 30degree Cystoscope was placed into the bladder and the entire bladder was examined. The UO's were identified as well as the bladder neck, trigone, dome, and the other important landmarks. The prostatic urethra and large lobes/adenoma was assessed and the veru and bladder neck identified and area/size was assessed. Multiple small bladder stones were discovered. These were destroyed and extracted and some fragments sent for analysis. The resection scope was placed and the fine bipolar loop was selected. Starting at the 5 and 7 o'clock positions, a channel was created from bladder neck to the veru. The extremely large lateral lobes were then resected. Resection was taken down to the capsule fibers. Extensive resection of the lateral lobes due to large volume. The Specimen was removed and sent for analysis. The resection bed and any bleeding areas were fulgurated/cauterized and the entire area inspected. All bleeding was controlled. The bladder was inspected a final time. The bladder was emptied and irrigated. All specimen and debris was removed. The scope was removed with the bladder partially full. A catheter was placed and balloon elevated. This was easily irrigated. The patient was cleaned, aroused from anesthesia, and transferred to the pacu in stable condition having tolerated the procedure well with no complications. I was present and participated in all aspects of the procedure. The patient will be monitored in the PACU until transferred. Patient was started on continous irrigation. Will plan to maintain catheter for approx 7-10 days. Will followup for pathology in approx 2-3 weeks. I attest to the content of the Intraoperative Record and any orders documented therein. Any exceptions are noted below.
[2024-09-26 19:36] LABS: Basophils # (auto) 0.03 K/uL (0.00-0.20); Basophils % (auto) 0.5 %; Eosinophils # (auto) 0.11 K/uL (0.00-0.50); Eosinophils % (auto) 1.8 %; Hematocrit (blood only) 49.1 % (42.0-52.0); Hemoglobin 16.6 g/dl (14.0-18.0); Immature Granulocytes # (auto) 0.03 K/uL (0.01-0.20); Immature Granulocytes % (auto) 0.5 %; Lymphocytes # (auto) 0.76 K/uL (1.20-3.40); Lymphocytes % (auto) 12.7 %; Mean Corpuscular Hemoglobin 29.4 pg (25.0-34.0); Mean Corpuscular Hgb Conc 33.8 g/dL (32.0-36.0); Mean Corpuscular Volume 86.9 fL (80.0-100.0); Mean Platelet Volume 9.9 fL (9.4-12.4); Monocytes # (auto) 0.34 K/uL (0.11-0.59); Monocytes % (auto) 5.7 %; Neutrophils # (auto) 4.72 K/uL (1.40-6.50); Neutrophils % (auto) 78.8 %; Platelet Count 178 K/uL (130-400); RDW Coefficient of Variation 13.5 % (11.5-14.5); RDW Standard Deviation 42.2 fL (36.4-46.3); Red Blood Count 5.65 M/uL (4.70-6.10); White Blood Count 5.99 K/ul (4.8-10.8)
--- NOTE | 2024-09-26 19:47 | Anesthesiology Progress Note ---
Date of Service September 26, 2024 Anesthesia Post Procedure Vital Signs Vital Signs: Temp Pulse Pulse Resp BP Pulse Ox O2 Del Method 09/26/24 19:30 51 L 21 162/86 H 97 Room Air 09/26/24 19:10 54 L 23 174/81 H 97 Room Air 09/26/24 19:00 36.5 C 56 L 20 172/84 H 95 Room Air 09/26/24 18:50 54 L 16 172/91 H 96 Room Air 09/26/24 18:40 65 18 141/104 H 99 Room Air 09/26/24 18:30 36.1 C L 48 L 12 137/64 99 Room Air 09/26/24 13:41 36.9 C 56 L 20 196/96 H 99 Room Air Transfer of Care Handoff Completed per policy Notes Mental Status: alert / awake / arousable Patient Amnestic to Procedure: Yes Nausea / Vomiting: adequately controlled Pain: adequately controlled Airway Patency, RR, SpO2: stable & adequate BP & HR: stable & adequate Hydration State: stable & adequate Anesthetic Complications: no major complications apparent
[2024-09-26 19:51] LABS: Albumin Globulin Ratio 1.6 (0.9-2); Albumin Level 4.1 gm/dl (3.4-5.0); Bilirubin,Total 0.7 mg/dl (0.2-1.0); Creatinine Clr Calc Pharmacy 47.1 ml/min; Globulin 2.5 gm/dl (2.5-4.0); Potassium 3.7 mmol/L (3.5-5.1); Total Protein 6.6 gm/dl (6.0-8.3)
[2024-09-26] MEDS: DOCUSATE SODIUM 100 MG CAP PO SCH (21:21)
--- NOTE | 2024-09-26 22:09 | Hospitalist Consultation ---
Date of Consultation September 26, 2024 Assessment & Plan (1) S/P TURP (status post transurethral resection of prostate): (2) Bradycardia: (3) Persistent atrial fibrillation: (4) Mitral regurgitation: (5) Pulmonary hypertension: (6) Solitary kidney: (7) CKD (chronic kidney disease) stage 2, GFR 60-89 ml/min: (8) Type 2 diabetes mellitus: (9) HTN (hypertension): (10) Hyperlipidemia: Plan 79 yo male PMHx paroxysmal afib on Eliquis, bradycardia, HTN, pulmonary HTN, CKD, solitary kidney, T2DM not on insulin, HLD POD-0 s/p TURP. #S/P TURP Post op appearing to do well Continue Ancef q12h per surgical team Pain well controlled - continue current management Delatorre in place and draining Will restart finasteride and tamsulosin Rest per surgical team #Bradycardia/HFpEF/afib/HTN/HLD Bradycardia is longstanding and appears at baseline - follows with cardiology Dr. Gaffney and HF clinic Appears euvolemic, no need for diuresis at this time Restart Eliquis and ASA when cleared by surgery Continue amlodipine, hydralazine, lisinopril at home dose Continue atorvastatin #CKD-II/Solitary Kidney Cr is at baseline or better Continue to monitor volume status and Cr #T2DM Not on insulin Last A1c 7.5 Continue Jardiance [place]: heart healthy, T2DM Code status: full DVT prophylaxis: SCDs, restart Eliquis as soon as safe from surgical perspective Isolation: none Disposition: med/tele History of Present Illness Reason for Consultation: CAD, bradycardia. CKD. Requesting Physician: Pritesh Bartlett DO Attending Physician: Pritesh Bartlett II, DO History of Present Illness 79 yo male PMHx paroxysmal afib on Eliquis, bradycardia, HTN, pulmonary HTN, CKD, solitary kidney, T2DM not on insulin, HLD POD-0 s/p TURP. Hospitalist service is consulted for medical management of the patient while hospitalized. Patient has been hypertensive and bradycardic since admission. He is asymptomatic. Labs reviewed and significant for Cr at baseline. Otherwise, labs unremarkable. The patient is on Ancef q12h postoperatively. On examination patient is resting comfortably in bed. Pain is adequately controlled on post-op pain regimen. Allergies Allergy/AdvReac Type Severity Reaction Status Date / Time No Known Allergies Allergy Verified 09/26/24 13:46 Home Medications Medication Instructions Recorded Confirmed Type amlodipine 10 mg tablet 10 mg PO QAM 06/19/18 09/26/24 History tamsulosin 0.4 mg capsule 0.4 mg PO HS 08/30/18 09/26/24 History finasteride 5 mg tablet (Proscar) 5 mg PO QAM #30 tabs 09/13/21 09/26/24 Rx atorvastatin 40 mg tablet 40 mg PO QAM 12/28/23 09/26/24 History melatonin 3 mg capsule 3 mg PO HS PRN Sleep 12/28/23 09/26/24 History trazodone 50 mg tablet 50 mg PO HS 12/28/23 09/26/24 History hydralazine 25 mg tablet 50 mg PO TID 03/28/24 09/26/24 History lisinopril 10 mg tablet 10 mg PO QAM 03/28/24 09/26/24 History topiramate 50 mg tablet 50 mg PO BID #60 tabs 03/28/24 09/26/24 Rx apixaban 5 mg tablet (Eliquis) 5 mg PO BID #180 tabs 08/22/24 09/26/24 Rx cholecalciferol (vitamin D3) 125 125 mcg PO WK 08/22/24 09/26/24 History mcg (5,000 unit) capsule cephalexin 500 mg capsule 500 mg PO BID PRN skin infection 09/11/24 09/26/24 History aspirin 81 mg tablet,delayed 81 mg PO QAM 09/16/24 09/26/24 History release empagliflozin 10 mg tablet 10 mg PO QAM 09/16/24 09/26/24 History (Jardiance) ampicillin 500 mg capsule 500 mg PO Q6H 10 days #40 caps 09/23/24 09/26/24 Rx Patient History Medical History Atrial fibrillation asymptomatic - reason for anticoagulant. follows with Dr Gaffney COLLINS (obstructive sleep apnea) pt denies, states he returned the cpap a month ago. Pancreatic cyst Pulmonary nodules Hx of pulmonary hypertension (05/2023) Essential tremor Chronic sinusitis CKD (chronic kidney disease) per medical record - pt denies Congestive heart failure History of pneumonia (05/2023) hx of community acquired pneumonia - treated at [facility]. no problems since On anticoagulant therapy Acquired solitary kidney History of stroke (11/23/23) right sided weakness, mild short term memory loss. treated at [facility]. Insomnia History of melanoma Hyperlipidemia Benign prostatic hyperplasia with urinary obstruction Dysuria Hearing loss Hypertension Type 2 diabetes mellitus NIDDM Urinary retention Obesity Surgical History Hx of melanoma excision S/P bladder tumor excision with fulguration (2017) S/P sinus surgery with nasal polyp removal History of adenoidectomy Hx of cystoscopy H/O colonoscopy Hx of inguinal hernia repair Hx of carpal tunnel repair right and left Hx of tonsillectomy Family History Mother Hypertension Brother Heart disease Other No family history of adverse response to anesthesia No significant family history Denies family history of Hearing loss No family history of bleeding disorder Allergies Cancer Stroke Asthma Social History Second Hand Exposure: No; Do You Dip or Chew Tobacco: No; Tobacco Cessation Education Requested by Patient: No Hx Alcohol Use: Yes Alcohol type: beer and wine Hx Substance Use: No Preferred Language: German Communication Ability: Effective Visual Impairment: No Limitations Training And Development 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 Required: No Beliefs That Will Affect Care: None marital status: / Current Living Situation: Alone current occupational status: retired Other Information That Helps Us Care for You: No Feels Safe at Home: Yes Safety Concerns: Feels Safe At This Time Assistive Devices: Cane and Glasses Review of Systems Review of Systems: reviewed, per HPI Physical Exam Physical Exam: Constitutional: age appropriate, no acute distress HEENT: NCAT, no conjunctival injection CV: bradycardia to 30s-40s on monitor, extremities well-perfused, no LE edema Resp: no increased work of breathing GI: nondistended MSK: no gross deformities appreciated Skin: warm, dry, no rash appreciated Neuro: alert, oriented, no focal neurologic deficit appreciated Results & Data Results & Data Vital Signs (Past 12 Hours) Vital Signs Temp Pulse Pulse Resp BP Pulse Ox O2 Del Method 09/26/24 21:15 36.4 C L 65 20 147/75 H 98 Room Air 09/26/24 20:41 36.4 C L 48 L 18 162/77 H 95 Room Air 09/26/24 20:15 36.5 C 46 L 18 147/75 H 96 Room Air 09/26/24 19:58 36.4 C L 50 L 18 168/81 H 96 Room Air 09/26/24 19:30 51 L 21 162/86 H 97 Room Air 09/26/24 19:10 54 L 23 174/81 H 97 Room Air 09/26/24 19:00 36.5 C 56 L 20 172/84 H 95 Room Air 09/26/24 18:50 54 L 16 172/91 H 96 Room Air 09/26/24 18:40 65 18 141/104 H 99 Room Air 09/26/24 18:30 36.1 C L 48 L 12 137/64 99 Room Air 09/26/24 13:41 36.9 C 56 L 20 196/96 H 99 Room Air Resident Activity Tracking Resident Involvement: Resident Care Provided Care Provided: Adult Hospital Medicine (9) HTN (hypertension) Hypertension type: primary hypertension Qualified Code(s): I10 - Essential (primary) hypertension
[2024-09-26] MEDS ORDERED: MELATONIN 3 MG TAB PO PRN (23:04)
[2024-09-27 06:33] LABS: Basophils # (auto) 0.04 K/uL (0.00-0.20); Basophils % (auto) 0.5 %; Eosinophils # (auto) 0.11 K/uL (0.00-0.50); Eosinophils % (auto) 1.4 %; Hemoglobin 14.7 g/dl (14.0-18.0); Immature Granulocytes # (auto) 0.03 K/uL (0.01-0.20); Immature Granulocytes % (auto) 0.4 %; Lymphocytes % (auto) 10.1 %; Mean Corpuscular Hemoglobin 29.6 pg (25.0-34.0); Mean Corpuscular Hgb Conc 34.2 g/dL (32.0-36.0); Mean Corpuscular Volume 86.5 fL (80.0-100.0); Mean Platelet Volume 9.9 fL (9.4-12.4); Monocytes # (auto) 0.64 K/uL (0.11-0.59); Monocytes % (auto) 8.1 %; Neutrophils # (auto) 6.31 K/uL (1.40-6.50); Neutrophils % (auto) 79.5 %; Platelet Count 170 K/uL (130-400); RDW Coefficient of Variation 13.5 % (11.5-14.5); RDW Standard Deviation 42.3 fL (36.4-46.3); Red Blood Count 4.97 M/uL (4.70-6.10); White Blood Count 7.93 K/ul (4.8-10.8)
[2024-09-27 06:59] LABS: BUN Creatinine Ratio 13.4 (10-20); Calcium 8.3 mg/dl (8.6-10.3); Creatinine Clr Calc Pharmacy 45.6 ml/min; Potassium 3.5 mmol/L (3.5-5.1)
[2024-09-27 08:00] VITALS: TEMP 97.9
[2024-09-27 08:34] LABS: Albumin Level 3.5 gm/dl (3.4-5.0)
[2024-09-27] MEDS: EMPAGLIFLOZIN 10 MG TAB PO SCH (08:49)
[2024-09-27] MEDS: FINASTERIDE 5 MG TAB PO SCH (08:49)
[2024-09-27] MEDS: amLODIPine BESYLATE 5 MG TAB PO SCH (08:49)
[2024-09-27] MEDS: ATORVASTATIN 40 MG TAB PO SCH (08:49)
[2024-09-27] MEDS: lisinopril 10 MG TAB PO SCH (08:50)
[2024-09-27] MEDS: hydrALAZINE TAB 50 MG TAB PO SCH (08:50)
[2024-09-27] MEDS: TOPIRAMATE 50 MG TAB PO SCH (08:50)
--- NOTE | 2024-09-27 09:54 | Hospitalist Progress Note ---
Date of Service September 27, 2024 Assessment & Plan (1) S/P TURP (status post transurethral resection of prostate): (2) Bradycardia: (3) Persistent atrial fibrillation: (4) Congestive heart failure: Plan This is an 79 year old male w/ past medical history of a fib, bradycardia, HTN, pulmonary HTN, CKD, solitary kidney, T2DM who presented to the hospital for an elective TURP on 09/26 w/ Dr. Bernal. #s/p TURP Abx, pain management, bowel regimen per primary team Resume Eliquis when able. Delatorre in place for 7-10 days per op note continue finasteride & flomax #Bradycardia/HF/HTN Bradycardic @ baseline. Euvolemic Follow up w/ cardiology outpatient Restart Eliquis and ASA when able. Continue amlodipine, hydralazine, lisinopril #T2DM A1c 7.5 Continue Jardiance on dc Chronic conditions: CKDII: Cr at baseline HLD: statin Code: full DVT prophylaxis: SCD's eliquis when able. Patient stable from a medical standpoint for discharge. At this time our hospitalist service will sign off. Please call with questions/concerns. Admission and Anticipated Discharge Date Admission Date: September 26, 2024 Subjective Patient seen and examined this morning. Patient reports to be feeling well today and he is anticipating being discharged. He denies any dizziness, weakness, CP, or SOB. Physical Exam Constitutional: WD/WN, vitals as above Eyes: PERRL, conjunctivae normal, anicteric sclerae Respiratory: normal respiratory effort, lungs clear to auscultation Cardiovascular: bradycardic, no murmur. No LE edema Psychiatric: A+Ox3, euthymic affect Results & Data Results & Data Vital Signs (Past 12 Hours) Vital Signs Temp Pulse Pulse Pulse Resp BP BP 09/27/24 07:58 36.6 C 43 L 17 158/86 H 09/27/24 02:34 36.5 C 45 L 18 156/78 H 09/26/24 22:30 36.5 C 47 L 20 144/78 H 09/26/24 21:56 52 L Pulse Ox O2 Del Method 09/27/24 07:58 97 Room Air 09/27/24 02:34 97 Room Air 09/26/24 22:30 97 Room Air 09/26/24 21:56 PG Care Time/CCT Total # of Minutes Spent Total Time Spent with Patient: Total time spent is greater than 50% in coordination of care (as documented) at patient's floor/unit and/or counseling patient: Coding Level of Care Code 48435 SUB INP/OBS CARE 2/35MIN Diagnoses S/P TURP (status post transurethral resection of prostate) Z90.79 Bradycardia R00.1 Persistent atrial fibrillation I48.19 Congestive heart failure I50.9
--- NOTE | 2024-09-27 10:40 | Urology Progress Note ---
Date of Service September 27, 2024 Assessment & Plan (1) BPH NOS w ur obs/LUTS: (2) S/P TURP (status post transurethral resection of prostate): Plan: - Pt POD#1 s/p TURP with Dr. Bartlett - Doing well, progressing as expected - Afebrile, hemodynamically stable - Lab work reviewed - creatinine 1.27, WBC 7.93, Hgb 14.7 - 3 way Delatorre catheter intact, patent and draining pink/light knox urine with CBI almost clamped - CBI clamped during exam, will reassess later this morning - Maintain Delatorre catheter - Anticipate home with Delatorre catheter later today presuming urine appropriate and he continues to progress as expected - Expected clinical course reviewed, all questions answered - Will arrange outpatient follow-up with our service for voiding trial Admission and Anticipated Discharge Date Admission Date: September 26, 2024 Subjective Patient seen and examined at bedside this morning. He is awake and sitting up in bed. No acute issues overnight. Denies pain. No fever or chills. Delatorre patent and draining pink urine with CBI almost clamped. CBI was clamped at bedside. Review of Systems Constitutional: as per Subjective / HPI Genitourinary: + as per Subjective / HPI Physical Exam Constitutional: well developed and well nourished; no acute distress Respiratory: normal respiratory effort; no respiratory distress and no labored breathing Gastrointestinal (Abdomen): Inspection/Auscultation: abdomen normal to inspection Musculoskeletal: Head/Neck/Chest: normocephalic Neurologic: moves all extremities and awake Psychiatric: Orientation: alert and oriented x 3 Genitourinary: Delatorre patent and draining pink urine with CBI almost clamped. CBI was clamped at bedside. Results & Data Vital Signs (Past 12 Hours) Vital Signs Temp Pulse Pulse Resp BP BP Pulse Ox 09/27/24 07:58 36.6 C 43 L 17 158/86 H 97 09/27/24 02:34 36.5 C 45 L 18 156/78 H 97 O2 Del Method 09/27/24 07:58 Room Air 09/27/24 02:34 Room Air PG Care Time/CCT Total # of Minutes Spent Total Time Spent with Patient: Total time spent is greater than 50% in coordination of care (as documented) at patient's floor/unit and/or counseling patient: Coding Level of Care Code None Diagnoses BPH NOS w ur obs/LUTS N40.1 S/P TURP (status post transurethral resection of prostate) Z90.79
[2024-09-27 11:50] VITALS: RESP 16; O2SAT 96
[2024-09-27 12:30] VITALS: BP 156/78; PULSE 45
--- NOTE | 2024-09-27 12:36 | Discharge Summary ---
Date of Service September 27, 2024 Admission HPI Per Admitting Provider Patient with BPH and obstruction here for transurethral resection of prostate Principal Diagnosis BPH with obstruction Discharge Exam Constitutional well developed and well nourished; no acute distress Respiratory normal respiratory effort; no respiratory distress and no labored breathing Gastrointestinal (Abdomen) Inspection/Auscultation: abdomen normal to inspection Musculoskeletal Head/Neck/Chest: normocephalic Neurologic moves all extremities and awake Psychiatric Orientation: alert and oriented x 3 Genitourinary Delatorre draining yellow urine with minimal blood tinge with CBI clamp Discharge Data Allergies Allergy/AdvReac Type Severity Reaction Status Date / Time No Known Allergies Allergy Verified 09/26/24 13:46 Consultations 09/26/24 15:44 Consult Hospitalist Routine Procedures Performed Operation Date: 09/26/24 14:35 Actual Procedures p Transurethral Resection Prostate(Not Applicable) - Pritesh Bartlett, DO Hospital Course (1) BPH NOS w ur obs/LUTS: (2) S/P TURP (status post transurethral resection of prostate): - Pt POD#1 s/p TURP with Dr. Bartlett - Doing well, progressing as expected - Afebrile, hemodynamically stable - Lab work reviewed - creatinine 1.27, WBC 7.93, Hgb 14.7 - 3 way Delatorre catheter intact, patent and draining pink/light knox urine with CBI almost clamped - CBI clamped during exam, will reassess later this morning - Maintain Delatorre catheter - Anticipate home with Delatorre catheter later today presuming urine appropriate and he continues to progress as expected - Continue course of antibiotics upon discharge - Urine remains appropriate with CBI clamped, patient ready for dischargeorders placed - Expected clinical course reviewed, all questions answered - Will arrange outpatient follow-up with our service for voiding trial (3) Chronic diastolic CHF (congestive heart failure): Not acute exacerbation of chronic diastolic CHF with preserved LVEF 60-65%, mild concentric LVH, borderline left atrial enlargement (as noted on 11/24/2023, 1:49pm TTE, CARDS Dr. Jason Phan) with dry baseline weight of 178 pounds at home, as patient reports no weight gain, paroxysmal nocturnal dyspnea, ortho pnea, platypnea while in [facility]. Hence, patient received medical management of chronic diastolic CHF by adhering to a 2 gram Na diet, daily weights, strict I/O, amlodipine 10mg PO qam, hydralazine 50mg PO tid, and lisinopril 10mg PO qam while in [facility]. Patient will continue this same regimen on hospital discharge home on 09/27/2024. Total Time Total Time Spent Total Time Spent (In Minutes): 29 Discharge Plan Discharge Items Patient Disposition: Home - Self-Care Reason For Visit: Prostatic Enlargement, Solitary Kidney Discharge Diagnosis: Prostatic enlargement, solitary kidney Activity: Per Instructions section Lifting: No more than 25 pounds Bathing Comment: Okay to shower after discharge, no tub bath or soaking Sexual Activity: Wait until after follow-up appointment Exercise/Sports: Wait until after follow-up appointment Non-emergency contact: Surgeon and Urologist Call non-emergency contact if: your pain is not controlled and your temperature is above 101 Follow-up/Referrals: Pritesh Bartlett DO [Physician] - 10/23/24 1:00 pm Luanne Lanier MD [Primary Care Provider] - [facility],Nurse [FAKE FOR SCHEDULES] - 10/03/24 9:20 am Diet: Carb Consistent or DM2 Addtl Attending Provider Instructions: Please take all medications as prescribed and keep all follow-ups as scheduled. Please call our office at [phone] with any questions, concerns or need to reschedule appointments for any reason. We are happy to assist you. You can restart your Eliquis on 09/28 if your urine remains clear to pink Continue antibiotics as directed Tips for your recovery at home: Dont be alarmed by brownish or reddish blood or clots in your urine. This is a result of the procedure. This may occur off and on for weeks to months after the procedure but should continue to improve. Drink plenty of fluids during the day (enough to keep your urine very light colored). This will help keep a healthy flow of urine. Do not lift >25 lbs until your followup Avoid constipation. Please use a stool softener (Colace) for the first two weeks after your procedure Be sure to finish the antibiotics as prescribed. If you go home with a catheter, please wash tubing where it enters your body twice daily with mild soap (Dove or Dial). Once your catheter is removed, expect some blood in your urine and some burning when you urinate. You should have an appointment to have this removed, if you do not please call our office to arrange. Pending Studies at Discharge: Yes Stand-Alone Forms: [facility], Smoking Cessation Medications and DC Order Prescriptions: New ciprofloxacin HCl 500 mg tablet 500 mg PO BID Qty: 14 0RF Continued ampicillin 500 mg capsule 500 mg PO Q6H 10 Days Qty: 40 0RF trazodone 50 mg tablet 50 mg PO HS lisinopril 10 mg tablet 10 mg PO QAM hydralazine 25 mg tablet 50 mg PO TID topiramate 50 mg tablet 50 mg PO BID Qty: 60 5RF cholecalciferol (vitamin D3) 125 mcg (5,000 unit) capsule 125 mcg PO WK melatonin 3 mg capsule 3 mg PO HS PRN (Reason: Sleep) atorvastatin 40 mg tablet 40 mg PO QAM amlodipine 10 mg Tablet 10 mg PO QAM tamsulosin 0.4 mg Capsule 0.4 mg PO HS finasteride [Proscar] 5 mg Tablet 5 mg PO QAM Qty: 30 2RF Rx Instructions: for enlarged prostate aspirin 81 mg tablet,delayed release (DR/EC) 81 mg PO QAM Jardiance 10 mg tablet 10 mg PO QAM Held cephalexin 500 mg capsule 500 mg PO BID PRN (Reason: skin infection) Hold Instructions: Resume on 10/07/24. Hold while taking post operative antibiotics Eliquis 5 mg tablet 5 mg PO BID Qty: 180 3RF Hold Instructions: Resume on 09/28/24. per instructions Discharge Orders: Discharge Order (Routine); Ordered 09/27/24 Ordered By: Dannielle Curry Admission Data Admit Date/Time: 09/26/24 15:44 Attending Provider: Pritesh Bartlett Admit Provider: Pritesh Bartlett Primary Care Provider: Luanne Lanier Other Providers: Mitchel Marte; Deny Sanchez; Mervin Lombardo; David Larson; Deepak Rowan; Becca Murray; Tootie Gudino; Fabiana Morillo; Corinna Keller; Jamie Baugh; Rosa Zamarripa; Jason Naranjo; Deny Sommers; Real Scruggs; Mino Colon; Haily Thibodeaux; Luci Villareal; Luci Ashley; Ivette Donahue; Anay Thomas; Brittanie Larson; Kacie Elmore; Smith Rae; Bud Roberson; Jeffrey Johnston.; Tamra Murphy; Julianna Cristobal; Pasha Glass; Roro Weathers; David Waters; Briana White; Jeanine Beckman; Aletha Fofana; Osmar Dukes; Tee Venegas; Subha Ferrer; Babar Cottrell; Bibi Pina; Jon Ross; Pau Burton; Magalie Dhillon; Clair Gayle Other Interventions: Discharge Summary Assessment (RN) Last Done: 09/27/24 12:29 Coding Level of Care Code 98451 IN/OBS DISCH 30 MIN/LESS Diagnoses BPH NOS w ur obs/LUTS N40.1 S/P TURP (status post transurethral resection of prostate) Z90.79 Chronic diastolic CHF (congestive heart failure) I50.32
[2024-09-27] MEDS ORDERED: TAMSULOSIN HCL 0.4 MG CAP PO SCH (21:00)
[2024-09-27] MEDS ORDERED: traZODone HCL 50 MG TAB PO SCH (21:00)
[2024-09-30] MEDS ORDERED: CHOLECALCIFEROL 125 MCG (5,000 UNITS) TAB PO SCH (09:00)
== END 2024-09-27 13:57 | disposition home or self-care (01) ==
LOC: ASU 12:42 → 2N 12:42